=== PATIENT | male | born 1940 | race Caucasian/White ===

== ENCOUNTER 2017-08-10 15:33 | Inpatient (IN) | payer MEDICARE ==
[~2017-08-10] VITALS: Ht 182.9 cm; Wt 98.9 kg
[~2017-08-10 15:33] MED LIST: ALBU2.5V4 IH; ASP81TEC PO; ATOR10TA PO; CHOL10002 PO; CHOL200018 PO; DONE5TAB30 PO; DONE5TAB4 PO; ENAL10TA PO; FESO4TAB PO; FRSM20T PO; GLIP10TA13 PO; INSU100I14 SQ; INSU100I16 SQ; ISOS30TA3 PO; METF-380 PO; METF1000 PO; METO-370 PO; MTP25TSR PO; MULT1CAP27 PO; NITR0.4T39 SL; OMEG1CAP51 PO; OMEP20CA12 PO; OMEP40CA36 PO; OXYC-12 PO; PIOG30TA26 PO; PIOG30TA27 PO; POLY119P PO; POTA10CA43 PO; POTA10TA10 PO; RT-ALBUINH IH; SILO4CAP PO; SILO8CAP PO; TRAM50TA2 PO
[2017-08-10] MEDS ORDERED: NS IV 1000 ML 1,000 ML IV ONE ×2 (15:59→19:08)
[2017-08-10 16:28] LABS: BASOPHILS % (AUTO) 0 % (0-10); EOSINOPHILS # (AUTO) 0.1 10^3/uL (0.0-0.3); EOSINOPHILS % (AUTO) 2 % (0-10); LYMPHOCYTES # (AUTO) 1.7 X 10^3 (1.0-4.0); LYMPHOCYTES % (AUTO) 19 % (12-44); MEAN CORPUSCULAR HEMOGLOBIN 29 PG (25-34); MEAN CORPUSCULAR HGB CONC 33 G/DL (32-36); MEAN CORPUSCULAR VOLUME 88 FL (80-99); MEAN PLATELET VOLUME 11.5 FL (7.4-10.4); MONOCYTES # (AUTO) 0.6 X 10^3 (0.0-1.0); MONOCYTES % (AUTO) 7 % (0-12); NEUTROPHILS # (AUTO) 6.4 X 10^3 (1.8-7.8); NEUTROPHILS % (AUTO) 73 % (42-75); PLATELET COUNT 229 10^3/uL (130-400); RED BLOOD COUNT 5.02 10^6/uL (4.35-5.85); RED CELL DISTRIBUTION WIDTH 13.4 % (10.0-14.5); WHITE BLOOD COUNT 8.8 10^3/uL (4.3-11.0)
[2017-08-10 16:51] LABS: ALBUMIN 4.3 GM/DL (3.2-4.5); BILIRUBIN,TOTAL 1.5 MG/DL (0.1-1.0); CALCIUM 9.8 MG/DL (8.5-10.1); CREATININE SERUM 1.59 MG/DL (0.60-1.30); POTASSIUM 4.2 MMOL/L (3.6-5.0); TOTAL PROTEIN 7.3 GM/DL (6.4-8.2)
[2017-08-10] MEDS ORDERED: NS IV 1000 ML 1,000 ML IV SCH (17:45)
--- NOTE | 2017-08-10 17:50 | ED General ---
General Chief Complaint: General Problems/Pain Stated Complaint: DIZZINESS,CHILLS,DIARRHEA,STOMACH PAIN Nursing Triage Note: c/o generalized weakness/diaphoresis/diarreha. Onset today. Nursing Sepsis Screen: No Definite Risk Source of Information: Patient, Family Exam Limitations: No Limitations (ELIZABETH KAUFFMAN MD) History of Present Illness Time Seen by Provider: 17:45 Initial Comments The patient is a 76-year-old white male in [facility]. He was here a couple of weeks ago with acute dyspnea that may have related to the new prescription of imdur. This morning he apparently had a large diarrhea stool that was incontinent. Subsequently he has complained of dizziness, inability to stand, chills and abdominal pain. Timing/Duration: 12 Hours Associated Systoms: Diaphoresis, Syncope (near syncope), Weakness (ELIZABETH KAUFFMAN MD) Allergies and Home Medications Allergies Coded Allergies: Penicillins (Verified Allergy, Unknown, 05/01/12) Home Medications Albuterol Sulfate 6.7 Gm Hfa.aer.ad, 2 PUFF IH Q4H PRN for SHORTNESS OF BREATH, (Reported) Aspirin 81 Mg Tabec, 81 MG PO DAILY, (Reported) Atorvastatin Calcium 10 Mg Tablet, 10 MG PO HS, (Reported) LAST FILLED #30 02-01-16 Cholecalciferol 1,000 Unit Tab, 1,000 UNIT PO BID, (Reported) Donepezil Hcl 5 Mg Tab, 5 MG PO DAILY, (Reported) LAST FILLED #90 12-08-15 Enalapril Maleate 10 Mg Tablet, 10 MG PO DAILY, (Reported) LAST FILLED #90 12-08-15 Fesoterodine Fumarate 4 Mg Tab.sr.24h, 4 MG PO DAILY, (Reported) LAST FILLED #90 16 Furosemide 20 Mg Tab, 20 MG PO BID, (Reported) LAST FILLED #180 12-08-15 Insulin Aspart 300 Units/3 Ml Solution, 15 UNITS SQ AC, (Reported) Insulin Detemir 100 Unit/1 Ml Insuln.pen, 48 UNIT SQ HS, (Reported) FILLED 07-19-16 90 DAYS Isosorbide Mononitrate 30 Mg Tab.er.24h, 30 MG PO DAILY, #30 Ref 4 Prescribed by: TRAVIS SALAZAR on 08/06/16 1154 Metformin HCl 1,000 Mg Tablet, 1,000 MG PO BID, (Reported) Metoprolol Succinate 50 Mg Tab.er.24h, 25 MG PO DAILY, (Reported) LAST FILLED 90 DAYS 12-08-15 TAKES 1/2 (50MG) TABLET Nitroglycerin 0.4 Mg Tab.subl, 0.4 MG SL NEEDED, #100 Prescribed by: BASSAM POZO on 08/28/16 1316 [place]-3 Fatty Acids/Fish Oil 1 Each Capsule, 2,000 MG PO BID, (Reported) TAKE 2 (1000MG) CAPSULES Omeprazole 40 Mg Capsule.dr, 40 MG PO DAILY, (Reported) LAST FILLED #90 12-08-15 Pioglitazone HCl 30 Mg Tablet, 30 MG PO DAILY, (Reported) LAST FILLED #90 12-08-15 Potassium Chloride 10 Meq Tablet.er, 10 MEQ PO BID, (Reported) LAST FILLED #180 12-08-15 Silodosin 4 Mg Capsule, 4 MG PO DAILY, (Reported) LAST FILLED #90 12-08-15 Constitutional: see HPI EENTM: no symptoms reported Respiratory: no symptoms reported Cardiovascular: no symptoms reported Gastrointestinal: LLQ, diarrhea Genitourinary: no symptoms reported Musculoskeletal: no symptoms reported Skin: no symptoms reported Psychiatric/Neurological: No Symptoms Reported Hematologic/Lymphatic: No Symptoms Reported Immunological/Allergic: no symptoms reported (ELIZABETH KAUFFMAN MD) Past Xbupcqb-Xjwmzs-Hqmtoa Hx Patient Social History Alcohol Use: Denies Use Recreational Drug Use: No Smoking Status: Current Everyday Smoker Type Used: Cigars, Cigarettes, Pipe Former Smoker, Quit: Aug 04, 1980 Recent Foreign Travel: No Contact w/Someone Who Travel: No Recent Infectious Disease Expo: No Recent Hopitalizations: Yes (ELIZABETH KAUFFMAN MD) Immunizations Up To Date Tetanus Booster (TDap): Less than 5yrs PED Vaccines UTD: No Date of Pneumonia Vaccine: Aug 04, 2015 Date of Influenza Vaccine: Aug 27, 2012 (ELIZABETH KAUFFMAN MD) Seasonal Allergies Seasonal Allergies: No (ELIZABETH KAUFFMAN MD) Surgeries Surgeries: CABG (ELIZABETH KAUFFMAN MD) Respiratory Respiratory Disorders: Asthma, Pneumonia (ELIZABETH KAUFFMAN MD) Cardiovascular Cardiac Disorders: Cardiomyopathy, Coronary Artery Disease, High Cholesterol, Hypertension (ELIZABETH KAUFFMAN MD) Reproductive System Hx Reproductive Disorders: No (ELIZABETH KAUFFMAN MD) Musculoskeletal Musculoskeletal Disorders: Arthritis (ELIZABETH KAUFFMAN MD) Endocrine Endocrine Disorders: Diabetes, Insulin dep (ELIZABETH KAUFFMAN MD) HEENT HEENT Disorders: Cataract Loss of Vision: Denies (ELIZABETH KAUFFMAN MD) Blood Transfusions Adverse Reaction to a Blood Tr: No (ELIZABETH KAUFFMAN MD) Family Medical History Significant Family History: No Pertinent Family Hx Family Medial History: (ELIZABETH KAUFFMAN MD) Physical Exam Vital Signs Vital Sign - Last 12Hours 08/10/17 08/10/17 15:36 20:15 Temp 97.5 Pulse 78 Resp 18 Pulse Ox 95 O2 Delivery Room Air (IGLESIA SALTER DO) Vital Signs Capillary Refill : Less Than 3 Seconds (ELIZABETH KAUFFMAN MD) General Appearance: Mild Distress Eyes: Bilateral Eye Normal Inspection HEENT: Normal ENT Inspection Respiratory: Decreased Breath Sounds Cardiovascular: Regular Rate, Rhythm Gastrointestinal: Abnormal Bowel Sounds (decreased), Tenderness (left lower quadrant) Extremity: Normal Capillary Refill, Normal Inspection, Normal Range of Motion, Non Tender, No Calf Tenderness, No Pedal Edema Neurologic/Psychiatric: Alert, Oriented x3, No Motor/Sensory Deficits, Normal Mood/Affect Skin: Normal Color, Warm/Dry Lymphatic: No Adenopathy (ELIZABETH KAUFFMAN MD) Focused Exam Evaluation Sepsis Stage: Ruled Out (HYPOTENSION APPEARS TO BE DUE TO DEHYDRATION AT THIS TIME) Reason for ruling out sepsis: NO FEVER, NO ELEVATED WBC, NO IDENTIFIABLE INFECTION AT THIS TIME Lactate Level Laboratory Tests 08/10/17 16:15: Lactic Acid Level 2.49*H 08/10/17 18:17: Lactic Acid Level 2.14*H (GAETANOIGLESIA K DO) Time of Focused Exam: 18:00 Respiratory: Normal Breath Sounds, No Accessory Muscle Use, No Respiratory Distress Cardiovascular: Regular Rate, Rhythm, No Murmur, Normal Peripheral Pulses, Other (ABDOMINAL EXAM--MILD LLQ TENDERNESS. ) Capillary Refill: Less Than 3 Seconds Peripheral Pulses: 2+ Dorsalis Pedis (R), 2+ Left Dors-Pedis (L) Skin: warm/dry, pallor Lactic Acid Level (GAETANO,IGLESIA K DO) Progress/Results/Core Measures Results/Orders Lab Results Laboratory Tests Test 08/10/17 16:15 08/10/17 18:17 08/10/17 19:35 08/10/17 20:44 Range/Units White Blood Count 8.8 4.3-11.0 10^3/uL Red Blood Count 5.02 4.35-5.85 10^6/uL Hemoglobin 14.7 13.3-17.7 G/DL Hematocrit 44 40-54 % Mean Corpuscular Volume 88 80-99 FL Mean Corpuscular Hemoglobin 29 25-34 PG Mean Corpuscular Hemoglobin Concent 33 32-36 G/DL Red Cell Distribution Width 13.4 10.0-14.5 % Platelet Count 229 130-400 10^3/uL Mean Platelet Volume 11.5 H 7.4-10.4 FL Neutrophils (%) (Auto) 73 42-75 % Lymphocytes (%) (Auto) 19 12-44 % Monocytes (%) (Auto) 7 0-12 % Eosinophils (%) (Auto) 2 0-10 % Basophils (%) (Auto) 0 0-10 % Neutrophils # (Auto) 6.4 1.8-7.8 X 10^3 Lymphocytes # (Auto) 1.7 1.0-4.0 X 10^3 Monocytes # (Auto) 0.6 0.0-1.0 X 10^3 Eosinophils # (Auto) 0.1 0.0-0.3 10^3/uL Basophils # (Auto) 0.0 0.0-0.1 10^3/uL Sodium Level 137 135-145 MMOL/L Potassium Level 4.2 3.6-5.0 MMOL/L Chloride Level 104 98-107 MMOL/L Carbon Dioxide Level 20 L 21-32 MMOL/L Anion Gap 13 5-14 MMOL/L Blood Urea Nitrogen 18 7-18 MG/DL Creatinine 1.59 H 0.60-1.30 MG/DL Estimat Glomerular Filtration Rate 43 BUN/Creatinine Ratio 11 Glucose Level 248 H 70-105 MG/DL Lactic Acid Level 2.49 *H 2.14 *H 0.50-2.00 MMOL/L Calcium Level 9.8 8.5-10.1 MG/DL Total Bilirubin 1.5 H 0.1-1.0 MG/DL Aspartate Amino Transf (AST/SGOT) 19 5-34 U/L Alanine Aminotransferase (ALT/SGPT) 28 0-55 U/L Alkaline Phosphatase 66 40-136 U/L Total Protein 7.3 6.4-8.2 GM/DL Albumin 4.3 3.2-4.5 GM/DL Amylase Level 71 25-125 U/L Lipase 48 8-78 U/L Urine Color YELLOW Urine Clarity CLEAR Urine pH 5 5-9 Urine Specific [place] 1.010 L 1.016-1.022 Urine Protein NEGATIVE NEGATIVE Urine Glucose (UA) NEGATIVE NEGATIVE Urine Ketones NEGATIVE NEGATIVE Urine Nitrite NEGATIVE NEGATIVE Urine Bilirubin NEGATIVE NEGATIVE Urine Urobilinogen NORMAL NORMAL MG/DL Urine Leukocyte Esterase NEGATIVE NEGATIVE Urine RBC (Auto) NEGATIVE NEGATIVE Urine RBC NONE /HPF Urine WBC RARE /HPF Urine Crystals NONE /LPF Urine Bacteria NEGATIVE /HPF Urine Casts PRESENT /LPF Urine Hyaline Casts 10-25 H /LPF Urine Mucus NEGATIVE /LPF Urine Culture Indicated NO Glucometer 173 H 70-110 MG/DL (IGLESIA SALTER DO) My Orders Orders - IGLESIA SALTER DO Sputum Culture (08/10/17 18:49) Saline Lock/Iv-Start (08/10/17 19:06) Lactated Ringers (Lr 1000 Ml Iv Solution (08/10/17 19:06) Bladder Scan (08/10/17 19:06) Saline Lock/Iv-Start (08/10/17 19:08) Ns Iv 1000 Ml (Sodium Chloride 0.9%) (08/10/17 19:08) Catheter(Urinary) Insert & Ass 03,15 (08/10/17 19:31) Ceftriaxone Injection (Rocephin Injectio (08/10/17 19:45) Amylase (08/10/17 19:37) Lipase (08/10/17 19:37) Blood Culture (08/10/17 19:38) (IGLESIA SALTER DO) Medications Given in ED Current Medications Medications Dose Ordered Sig/Anoop Route Start Time Stop Time Status Last Admin Dose Admin Ceftriaxone Sodium 1000 mg/ Sodium Chloride 50 ml @ 100 mls/hr ONCE ONCE IV 08/10/17 19:45 08/10/17 20:14 DC 08/10/17 19:49 100 MLS/HR Iohexol 100 ml ONCE ONCE IV 08/10/17 18:15 08/10/17 18:16 DC 08/10/17 18:32 75 ML Sodium Chloride 100 ml ONCE ONCE IV 08/10/17 18:15 08/10/17 18:16 DC 08/10/17 18:32 100 ML Sodium Chloride 1,000 ml @ 0 mls/hr Q0M ONCE IV 08/10/17 15:59 08/10/17 16:01 DC 08/10/17 16:10 1,000 MLS/HR Sodium Chloride 1,000 ml @ 0 mls/hr Q0M ONCE IV 08/10/17 19:08 08/10/17 19:10 DC 08/10/17 19:11 0 MLS/HR (IGLESIA SALTER DO) Vital Signs/I&O Vital Sign - Last 12Hours 08/10/17 08/10/17 08/10/17 15:36 20:15 21:00 Temp 97.5 97.5 97.4 Pulse 78 73 Resp 18 16 B/P (MAP) Pulse Ox 95 O2 Delivery Room Air Room Air Room Air (IGLESIA SALTER DO) Progress Note : Progress Note 1800--ASSUMED CARE FROM , HE HAS DISCUSSED WITH DR. POZO AND PT HAS BEEN ACCEPTED FOR ADMIT, CT SCAN PENDING 1899--AFTER 2 LITERS OF FLUID, BP STILL 89 SYSTOLIC, AND NO URGE TO URINATE BLADDER SCAN SHOWS 432 ML URINE IN BLADDER, BUT PT DOES NOT FEEL LIKE HE CAN URINATE. THAKKAR CATHETER PLACED. BP UP TO MID 90'S TO LOW 100'S AFTER 3RD LITER OF FLUIDS NO DETERIORATION IN PT'S CONDITION DURING ER STAY (IGLESIA SALTER DO) Diagnostic Imaging Comments CXR--NO ACUTE PROCESS, BUT SUBOPTIMAL EXAM--PER RADIOLOGIST REPORT @ 1850 CT ABDOMEN/PELVIS--ENLARGED PROSTATE, DIVERTICULAR DISEASE WITHOUT ACUTE DIVERTICULITIS--PER RADIOLOGIST REPORT @ 1900 Reviewed: Reviewed by Me (IGLESIA SALTER DO) Departure Communication (Admissions) Progress Notes [address] Pozo hospitalist. The patient will be admitted (ELIZABETH KAUFFMAN MD) Progress Notes 1904--SPOKE WITH DR. POZO, UPDATE GIVEN, ACCEPTS PT FOR ADMIT TO ICU, WILL HYDRATE AND GIVE PROPHYLACTIC ANTIBIOTICS (IGLESIA SALTER DO) Impression Impression: Primary Impression: Dehydration Additional Impressions: LLQ abdominal pain Hypotension Enlarged prostate Disposition: ADMITTED INPATIENT Condition: Improved Admissions Decision to Admit Reason: Admit from ER (General) Decision to Admit/Date: Aug 10, 2017 Time/Decision to Admit Time: 18:00 (IGLESIA SALTER DO) Departure-Patient Inst. Referrals: FANG ROLLINS MD (PCP/Family) Primary Care Physician ELIZABETH KAUFFMAN MD Aug 10, 2017 17:50 IGLESIA SALTER DO Aug 10, 2017 18:47
[2017-08-10] MEDS ORDERED: IOHEXOL 350 MG/ML 100 ML (OMNIPAQUE 350) VIAL IV ONE (18:15)
[2017-08-10] MEDS ORDERED: NS 100 ML (IVPB) BAG IV ONE (18:15)
--- NOTE | 2017-08-10 18:43 | Diagnostic Imaging Report ---
INDICATION: Dizziness, chills. EXAMINATION: Portable erect AP chest at 5:50 p.m. FINDINGS: This study is less than optimal as the patient is rotated and there is shallow inspiration. Allowing for this technical factor, the heart is stable in size when compared to the prior exam of 08/27/16. The sternotomy wires and surgical clips, noted previously, are again evident and no different. The band of atelectasis/infiltrate in the left heart border, seen on the previous study, is not visualized on this exam. The lungs, where visualized, are clear. There is no evidence for overt failure or pneumonia and there is no significant pleural effusion identified. The mediastinum is not widened. The osseous structures are intact. IMPRESSION: 1. There is no evidence for an acute cardiopulmonary abnormality on this suboptimal exam. 2. If clinical concern regarding an underlying abnormality persists, then a followup PA and lateral chest would be recommended for further study. Dictated by: Dictated on workstation # [id number]
--- NOTE | 2017-08-10 18:56 | Diagnostic Imaging Report ---
PROCEDURE: CT abdomen and pelvis with contrast. TECHNIQUE: Multiple contiguous axial images were obtained through the abdomen and pelvis after administration of intravenous contrast. INDICATION: Left lower quadrant pain. FINDINGS: The previous CT abdomen/pelvis exam of 02/26/2013 noted diverticulosis of the sigmoid colon but failed to show any sign of acute diverticulitis. On this exam, there are again numerous diverticula involving the sigmoid colon. However, there is still no significant distortion of the pericolic fat to suggest acute diverticulitis. There is no pelvic mass or free fluid collection noted either. The appendix was visualized and is not abnormally thickened. As seen on the prior exam, the prostate gland is enlarged measuring 5.2 cm (normal 5 cm or less). The urinary bladder is also distended by urine. The liver is of lower density than usually seen. This does suggest fatty metamorphosis. The spleen, pancreas, adrenals, kidneys, aorta, and inferior vena cava show no sign of an acute abnormality. The gallbladder is surgically absent. There is some fluid within the stomach, and the stomach is difficult to assess. The lung bases are clear. The bone windows show no evidence for a fracture or for a destructive lesion. There are degenerative changes throughout the lower thoracic and lumbar spine. IMPRESSION: 1. There is diverticulosis of the sigmoid colon, but there is no evidence for acute diverticulitis. 2. There is no acute abnormality of the abdomen or pelvis noted otherwise. 3. The prostate gland is enlarged. Dictated by: Dictated on workstation # [id number]
[2017-08-10] MEDS ORDERED: LACTATED RINGERS 1,000 ML IV ONE (19:06)
[2017-08-10 19:43] LABS: BILIRUBIN,URINE NEGATIVE (NEGATIVE); KETONES,URINE NEGATIVE (NEGATIVE); LEUKOCYTE ESTERASE ,URINE NEGATIVE (NEGATIVE); NITRITE,URINE NEGATIVE (NEGATIVE); PH,URINE 5 (5-9); PROTEIN,URINE NEGATIVE (NEGATIVE); UROBILINOGEN,URINE NORMAL (NORMAL)
[2017-08-10] MEDS ORDERED: cefTRIAXone INJECTION 1,000 MG in NS (IVPB) 50 ML IV ONE (19:45)
[2017-08-10 19:53] LABS: WBC,URINE RARE /HPF
[2017-08-10 19:53] LABS: AMYLASE 71 U/L (25-125); LIPASE 48 U/L (8-78)
[2017-08-10 20:51] VITALS: BP 100/56
[2017-08-10 21:00] VITALS: BP 94/56
[2017-08-10] MEDS ORDERED: D5 1/2 NS W/KCL 10 MEQ/L 1,000 ML IV SCH (21:15)
[2017-08-10] MEDS ORDERED: CATHETER FLUSH 10 ML SYR IV PRN (21:15)
[2017-08-10] MEDS ORDERED: ONDANSETRON 4 MG/2 ML (SDV) Z0FRAN IV PRN (21:15)
[2017-08-10] MEDS ORDERED: fentaNYL INJECTION 100 MCG/2 ML AMP IV PRN (21:15)
[2017-08-10 22:00] VITALS: BP 97/57
[2017-08-10] MEDS ORDERED: NS IV 500 ML 500 ML IV SCH (22:30)
[2017-08-10] MEDS ORDERED: PANTOPRAZOLE 40 MG (PROTONIX) TAB PO ONE (22:30)
[2017-08-10 23:00] VITALS: BP 99/73
[2017-08-10] MEDS: CATHETER FLUSH 10 ML SYR IV SCH (23:32)
[2017-08-10] MEDS: NS IV 1000 ML 1,000 ML IV SCH (23:34)
[2017-08-11] VITALS (13 sets, daily range): BP systolic 99–151; BP diastolic 51–69
[2017-08-11 04:10] LABS: BASOPHILS % (AUTO) 0 % (0-10); EOSINOPHILS # (AUTO) 0.1 10^3/uL (0.0-0.3); EOSINOPHILS % (AUTO) 1 % (0-10); LYMPHOCYTES # (AUTO) 1.9 X 10^3 (1.0-4.0); LYMPHOCYTES % (AUTO) 24 % (12-44); MEAN CORPUSCULAR HEMOGLOBIN 30 PG (25-34); MEAN CORPUSCULAR HGB CONC 33 G/DL (32-36); MEAN CORPUSCULAR VOLUME 91 FL (80-99); MONOCYTES # (AUTO) 0.8 X 10^3 (0.0-1.0); MONOCYTES % (AUTO) 10 % (0-12); NEUTROPHILS % (AUTO) 64 % (42-75); PLATELET COUNT 160 10^3/uL (130-400); RED BLOOD COUNT 4.26 10^6/uL (4.35-5.85); RED CELL DISTRIBUTION WIDTH 13.5 % (10.0-14.5); WHITE BLOOD COUNT 7.8 10^3/uL (4.3-11.0)
[2017-08-11 04:27] LABS: ALANINE AMINOTRANSFERASE 22 U/L (0-55); ALBUMIN 3.5 GM/DL (3.2-4.5); ANION GAP 8 MMOL/L (5-14); ASPARTATE AMINO TRANSFERASE 15 U/L (5-34); BILIRUBIN,TOTAL 1.1 MG/DL (0.1-1.0); BLOOD UREA NITROGEN 14 MG/DL (7-18); BUN/CREATININE RATIO 12; CALCIUM 8.6 MG/DL (8.5-10.1); CARBON DIOXIDE 22 MMOL/L (21-32); CHLORIDE 109 MMOL/L (98-107); CREATININE SERUM 1.13 MG/DL (0.60-1.30); GFR ESTIMATED > 60; GLUCOSE 165 MG/DL (70-105); MAGNESIUM 1.6 MG/DL (1.8-2.4); PHOSPHORUS 3.3 MG/DL (2.3-4.7); POTASSIUM 4.3 MMOL/L (3.6-5.0); SODIUM 139 MMOL/L (135-145); TOTAL PROTEIN 5.8 GM/DL (6.4-8.2)
[2017-08-11] MEDS: CATHETER FLUSH 10 ML SYR IV SCH ×3 (05:14→22:00)
[2017-08-11] MEDS ORDERED: inSUlin (REGULAR) HUMAN 1 UNIT/0.01 ML (CHARGE PER UNIT) SC SCH (06:00)
[2017-08-11] MEDS ORDERED: MAGNESIUM 1 GM/100 ML IVPB 100 ML IV SCH (06:00)
[2017-08-11] MEDS ORDERED: KCL 20 MEQ TAB (K-DUR) PO SCH (06:00)
[2017-08-11] MEDS ORDERED: POTASSIUM CL 10MEQ/50ML IVPB 50 ML IV SCH (06:00)
--- NOTE | 2017-08-11 06:20 | Pulmonary Consultation ---
History of Present Illness History of Present Illness Date of Consultation 08/11/17 06:15 Time Seen by Provider: 06:16 Date of Admission History of Present Illness 75yo presented to ED secondary to not feeling well and diarrhea that started 530 yesterday morning. He was found to have hypotension and dehydrated. PT's hypotension did resolve with IVF. No prior episodes like this. CDiff is pending and occult stool. He was also complaining of dizziness, and LLQ/RUQ pain worse with palpation. I am consulted for ICU management. Allergies and Home Medications Allergies Coded Allergies: Penicillins (Verified Allergy, Unknown, 05/01/12) Home Medications Albuterol Sulfate 6.7 Gm Hfa.aer.ad, 2 PUFF IH Q4H PRN for SHORTNESS OF BREATH, (Reported) Aspirin 81 Mg Tabec, 81 MG PO DAILY, (Reported) Atorvastatin Calcium 10 Mg Tablet, 10 MG PO HS, (Reported) LAST FILLED #30 02-01-16 Cholecalciferol 1,000 Unit Tab, 1,000 UNIT PO BID, (Reported) Donepezil Hcl 5 Mg Tab, 5 MG PO DAILY, (Reported) LAST FILLED #90 12-08-15 Enalapril Maleate 10 Mg Tablet, 10 MG PO DAILY, (Reported) LAST FILLED #90 12-08-15 Fesoterodine Fumarate 4 Mg Tab.sr.24h, 4 MG PO DAILY, (Reported) LAST FILLED #90 12-08-15 Furosemide 20 Mg Tab, 20 MG PO BID, (Reported) LAST FILLED #180 12-08-15 Insulin Aspart 300 Units/3 Ml Solution, 15 UNITS SQ AC, (Reported) Insulin Detemir 100 Unit/1 Ml Insuln.pen, 48 UNIT SQ HS, (Reported) FILLED 07-19-16 90 DAYS Isosorbide Mononitrate 30 Mg Tab.er.24h, 30 MG PO DAILY, #30 Ref 4 Prescribed by: TRAVIS SALAZAR on 08/06/16 1154 Metformin HCl 1,000 Mg Tablet, 1,000 MG PO BID, (Reported) Metoprolol Succinate 50 Mg Tab.er.24h, 25 MG PO DAILY, (Reported) LAST FILLED 90 DAYS 12-08-15 TAKES 1/2 (50MG) TABLET Nitroglycerin 0.4 Mg Tab.subl, 0.4 MG SL NEEDED, #100 Prescribed by: BASSAM POZO on 08/28/16 1316 [place]-3 Fatty Acids/Fish Oil 1 Each Capsule, 2,000 MG PO BID, (Reported) TAKE 2 (1000MG) CAPSULES Omeprazole 40 Mg Capsule.dr, 40 MG PO DAILY, (Reported) LAST FILLED #90 12-08-15 Pioglitazone HCl 30 Mg Tablet, 30 MG PO DAILY, (Reported) LAST FILLED #90 12-08-15 Potassium Chloride 10 Meq Tablet.er, 10 MEQ PO BID, (Reported) LAST FILLED #180 12-08-15 Silodosin 4 Mg Capsule, 4 MG PO DAILY, (Reported) LAST FILLED #90 12-08-15 Past Svrahev-Kucslq-Hoicyw Hx Patient Social History Alcohol Use: Denies Use Recreational Drug Use: No Smoking Status: Current Everyday Smoker Type Used: Cigars, Cigarettes, Pipe Former Smoker, Quit: Aug 04, 1980 Recent Foreign Travel: No Contact w/Someone Who Travel: No Recent Infectious Disease Expo: No Recent Hopitalizations: Yes Immunizations Up To Date Tetanus Booster (TDap): Less than 5yrs PED Vaccines UTD: No Date of Pneumonia Vaccine: Aug 04, 2015 Date of Influenza Vaccine: Aug 27, 2012 Seasonal Allergies Seasonal Allergies: No Surgeries History of Surgeries: Yes (KIDNEY STONES REMOVED) Surgeries: CABG Respiratory History of Respiratory Disorde: Yes Respiratory Disorders: Asthma, Pneumonia Cardiovascular History of Cardiac Disorders: Yes (CABG x 3 2007) Cardiac Disorders: Cardiomyopathy, Coronary Artery Disease, High Cholesterol, Hypertension Neurological History of Neurological Disord: No Reproductive System Hx Reproductive Disorders: No Genitourinary History of Genitourinary Disor: Yes Genitourinary Disorders: Kidney Stones Gastrointestinal History of Gastrointestinal Di: No Musculoskeletal History of Musculoskeletal Dis: Yes (UNSTEADY ON FEET USES WALKER AT HOME) Musculoskeletal Disorders: Arthritis Endocrine History of Endocrine Disorders: Yes Endocrine Disorders: Diabetes, Insulin dep HEENT History of HEENT Disorders: Yes HEENT Disorders: Cataract Loss of Vision: Denies Hearing Impairment: Hard of Hearing Cancer History of Cancer: No Psychosocial History of Psychiatric Problem: No Integumentary History of Skin or Integumenta: No Blood Transfusions History of Blood Disorders: No Adverse Reaction to a Blood Tr: No Family Medical History Significant Family History: No Pertinent Family Hx Family Medial History: Review of Systems Time Seen by Provider: 06:26 Constitutional: Sweats, Weakness, Malaise, No: Fever, Chills, Other Eyes: No: Pain, Vision change, Conjunctivae inflammation, Eyelid inflammation, Other, Redness ENT: No: Ear pain, Ear discharge, Nose pain, Nose discharge, Nose congestion, Mouth pain, Mouth swelling, Throat pain, Throat swelling, Other Respiratory: Cough, Dry, Shortness of breath, SOB with excertion, No: Wheezing , Hemoptysis, Pleuritic Pain, Sputum, Wheezing, Other Cardiovascular: No: Chest Pain, Palpitations, Orthopnea, Paroxysmal Noc. Dyspnea, Edema, Lt Headedness, Other Gastrointestinal: Abdominal Pain, Diarrhea, No: Nausea, Vomiting, Constipation , Melena, Hematochezia, Other Genitourinary: No Dysuria, No Frequency, No Incontinence, No Hematuria, No Retention, No Other Musculoskeletal: No: other, neck pain, shoulder pain, arm pain, back pain, hand pain, leg pain, foot pain Neurological: Weakness Exam Exam Vital Signs Date Time Temp Pulse Resp B/P (MAP) Pulse Ox O2 Delivery O2 Flow Rate FiO2 08/11/17 05:00 97 Room Air 08/11/17 05:00 67 14 115/56 08/11/17 04:00 64 11 113/59 08/11/17 04:00 97.6 98 Room Air 08/11/17 04:00 97 Room Air 08/11/17 03:00 67 11 111/54 08/11/17 03:00 97 Room Air 08/11/17 02:00 61 10 101/55 08/11/17 02:00 96 Room Air 08/11/17 01:00 95 Room Air 08/11/17 01:00 77 08/11/17 01:00 77 14 100/53 Room Air 08/11/17 00:00 64 10 99/51 Room Air 08/11/17 00:00 97 Room Air 08/11/17 00:00 97 Room Air 08/10/17 23:00 73 31 99/73 Room Air 08/10/17 22:00 97 Room Air 08/10/17 22:00 73 14 97/57 Room Air 08/10/17 21:00 75 13 94/56 Room Air 08/10/17 21:00 97.4 Room Air 08/10/17 20:51 75 14 100/56 Room Air 08/10/17 20:33 72 08/10/17 20:15 97.5 73 16 95 Room Air 08/10/17 15:36 97.5 78 18 Room Air General Appearance: Mild Distress HEENT: Normal ENT Inspection Respiratory: Normal Breath Sounds, No Accessory Muscle Use, No Respiratory Distress Cardiovascular: Regular Rate, Rhythm, No Murmur, Normal Peripheral Pulses, Other (ABDOMINAL EXAM--MILD LLQ TENDERNESS. ) Capillary Refill: Less Than 3 Seconds Peripheral Pulses: 2+ Dorsalis Pedis (R), 2+ Left Dors-Pedis (L) Extremity: Normal Capillary Refill, Normal Inspection, Normal Range of Motion, Non Tender, No Calf Tenderness, No Pedal Edema Neurologic/Psychiatric: Alert, Oriented x3, No Motor/Sensory Deficits, Normal Mood/Affect Skin: Normal Color, Warm/Dry Lymphatic: No Adenopathy Results Lab Laboratory Tests 08/10/17 16:15 08/11/17 03:44 Assessment/Plan Assessment/Plan hypotension secondary to Dehydration - resolved -NS at 150 diarrhea -cdiff pending -Pt is currently on Rocephin will change to PO flagyl Diverticulosis Hx of asthma - stable IDDM Labs and radiology reviewed. PT is doing better I am going to transfer him to 4th floor. 255 Clinical Quality Measures DVT/VTE Risk/Contraindication: Risk Factor Score Per Nursin RFS Level Per Nursing on Admit: 4+=Very High OLEGARIO GAXIOLA DO Aug 11, 2017 06:20
[2017-08-11] MEDS ORDERED: IBUPROFEN TABLET 200 MG TAB PO PRN (06:30)
--- NOTE | 2017-08-11 08:13 | Diagnostic Imaging Report ---
Portable upright radiograph of the chest. INDICATION: Hypertension. FINDINGS: There is a left basilar opacities favored to be atelectasis, increased from the prior exam. The right lung demonstrate no focal infiltrates. Prominent background chronic appearing interstitial thickening seen. The heart size is slightly prominent. Sternotomy wires are seen. No effusion or pneumothorax. Mediastinum and margaret appear unremarkable. IMPRESSION: Increased left basilar atelectasis. Dictated by: Dictated on workstation # [id number]
[2017-08-11] MEDS: inSUlin (REGULAR) HUMAN 1 UNIT/0.01 ML (CHARGE PER UNIT) SC SCH ×4 (08:14→20:53)
[2017-08-11] MEDS: MAGNESIUM 1 GM/100 ML IVPB 100 ML IV SCH ×2 (08:15→08:16)
[2017-08-11] MEDS: NS IV 1000 ML 1,000 ML IV SCH ×4 (08:26→21:02)
[2017-08-11] MEDS: PANTOPRAZOLE 40 MG (PROTONIX) TAB PO SCH ×2 (08:33→21:02)
[2017-08-11] MEDS: ENOXAPARIN 40 MG/0.4 ML (LOVENOX) SYR SC SCH (08:33)
[2017-08-11] MEDS ORDERED: DONE5TAB30 PO (09:45)
[2017-08-11] MEDS ORDERED: OMEG-77 PO (09:45)
[2017-08-11] MEDS ORDERED: ASPI-983 PO (09:45)
[2017-08-11] MEDS ORDERED: FURO20TA4 PO (09:45)
[2017-08-11] MEDS ORDERED: CHOL10007 PO (09:45)
[2017-08-11] MEDS ORDERED: NITR0.4T SL (09:45)
[2017-08-11] MEDS ORDERED: ISOS30TA3 PO (09:45)
[2017-08-11] MEDS ORDERED: ENAL10TA PO (09:45)
[2017-08-11] MEDS ORDERED: INSU100I29 SC (09:53)
[2017-08-11] MEDS ORDERED: GLUC1KIT INJ (09:55)
--- NOTE | 2017-08-11 11:02 | History & Physical-Hospitalist ---
HPI History of Present Illness: HPI/Chief Complaint CC: Lower left quadrant pain HPI: This is a [address] Funes who presented with lower left quadrant pain and was found to have hypotension and dehydration Dr. Velásquez Review: Pt's diarrhea looks to be the source of dehydration Pt was taken off Rocephin and started Flagyl CT abdomen showed diverticulosis Pt has a hx of asthma and this is stable Pt is okay to transfer to floor Patient Interview: Pt's family was visiting Pt is feeling better than when admitted. Pt confirms abdominal pain that comes and goes and he confirms pain med usage Pt confirms PCP as Dr. Funes Physical exam stable Pt's family states that he moves around with walker, but he was brought here by wheelchair Pt was encouraged to move around a bit and ambulate. Family will retrieve walker from home Pt's family was curious about his condition. Colon infection and medications discussed. Results will be further discussed when they are available Scribed by Catia Contreras under the direct supervision of Dr. Pozo. Source: patient Exam Limitations: no limitations Date Seen 08/11/17 Time Seen by Provider: 11:00 Attending Physician Cinthia Pozo John D MD Referring Physician Date of Admission Aug 10, 2017 at 20:04 Home Medications & Allergies Home Medications Reviewed patient Home Medication Reconciliation Form Allergies Allergies Coded Allergies Penicillins (Verified Allergy, Unknown, 05/01/12) Past Fmdmgpc-Vzvvbg-Cdalpc Hx Patient Social History Marrital Status: Employed/Student: retired Alcohol Use: Denies Use Recreational Drug Use: No Smoking Status: Current Everyday Smoker Former Smoker, Quit: Aug 04, 1980 Type Used: Cigars, Cigarettes, Pipe Physical Abuse Screen: No Sexual Abuse: No Recent Foreign Travel: No Contact w/other who traveled: No Recent Hopitalizations: Yes Recent Infectious Disease Expo: No Immunizations Up To Date Tetanus Booster (TDap): Less than 5yrs Pediatric: No Date of Pneumonia Vaccine: Aug 04, 2015 Date of Influenza Vaccine: Aug 27, 2012 Seasonal Allergies Seasonal Allergies: No Surgeries Yes (KIDNEY STONES REMOVED) CABG Respiratory Yes COPD Cardiovascular Yes (CABG x 3 2007) Cardiomyopathy, Coronary Artery Disease, High Cholesterol, Hypertension Neurological No Reproductive System Hx Reproductive Disorders: No Genitourinary Yes Kidney Stones Gastrointestinal No Musculoskeletal Yes (UNSTEADY ON FEET USES WALKER AT HOME) Arthritis Endocrine History of Endocrine Disorders: Yes Endocrine Disorders: Diabetes, Insulin dep HEENT History of HEENT Disorders: Yes HEENT Disorders: Cataract Loss of Vision: Denies Hearing Impairment: Hard of Hearing Cancer No Psychosocial History of Psychiatric Problem: No Integumentary History of Skin or Integumenta: No Blood Transfusions History of Blood Disorders: No Adverse Reaction to a Blood Tr: No Family Medical History Significant Family History: No Pertinent Family Hx Family Hx: Review of Systems Constitutional: see HPI, weakness EENTM: no symptoms reported Respiratory: no symptoms reported Cardiovascular: no symptoms reported Gastrointestinal: abdominal pain (LLQ) Genitourinary: decreased output Musculoskeletal: no symptoms reported Skin: no symptoms reported Psychiatric/Neurological: No Symptoms Reported Physical Exam Physical Exam Vital Signs Vital Sign - Last 12Hours 08/10/17 08/10/17 08/10/17 15:36 20:15 20:51 Temp 97.5 Pulse 78 Resp 18 B/P (MAP) 100/56 Pulse Ox 95 O2 Delivery Room Air Capillary Refill : Less Than 3 Seconds General Appearance: No Apparent Distress, WD/WN, Chronically ill, Obese Eyes: Bilateral Eye Normal Inspection, Bilateral Eye PERRL HEENT: PERRL/EOMI, Normal ENT Inspection, Pharynx Normal Neck: Full Range of Motion, Normal Inspection, Non Tender, Supple, Carotid Bruit Respiratory: Chest Non Tender, Lungs Clear, Normal Breath Sounds, No Accessory Muscle Use, No Respiratory Distress Cardiovascular: Regular Rate, Rhythm, No Edema, No Gallop, No JVD, No Murmur, Normal Peripheral Pulses Gastrointestinal: Normal Bowel Sounds, No Organomegaly, No Pulsatile Mass, Non Tender, Soft Back: Normal Inspection, No CVA Tenderness, No Vertebral Tenderness Extremity: Normal Capillary Refill, Normal Inspection, Normal Range of Motion, Non Tender, No Calf Tenderness, No Pedal Edema Neurologic/Psychiatric: Alert, Oriented x3, No Motor/Sensory Deficits, Normal Mood/Affect Skin: Normal Color, Warm/Dry Lymphatic: No Adenopathy Results Results/Procedures Lab Laboratory Tests 08/10/17 16:15 08/11/17 03:44 Assessment/Plan Admission Diagnosis Assessment: Acute abdominal pain nonspecific but could be due to diverticulosis process Status post sepsis due to dehydration now resolved Diabetes mellitus Hypertension as an outpatient Hyperlipidemia Chronic debility uses walker at home CAD Chronic angina Assessment and Plan Plan: Advance diet Reconcile home meds Ambulate, with walker Flagyl Clinical Quality Measures DVT/VTE Risk/Contraindication: Risk Factor Score Per Nursin RFS Level Per Nursing on Admit: 4+=Very High CINTHIA POZO DO Aug 11, 2017 11:02
[2017-08-11] MEDS ORDERED: NITROGLYCERIN 0.4 MG SL TABS BTL 25'S SL PRN (11:15)
[2017-08-11] MEDS ORDERED: GLUCAGON EMERGENCY 1 MG/KIT SC PRN (11:15)
[2017-08-11] MEDS ORDERED: RT-ALBUTEROL SULF 2.5 MG/3 ML PRE-MIX VIAL IH PRN (11:45)
[2017-08-11] MEDS: metroNIDAZOLE 500MG/100ML IVPB 100 ML IV SCH ×2 (13:26→21:01)
--- NOTE | 2017-08-11 15:07 | Physical Therapy Evaluation ---
PT Evaluation-General Medical Diagnosis Admission Date Aug 10, 2017 at 20:04 Medical Diagnosis: LLQ pain/dehydration Onset Date: Aug 10, 2017 Therapy Diagnosis Therapy Diagnosis: generalized weakness/debility Height/Weight Height (Feet): 6 Height (Inches): 0.00 Weight (Pounds): 221 Weight (Ounces): 8.0 Precautions Precautions/Isolations: Fall Prevention, Standard Precautions Referral Physician: Liss Reason for Referral: Evaluation/Treatment Medical History Pertinent Medical History: CABG, CAD, COPD, DM, HTN, Smoking Current History ER with dizziness, diarrhea, hypotension Reviewed History: Yes Social History Home: Single Level Current Living Status: Spouse Entry Into Home: Stairs With Railing PT Steps Into Home: 2 Prior/Core FIM Prior Level of Function Functional [place] Measure 0=Not Assessed/NA 4=Minimal Assistance 1=Total Assistance 5=Supervision or Setup 2=Maximal Assistance 6=Modified [place] 3=Moderate Assistance 7=Complete [place] Bed Mobility: 6 Transfers (B,C,W/C) (FIM): 6 Gait: 6 uses FWW PT Evaluation-Current Subjective Patient agrees to PT. No c/o at this time. Pain Numeric Pain Scale: 0-No Pain Location: No Pain Reported Objective Patient Orientation: Normal For Age Problem Solving: Fair Attachments: IV ROM/Strength ROM Lower Extremities bilateral LE WNL Strenght Lower Extremities left knee flexion/extension 4-/5; hip flexion 4-/5; ankle dorsi/plantarflexion 4 /5 right knee flexion/extension 4-/5; hip flexion 4-/5; ankle dorsi/plantarflexion 4/5 Integumentary/Posture Integumentary refer to nursing notes Bladder Incontinence: Yes Posture trunk flexed posture in stand; flexed knee stance Neuromuscular (Tone, Coordination, Reflexes) diminished coordination Sensory Vision: Functional Hearing: Impaired Sensation Right Lower Extremit: Impaired Sensation Left Lower Extremity: Impaired Transfers Functional [place] Measure 0=Not Assessed/NA 4=Minimal Assistance 1=Total Assistance 5=Supervision or Setup 2=Maximal Assistance 6=Modified [place] 3=Moderate Assistance 7=Complete [place] Transfers (B, C, W/C) (FIM): 4 Scootin Supine to/from Sit: 4 Sit to/from Stand: 4 Gait Mode of Locomotion: Walk Anticipated Mode of Locomotion: Walk Gait (FIM): 2 Distance (FIM): 6=166-56 ft Distance: 75' Gait Level of Assist: 4 Gait Assistive Device: FWW Comments/Gait Description unsteady, step to gait sequence leading with left LE with right LE lag Balance Sitting Static: Normal Sitting Dynamic: Normal Standing Static: Fair Standing Dynamic: Fair Assessment/Needs 76 y.o. male, will benefit from skilled PT to address functional strength and mobility to improve current LOF and to safely return to home or care facility at maximum LOF. Patient is currently unsafe with mobility requiring assistance of 1 for safety. 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 [employer] Goals Time Frame: Aug 25, 2017 Transfers (B,C,W/C) (FIM): 6 Gait (FIM): 6 Gait distance (FIM): 3=150 ft Gait Level of Assist: 6 Gait Assistive Device: FWW PT Plan Problem List Problem List: Activity Tolerance, Functional Strength, Safety, Balance, Gait, Transfer, Bed Mobility Treatment/Plan Treatment Plan: Continue Plan of Care Treatment Plan: Bed Mobility, Education, Functional Activity Samantha, Functional Strength, Gait, Safety, Therapeutic Exercise, Transfers Treatment Duration: Aug 25, 2017 Frequency: 6 times per week Estimated Hrs Per Day: .5 hour per day Patient and/or Family Agrees t: Yes Safety Risks/Education Patient Education: Safety Issues Teaching Recipient: Patient Teaching Methods: Discussion Response to Teaching: Reinforcement Needed Discharge Recommendations Therapy D/C Recommendations: Shelter (TCU/NH) Time/GCodes Time In: 1326 Time Out: 1341 Total Billed Treatment Time: 15 Total Billed Treatment 1 visit EVLowC 15 min ANIL SADLER PT Aug 11, 2017 15:07
[2017-08-11] MEDS: inSUlin ASPART (NovoLOG) 1 UNIT/0.01 ML (CHARGE PER UNIT) SC SCH (17:32)
[2017-08-11] MEDS ORDERED: ATORVASTATIN 10 MG (LIPITOR) TABLET PO SCH (21:00)
[2017-08-11] MEDS ORDERED: inSUlin DETERMIR 1 UNIT/0.01 ML (LEVEMIR) CHARGE PER UNIT SQ SCH (21:00)
[2017-08-11] MEDS ORDERED: cefTRIAXone 1 GM/NS 50 ML IVPB IV SCH ×2 (21:00)
[2017-08-11] MEDS: OMEGA 3 (FISH OIL) 1000 MG CAP PO SCH (21:01)
[2017-08-11] MEDS: FUROSEMIDE 20 MG (LASIX) TAB PO SCH (21:02)
[2017-08-11] MEDS: VITAMIN D3 1,000 UNITS (CHOLECALCIFEROL) TABLET PO SCH (21:02)
[2017-08-11] MEDS: KCL 10 MEQ TAB (MICRO K) PO SCH (21:02)
[2017-08-12 00:35] VITALS: BP 140/64
[2017-08-12 03:50] VITALS: BP 136/69
[2017-08-12] MEDS: NS IV 1000 ML 1,000 ML IV SCH (04:41)
[2017-08-12] MEDS: metroNIDAZOLE 500MG/100ML IVPB 100 ML IV SCH (05:26)
[2017-08-12] MEDS: ENOXAPARIN 40 MG/0.4 ML (LOVENOX) SYR SC SCH (05:26)
[2017-08-12] MEDS: CATHETER FLUSH 10 ML SYR IV SCH (05:28)
[2017-08-12 05:46] LABS: BASOPHILS % (AUTO) 0 % (0-10); EOSINOPHILS # (AUTO) 0.1 10^3/uL (0.0-0.3); EOSINOPHILS % (AUTO) 3 % (0-10); LYMPHOCYTES # (AUTO) 1.8 X 10^3 (1.0-4.0); LYMPHOCYTES % (AUTO) 32 % (12-44); MEAN CORPUSCULAR HEMOGLOBIN 30 PG (25-34); MEAN CORPUSCULAR HGB CONC 33 G/DL (32-36); MEAN CORPUSCULAR VOLUME 90 FL (80-99); MEAN PLATELET VOLUME 11.2 FL (7.4-10.4); MONOCYTES # (AUTO) 0.5 X 10^3 (0.0-1.0); MONOCYTES % (AUTO) 9 % (0-12); NEUTROPHILS # (AUTO) 3.1 X 10^3 (1.8-7.8); NEUTROPHILS % (AUTO) 56 % (42-75); PLATELET COUNT 152 10^3/uL (130-400); RED BLOOD COUNT 4.36 10^6/uL (4.35-5.85); RED CELL DISTRIBUTION WIDTH 13.5 % (10.0-14.5); WHITE BLOOD COUNT 5.5 10^3/uL (4.3-11.0)
[2017-08-12] MEDS: inSUlin (REGULAR) HUMAN 1 UNIT/0.01 ML (CHARGE PER UNIT) SC SCH ×2 (05:58→11:17)
[2017-08-12 06:07] LABS: ANION GAP 8 MMOL/L (5-14); BLOOD UREA NITROGEN 8 MG/DL (7-18); BUN/CREATININE RATIO 10; CALCIUM 8.9 MG/DL (8.5-10.1); CARBON DIOXIDE 22 MMOL/L (21-32); CHLORIDE 114 MMOL/L (98-107); CREATININE SERUM 0.83 MG/DL (0.60-1.30); GFR ESTIMATED > 60; GLUCOSE 112 MG/DL (70-105); MAGNESIUM 1.7 MG/DL (1.8-2.4); PHOSPHORUS 2.8 MG/DL (2.3-4.7); POTASSIUM 3.6 MMOL/L (3.6-5.0); SODIUM 144 MMOL/L (135-145)
[2017-08-12] MEDS: inSUlin ASPART (NovoLOG) 1 UNIT/0.01 ML (CHARGE PER UNIT) SC SCH ×2 (06:19→11:20)
[2017-08-12 08:00] VITALS: BP 149/70
[2017-08-12] MEDS: PANTOPRAZOLE 40 MG (PROTONIX) TAB PO SCH (08:32)
[2017-08-12] MEDS: OMEGA 3 (FISH OIL) 1000 MG CAP PO SCH (08:32)
[2017-08-12] MEDS: FUROSEMIDE 20 MG (LASIX) TAB PO SCH (08:32)
[2017-08-12] MEDS: VITAMIN D3 1,000 UNITS (CHOLECALCIFEROL) TABLET PO SCH (08:33)
[2017-08-12] MEDS: KCL 10 MEQ TAB (MICRO K) PO SCH (08:33)
[2017-08-12] MEDS ORDERED: NON-FORMULARY MEDICATION 1 EA EA (Fesoterodine Fumarate (Toviaz) 4 MG) PO SCH (09:00)
[2017-08-12] MEDS ORDERED: NON-FORMULARY MEDICATION 1 EA EA (Omeprazole 40 MG) PO SCH (09:00)
[2017-08-12] MEDS ORDERED: ISOSORBIDE MONONITRATE 30 MG (IMDUR) TAB PO SCH (09:00)
[2017-08-12] MEDS ORDERED: SILODOSIN 4 MG PO SCH (09:00)
[2017-08-12] MEDS ORDERED: ASPIRIN E.C. 81 MG (ECOTRIN) TAB PO SCH (09:00)
[2017-08-12] MEDS ORDERED: PIOGLITAZONE 30MG (ACTOS) TAB PO SCH (09:00)
[2017-08-12] MEDS ORDERED: DONEPEZIL 5 MG (ARICEPT) TAB PO SCH (09:00)
[2017-08-12] MEDS ORDERED: ENALAPRIL 10 MG (VASOTEC) TAB PO SCH (09:00)
--- NOTE | 2017-08-12 09:51 | Diagnostic Imaging Report ---
Portable chest compared to prior study from August 11, 2017. INDICATION: Dehydration and hypotension. FINDINGS: Sternotomy wires are noted. Heart size unchanged. There are chronic interstitial changes within the lungs with some scarring or atelectasis at the left base. There is no evidence of pleural fluid or evidence of failure. There is no pneumothorax. IMPRESSION: 1. Chronic interstitial changes within the lungs with left base atelectasis or scar. No evidence of pulmonary edema or effusion demonstrated. There are no focal alveolar infiltrates. Dictated by: Dictated on workstation # [id number]
--- NOTE | 2017-08-12 10:30 | Physical Therapy Daily Note ---
PT Daily Note-Current Subjective Pt seated in chair upon arrival and agreeable to treatment. Pt denies pain and states "I don't have any pain so far." Mental Status Patient Orientation: Person, Place, Situation Transfers Functional [place] Measure 0=Not Assessed/NA 4=Minimal Assistance 1=Total Assistance 5=Supervision or Setup 2=Maximal Assistance 6=Modified [place] 3=Moderate Assistance 7=Complete IndependenceIRFPAI Quality Coding Scale 6 Independent with activity with or without an assistive device 5 Patient requires set up or clean up by helper. Patient completes activity by themselves 4 Supervision or touching assist (CGA). [place] provide cues , steadying assist 3 The helper provides less than half the effort to complete the activity 2 The helper provides more than half the effort to complete the activity 1 Dependent. The helper does all the effort to complete an activity 7 Patient refused to complete or attempt activity 9 The patient did not perform the activity before the current illness or injury 88 Not attempted due to Medical conditions or safety concerns sit to stand transfers mod (I) Gait Training Gait Assistive Device: FWW Pt amb with FWW and CGA, f/u IV 2 x 105ft, Pt took 3min rest between bouts. Pt demonstrated step to gait pattern on (R). Otherwise, gait slow and steady. Exercises Seated Therapy Exercises: Ankle pumps, Long arc quads, Hip flexion Seated Reps: 10 Treatments Pt seen for gait training with FWW and f/u IV. Assessment Current Status: Good Progress Pt pleasant and cooperative. Pt somewhat fatigued with above gait training. Pt in care of nurse aid post therapy. Call light in reach and all needs met. 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 Goals Half-Way Goals PT Half-Way Goals Time Frame: Aug 25, 2017 Transfers (B,C,W/C) (FIM): 6 Gait (FIM): 6 Gait distance (FIM): 3=150 ft Gait Level of Assist: 6 Gait Assistive Device: FWW PT Plan Treatment/Plan Treatment Plan: Continue Plan of Care Treatment Plan: Bed Mobility, Education, Functional Activity Samantha, Functional Strength, Gait, Safety, Therapeutic Exercise, Transfers Treatment Duration: Aug 25, 2017 Frequency: 6 times per week Estimated Hrs Per Day: .5 hour per day Patient and/or Family Agrees t: Yes Time/GCodes Time In: 810 Time Out: 835 Total Billed Treatment Time: 25 Total Billed Treatment 1, gait 25 min PACO ARMSTRONG CPTA Aug 12, 2017 10:30
--- NOTE | 2017-08-21 15:42 | Physician Query-Final Dx ---
ADDISON ARMAS 08/21/17 1542: Final Diagnosis Give Final Diagnosis Please give Final Diagnosis BASSAM POZO DO 08/22/17 0829: Final Diagnosis Give Final Diagnosis Sepsis due to hypovolemia ADDISON ARMAS Aug 21, 2017 15:42 BASSAM POZO DO Aug 22, 2017 08:29
== END 2017-08-12 11:25 | disposition home or self-care (01) | DRG 641 ==
LOC: EDUNIT# 15:33 → ER 15:37 → ICU 20:04 → 4TH 08-11 08:50
PROVIDERS: ADMIT Internal Medicine; ATTEND Internal Medicine
DX: E86.0 Dehydration (principal); R19.7 Diarrhea, unspecified; I42.9 Cardiomyopathy, unspecified; I25.10 Atherosclerotic heart disease of native coronary artery without angina pectoris; E78.00 Pure hypercholesterolemia, unspecified; I10 Essential (primary) hypertension; E11.9 Type 2 diabetes mellitus without complications; J45.909 Unspecified asthma, uncomplicated; M19.91 Primary osteoarthritis, unspecified site; N40.0 Benign prostatic hyperplasia without lower urinary tract symptoms; R10.32 Left lower quadrant pain; K57.30 Diverticulosis of large intestine without perforation or abscess without bleeding; F17.210 Nicotine dependence, cigarettes, uncomplicated; R53.81 Other malaise; Z95.1 Presence of aortocoronary bypass graft; Z79.4 Long term (current) use of insulin
CPT/HCPCS: 36415; 51702; 71010; 74177; 80048; 80053; 81000; 82150; 82274; 82962; 83605; 83690; 83735; 84100; 85025; 87040; 87045; 87046; 87081; 87324; 87449; 96361; 96365

== ENCOUNTER 2018-12-10 07:56 | Emergency (ER) | payer MEDICARE ==
[~2018-12-10] VITALS: Ht 182.9 cm; Wt 99.8 kg
[~2018-12-10 07:56] MED LIST changes: +ASPI-983 PO; +CHOL10007 PO; +FURO20TA4 PO; +GLUC1KIT INJ; +INSU100I29 SC; +METF-399 PO; -METF1000 PO; +NITR0.4T SL; +OMEG-77 PO; -PIOG30TA26 PO; +PIOG30TA71 PO
--- OUTSIDE RECORDS SUMMARY | 2018-12-10 08:03 | XMS REPORT | Continuity of Care Document ---
Author Author [facility] Organization [facility] Address Unknown Phone Unavailable Allergies Active Description Code Type Severity Reaction Onset Reported/Identified Relationship to Patient Clinical Status Yes Penicillins [id number] Drug Allergy Unknown N/A 05/01/2012 Medications There is no data. Problems Date Dx Coded Attending Type Code Diagnosis Diagnosed By 09/22/2010 Ot 250.00 09/22/2010 Ot 272.4 09/22/2010 Ot 401.9 09/22/2010 Ot 414.01 09/22/2010 Ot 427.31 09/22/2010 Ot 496 09/22/2010 Ot 794.30 09/22/2010 Ot V45.81 09/22/2010 Ot V58.66 09/22/2010 Ot V58.69 12/16/2011 Ot 781.2 ABNORMALITY OF GAIT 12/16/2011 Ot V15.88 HISTORY OF FALL 12/16/2011 Ot V57.1 PHYSICAL THERAPY NEC 05/03/2012 Ot 250.00 DIAB CARLOS WO COMPL, TYPE II OR UNSPEC TY 05/03/2012 Ot 272.4 HYPERLIPIDEMIA NEC/NOS 05/03/2012 Ot 305.1 TOBACCO USE DISORDER 05/03/2012 Ot 401.9 HYPERTENSION NOS 05/03/2012 Ot 414.00 CORON ATHEROSCLER NOS TYPE VESSEL, NATIV 05/03/2012 Ot 427.31 ATRIAL FIBRILLATION 05/03/2012 Ot 443.9 PERIPH VASCULAR DIS NOS 05/03/2012 Ot 571.8 CHRONIC LIVER DIS NEC 05/03/2012 Ot 574.20 CHOLELITHIASIS NOS 05/03/2012 Ot 789.01 ABDOMINAL PAIN, RIGHT UPPER QUADRANT 05/03/2012 Ot V15.88 HISTORY OF FALL 05/03/2012 Ot V45.81 AORTOCORONARY BYPASS 02/28/2013 Ot 250.00 DIAB CARLOS WO COMPL, TYPE II OR UNSPEC TY 02/28/2013 Ot 272.4 HYPERLIPIDEMIA NEC/NOS 02/28/2013 Ot 401.9 HYPERTENSION NOS 02/28/2013 Ot 412 OLD MYOCARDIAL INFARCT 02/28/2013 Ot 414.01 CORONARY ATHEROSCLEROSIS OF [place] CORON 02/28/2013 Ot 427.31 ATRIAL FIBRILLATION 02/28/2013 Ot 443.9 PERIPH VASCULAR DIS NOS 02/28/2013 Ot 496 CHR AIRWAY OBSTRUCT NEC 02/28/2013 Ot 577.0 ACUTE PANCREATITIS 02/28/2013 Ot V15.82 HISTORY OF TOBACCO USE 02/28/2013 Ot V45.81 AORTOCORONARY BYPASS 02/28/2013 Ot V58.67 LONG-TERM ( CURRENT) USE OF INSULIN 05/16/2013 CHRISTINA ALVAREZ MD Ot 250.00 DIAB CARLOS WO COMPL, TYPE II OR UNSPEC TY 05/16/2013 CHRISTINA ALVAREZ MD Ot 414.01 CORONARY ATHEROSCLEROSIS OF [place] CORON 05/16/2013 CHRISTINA ALVAREZ MD Ot 427.31 ATRIAL FIBRILLATION 05/16/2013 CHRISTINA ALVAREZ MD Ot 574.10 CHOLELITH W CHOLECYS NEC 11/06/2014 FREDY DOBBS DO Ot 250.00 DIAB CARLOS WO COMPL, TYPE II OR UNSPEC TY 12/03/2014 AYO CARROLL, FANG Sanz Ot 443.9 04/06/2015 Ot 790.6 04/06/2015 Ot 401.9 04/06/2015 Ot 414.00 04/06/2015 Ot 401.9 04/06/2015 Ot 414.01 04/06/2015 Ot 272.4 04/06/2015 Ot 401.9 04/06/2015 Ot 414.01 04/06/2015 Ot 427.31 04/06/2015 Ot 791.9 04/06/2015 Ot 794.39 04/06/2015 Ot V72.63 04/06/2015 Ot V72.81 04/06/2015 Ot V74.8 04/06/2015 Ot 959.6 04/06/2015 Ot E000.8 04/06/2015 Ot E849.0 04/06/2015 Ot E888.9 04/06/2015 Ot 719.45 04/06/2015 Ot 959.6 04/06/2015 Ot E000.8 04/06/2015 Ot E888.9 04/06/2015 Ot 571.8 04/06/2015 Ot 574.20 04/06/2015 Ot 789.09 04/06/2015 Ot 959.9 04/06/2015 Ot E000.8 04/06/2015 Ot E849.0 04/06/2015 Ot E888.9 04/06/2015 Ot 331.9 04/06/2015 Ot 781.3 04/06/2015 Ot 788.30 04/06/2015 Ot V15.88 04/06/2015 Ot 722.52 04/06/2015 Ot 737.10 04/06/2015 Ot 733.90 04/06/2015 Ot 780.97 04/06/2015 ANALI BRYSON PROPERTY MANAGEMENT BOOKKEEPER Ot 401.9 04/06/2015 BRYSON ANALI A PROPERTY MANAGEMENT BOOKKEEPER Ot 414.00 04/06/2015 BRYSON ANALI A PROPERTY MANAGEMENT BOOKKEEPER Ot 424.0 04/06/2015 BRYSON ANALI A PROPERTY MANAGEMENT BOOKKEEPER Ot 401.9 04/06/2015 BRYSONANALI BURNS PROPERTY MANAGEMENT BOOKKEEPER Ot 414.01 04/06/2015 KIM CARROLL, CHRISTINA Ot 574.20 04/06/2015 KIM CARROLL, CHRISTINA Ot V72.63 04/06/2015 KIM CARROLL, CHRISTINA Ot V74.8 04/06/2015 ARTURO DOMINGUEZ APRN Ot 789.09 04/06/2015 AYO CARROLL, FANG Sanz Ot 443.9 04/06/2015 FREDY DOBBS DO Ot 250.00 04/07/2015 FREDY DOBBS DO Ot 250.02 04/07/2015 FREDY DOBBS DO Ot 401.9 07/05/2015 FREDY DOBBS DO Ot 250.02 DIAB CARLOS WO COMPL, TYPE II OR UNSPEC TY 07/05/2015 FREDY DOBBS DO Ot 401.9 HYPERTENSION NOS 08/06/2016 TRAVIS SALAZAR MD Ot E11.9 TYPE 2 DIABETES MELLITUS WITHOUT COMPLIC 08/06/2016 TRAVIS SALAZAR MD Ot E78.5 HYPERLIPIDEMIA, UNSPECIFIED 08/06/2016 TRAVIS SALAZAR MD Ot I08.1 RHEUMATIC DISORDERS OF BOTH [place] AND T 08/06/2016 TRAVIS SALAZAR MD Ot I10 ESSENTIAL (PRIMARY) HYPERTENSION 08/06/2016 TRAVIS SALAZAR MD Ot I25.110 ATHSCL HEART DISEASE OF [place] COR ART W 08/06/2016 TRAVIS SALAZAR MD Ot 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 08/06/2016 TRAVIS SALAZAR MD Ot I25.84 CORONARY ATHEROSCLEROSIS DUE TO CALCIFIE 08/06/2016 TRAVIS SALAZAR MD Ot J44.9 CHRONIC OBSTRUCTIVE PULMONARY DISEASE, U 08/06/2016 TRAVIS SALAZAR MD Ot 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, SUB 08/06/2016 TRAVIS SALAZAR MD Ot Z79.4 MISSION COMMANDER (CURRENT) USE OF INSULIN 08/06/2016 TRAVIS SALAZAR MD Ot Z79.899 OTHER HALF-WAY (CURRENT) DRUG THERAPY 08/08/2016 Ot 959.6 HIP THIGH INJURY NOS 08/08/2016 Ot E000.8 OTHER EXTERNAL CAUSE STATUS 08/08/2016 Ot E849.0 ACCIDENT IN HOME 08/08/2016 Ot E888.9 FALL NOS 08/08/2016 Ot 719.45 JOINT PAIN- PELVIS 08/08/2016 Ot 959.6 HIP THIGH INJURY NOS 08/08/2016 Ot E000.8 OTHER EXTERNAL CAUSE STATUS 08/08/2016 Ot E888.9 FALL NOS 08/08/2016 Ot 571.8 CHRONIC LIVER DIS NEC 08/08/2016 Ot 574.20 CHOLELITHIASIS NOS 08/08/2016 Ot 789.09 ABDOMINAL PAIN, OTHER SPECIFIED SITE 08/08/2016 Ot 959.9 INJURY-SITE NOS 08/08/2016 Ot E000.8 OTHER EXTERNAL CAUSE STATUS 08/08/2016 Ot E849.0 ACCIDENT IN HOME 08/08/2016 Ot E888.9 FALL NOS 08/08/2016 Ot 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 DEGENERATION NOS 08/08/2016 Ot 781.3 LACK OF COORDINATION 08/08/2016 Ot 788.30 UNSPECIFIED URINARY INCONTINENCE 08/08/2016 Ot V15.88 HISTORY OF FALL 08/08/2016 Ot 722.52 LUMB/ LUMBOSAC DISC DEGEN 08/08/2016 Ot 737.10 KYPHOSIS NOS 08/08/2016 Ot 733.90 BONE CARTILAGE DIS NOS 08/08/2016 Ot 780.97 ALTERED MENTAL STATUS 08/08/2016 ANALI BRYSON Ot 401.9 HYPERTENSION NOS 08/08/2016 ANALI BRYSON Ot 414.00 CORON ATHEROSCLER NOS TYPE VESSEL, NATIV 08/08/2016 BRYSON, ANALI A PROPERTY MANAGEMENT BOOKKEEPER Ot 424.0 MITRAL VALVE DISORDER 08/08/2016 ANALI BRYSON PROPERTY MANAGEMENT BOOKKEEPER Ot 401.9 HYPERTENSION NOS 08/08/2016 ANALI BRYSON PROPERTY MANAGEMENT BOOKKEEPER Ot 414.01 CORONARY ATHEROSCLEROSIS OF [place] CORON 08/08/2016 KIM CARROLL, CHRISTINA Ot 574.20 CHOLELITHIASIS NOS 08/08/2016 KIM CARROLL, CHRISTINA Ot V72.63 PRE-PROCEDURAL LABORATORY EXAMINATION 08/08/2016 KIM CARROLL, CHRISTINA Ot V74.8 SCREEN-BACTERIAL DIS NEC 08/08/2016 ARTURO DOMINGUEZ APRN Ot 789.09 ABDOMINAL PAIN, OTHER SPECIFIED SITE 08/08/2016 AYO CARROLL, FANG Sanz Ot 443.9 PERIPH VASCULAR DIS NOS 08/08/2016 DILIA CUELLAR, FREDY L Ot 250.00 DIAB CARLOS WO COMPL, TYPE II OR UNSPEC TY 08/08/2016 DILIA CUELLAR, FREDY L Ot 250.02 DIAB CARLOS WO COMPL, TYPE II OR UNSPEC TY 08/08/2016 DILIA CUELLAR FREDY L Ot 401.9 HYPERTENSION NOS 08/28/2016 SÁNCHEZ CUELLAR BASSAM Ot E11.9 TYPE 2 DIABETES MELLITUS WITHOUT COMPLIC 08/28/2016 MARYAN POZO DOI Ot E78.5 HYPERLIPIDEMIA, UNSPECIFIED 08/28/2016 MARYAN POZO DOI Ot I10 ESSENTIAL (PRIMARY) HYPERTENSION 08/28/2016 MARYAN POZO DOI Ot I25.10 ATHSCL HEART DISEASE OF [place] CORONARY 08/28/2016 SÁNCHEZ CUELLAR BASSAM Ot I48.0 PAROXYSMAL ATRIAL FIBRILLATION 08/28/2016 MARYAN POZO DOI Ot J44.9 CHRONIC OBSTRUCTIVE PULMONARY DISEASE, U 08/28/2016 MARYAN POZO DOI Ot R07.9 CHEST PAIN, UNSPECIFIED 08/28/2016 MARYAN POZO DOI Ot Z79.4 MISSION COMMANDER (CURRENT) USE OF INSULIN 08/28/2016 BASSAM POZO DO Ot Z95.1 PRESENCE OF AORTOCORONARY BYPASS GRAFT 09/09/2016 TRAVIS SALAZAR MD Ot E11.9 TYPE 2 DIABETES MELLITUS WITHOUT COMPLIC 09/09/2016 TRAVIS SALAZAR MD Ot E78.5 HYPERLIPIDEMIA, UNSPECIFIED 09/09/2016 TRAVIS SALAZAR MD Ot I08.1 RHEUMATIC DISORDERS OF BOTH [place] AND T 09/09/2016 TRAVIS SALAZAR MD, Ot I10 ESSENTIAL (PRIMARY) HYPERTENSION 09/09/2016 TRAVIS SALAZAR MD, Ot I25.110 ATHSCL HEART DISEASE OF [place] COR ART W 09/09/2016 TRAVIS SALAZAR MD, Ot 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 09/09/2016 TRVAIS SALAZAR MD, Ot I25.84 CORONARY ATHEROSCLEROSIS DUE TO CALCIFIE 09/09/2016 TRAVIS SALAZAR MD, Ot J44.9 CHRONIC OBSTRUCTIVE PULMONARY DISEASE, U 09/09/2016 TRAVIS SALAZAR MD, Ot 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, SUB 09/09/2016 TRAVIS SALAZAR MD, Ot Z79.4 MISSION COMMANDER (CURRENT) USE OF INSULIN 09/09/2016 TRAVIS SALAZAR MD, Ot Z79.899 OTHER HALF-WAY (CURRENT) DRUG THERAPY 08/12/2017 BASSAM POZO DO Ot E11.9 TYPE 2 DIABETES MELLITUS WITHOUT COMPLIC 08/12/2017 BASSAM POZO DO Ot E78.00 PURE HYPERCHOLESTEROLEMIA, UNSPECIFIED 08/12/2017 MARYAN POZO DOI Ot E86.0 DEHYDRATION 08/12/2017 BASSAM POZO DO Ot F17.210 NICOTINE DEPENDENCE, CIGARETTES, UNCOMPL 08/12/2017 BASSAM POZO DO Ot I10 ESSENTIAL (PRIMARY) HYPERTENSION 08/12/2017 BASSAM POZO DO Ot I25.10 ATHSCL HEART DISEASE OF [place] CORONARY 08/12/2017 BASSAM POZO DO Ot I42.9 CARDIOMYOPATHY, UNSPECIFIED 08/12/2017 BASSAM POZO DO Ot J45.909 UNSPECIFIED ASTHMA, UNCOMPLICATED 08/12/2017 BASSAM POZO DO Ot K57.30 DVRTCLOS OF LG INT W/O PERFORATION OR AB 08/12/2017 BASSAM POZO DO Ot M19.91 PRIMARY OSTEOARTHRITIS, UNSPECIFIED SITE 08/12/2017 BASSAM POZO DO Ot N40.0 BENIGN PROSTATIC HYPERPLASIA WITHOUT LOW 08/12/2017 MARYAN POZO DOI Ot R10.32 LEFT LOWER QUADRANT PAIN 08/12/2017 BASSAM POZO DO Ot R19.7 DIARRHEA, UNSPECIFIED 08/12/2017 BASSAM POZO DO Ot R53.81 OTHER MALAISE 08/12/2017 BASSAM POZO DO Ot Z79.4 MISSION COMMANDER (CURRENT) USE OF INSULIN 08/12/2017 POZO DO BASSAM Ot Z95.1 PRESENCE OF AORTOCORONARY BYPASS GRAFT 12/04/2017 Ot 733.90 BONE CARTILAGE DIS NOS 12/04/2017 Ot 780.97 ALTERED MENTAL STATUS 12/04/2017 BRYSONANALI BURNS PROPERTY MANAGEMENT BOOKKEEPER Ot 401.9 HYPERTENSION NOS 12/04/2017 BRYSONANALI BURNS PROPERTY MANAGEMENT BOOKKEEPER Ot 414.00 CORON ATHEROSCLER NOS TYPE VESSEL, NATIV 12/04/2017 BRYSONANALI BURNS PROPERTY MANAGEMENT BOOKKEEPER Ot 424.0 MITRAL VALVE DISORDER 12/04/2017 BRYSONANALI BURNS PROPERTY MANAGEMENT BOOKKEEPER Ot 401.9 HYPERTENSION NOS 12/04/2017 BRYSONANALI BURNS PROPERTY MANAGEMENT BOOKKEEPER Ot 414.01 CORONARY ATHEROSCLEROSIS OF [place] CORON 12/04/2017 CHRISTINA ALVAREZ MD Ot 574.20 CHOLELITHIASIS NOS 12/04/2017 CHRISTINA ALVAREZ MD Ot V72.63 PRE-PROCEDURAL LABORATORY EXAMINATION 12/04/2017 CHRISTINA ALVAREZ MD Ot V74.8 SCREEN-BACTERIAL DIS NEC 12/04/2017 ARTURO DOMINGUEZ APRN Ot 789.09 ABDOMINAL PAIN, OTHER SPECIFIED SITE 12/04/2017 AYO CARROLL, FANG Sanz Ot 443.9 PERIPH VASCULAR DIS NOS 12/04/2017 DOBBS DO, FREDY L Ot 250.00 DIAB CARLOS WO COMPL, TYPE II OR UNSPEC TY 12/04/2017 DOBBS DO, FREDY L Ot 250.02 DIAB CARLOS WO COMPL, TYPE II OR UNSPEC TY 12/04/2017 DILIA DO, FREDY L Ot 401.9 HYPERTENSION NOS 12/15/2017 Ot 733.90 BONE CARTILAGE DIS NOS 12/15/2017 Ot 780.97 ALTERED MENTAL STATUS 12/15/2017 BRYSONANALI BURNS PROPERTY MANAGEMENT BOOKKEEPER Ot 401.9 HYPERTENSION NOS 12/15/2017 BRYSONANALI BURNS PROPERTY MANAGEMENT BOOKKEEPER Ot 414.00 CORON ATHEROSCLER NOS TYPE VESSEL, NATIV 12/15/2017 BRYSONANAIL BURNS PROPERTY MANAGEMENT BOOKKEEPER Ot 424.0 MITRAL VALVE DISORDER 12/15/2017 BRYSONANALI BURNS PROPERTY MANAGEMENT BOOKKEEPER Ot 401.9 HYPERTENSION NOS 12/15/2017 BRYSONANALI BURNS PROPERTY MANAGEMENT BOOKKEEPER Ot 414.01 CORONARY ATHEROSCLEROSIS OF [place] CORON 12/15/2017 CHRISTINA ALVAREZ MD Ot 574.20 CHOLELITHIASIS NOS 12/15/2017 KIM CARROLL, CHRISTINA Ot V72.63 PRE-PROCEDURAL LABORATORY EXAMINATION 12/15/2017 KIM CARROLL, CHRISTINA Ot V74.8 SCREEN-BACTERIAL DIS NEC 12/15/2017 ANGELICAARTURO JOHNIE Ot 789.09 ABDOMINAL PAIN, OTHER SPECIFIED SITE 12/15/2017 AYO CARROLL, FANG Sanz Ot 443.9 PERIPH VASCULAR DIS NOS 12/15/2017 DOBBS DO, FREDY L Ot 250.00 DIAB CARLOS WO COMPL, TYPE II OR UNSPEC TY 12/15/2017 DOBBS DO, FREDY L Ot 250.02 DIAB CARLOS WO COMPL, TYPE II OR UNSPEC TY 12/15/2017 DOBBS DO, FREDY L Ot 401.9 HYPERTENSION NOS 03/21/2018 FILIPPO RODRIGUEZ Ot I10 ESSENTIAL (PRIMARY) HYPERTENSION 03/21/2018 FILIPPO RODRIGUEZ Ot I25.10 ATHSCL HEART DISEASE OF [place] CORONARY 03/21/2018 FILIPPO RODRIGUEZ Ot J44.9 CHRONIC OBSTRUCTIVE PULMONARY DISEASE, U 05/20/2018 FILIPPO RODRIGUEZ Ot I10 ESSENTIAL (PRIMARY) HYPERTENSION 05/20/2018 FILIPPO RODRIGUEZ Ot I25.10 ATHSCL HEART DISEASE OF [place] CORONARY 05/20/2018 FILIPPO RODRIGUEZ Ot J44.9 CHRONIC OBSTRUCTIVE PULMONARY DISEASE, U 05/22/2018 FILIPPO RODRIGUEZ Ot I10 ESSENTIAL (PRIMARY) HYPERTENSION 05/22/2018 FILIPPO RODRIGUEZ Ot I25.10 ATHSCL HEART DISEASE OF [place] CORONARY 05/22/2018 FILIPPO RODRIGUEZ Ot J44.9 CHRONIC OBSTRUCTIVE PULMONARY DISEASE, U Procedures There is no data. Results Test Result Range Complete blood count (CBC) with automated white blood cell (WBC) differential - 08/04/16 11:10 Blood leukocytes automated count (number/volume) 11.0 10*3/uL 4.3-11.0 Blood erythrocytes automated count (number/volume) 5.17 10*6/uL 4.35-5.85 Venous blood hemoglobin measurement (mass/volume) 15.5 g/dL 13.3-17.7 Blood hematocrit (volume fraction) 45 % 40-54 Automated erythrocyte mean corpuscular volume 87 [foz_us] 80-99 Automated erythrocyte mean corpuscular hemoglobin (mass per erythrocyte) 30 pg 25-34 Automated erythrocyte mean corpuscular hemoglobin concentration measurement ( mass/volume) 34 g/dL 32-36 Automated erythrocyte distribution width ratio 13.6 % 10.0-14.5 Automated blood platelet count (count/volume) 178 10*3/uL 130-400 Automated blood platelet mean volume measurement 11.7 [foz_us] 7.4-10.4 Automated blood neutrophils/100 leukocytes 80 % 42-75 Automated blood lymphocytes/100 leukocytes 12 % 12-44 Blood monocytes/100 leukocytes 7 % 0-12 Automated blood eosinophils/100 leukocytes 1 % 0-10 Automated blood basophils/100 leukocytes 0 % 0-10 Blood neutrophils automated count (number/volume) 8.8 10*3 1.8-7.8 Blood lymphocytes automated count (number/volume) 1.4 10*3 1.0-4.0 Blood monocytes automated count (number/volume) 0.7 10*3 0.0-1.0 Automated eosinophil count 0.1 10*3/uL 0.0-0.3 Automated blood basophil count (count/volume) 0.0 10*3/uL 0.0-0.1 Comprehensive metabolic panel - 08/04/16 11:10 Serum or plasma sodium measurement (moles/volume) 139 mmol/L 135-145 Serum or plasma potassium measurement (moles/volume) 3.7 mmol/L 3.6-5.0 Serum or plasma chloride measurement (moles/volume) 106 mmol/L 98-107 Carbon dioxide 20 mmol/L 21-32 Serum or plasma anion gap determination (moles/volume) 13 mmol/L 5-14 Serum or plasma urea nitrogen measurement (mass/volume) 19 mg/dL 7-18 Serum or plasma creatinine measurement (mass/volume) 1.06 mg/dL 0.60-1.30 Serum or plasma urea nitrogen/creatinine mass ratio 18 NRG Serum or plasma creatinine measurement with calculation of estimated glomerular filtration rate > NRG Serum or plasma glucose measurement (mass/volume) 79 mg/dL 70-105 Serum or plasma calcium measurement (mass/volume) 9.6 mg/dL 8.5-10.1 Serum or plasma total bilirubin measurement (mass/volume) 1.0 mg/dL 0.1-1.0 Serum or plasma alkaline phosphatase measurement (enzymatic activity/volume) 61 U/L 40-136 Serum or plasma aspartate aminotransferase measurement (enzymatic activity/ volume) 28 U/L 5-34 Serum or plasma alanine aminotransferase measurement (enzymatic activity/volume ) 41 U/L 0-55 Serum or plasma protein measurement (mass/volume) 7.0 g/dL 6.4-8.2 Serum or plasma albumin measurement (mass/volume) 4.3 g/dL 3.2-4.5 Serum or plasma troponin i.cardiac measurement (mass/volume) - 08/04/16 11:10 Serum or plasma troponin i.cardiac measurement (mass/volume) < ng/ mL <0.30 Complete urinalysis with reflex to culture - 08/04/16 11:25 Urine color determination YELLOW NRG Urine clarity determination CLEAR NRG Urine pH measurement by test strip 5 5-9 Specific gravity of urine by test strip 1.010 1.016- 1.022 Urine protein assay by test strip, semi-quantitative NEGATIVE NEGATIVE Urine glucose detection by automated test strip NEGATIVE NEGATIVE Erythrocytes detection in urine sediment by light microscopy NEGATIVE NEGATIVE Urine ketones detection by automated test strip NEGATIVE NEGATIVE Urine nitrite detection by test strip NEGATIVE NEGATIVE Urine total bilirubin detection by test strip NEGATIVE NEGATIVE Urine urobilinogen measurement by automated test strip (mass/volume) NORMAL NORMAL Urine leukocyte esterase detection by dipstick NEGATIVE NEGATIVE Automated urine sediment erythrocyte count by microscopy (number/high power field) NONE NRG Automated urine sediment leukocyte count by microscopy (number/high power field ) NONE NRG Bacteria detection in urine sediment by light microscopy NEGATIVE NRG Crystals detection in urine sediment by light microscopy NONE NRG Casts detection in urine sediment by light microscopy NONE NRG Mucus detection in urine sediment by light microscopy NEGATIVE NRG Complete urinalysis with reflex to culture NO NRG Capillary blood glucose measurement by glucometer (mass/volume) - 08/04/16 22: 04 Capillary blood glucose measurement by glucometer (mass/volume) 116 mg/dL 70-110 Automated blood complete blood count (hemogram) panel - 08/05/16 04:01 Blood leukocytes automated count (number/volume) 7.5 10*3/uL 4.3-11.0 Blood erythrocytes automated count (number/volume) 5.15 10*6/uL 4.35-5.85 Venous blood hemoglobin measurement (mass/volume) 15.4 g/dL 13.3-17.7 Blood hematocrit (volume fraction) 45 % 40-54 Automated erythrocyte mean corpuscular volume 87 [foz_us] 80-99 Automated erythrocyte mean corpuscular hemoglobin (mass per erythrocyte) 30 pg 25-34 Automated erythrocyte mean corpuscular hemoglobin concentration measurement ( mass/volume) 34 g/dL 32-36 Automated erythrocyte distribution width ratio 14.2 % 10.0-14.5 Automated blood platelet count (count/volume) 162 10*3/uL 130-400 Automated blood platelet mean volume measurement 11.6 [foz_us] 7.4-10.4 Comprehensive metabolic panel - 08/05/16 04:01 Serum or plasma sodium measurement (moles/volume) 141 mmol/L 135-145 Serum or plasma potassium measurement (moles/volume) 4.4 mmol/L 3.6-5.0 Serum or plasma chloride measurement (moles/volume) 109 mmol/L 98-107 Carbon dioxide 21 mmol/L 21-32 Serum or plasma anion gap determination (moles/volume) 11 mmol/L 5-14 Serum or plasma urea nitrogen measurement (mass/volume) 16 mg/dL 7-18 Serum or plasma creatinine measurement (mass/volume) 0.99 mg/dL 0.60-1.30 Serum or plasma urea nitrogen/creatinine mass ratio 16 NRG Serum or plasma creatinine measurement with calculation of estimated glomerular filtration rate > NRG Serum or plasma glucose measurement (mass/volume) 147 mg/dL 70-105 Serum or plasma calcium measurement (mass/volume) 9.6 mg/dL 8.5-10.1 Serum or plasma total bilirubin measurement (mass/volume) 1.0 mg/dL 0.1-1.0 Serum or plasma alkaline phosphatase measurement (enzymatic activity/volume) 62 U/L 40-136 Serum or plasma aspartate aminotransferase measurement (enzymatic activity/ volume) 25 U/L 5-34 Serum or plasma alanine aminotransferase measurement (enzymatic activity/volume ) 33 U/L 0-55 Serum or plasma protein measurement (mass/volume) 6.7 g/dL 6.4-8.2 Serum or plasma albumin measurement (mass/volume) 4.1 g/dL 3.2-4.5 Serum or plasma troponin i.cardiac measurement (mass/volume) - 08/05/16 04:01 Serum or plasma troponin i.cardiac measurement (mass/volume) < ng/ mL <0.30 Lipid 1996 panel - 08/05/16 04:01 Serum or plasma triglyceride measurement (mass/volume) 48 mg/dL <150 Serum or plasma cholesterol measurement (mass/volume) 96 mg/dL < 200 Serum or plasma cholesterol in HDL measurement (mass/volume) 32 mg/ dL 40-60 Cholesterol in LDL [mass/volume] in serum or plasma by direct assay 59 mg/dL 1-129 Serum or plasma cholesterol in VLDL measurement (mass/volume) 10 mg/ dL 5-40 Capillary blood glucose measurement by glucometer (mass/volume) - 08/05/16 11: 18 Capillary blood glucose measurement by glucometer (mass/volume) 237 mg/dL 70-110 Capillary blood glucose measurement by glucometer (mass/volume) - 08/05/16 16: 18 Capillary blood glucose measurement by glucometer (mass/volume) 222 mg/dL 70-110 Capillary blood glucose measurement by glucometer (mass/volume) - 08/05/16 21: 55 Capillary blood glucose measurement by glucometer (mass/volume) 148 mg/dL 70-110 Capillary blood glucose measurement by glucometer (mass/volume) - 08/06/16 05: 46 Capillary blood glucose measurement by glucometer (mass/volume) 193 mg/dL 70-110 PT panel in platelet poor plasma by coagulation assay - 08/06/16 10:50 Prothrombin time (PT) in platelet poor plasma by coagulation assay 13.0 s 12.2-14.7 INR in platelet poor plasma or blood by coagulation assay 1.0 0.8-1.4 Activated partial thromboplastin time (aPTT) in platelet poor plasma bycoagulation assay - 08/06/16 10:50 Activated partial thromboplastin time (aPTT) in platelet poor plasma bycoagulation assay 29 s 24-35 Capillary blood glucose measurement by glucometer (mass/volume) - 08/06/16 12: 26 Capillary blood glucose measurement by glucometer (mass/volume) 180 mg/dL 70-110 Capillary blood glucose measurement by glucometer (mass/volume) - 08/06/16 16: 24 Capillary blood glucose measurement by glucometer (mass/volume) 230 mg/dL 70-110 Complete blood count (CBC) with automated white blood cell (WBC) differential - 08/27/16 18:35 Blood leukocytes automated count (number/volume) 7.0 10*3/uL 4.3-11.0 Blood erythrocytes automated count (number/volume) 4.73 10*6/uL 4.35-5.85 Venous blood hemoglobin measurement (mass/volume) 14.1 g/dL 13.3-17.7 Blood hematocrit (volume fraction) 42 % 40-54 Automated erythrocyte mean corpuscular volume 89 [foz_us] 80-99 Automated erythrocyte mean corpuscular hemoglobin (mass per erythrocyte) 30 pg 25-34 Automated erythrocyte mean corpuscular hemoglobin concentration measurement ( mass/volume) 34 g/dL 32-36 Automated erythrocyte distribution width ratio 14.5 % 10.0-14.5 Automated blood platelet count (count/volume) 167 10*3/uL 130-400 Automated blood platelet mean volume measurement 11.3 [foz_us] 7.4-10.4 Automated blood neutrophils/100 leukocytes 55 % 42-75 Automated blood lymphocytes/100 leukocytes 34 % 12-44 Blood monocytes/100 leukocytes 9 % 0-12 Automated blood eosinophils/100 leukocytes 2 % 0-10 Automated blood basophils/100 leukocytes 0 % 0-10 Blood neutrophils automated count (number/volume) 3.9 10*3 1.8-7.8 Blood lymphocytes automated count (number/volume) 2.4 10*3 1.0-4.0 Blood monocytes automated count (number/volume) 0.6 10*3 0.0-1.0 Automated eosinophil count 0.1 10*3/uL 0.0-0.3 Automated blood basophil count (count/volume) 0.0 10*3/uL 0.0-0.1 Fibrin D-dimer FEU measurement in platelet poor plasma (mass/volume) - 18:35 Fibrin D-dimer FEU measurement in platelet poor plasma (mass/volume) 0.38 ug/mL 0.00-0.49 Comprehensive metabolic panel - 08/27/16 18:35 Serum or plasma sodium measurement (moles/volume) 140 mmol/L 135-145 Serum or plasma potassium measurement (moles/volume) 4.3 mmol/L 3.6-5.0 Serum or plasma chloride measurement (moles/volume) 107 mmol/L 98-107 Carbon dioxide 18 mmol/L 21-32 Serum or plasma anion gap determination (moles/volume) 15 mmol/L 5-14 Serum or plasma urea nitrogen measurement (mass/volume) 16 mg/dL 7-18 Serum or plasma creatinine measurement (mass/volume) 1.24 mg/dL 0.60-1.30 Serum or plasma urea nitrogen/creatinine mass ratio 13 NRG Serum or plasma creatinine measurement with calculation of estimated glomerular filtration rate 57 NRG Serum or plasma glucose measurement (mass/volume) 197 mg/dL 70-105 Serum or plasma calcium measurement (mass/volume) 9.3 mg/dL 8.5-10.1 Serum or plasma total bilirubin measurement (mass/volume) 0.6 mg/dL 0.1-1.0 Serum or plasma alkaline phosphatase measurement (enzymatic activity/volume) 57 U/L 40-136 Serum or plasma aspartate aminotransferase measurement (enzymatic activity/ volume) 26 U/L 5-34 Serum or plasma alanine aminotransferase measurement (enzymatic activity/volume ) 32 U/L 0-55 Serum or plasma protein measurement (mass/volume) 6.4 g/dL 6.4-8.2 Serum or plasma albumin measurement (mass/volume) 4.2 g/dL 3.2-4.5 Magnesium - 08/27/16 18:35 Magnesium 2.4 mg/dL 1.8-2.4 Serum or plasma troponin i.cardiac measurement (mass/volume) - 08/27/16 18:35 Serum or plasma troponin i.cardiac measurement (mass/volume) < ng/ mL <0.30 Lipase - 08/27/16 18:35 Lipase 68 U/L 8-78 Serum or plasma lithium measurement (moles/volume) - 08/27/16 18:35 BNP level 20.5 pg/mL <100.0 Complete urinalysis with reflex to culture - 08/27/16 20:03 Urine color determination YELLOW NRG Urine clarity determination CLEAR NRG Urine pH measurement by test strip 6 5-9 Specific gravity of urine by test strip 1.015 1.016- 1.022 Urine protein assay by test strip, semi-quantitative NEGATIVE NEGATIVE Urine glucose detection by automated test strip NEGATIVE NEGATIVE Erythrocytes detection in urine sediment by light microscopy NEGATIVE NEGATIVE Urine ketones detection by automated test strip NEGATIVE NEGATIVE Urine nitrite detection by test strip NEGATIVE NEGATIVE Urine total bilirubin detection by test strip NEGATIVE NEGATIVE Urine urobilinogen measurement by automated test strip (mass/volume) NORMAL NORMAL Urine leukocyte esterase detection by dipstick NEGATIVE NEGATIVE Automated urine sediment erythrocyte count by microscopy (number/high power field) NONE NRG Automated urine sediment leukocyte count by microscopy (number/high power field ) NONE NRG Bacteria detection in urine sediment by light microscopy NONE NRG Squamous epithelial cells detection in urine sediment by light microscopy RARE NRG Crystals detection in urine sediment by light microscopy NONE NRG Casts detection in urine sediment by light microscopy NONE NRG Mucus detection in urine sediment by light microscopy NEGATIVE NRG Complete urinalysis with reflex to culture NO NRG Serum or plasma troponin i.cardiac measurement (mass/volume) - 08/27/16 22:38 Serum or plasma troponin i.cardiac measurement (mass/volume) < ng/ mL <0.30 Serum or plasma troponin i.cardiac measurement (mass/volume) - 08/28/16 01:30 Serum or plasma troponin i.cardiac measurement (mass/volume) < ng/ mL <0.30 Capillary blood glucose measurement by glucometer (mass/volume) - 08/28/16 09: 02 Capillary blood glucose measurement by glucometer (mass/volume) 143 mg/dL 70-110 Capillary blood glucose measurement by glucometer (mass/volume) - 08/28/16 11: 37 Capillary blood glucose measurement by glucometer (mass/volume) 149 mg/dL 70-110 Complete blood count (CBC) with automated white blood cell (WBC) differential - 08/10/17 16:15 Blood leukocytes automated count (number/volume) 8.8 10*3/uL 4.3-11.0 Blood erythrocytes automated count (number/volume) 5.02 10*6/uL 4.35-5.85 Venous blood hemoglobin measurement (mass/volume) 14.7 g/dL 13.3-17.7 Blood hematocrit (volume fraction) 44 % 40-54 Automated erythrocyte mean corpuscular volume 88 [foz_us] 80-99 Automated erythrocyte mean corpuscular hemoglobin (mass per erythrocyte) 29 pg 25-34 Automated erythrocyte mean corpuscular hemoglobin concentration measurement ( mass/volume) 33 g/dL 32-36 Automated erythrocyte distribution width ratio 13.4 % 10.0-14.5 Automated blood platelet count (count/volume) 229 10*3/uL 130-400 Automated blood platelet mean volume measurement 11.5 [foz_us] 7.4-10.4 Automated blood neutrophils/100 leukocytes 73 % 42-75 Automated blood lymphocytes/100 leukocytes 19 % 12-44 Blood monocytes/100 leukocytes 7 % 0-12 Automated blood eosinophils/100 leukocytes 2 % 0-10 Automated blood basophils/100 leukocytes 0 % 0-10 Blood neutrophils automated count (number/volume) 6.4 10*3 1.8-7.8 Blood lymphocytes automated count (number/volume) 1.7 10*3 1.0-4.0 Blood monocytes automated count (number/volume) 0.6 10*3 0.0-1.0 Automated eosinophil count 0.1 10*3/uL 0.0-0.3 Automated blood basophil count (count/volume) 0.0 10*3/uL 0.0-0.1 Blood lactic acid measurement (moles/volume) - 08/10/17 16:15 Blood lactic acid measurement (moles/volume) 2.49 mmol/L 0.50-2.00 Comprehensive metabolic panel - 08/10/17 16:15 Serum or plasma sodium measurement (moles/volume) 137 mmol/L 135-145 Serum or plasma potassium measurement (moles/volume) 4.2 mmol/L 3.6-5.0 Serum or plasma chloride measurement (moles/volume) 104 mmol/L 98-107 Carbon dioxide 20 mmol/L 21-32 Serum or plasma anion gap determination (moles/volume) 13 mmol/L 5-14 Serum or plasma urea nitrogen measurement (mass/volume) 18 mg/dL 7-18 Serum or plasma creatinine measurement (mass/volume) 1.59 mg/dL 0.60-1.30 Serum or plasma urea nitrogen/creatinine mass ratio 11 NRG Serum or plasma creatinine measurement with calculation of estimated glomerular filtration rate 43 NRG Serum or plasma glucose measurement (mass/volume) 248 mg/dL 70-105 Serum or plasma calcium measurement (mass/volume) 9.8 mg/dL 8.5-10.1 Serum or plasma total bilirubin measurement (mass/volume) 1.5 mg/dL 0.1-1.0 Serum or plasma alkaline phosphatase measurement (enzymatic activity/volume) 66 U/L 40-136 Serum or plasma aspartate aminotransferase measurement (enzymatic activity/ volume) 19 U/L 5-34 Serum or plasma alanine aminotransferase measurement (enzymatic activity/volume ) 28 U/L 0-55 Serum or plasma protein measurement (mass/volume) 7.3 g/dL 6.4-8.2 Serum or plasma albumin measurement (mass/volume) 4.3 g/dL 3.2-4.5 Serum or plasma amylase measurement (enzymatic activity/volume) - 08/10/17 16: 15 Serum or plasma amylase measurement (enzymatic activity/volume) 71 U /L 25-125 Lipase - 08/10/17 16:15 Lipase 48 U/L 8-78 Serum or plasma lactate measurement (moles/volume) - 08/10/17 18:17 Serum or plasma lactate measurement (moles/volume) 2.14 mmol/L 0.50-2.00 Complete urinalysis with reflex to culture - 08/10/17 19:35 Urine color determination YELLOW NRG Urine clarity determination CLEAR NRG Urine pH measurement by test strip 5 5-9 Specific gravity of urine by test strip 1.010 1.016- 1.022 Urine protein assay by test strip, semi-quantitative NEGATIVE NEGATIVE Urine glucose detection by automated test strip NEGATIVE NEGATIVE Erythrocytes detection in urine sediment by light microscopy NEGATIVE NEGATIVE Urine ketones detection by automated test strip NEGATIVE NEGATIVE Urine nitrite detection by test strip NEGATIVE NEGATIVE Urine total bilirubin detection by test strip NEGATIVE NEGATIVE Urine urobilinogen measurement by automated test strip (mass/volume) NORMAL NORMAL Urine leukocyte esterase detection by dipstick NEGATIVE NEGATIVE Automated urine sediment erythrocyte count by microscopy (number/high power field) NONE NRG Automated urine sediment leukocyte count by microscopy (number/high power field ) RARE NRG Bacteria detection in urine sediment by light microscopy NEGATIVE NRG Crystals detection in urine sediment by light microscopy NONE NRG Casts detection in urine sediment by light microscopy PRESENT NRG Mucus detection in urine sediment by light microscopy NEGATIVE NRG Complete urinalysis with reflex to culture NO NRG Hyaline casts detection in urine sediment by light microscopy 10-25 NRG Bacterial blood culture - 08/10/17 19:45 Bacterial blood culture NG NRG Bacterial blood culture - 08/10/17 19:45 Bacterial blood culture NG NRG Methicillin resistant Staphylococcus aureus (MRSA) screening culture - 20:35 Methicillin resistant Staphylococcus aureus (MRSA) screening culture NEG NRG Capillary blood glucose measurement by glucometer (mass/volume) - 08/10/17 20: 44 Capillary blood glucose measurement by glucometer (mass/volume) 173 mg/dL 70-110 Blood lactic acid measurement (moles/volume) - 08/11/17 03:44 Blood lactic acid measurement (moles/volume) 1.36 mmol/L 0.50-2.00 Complete blood count (CBC) with automated white blood cell (WBC) differential - 08/11/17 03:44 Blood leukocytes automated count (number/volume) 7.8 10*3/uL 4.3-11.0 Blood erythrocytes automated count (number/volume) 4.26 10*6/uL 4.35-5.85 Venous blood hemoglobin measurement (mass/volume) 12.8 g/dL 13.3-17.7 Blood hematocrit (volume fraction) 39 % 40-54 Automated erythrocyte mean corpuscular volume 91 [foz_us] 80-99 Automated erythrocyte mean corpuscular hemoglobin (mass per erythrocyte) 30 pg 25-34 Automated erythrocyte mean corpuscular hemoglobin concentration measurement ( mass/volume) 33 g/dL 32-36 Automated erythrocyte distribution width ratio 13.5 % 10.0-14.5 Automated blood platelet count (count/volume) 160 10*3/uL 130-400 Automated blood platelet mean volume measurement 11.0 [foz_us] 7.4-10.4 Automated blood neutrophils/100 leukocytes 64 % 42-75 Automated blood lymphocytes/100 leukocytes 24 % 12-44 Blood monocytes/100 leukocytes 10 % 0-12 Automated blood eosinophils/100 leukocytes 1 % 0-10 Automated blood basophils/100 leukocytes 0 % 0-10 Blood neutrophils automated count (number/volume) 5.0 10*3 1.8-7.8 Blood lymphocytes automated count (number/volume) 1.9 10*3 1.0-4.0 Blood monocytes automated count (number/volume) 0.8 10*3 0.0-1.0 Automated eosinophil count 0.1 10*3/uL 0.0-0.3 Automated blood basophil count (count/volume) 0.0 10*3/uL 0.0-0.1 Comprehensive metabolic panel - 08/11/17 03:44 Serum or plasma sodium measurement (moles/volume) 139 mmol/L 135-145 Serum or plasma potassium measurement (moles/volume) 4.3 mmol/L 3.6-5.0 Serum or plasma chloride measurement (moles/volume) 109 mmol/L 98-107 Carbon dioxide 22 mmol/L 21-32 Serum or plasma anion gap determination (moles/volume) 8 mmol/L 5-14 Serum or plasma urea nitrogen measurement (mass/volume) 14 mg/dL 7-18 Serum or plasma creatinine measurement (mass/volume) 1.13 mg/dL 0.60-1.30 Serum or plasma urea nitrogen/creatinine mass ratio 12 NRG Serum or plasma creatinine measurement with calculation of estimated glomerular filtration rate > NRG Serum or plasma glucose measurement (mass/volume) 165 mg/dL 70-105 Serum or plasma calcium measurement (mass/volume) 8.6 mg/dL 8.5-10.1 Serum or plasma total bilirubin measurement (mass/volume) 1.1 mg/dL 0.1-1.0 Serum or plasma alkaline phosphatase measurement (enzymatic activity/volume) 60 U/L 40-136 Serum or plasma aspartate aminotransferase measurement (enzymatic activity/ volume) 15 U/L 5-34 Serum or plasma alanine aminotransferase measurement (enzymatic activity/volume ) 22 U/L 0-55 Serum or plasma protein measurement (mass/volume) 5.8 g/dL 6.4-8.2 Serum or plasma albumin measurement (mass/volume) 3.5 g/dL 3.2-4.5 Serum or plasma phosphate measurement (mass/volume) - 08/11/17 03:44 Serum or plasma phosphate measurement (mass/volume) 3.3 mg/dL 2.3-4.7 Magnesium - 08/11/17 03:44 Magnesium 1.6 mg/dL 1.8-2.4 Stool occult blood screen - 08/11/17 04:45 Stool gastrointestinal hemoglobin detection NEGATIVE NEGATIVE C DIFFICILE AG + TOXIN A/B. - 08/11/17 04:45 RESULTS NEGATIVE FOR ANTIGEN AND TOXIN A/B [facility] Stool bacteria identification by culture - 08/11/17 04:45 Stool bacteria identification by culture N2 [facility] Capillary blood glucose measurement by glucometer (mass/volume) - 08/11/17 08: 08 Capillary blood glucose measurement by glucometer (mass/volume) 171 mg/dL 70-110 Capillary blood glucose measurement by glucometer (mass/volume) - 08/11/17 11: 15 Capillary blood glucose measurement by glucometer (mass/volume) 185 mg/dL 70-110 Capillary blood glucose measurement by glucometer (mass/volume) - 08/11/17 16: 16 Capillary blood glucose measurement by glucometer (mass/volume) 157 mg/dL 70-110 Capillary blood glucose measurement by glucometer (mass/volume) - 08/11/17 20: 52 Capillary blood glucose measurement by glucometer (mass/volume) 86 mg/dL 70-110 Complete blood count (CBC) with automated white blood cell (WBC) differential - 08/12/17 05:21 Blood leukocytes automated count (number/volume) 5.5 10*3/uL 4.3-11.0 Blood erythrocytes automated count (number/volume) 4.36 10*6/uL 4.35-5.85 Venous blood hemoglobin measurement (mass/volume) 13.1 g/dL 13.3-17.7 Blood hematocrit (volume fraction) 39 % 40-54 Automated erythrocyte mean corpuscular volume 90 [foz_us] 80-99 Automated erythrocyte mean corpuscular hemoglobin (mass per erythrocyte) 30 pg 25-34 Automated erythrocyte mean corpuscular hemoglobin concentration measurement ( mass/volume) 33 g/dL 32-36 Automated erythrocyte distribution width ratio 13.5 % 10.0-14.5 Automated blood platelet count (count/volume) 152 10*3/uL 130-400 Automated blood platelet mean volume measurement 11.2 [foz_us] 7.4-10.4 Automated blood neutrophils/100 leukocytes 56 % 42-75 Automated blood lymphocytes/100 leukocytes 32 % 12-44 Blood monocytes/100 leukocytes 9 % 0-12 Automated blood eosinophils/100 leukocytes 3 % 0-10 Automated blood basophils/100 leukocytes 0 % 0-10 Blood neutrophils automated count (number/volume) 3.1 10*3 1.8-7.8 Blood lymphocytes automated count (number/volume) 1.8 10*3 1.0-4.0 Blood monocytes automated count (number/volume) 0.5 10*3 0.0-1.0 Automated eosinophil count 0.1 10*3/uL 0.0-0.3 Automated blood basophil count (count/volume) 0.0 10*3/uL 0.0-0.1 Whole blood basic metabolic panel - 08/12/17 05:21 Serum or plasma sodium measurement (moles/volume) 144 mmol/L 135-145 Serum or plasma potassium measurement (moles/volume) 3.6 mmol/L 3.6-5.0 Serum or plasma chloride measurement (moles/volume) 114 mmol/L 98-107 Carbon dioxide 22 mmol/L 21-32 Serum or plasma anion gap determination (moles/volume) 8 mmol/L 5-14 Serum or plasma urea nitrogen measurement (mass/volume) 8 mg/dL 7-18 Serum or plasma creatinine measurement (mass/volume) 0.83 mg/dL 0.60-1.30 Serum or plasma urea nitrogen/creatinine mass ratio 10 NRG Serum or plasma creatinine measurement with calculation of estimated glomerular filtration rate > NRG Serum or plasma glucose measurement (mass/volume) 112 mg/dL 70-105 Serum or plasma calcium measurement (mass/volume) 8.9 mg/dL 8.5-10.1 Serum or plasma phosphate measurement (mass/volume) - 08/12/17 05:21 Serum or plasma phosphate measurement (mass/volume) 2.8 mg/dL 2.3-4.7 Magnesium - 08/12/17 05:21 Magnesium 1.7 mg/dL 1.8-2.4 Capillary blood glucose measurement by glucometer (mass/volume) - 08/12/17 05: 56 Capillary blood glucose measurement by glucometer (mass/volume) 108 mg/dL 70-110 Capillary blood glucose measurement by glucometer (mass/volume) - 08/12/17 11: 14 Capillary blood glucose measurement by glucometer (mass/volume) 122 mg/dL 70-110 Encounters ACCT No. Visit Date/Time Discharge Status Pt. Type Provider Facility Loc./Unit Complaint [id number] 05/21/2018 09:30:00 05/21/2018 23:59:59 CLS Preadmit FILIPPO RODRIGUEZ [facility] PUL J44.9 COPD [id number] 02/19/2018 09:30:00 05/20/2018 00:01:00 DIS Outpatient FILIPPO RODRIGUEZ [facility] PUL J44.9 COPD [id number] 08/10/2017 20:04:00 08/12/2017 11:25:00 DIS Inpatient POZO DO BASSAM [facility] 4TH LLQ PAIN;DEHYDRATION; HYPOTENSION [id number] 08/27/2016 21:46:00 08/28/2016 16:50:00 DIS Inpatient POZO DO, BASSAM [facility] ICU DYSPNEA; LVE PAIN; KNOWN CAD [id number] 08/04/2016 13:35:00 08/06/2016 11:44:00 DIS Outpatient MARIE CARROLL, TRAVIS Blas [facility] CATH CHEST PAIN [id number] 07/06/2015 13:00:00 07/06/2015 23:59:59 CLS Preadmit FREDY DOBBS DO [facility] DSME UNCONTROLLED DIABETES [id number] 04/06/2015 12:51:00 07/05/2015 00:01:00 DIS Outpatient FREDY DOBBS DO [facility] DSME UNCONTROLLED DIABETES [id number] 11/10/2014 14:16:00 11/10/2014 23:59:59 CLS Outpatient FANG ROLLINS MD [facility] RAD CLAUDICATION [id number] 11/07/2014 10:00:00 11/07/2014 23:59:59 [facility] [id number] 08/12/2014 10:00:00 11/06/2014 00:01:00 DIS Outpatient FREDY DOBBS DO [facility] DSME DM 2 [id number] 09/18/2013 16:08:00 09/18/2013 23:59:59 CLS Outpatient ARTURO DOMINGUEZ APRN [facility] RAD SEVERE ADB PAIN [id number] 05/16/2013 06:50:00 05/16/2013 13:12:00 DIS Outpatient CHRISTINA ALVAREZ MD [facility] SDC GALLSTONES [id number] 05/10/2013 07:45:00 05/10/2013 23:59:59 CLS Outpatient CHRISTINA ALVAREZ MD [facility] PREOP GALLSTONES [id number] 03/26/2013 11:27:00 03/26/2013 23:59:59 CLS Outpatient ANALI BRYSON [facility] RAD CAD,HTN [id number] 03/25/2013 12:39:00 03/25/2013 23:59:59 CLS Outpatient ANALI BRYSONP [facility] CARD CAD,HTN [id number] 04/06/2015 12:57:00 Document Registration [id number] 04/06/2015 12:57:00 Document Registration [id number] 04/06/2015 12:57:00 Document Registration [id number] 04/06/2015 12:57:00 Document Registration [id number] 04/06/2015 12:57:00 Document Registration [id number] 02/26/2013 14:10:00 Document Registration [id number] 07/13/2012 11:08:00 Document Registration [id number] 05/28/2012 15:40:00 Document Registration [id number] 05/01/2012 12:12:00 Document Registration [id number] 03/26/2012 07:49:00 Document Registration [id number] 03/21/2012 17:01:00 Document Registration [id number] 01/12/2012 17:11:00 Document Registration [id number] 12/14/2011 13:45:00 Document Registration [id number] 09/21/2010 08:26:00 Document Registration [id number] 03/09/2010 07:40:00 Document Registration
[2018-12-10 08:14] LABS: BASOPHILS % (AUTO) 0 % (0-10); EOSINOPHILS # (AUTO) 0.2 10^3/uL (0.0-0.3); EOSINOPHILS % (AUTO) 2 % (0-10); HEMATOCRIT 47 % (40-54); HEMOGLOBIN 16.1 G/DL (13.3-17.7); LYMPHOCYTES # (AUTO) 2.8 X 10^3 (1.0-4.0); LYMPHOCYTES % (AUTO) 35 % (12-44); MEAN CORPUSCULAR HEMOGLOBIN 30 PG (25-34); MEAN CORPUSCULAR HGB CONC 34 G/DL (32-36); MEAN CORPUSCULAR VOLUME 89 FL (80-99); MEAN PLATELET VOLUME 11.3 FL (7.4-10.4); MONOCYTES # (AUTO) 0.6 X 10^3 (0.0-1.0); MONOCYTES % (AUTO) 8 % (0-12); NEUTROPHILS # (AUTO) 4.5 X 10^3 (1.8-7.8); NEUTROPHILS % (AUTO) 55 % (42-75); PLATELET COUNT 182 10^3/uL (130-400); RED BLOOD COUNT 5.33 10^6/uL (4.35-5.85); RED CELL DISTRIBUTION WIDTH 12.9 % (10.0-14.5); WHITE BLOOD COUNT 8.2 10^3/uL (4.3-11.0)
--- NOTE | 2018-12-10 08:15 | ED Chest Pain ---
General Stated Complaint: CP Source: patient, family, EMS, old records Exam Limitations: no limitations History of Present Illness Date Seen by Provider: Dec 10, 2018 Time Seen by Provider: 07:58 Initial Comments The patient presents to the ER by EMS from home with chief complaint that about 6:00 this morning he began to have a sharp 8 out of 10 chest pain in his left upper chest radiating into his shoulder. He was getting up to go the bathroom when he felt the pain. It was not worse with exertion. He says the pain was so bad he almost fell off the toilet. He is not having any shortness of breath or increased coughing. He does have a history of COPD and 3 months ago he had a CABG. Allergies and Home Medications Allergies Coded Allergies: Penicillins (Verified Allergy, Unknown, 05/01/12) Home Medications Albuterol Sulfate 6.7 Gm Hfa.aer.ad, 2 PUFF IH Q4H PRN for SHORTNESS OF BREATH, (Reported) Aspirin 81 Mg Tablet.dr, 81 MG PO DAILY, (Reported) Atorvastatin Calcium 10 Mg Tablet, 10 MG PO HS, (Reported) Cholecalciferol (Vitamin D3) 1,000 Unit Capsule, 1,000 UNIT PO BID, (Reported) Donepezil HCl 5 Mg Tablet, 5 MG PO DAILY, (Reported) Enalapril Maleate 10 Mg Tablet, 10 MG PO DAILY, (Reported) Fesoterodine Fumarate 4 Mg Tab.sr.24h, 4 MG PO DAILY, (Reported) Furosemide 20 Mg Tablet, 20 MG PO BID, (Reported) Glucagon,Human Recombinant 1 Mg/Kit Soln, 1 MG INJ UD PRN for HYPOGLYCEMIA, ( Reported) Insulin Aspart 300 Units/3 Ml Solution, 20 UNITS SQ AC, (Reported) LAST FILLED 12-08-16 Insulin Detemir 100 Unit/1 Ml Insuln.pen, 48 UNITS SC HS, (Reported) LAST FILLED 12-13- Metformin HCl 1,000 Mg Tablet, 1,000 MG PO BID, (Reported) Metoprolol Succinate 50 Mg Tab.er.24h, 25 MG PO DAILY, (Reported) TAKES 1/2 (50MG) TABLET Nitroglycerin 0.4 Mg Tab.subl, 0.4 MG SL UD PRN for CHEST PAIN, (Reported) Rogers-3 Fatty Acids/Fish Oil 1 Each Capsule, 2,000 MG PO BID, (Reported) TAKES 2 (1000MG) CAPSULES Omeprazole 40 Mg Capsule.dr, 40 MG PO DAILY, (Reported) Pioglitazone HCl 30 Mg Tablet, 15 MG PO DAILY, (Reported) TAKES 1/2 (30MG) TABLET Potassium Chloride 10 Meq Tablet.er, 10 MEQ PO BID, (Reported) Silodosin 4 Mg Capsule, 4 MG PO DAILY, (Reported) Patient Home Medication List Home Medication List Reviewed: Yes Review of Systems Review of Systems Constitutional: No chills, No fever, No malaise EENTM: No Eye Pain, No Ear Pain Respiratory: Cough; Denies Shortness of Air, Denies Wheezing Cardiovascular: See HPI, Chest Pain; Denies Edema Gastrointestinal: Denies Constipated, Denies Diarrhea; Nausea; Denies Poor Fluid Intake, Denies Vomiting Genitourinary: Denies Burning, Denies Discharge Musculoskeletal: No back pain, No joint pain Skin: No pruritus, No rash Psychiatric/Neurological: Denies Headache, Denies Numbness Past Usvsdkt-Wmedyt-Mukshg Hx Patient Social History Alcohol Use: Denies Use Recreational Drug Use: No Smoking Status: Former Smoker Type Used: Cigars, Cigarettes, Pipe Former Smoker, Quit: Aug 04, 1980 Recent Hopitalizations: Yes Immunizations Up To Date Tetanus Booster (TDap): Less than 5yrs PED Vaccines UTD: No Date of Pneumonia Vaccine: Aug 04, 2015 Date of Influenza Vaccine: Aug 27, 2012 Seasonal Allergies Seasonal Allergies: No Past Medical History Surgeries: Yes (KIDNEY STONES REMOVED) CABG Respiratory: Yes Asthma, Pneumonia Cardiac: Yes (CABG x 3 2007) Cardiomyopathy, Coronary Artery Disease, High Cholesterol, Hypertension Neurological: No Reproductive Disorders: No Genitourinary: Yes Kidney Stones Gastrointestinal: No Musculoskeletal: Yes (UNSTEADY ON FEET USES WALKER AT HOME) Arthritis Endocrine: Yes Diabetes, Insulin dep HEENT: Yes Cataract Loss of Vision: Denies Hearing Impairment: Hard of Hearing Cancer: No Psychosocial: No Integumentary: No Blood Disorders: No Adverse Reaction/Blood Tranf: No Family Medical History No Pertinent Family Hx Physical Exam Vital Signs Vital Signs - First Documented 12/10/18 07:59 Temp 98.7 Pulse 90 Resp 13 B/P (MAP) 127/68 (87) Pulse Ox 96 O2 Delivery Room Air Capillary Refill : Height, Weight, BMI Height: 6'0.00" Weight: 218lbs. 8.0oz. 98.380137jl; 29.8 BMI Method:Estimated General Appearance: Anxious, Mild Distress HEENT: PERRL/EOMI, TMs Normal, Normal ENT Inspection, Pharynx Normal, Moist Mucous Membranes Neck: Full Range of Motion, Normal Inspection, Non Tender, Supple Respiratory: Lungs Clear, Normal Breath Sounds, No Accessory Muscle Use, No Respiratory Distress, Other (left upper chest tender to palpation which reproduces the pain.) Cardiovascular: Regular Rate, Rhythm, No Edema, Normal Peripheral Pulses Gastrointestinal: Normal Bowel Sounds, No Organomegaly, Non Tender, Soft Extremity: Normal Capillary Refill, Normal Inspection, Non Tender Neurologic/Psychiatric: Alert, Oriented x3 Skin: Normal Color, Warm/Dry Progress/Results/Core Measures Results/Orders Lab Results Laboratory Tests Test 12/10/18 08:00 Range/Units White Blood Count 8.2 4.3-11.0 10^3/uL Red Blood Count 5.33 4.35-5.85 10^6/uL Hemoglobin 16.1 13.3-17.7 G/DL Hematocrit 47 40-54 % Mean Corpuscular Volume 89 80-99 FL Mean Corpuscular Hemoglobin 30 25-34 PG Mean Corpuscular Hemoglobin Concent 34 32-36 G/DL Red Cell Distribution Width 12.9 10.0-14.5 % Platelet Count 182 130-400 10^3/uL Mean Platelet Volume 11.3 H 7.4-10.4 FL Neutrophils (%) (Auto) 55 42-75 % Lymphocytes (%) (Auto) 35 12-44 % Monocytes (%) (Auto) 8 0-12 % Eosinophils (%) (Auto) 2 0-10 % Basophils (%) (Auto) 0 0-10 % Neutrophils # (Auto) 4.5 1.8-7.8 X 10^3 Lymphocytes # (Auto) 2.8 1.0-4.0 X 10^3 Monocytes # (Auto) 0.6 0.0-1.0 X 10^3 Eosinophils # (Auto) 0.2 0.0-0.3 10^3/uL Basophils # (Auto) 0.0 0.0-0.1 10^3/uL Prothrombin Time 12.6 12.2-14.7 SEC INR Comment 0.9 0.8-1.4 Activated Partial Thromboplast Time 29 24-35 SEC Sodium Level 140 135-145 MMOL/L Potassium Level 5.0 3.6-5.0 MMOL/L Chloride Level 102 98-107 MMOL/L Carbon Dioxide Level 25 21-32 MMOL/L Anion Gap 13 5-14 MMOL/L Blood Urea Nitrogen 15 7-18 MG/DL Creatinine 1.13 0.60-1.30 MG/DL Estimat Glomerular Filtration Rate > 60 BUN/Creatinine Ratio 13 Glucose Level 184 H 70-105 MG/DL Calcium Level 10.4 H 8.5-10.1 MG/DL Corrected Calcium 8.5-10.1 MG/DL Magnesium Level 2.0 1.8-2.4 MG/DL Total Bilirubin 0.9 0.1-1.0 MG/DL Aspartate Amino Transf (AST/SGOT) 40 H 5-34 U/L Alanine Aminotransferase (ALT/SGPT) 53 0-55 U/L Alkaline Phosphatase 62 40-136 U/L Myoglobin 38.6 10.0-92.0 NG/ML Troponin I < 0.028 <0.028 NG/ML B-Type Natriuretic Peptide 14.1 <100.0 PG/ML Total Protein 7.5 6.4-8.2 GM/DL Albumin 4.6 H 3.2-4.5 GM/DL My Orders Orders - CODY,MIKE J Cbc With Automated Diff (12/10/18 08:08) Magnesium (12/10/18 08:08) Chest 1 View, Ap/Pa Only (12/10/18 08:08) Ekg Tracing (12/10/18 08:08) Cardiac Profile 1 (12/10/18 08:08) Comprehensive Metabolic Panel (12/10/18 08:08) Myoglobin Serum (12/10/18 08:08) Protime With Inr (12/10/18 08:08) Partial Thromboplastin Time (12/10/18 08:08) O2 (12/10/18 08:08) Monitor-Rhythm Ecg Trace Only (12/10/18 08:08) Lipid Panel (12/11/18 06:00) Saline Lock/Iv-Start (12/10/18 08:08) BNP (12/10/18 08:08) Vital Signs/I&O 12/10/18 07:59 Temp 98.7 Pulse 90 Resp 13 B/P (MAP) 127/68 (87) Pulse Ox 96 O2 Delivery Room Air Progress Progress Note : Time: 08:53 Progress Note ED ACS 21 points. Not low risk. This patient is not a candidate for early discharge and should receive a standard chest pain evaluation with delayed troponin testing. Cardiac catheterization 2015 and occluded RODRÍGUEZ to the LAD. 70% proximal LAD stenosis highly calcified artery is been present since 2010. LAD has dual supply through [place] artery and vein graft to the diagonal artery with excellent flow. Occluded high ramus intermedius branch with patent vein graft that is a gentle graft from the high ramus intermedius and diagonal artery with good flow distally. History of paroxysmal atrial fibrillation currently in sinus rhythm. While his pain is reproducible on direct palpation his recent CABG is still concerning. Nausea has resolved. Pain is presently 4 out of 10. Initial ECG Impression Date: Dec 10, 2018 Initial ECG Impression Time: 08:02 Initial ECG Rate: 83 Initial ECG Rhythm: Normal Sinus Initial ECG Intervals: Normal Initial ECG Impression: Normal Initial ECG Comparisson: Unchanged Comment No ST-T wave segment elevation or depression. Diagnostic Imaging Diagonstic Imaging: Xray Plain Films/CT/US/NM/MRI: chest (1v) Comments [facility], [facility]. [place], [place] NAME: STEPHAN NÚÑEZ [facility] REC#: [id number] PT STATUS: REG ER : 1940 PHYSICIAN: MIKE ROSS MD ADMIT DATE: 12/10/18/ER Draft Date of Exam:12/10/18 CHEST 1 VIEW, AP/PA ONLY INDICATION: Chest pain. Frontal chest obtained at 8:24 a.m. and compared with 08/12/2017. FINDINGS: There is borderline heart size with poststernotomy change. There is some atelectatic change in the left base. There is no consolidation or pneumothorax or pleural fluid. There is poor inspiration. IMPRESSION: Borderline heart size with evidence of previous sternotomy. There is some atelectatic change in the left base. No consolidation or pleural fluid. Dictated on workstation # [id number] Dict: 12/10/18 0832 Trans: 12/10/18 0835 [id number] Interpreted by: MERYL HENDRIX MD Electronically signed by: Reviewed: Reviewed by Me Consults : Consulting Physician: TRAVIS SALAZAR MD Consults Notes Discussed case EKG labs and he recommends keeping the patient given the recent CABG. Departure Impression Primary Impression: Chest pain Qualified Codes: R07.9 - Chest pain, unspecified Disposition: XFER SHT-TRM HOSP Condition: Stable Transfer Time Spoke to Accepting Phy: 09:10 Transfer Progress Notes Discussed case with Dr. Giron, internal medicine at [place], [place]. He accepts the patient observation cardiac telemetry. Transfer Facility: [place], [place] Method of Transfer: EMS Departure-Patient Inst. Referrals: FANG ROLLINS MD (PCP/Family) Primary Care Physician Copy Copies To 1: FANG ROLLINS MD, TITUS J Dec 10, 2018 08:14
[2018-12-10 08:26] LABS: INR 0.9 (0.8-1.4); PROTHROMBIN TIME PATIENT 12.6 SEC (12.2-14.7)
[2018-12-10 08:32] LABS: ALANINE AMINOTRANSFERASE 53 U/L (0-55); ALBUMIN 4.6 GM/DL (3.2-4.5); ALKALINE PHOSPHATASE 62 U/L (40-136); BILIRUBIN,TOTAL 0.9 MG/DL (0.1-1.0); BUN/CREATININE RATIO 13; CALCIUM 10.4 MG/DL (8.5-10.1); CARBON DIOXIDE 25 MMOL/L (21-32); CHLORIDE 102 MMOL/L (98-107); CREATININE SERUM 1.13 MG/DL (0.60-1.30); GFR ESTIMATED > 60; GLUCOSE 184 MG/DL (70-105); SODIUM 140 MMOL/L (135-145); TOTAL PROTEIN 7.5 GM/DL (6.4-8.2)
--- NOTE | 2018-12-10 08:36 | Diagnostic Imaging Report ---
INDICATION: Chest pain. Frontal chest obtained at 8:24 a.m. and compared with 08/12/2017. FINDINGS: There is borderline heart size with poststernotomy change. There is some atelectatic change in the left base. There is no consolidation or pneumothorax or pleural fluid. There is poor inspiration. IMPRESSION: Borderline heart size with evidence of previous sternotomy. There is some atelectatic change in the left base. No consolidation or pleural fluid. Dictated by: Dictated on workstation # [id number]
[2018-12-10 08:38] LABS: MYOGLOBIN SERUM 38.6 NG/ML (10.0-92.0)
--- NOTE | 2018-12-10 10:17 | NUR ---
REPORT GIVEN TO STEPHANIE JEAN AT [facility].
[2018-12-10 10:44] VITALS: BP 125/65
== END 2018-12-10 10:44 | disposition short-term general hospital (02) ==
LOC: EDUNIT# 07:56 → ER 07:57
DX: R07.9 Chest pain, unspecified (principal); J44.9 Chronic obstructive pulmonary disease, unspecified; I42.9 Cardiomyopathy, unspecified; I25.10 Atherosclerotic heart disease of native coronary artery without angina pectoris; I10 Essential (primary) hypertension; E11.9 Type 2 diabetes mellitus without complications; E78.00 Pure hypercholesterolemia, unspecified; Z95.1 Presence of aortocoronary bypass graft; Z87.891 Personal history of nicotine dependence; Z87.442 Personal history of urinary calculi; Z88.0 Allergy status to penicillin; Z79.51 Long term (current) use of inhaled steroids; Z79.82 Long term (current) use of aspirin; Z79.4 Long term (current) use of insulin
CPT/HCPCS: 36415; 71045; 80053; 83735; 83874; 83880; 84484; 85025; 85610; 85730; 93005; 93041

== ENCOUNTER → 2018-12-19 | Outpatient (CLI) | payer MEDICARE ==
--- NOTE | 2018-12-19 13:43 | Diagnostic Imaging Report ---
INDICATION: Cough and shortness of air. Time of exam 11:04 a.m. COMPARISON: Correlation is made with prior study from 12/10/2018. FINDINGS: Changes of median sternotomy and CABG are noted. There is some linear atelectasis in the left base which appears improved since prior examination. Right lung is clear. No effusion or pneumothorax is seen. IMPRESSION: Improved aeration to the left base when compared with examination from one week earlier. Dictated by: Dictated on workstation # [id number]
== END ==
LOC: RAD 10:51
PROVIDERS: ATTEND Internal Medicine
DX: J44.9 Chronic obstructive pulmonary disease, unspecified (principal); Z95.1 Presence of aortocoronary bypass graft
CPT/HCPCS: 71046

== ENCOUNTER 2019-01-23 16:47 | Inpatient (IN) | payer MEDICARE ==
[~2019-01-23] VITALS: Ht 182.9 cm; Wt 100.4 kg
[2019-01-23 18:01] LABS: BASOPHILS % (AUTO) 0 % (0-10); EOSINOPHILS # (AUTO) 0.1 10^3/uL (0.0-0.3); EOSINOPHILS % (AUTO) 1 % (0-10); HEMATOCRIT 43 % (40-54); HEMOGLOBIN 14.8 G/DL (13.3-17.7); LYMPHOCYTES % (AUTO) 14 % (12-44); MEAN CORPUSCULAR HEMOGLOBIN 31 PG (25-34); MEAN CORPUSCULAR HGB CONC 35 G/DL (32-36); MEAN CORPUSCULAR VOLUME 88 FL (80-99); MONOCYTES # (AUTO) 0.9 X 10^3 (0.0-1.0); MONOCYTES % (AUTO) 13 % (0-12); NEUTROPHILS % (AUTO) 73 % (42-75); PLATELET COUNT 160 10^3/uL (130-400); RED CELL DISTRIBUTION WIDTH 13.9 % (10.0-14.5); WHITE BLOOD COUNT 6.9 10^3/uL (4.3-11.0)
[2019-01-23 18:03] LABS: PROTHROMBIN TIME PATIENT 13.2 SEC (12.2-14.7)
--- NOTE | 2019-01-23 18:06 | Diagnostic Imaging Report ---
INDICATION: Weakness. Cough and fever. COMPARISON: 12/10/2018. FINDINGS: Single frontal view of the chest demonstrates normal heart size and pulmonary vascularity. Lungs show probable scarring and atelectasis within the left base, but otherwise clear. No large pleural effusion or pneumothorax is seen. The visualized osseous structures show no acute abnormalities. Sternotomy wires are noted. IMPRESSION: 1. No acute cardiopulmonary process. Dictated by: Dictated on workstation # [id number]
[2019-01-23] MEDS ORDERED: NS IV 1000 ML 1,000 ML IV ONE (18:07)
--- NOTE | 2019-01-23 18:13 | ED General ---
General Chief Complaint: General Problems/Pain Stated Complaint: GENERALIZED WEAKNESS Nursing Triage Note: PT REPORTS FEELING WEAKN STARTING THIS AM. PT ALSO REPORTS BODY ACHES, COUGH, AND FEVER THAT STARTED THIS AM. Nursing Sepsis Screen: Possible Sepsis Risk Source of Information: Patient Exam Limitations: No Limitations History of Present Illness Date Seen by Provider: Jan 23, 2019 Time Seen by Provider: 16:49 Initial Comments This 78-year-old gentleman presents to the emergency room from home via EMS with complaints of generalized weakness, generalized body aches, cough, and fever that started this morning. EMS reports temperature was 102 for them. Fingerstick blood sugar was 200. Patient is an insulin-dependent diabetic. Allergies and Home Medications Allergies Coded Allergies: Penicillins (Verified Allergy, Unknown, 05/01/12) Home Medications Albuterol Sulfate 6.7 Gm Hfa.aer.ad, 2 PUFF IH Q4H PRN for SHORTNESS OF BREATH, (Reported) Aspirin 81 Mg Tablet.dr, 81 MG PO DAILY, (Reported) Atorvastatin Calcium 10 Mg Tablet, 10 MG PO HS, (Reported) Cholecalciferol (Vitamin D3) 1,000 Unit Capsule, 1,000 UNIT PO BID, (Reported) Donepezil HCl 5 Mg Tablet, 5 MG PO DAILY, (Reported) Enalapril Maleate 10 Mg Tablet, 10 MG PO DAILY, (Reported) Fesoterodine Fumarate 4 Mg Tab.sr.24h, 4 MG PO DAILY, (Reported) Furosemide 20 Mg Tablet, 20 MG PO BID, (Reported) Glucagon,Human Recombinant 1 Mg/Kit Soln, 1 MG INJ UD PRN for HYPOGLYCEMIA, ( Reported) Insulin Aspart 300 Units/3 Ml Solution, 20 UNITS SQ AC, (Reported) LAST FILLED 12-08-16 Insulin Detemir 100 Unit/1 Ml Insuln.pen, 48 UNITS SC HS, (Reported) LAST FILLED 12-13-17 Metformin HCl 1,000 Mg Tablet, 1,000 MG PO BID, (Reported) Metoprolol Succinate 50 Mg Tab.er.24h, 25 MG PO DAILY, (Reported) TAKES 1/2 (50MG) TABLET Nitroglycerin 0.4 Mg Tab.subl, 0.4 MG SL UD PRN for CHEST PAIN, (Reported) Tennyson-3 Fatty Acids/Fish Oil 1 Each Capsule, 2,000 MG PO BID, (Reported) TAKES 2 (1000MG) CAPSULES Omeprazole 40 Mg Capsule.dr, 40 MG PO DAILY, (Reported) Pioglitazone HCl 30 Mg Tablet, 15 MG PO DAILY, (Reported) TAKES 1/2 (30MG) TABLET Potassium Chloride 10 Meq Tablet.er, 10 MEQ PO BID, (Reported) Silodosin 4 Mg Capsule, 4 MG PO DAILY, (Reported) Patient Home Medication List Home Medication List Reviewed: Yes Review of Systems Review of Systems Constitutional: see HPI EENTM: no symptoms reported Respiratory: see HPI Cardiovascular: no symptoms reported Gastrointestinal: no symptoms reported Genitourinary: no symptoms reported Musculoskeletal: see HPI Skin: no symptoms reported Psychiatric/Neurological: No Symptoms Reported Hematologic/Lymphatic: No Symptoms Reported Immunological/Allergic: no symptoms reported Past Ijytkbe-Nvfqyy-Qvvouj Hx Patient Social History Alcohol Use: Denies Use Recreational Drug Use: No Type Used: Cigars, Cigarettes, Pipe Former Smoker, Quit: Aug 04, 1980 Recent Foreign Travel: No Contact w/Someone Who Travel: No Recent Infectious Disease Expo: No Recent Hopitalizations: No Immunizations Up To Date Tetanus Booster (TDap): Less than 5yrs PED Vaccines UTD: No Date of Pneumonia Vaccine: Aug 04, 2015 Date of Influenza Vaccine: Aug 27, 2012 Seasonal Allergies Seasonal Allergies: No Past Medical History Surgeries: Yes (KIDNEY STONES REMOVED) Adenoidectomy, CABG, Gallbladder, Tonsillectomy Respiratory: Yes Asthma, Pneumonia, COPD Cardiac: Yes (CABG x 3 2007) Cardiomyopathy, Coronary Artery Disease, High Cholesterol, Hypertension Neurological: No Reproductive Disorders: No Genitourinary: Yes Kidney Stones Gastrointestinal: No Musculoskeletal: Yes (UNSTEADY ON FEET USES WALKER AT HOME) Arthritis Endocrine: Yes Diabetes, Insulin dep HEENT: Yes Cataract Loss of Vision: Denies Hearing Impairment: Hard of Hearing Cancer: No Psychosocial: No Integumentary: No Blood Disorders: No Adverse Reaction/Blood Tranf: No Family Medical History No Pertinent Family Hx Physical Exam-Suspected Sepsis Physical Exam Vital Signs Vital Signs - First Documented 01/23/19 16:47 Temp 99.9 Pulse 101 Resp 16 B/P (MAP) 140/77 (98) Pulse Ox 100 Capillary Refill : Less Than 3 Seconds Blood Pressure Mean: 98 Height, Weight, BMI Height: 6'0" Weight: 240lbs. 8.0oz. 108.386615yr; 29.8 BMI Method:Stated General Appearance: No Apparent Distress, WD/WN HEENT: PERRL/EOMI, Normal ENT Inspection Neck: Normal Inspection Respiratory: Lungs Clear, Normal Breath Sounds, No Accessory Muscle Use, No Respiratory Distress Cardiovascular: Regular Rate, Rhythm, No Edema, No Murmur Gastrointestinal: Normal Bowel Sounds, Soft, Tenderness (mild and generalized) Extremity: Normal Capillary Refill, Normal Inspection, No Pedal Edema Neurologic/Psychiatric: Alert, Oriented x3, No Motor/Sensory Deficits, Normal Mood/Affect, manager helpdesk II-XII Norm as Tested Skin: normal color, warm/dry Focused Exam Lactate Level 01/23/19 16:50: Lactic Acid Level 3.29*H 01/23/19 19:05: Lactic Acid Level 2.10*H Lactic Acid Level Laboratory Tests Test 01/23/19 16:50 01/23/19 19:05 Lactic Acid Level 3.29 MMOL/L (0.50-2.00) *H 2.10 MMOL/L (0.50-2.00) *H Progress/Results/Core Measures Suspected Sepsis Recent Fever Within 48 Hours: Yes Infection Criteria Present: Suspected New Infection New/Unexplained Altered Menta: No Sepsis Screen: Possible Sepsis Risk SIRS Temperature:99.9 Pulse: 101 Respiratory Rate: 16 Laboratory Tests 01/23/19 16:50: White Blood Count 6.9 Blood Pressure 140 /77 Mean: 98 01/23/19 16:50: Lactic Acid Level 3.29*H 01/23/19 19:05: Lactic Acid Level 2.10*H Laboratory Tests 01/23/19 16:50: Creatinine 1.10, INR Comment 1.0, Platelet Count 160, Total Bilirubin 1.2H Results/Orders Lab Results Laboratory Tests Test 01/23/19 16:50 01/23/19 18:11 01/23/19 19:05 Range/Units White Blood Count 6.9 4.3-11.0 10^3/uL Red Blood Count 4.84 4.35-5.85 10^6/uL Hemoglobin 14.8 13.3-17.7 G/DL Hematocrit 43 40-54 % Mean Corpuscular Volume 88 80-99 FL Mean Corpuscular Hemoglobin 31 25-34 PG Mean Corpuscular Hemoglobin Concent 35 32-36 G/DL Red Cell Distribution Width 13.9 10.0-14.5 % Platelet Count 160 130-400 10^3/uL Mean Platelet Volume 11.0 H 7.4-10.4 FL Neutrophils (%) (Auto) 73 42-75 % Lymphocytes (%) (Auto) 14 12-44 % Monocytes (%) (Auto) 13 H 0-12 % Eosinophils (%) (Auto) 1 0-10 % Basophils (%) (Auto) 0 0-10 % Neutrophils # (Auto) 5.0 1.8-7.8 X 10^3 Lymphocytes # (Auto) 1.0 1.0-4.0 X 10^3 Monocytes # (Auto) 0.9 0.0-1.0 X 10^3 Eosinophils # (Auto) 0.1 0.0-0.3 10^3/uL Basophils # (Auto) 0.0 0.0-0.1 10^3/uL Prothrombin Time 13.2 12.2-14.7 SEC INR Comment 1.0 0.8-1.4 Activated Partial Thromboplast Time 31 24-35 SEC Sodium Level 136 135-145 MMOL/L Potassium Level 3.9 3.6-5.0 MMOL/L Chloride Level 104 98-107 MMOL/L Carbon Dioxide Level 19 L 21-32 MMOL/L Anion Gap 13 5-14 MMOL/L Blood Urea Nitrogen 13 7-18 MG/DL Creatinine 1.10 0.60-1.30 MG/DL Estimat Glomerular Filtration Rate > 60 BUN/Creatinine Ratio 12 Glucose Level 199 H 70-105 MG/DL Lactic Acid Level 3.29 *H 2.10 *H 0.50-2.00 MMOL/L Calcium Level 10.1 8.5-10.1 MG/DL Corrected Calcium 8.5-10.1 MG/DL Total Bilirubin 1.2 H 0.1-1.0 MG/DL Aspartate Amino Transf (AST/SGOT) 47 H 5-34 U/L Alanine Aminotransferase (ALT/SGPT) 56 H 0-55 U/L Alkaline Phosphatase 61 40-136 U/L C-Reactive Protein High Sensitivity 1.63 H 0.00-0.50 MG/DL Total Protein 7.7 6.4-8.2 GM/DL Albumin 4.7 H 3.2-4.5 GM/DL Urine Color YELLOW Urine Clarity SLIGHTLY CLOUDY Urine pH 5 5-9 Urine Specific [place] 1.015 L 1.016-1.022 Urine Protein NEGATIVE NEGATIVE Urine Glucose (UA) NEGATIVE NEGATIVE Urine Ketones NEGATIVE NEGATIVE Urine Nitrite NEGATIVE NEGATIVE Urine Bilirubin NEGATIVE NEGATIVE Urine Urobilinogen NORMAL NORMAL MG/DL Urine Leukocyte Esterase NEGATIVE NEGATIVE Urine RBC (Auto) NEGATIVE NEGATIVE Urine RBC NONE /HPF Urine WBC NONE /HPF Urine Squamous Epithelial Cells 2-5 /HPF Urine Crystals NONE /LPF Urine Bacteria TRACE /HPF Urine Casts NONE /LPF Urine Mucus NEGATIVE /LPF Urine Culture Indicated CULTURE PENDING Micro Results Microbiology 01/23/19 Influenza Types A,B Antigen (RAO) - Final, Complete My Orders Orders - KAT LANCASTER MD Cbc With Automated Diff (01/23/19 17:43) Comprehensive Metabolic Panel (01/23/19 17:43) Blood Culture (01/23/19 17:43) Sputum Culture (01/23/19 17:43) Urinalysis (01/23/19 17:43) Urine Culture (01/23/19 17:43) Protime With Inr (01/23/19 17:43) Partial Thromboplastin Time (01/23/19 17:43) Chest 1 View, Ap/Pa Only (01/23/19 17:43) Saline Lock/Iv-Start (01/23/19 17:43) Saline Lock/Iv-Start (01/23/19 17:43) Vital Signs Adult Sepsis Patie Q15M (01/23/19 17:43) O2 (01/23/19 17:43) Remove Rings In Anticipation O (01/23/19 17:43) Lactic Acid Analyzer (01/23/19 17:43) Influenza A And B Antigens (01/23/19 17:43) Ns Iv 1000 Ml (Sodium Chloride 0.9%) (01/23/19 18:07) Knee, Right, 2 Views (01/23/19 18:47) Acetaminophen Tablet (Tylenol Tablet) (01/23/19 19:00) Hs C Reactive Protein (01/23/19 19:14) Creatine Kinase (01/23/19 19:45) Medications Given in ED Current Medications Medications Dose Ordered Sig/Anoop Route Start Time Stop Time Status Last Admin Dose Admin Acetaminophen 1,000 mg ONCE ONCE PO 01/23/19 19:00 01/23/19 19:01 DC 01/23/19 18:56 1,000 MG Sodium Chloride 1,000 ml @ 0 mls/hr Q0M ONCE IV 01/23/19 18:07 01/23/19 18:08 DC 01/23/19 18:26 1,000 MLS/HR Vital Signs/I&O 01/23/19 16:47 Temp 99.9 Pulse 101 Resp 16 B/P (MAP) 140/77 (98) Pulse Ox 100 Capillary Refill : Less Than 3 Seconds Blood Pressure Mean: 98 Progress Note : Progress Note Septic workup was pursued. No evidence of bacterial infection was found. Patient did have lactic acidosis which was trending down with IV hydration. Cause of lactic acid was uncertain. Patient received 1 L of IV normal saline. Patient had a temperature 99.9. He had some shivers along with this. Tylenol was administered. The shivers seem to improve. After hydration and Tylenol, we attempted to get the patient up. Patient cannot even sit up a little on bear weight. It was then determined he needed to be admitted for observation. A creatinine kinase was added to his labs just prior to admission. Patient denied ever having any chest pain today. Case was discussed with Dr. Roca who agrees with admission. Patient was felt to have a viral illness as the main cause of his symptoms. Diagnostic Imaging Diagonstic Imaging: Xray Plain Films/CT/US/NM/MRI: chest Comments Chest x-ray viewed by me and report reviewed. See report below: NAME: STEPHAN NÚÑEZ [facility] REC#: [id number] PT STATUS: REG ER : 1940 PHYSICIAN: KAT LANCASTER MD ADMIT DATE: 01/23/19/ER Draft Date of Exam:01/23/19 CHEST 1 VIEW, AP/PA ONLY INDICATION: Weakness. Cough and fever. COMPARISON: 12/10/2018. FINDINGS: Single frontal view of the chest demonstrates normal heart size and pulmonary vascularity. Lungs show probable scarring and atelectasis within the left base, but otherwise clear. No large pleural effusion or pneumothorax is seen. The visualized osseous structures show no acute abnormalities. Sternotomy wires are noted. IMPRESSION: 1. No acute cardiopulmonary process. Dictated on workstation # [id number] Dict: 01/23/19 1803 Trans: 01/23/19 [address] [facility] [id number] Interpreted by: CORINA HENRY MD Diagonstic Imaging: Xray Plain Films/CT/US/NM/MRI: knee Comments X-ray of right knee viewed by me and report reviewed. See report below: NAME: STEPHAN NÚÑEZ [facility] REC#: [id number] PT STATUS: REG ER : 1940 PHYSICIAN: KAT LANCASTER MD ADMIT DATE: 01/23/19/ER Draft Date of Exam:01/23/19 KNEE, RIGHT, 2 VIEWS INDICATION: Fall. Knee pain. COMPARISON: None. FINDINGS: Two views of the right knee joint demonstrate no acute fracture or dislocation. No focal osseous lesions are seen. No significant joint effusion is seen. The surrounding soft tissue structures are unremarkable. There are no radiopaque foreign bodies. IMPRESSION: 1. No acute fractures or dislocations of the right knee joint. Dictated on workstation # [id number] Dict: 01/23/191905 Trans: 01/23/191906 [id number] Interpreted by: CORINA HENRY MD Departure Communication (Admissions) Time/Spoke to Admitting Phy: 19:48 Dr. Roca Impression Primary Impression: Generalized weakness Additional Impressions: Lactic acidosis Fall Qualified Codes: W19.XXXA - Unspecified fall, initial encounter Right knee pain Qualified Codes: M25.561 - Pain in right knee Disposition: ADMITTED INPATIENT Condition: Improved Admissions Decision to Admit Reason: Admit from ER (General) Decision to Admit/Date: Jan 23, 2019 Time/Decision to Admit Time: 19:45 Departure-Patient Inst. Referrals: FANG ROLLINS MD (PCP) Primary Care Physician KAT LANCASTER MD Jan 23, 2019 18:13
[2019-01-23 18:15] LABS: ALANINE AMINOTRANSFERASE 56 U/L (0-55); ALBUMIN 4.7 GM/DL (3.2-4.5); ALKALINE PHOSPHATASE 61 U/L (40-136); BILIRUBIN,TOTAL 1.2 MG/DL (0.1-1.0); BUN/CREATININE RATIO 12; CALCIUM 10.1 MG/DL (8.5-10.1); CARBON DIOXIDE 19 MMOL/L (21-32); CHLORIDE 104 MMOL/L (98-107); GFR ESTIMATED > 60; GLUCOSE 199 MG/DL (70-105); POTASSIUM 3.9 MMOL/L (3.6-5.0); SODIUM 136 MMOL/L (135-145); TOTAL PROTEIN 7.7 GM/DL (6.4-8.2)
[2019-01-23 18:24] LABS: BILIRUBIN,URINE NEGATIVE (NEGATIVE); CLARITY,URINE SLIGHTLY CLOUDY; COLOR,URINE YELLOW; GLUCOSE, URINE (UA) NEGATIVE (NEGATIVE); KETONES,URINE NEGATIVE (NEGATIVE); LEUKOCYTE ESTERASE ,URINE NEGATIVE (NEGATIVE); NITRITE,URINE NEGATIVE (NEGATIVE); PH,URINE 5 (5-9); PROTEIN,URINE NEGATIVE (NEGATIVE); UROBILINOGEN,URINE NORMAL (NORMAL)
[2019-01-23 18:35] LABS: BACTERIA,URINE TRACE /HPF
[2019-01-23] MEDS ORDERED: ACETAMINOPHEN 500 MG TAB (TYLENOL) PO ONE (19:00)
--- NOTE | 2019-01-23 19:08 | Diagnostic Imaging Report ---
INDICATION: Fall. Knee pain. COMPARISON: None. FINDINGS: Two views of the right knee joint demonstrate no acute fracture or dislocation. No focal osseous lesions are seen. No significant joint effusion is seen. The surrounding soft tissue structures are unremarkable. There are no radiopaque foreign bodies. IMPRESSION: 1. No acute fractures or dislocations of the right knee joint. Dictated by: Dictated on workstation # [id number]
--- NOTE | 2019-01-23 20:42 | NUR ---
ATTEMPTED TO CALL FEBRUARY, PTS DAUGHTER AT [phone], NO ANSWER AND NO ANSWERING MACHINE AVAILABLE.
--- NOTE | 2019-01-23 20:45 | NUR ---
STEPHAN NÚÑEZ admitted to room 404-1, with an admitting diagnosis of lactic acidosis and generalized weakness, on 01/23/19 from the ER via hospital bed, accompanied by an ER staff member. STEPHAN NÚÑEZ introduced to surroundings, call light, bed controls, phone, TV, temperature control, lights, meal times, smoking policy, visitor policy, side rail policy, bathrooms and showers. Patient Rights given to patient in the handbook. STEPHAN NÚÑEZ verbalizes understanding that [facility] is not responsible for the loss or damage to any personal effects or valuables that are kept in the patients posession during their hospitalization. Plan of care is discussed and there are no questions at this time.
--- OUTSIDE RECORDS SUMMARY | 2019-01-23 20:51 | XMS REPORT | Continuity of Care Document ---
Author Author [facility] Organization [facility] Address Unknown Phone Unavailable Allergies Active Description Code Type Severity Reaction Onset Reported/Identified Relationship to Patient Clinical Status Yes Penicillins [id number] Drug Allergy Unknown N/A 05/01/2012 Medications There [...] INFARCT 02/28/2013 Ot 414.01 CORONARY ATHEROSCLEROSIS OF [place] CORON 02/28/2013 Ot 427.31 ATRIAL FIBRILLATION 02/28/2013 [...] ALVAREZ MD Ot 414.01 CORONARY ATHEROSCLEROSIS OF [place] CORON 05/16/2013 CHRISTINA ALVAREZ MD Ot 427.31 [...] 733.90 04/06/2015 Ot 780.97 04/06/2015 ANALI BRYSON [employer]OL[employer] TREATER Ot 401.9 04/06/2015 BRYSON ANALI A [employer]OL[employer] C[employer] TREATER Ot 414.00 04/06/2015 BRYSON ANALI A GOL[employer] COVER TREATER Ot 424.0 04/06/2015 BRYSON ANALI A GOL[employer] COVER TREATER Ot 401.9 04/06/2015 BRYSONANALI BURNS GOL[employer] BALL COVER TREATER Ot 414.01 04/06/2015 KIM CARROLL, CHRISTINA Ot [...] MD Ot I25.110 ATHSCL HEART DISEASE OF [place] COR ART W 08/06/2016 TRAVIS SALAZAR MD Ot 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 08/06/2016 TRAVIS SALAZAR MD Ot I25.84 CORONARY ATHEROSCLEROSIS DUE TO CALCIFIE 08/06/2016 TRAVIS SALAZAR MD Ot J44.9 CHRONIC OBSTRUCTIVE PULMONARY DISEASE, U 08/06/2016 TRAVIS SALAZAR MD Ot 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, SUB 08/06/2016 TRAVIS SALAZAR MD Ot 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.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 08/06/2016 TRAVIS SALAZAR MD Ot Z79.899 OTHER [employer] WORKER (CURRENT) DRUG THERAPY 08/08/2016 Ot 959.6 HIP [...] TYPE VESSEL, NATIV 08/08/2016 BRYSON, ANALI A [employer] T[employer]ATER Ot 424.0 MITRAL VALVE DISORDER 08/08/2016 ANALI BRYSON [employer] T[employer]ATER Ot 401.9 HYPERTENSION NOS 08/08/2016 ANALI BRYSON [employer] TREATER Ot 414.01 CORONARY ATHEROSCLEROSIS OF [place] CORON 08/08/2016 KIM CARROLL, CHRISTINA Ot 574.20 [...] DOI Ot I25.10 ATHSCL HEART DISEASE OF [place] CORONARY 08/28/2016 SÁNCHEZ CUELLAR BASSAM Ot I48.0 PAROXYSMAL ATRIAL FIBRILLATION 08/28/2016 MARYAN POZO DOI Ot J44.9 CHRONIC OBSTRUCTIVE PULMONARY DISEASE, U 08/28/2016 MARYAN POZO DOI Ot R07.9 CHEST PAIN, UNSPECIFIED 08/28/2016 MARYAN POZO DOI Ot Z79.4 ASSISTED (CURRENT) USE OF INSULIN 08/28/2016 BASSAM POZO [...] MD, Ot I25.110 ATHSCL HEART DISEASE OF [place] COR ART W 09/09/2016 TRAVIS SALAZAR MD, Ot 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 09/09/2016 TRAVIS SALAZAR MD, Ot I25.84 CORONARY ATHEROSCLEROSIS DUE TO CALCIFIE 09/09/2016 TRAVIS SALAZAR MD, Ot J44.9 CHRONIC OBSTRUCTIVE PULMONARY DISEASE, U 09/09/2016 TRAVIS SALAZAR MD, Ot 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, SUB 09/09/2016 TRAVIS SALAZAR MD, Ot Z79.4 ASSISTED (CURRENT) USE OF INSULIN 09/09/2016 TRAVIS SALAZAR MD, Ot Z79.899 OTHER ASSISTED (CURRENT) DRUG THERAPY 08/12/2017 BASSAM POZO DO Ot E11.9 TYPE 2 DIABETES MELLITUS WITHOUT COMPLIC 08/12/2017 BASSAM POZO DO Ot E78.00 PURE HYPERCHOLESTEROLEMIA, UNSPECIFIED 08/12/2017 MARYAN POZO DOI Ot E86.0 DEHYDRATION 08/12/2017 BASSAM POZO DO Ot F17.210 NICOTINE DEPENDENCE, CIGARETTES, UNCOMPL 08/12/2017 BASSAM POZO DO Ot I10 ESSENTIAL (PRIMARY) HYPERTENSION 08/12/2017 BASSAM POZO DO Ot I25.10 ATHSCL HEART DISEASE OF [place] CORONARY 08/12/2017 BASSAM POZO DO Ot I42.9 [...] MALAISE 08/12/2017 BASSAM POZO DO Ot Z79.4 ASSISTED (CURRENT) USE OF INSULIN 08/12/2017 POZO DO BASSAM Ot Z95.1 PRESENCE OF AORTOCORONARY BYPASS GRAFT 12/04/2017 Ot 733.90 BONE CARTILAGE DIS NOS 12/04/2017 Ot 780.97 ALTERED MENTAL STATUS 12/04/2017 BRYSONANALI BURNS GOL[employer] C[employer] TREATER Ot 401.9 HYPERTENSION NOS 12/04/2017 BRYSONANALI BURNS GOL[employer] COVER TREATER Ot 414.00 CORON ATHEROSCLER NOS TYPE VESSEL, NATIV 12/04/2017 BRYSONANALI BURNS GOL[employer] B[employer] C[employer] TREATER Ot 424.0 MITRAL VALVE DISORDER 12/04/2017 BRYSONANALI BURNS GOL[employer] B[employer] C[employer] TREATER Ot 401.9 HYPERTENSION NOS 12/04/2017 BRYSONANALI BURNS GOL[employer] C[employer] TREATER Ot 414.01 CORONARY ATHEROSCLEROSIS OF [place] CORON 12/04/2017 CHRISTINA ALVAREZ MD Ot 574.20 [...] 780.97 ALTERED MENTAL STATUS 12/15/2017 BRYSONANALI BURNS GOL[employer] C[employer] TREATER Ot 401.9 HYPERTENSION NOS 12/15/2017 BRYSONANALI BURNS GOL[employer] C[employer] TREATER Ot 414.00 CORON ATHEROSCLER NOS TYPE VESSEL, NATIV 12/15/2017 BRYSONANALI BURNS GOL[employer] B[employer] COVER TREATER Ot 424.0 MITRAL VALVE DISORDER 12/15/2017 BRYSONANALI BURNS GOL[employer] BALL COVER TREATER Ot 401.9 HYPERTENSION NOS 12/15/2017 BRYSONANALI BURNS GOL[employer] C[employer] TREATER Ot 414.01 CORONARY ATHEROSCLEROSIS OF [place] CORON 12/15/2017 CHRISTINA ALVAREZ MD Ot 574.20 CHOLELITHIASIS NOS 12/15/2017 KIM CARROLL, CHRISTINA Ot V72.63 PRE-PROCEDURAL LABORATORY EXAMINATION 12/15/2017 KMI CARROLL, CHRISTINA Ot V74.8 SCREEN-BACTERIAL DIS NEC 12/15/2017 ARTURO DOMINGUEZ SOFTWARE ARCHITECT Ot 789.09 ABDOMINAL PAIN, OTHER SPECIFIED SITE 12/15/2017 AYO CARROLL, FANG Sanz Ot 443.9 PERIPH VASCULAR DIS NOS 12/15/2017 DOBBS DO, FREDY L Ot 250.00 DIAB CARLOS WO COMPL, TYPE II OR UNSPEC TY 12/15/2017 DOBBS DO, FREDY L Ot 250.02 DIAB CARLOS WO COMPL, TYPE II OR UNSPEC TY 12/15/2017 DOBBS DO, FREDY L Ot 401.9 HYPERTENSION NOS 03/21/2018 FILIPPO RODRIGUEZ L Ot I10 ESSENTIAL (PRIMARY) HYPERTENSION 03/21/2018 FILIPPO RODRIGUEZ L Ot I25.10 ATHSCL HEART DISEASE OF [place] CORONARY 03/21/2018 FILIPPO RODRIGUEZ L Ot J44.9 CHRONIC OBSTRUCTIVE PULMONARY DISEASE, U 05/20/2018 VANCE RODRIGUEZEN L Ot I10 ESSENTIAL (PRIMARY) HYPERTENSION 05/20/2018 VANCE RODRIGUEZEN L Ot I25.10 ATHSCL HEART DISEASE OF [place] CORONARY 05/20/2018 FILIPPO RODRIGUEZ L Ot J44.9 CHRONIC OBSTRUCTIVE PULMONARY DISEASE, U 05/22/2018 FILIPPO RODRIGUEZ L Ot I10 ESSENTIAL (PRIMARY) HYPERTENSION 05/22/2018 VANCE RODRIGUEZEN L Ot I25.10 ATHSCL HEART DISEASE OF [place] CORONARY 05/22/2018 VANCE RODRIGUEZEN L Ot J44.9 CHRONIC OBSTRUCTIVE PULMONARY DISEASE, U 12/10/2018 ARTURO DOMINGUEZ SOFTWARE ARCHITECT Ot 789.09 ABDOMINAL PAIN, OTHER SPECIFIED SITE 12/10/2018 AYO CARROLL, FANG Sanz Ot 443.9 PERIPH VASCULAR DIS NOS 12/10/2018 DOBBS DO, FREDY L Ot 250.00 DIAB CARLOS WO COMPL, TYPE II OR UNSPEC TY 12/10/2018 DOBBS DO, FREDY L Ot 250.02 DIAB CARLOS WO COMPL, TYPE II OR UNSPEC TY 12/10/2018 DOBBS DO, FREDY L Ot 401.9 HYPERTENSION NOS 12/10/2018 VANCE RODRIGUEZEN L Ot I10 ESSENTIAL (PRIMARY) HYPERTENSION 12/10/2018 FILIPPO RODRIGUEZ Ot I25.10 ATHSCL HEART DISEASE OF [place] CORONARY 12/10/2018 FILIPPO RODRIGUEZ Ot J44.9 CHRONIC OBSTRUCTIVE PULMONARY DISEASE, U 12/10/2018 MIKE ROSS MD Ot E11.9 TYPE 2 DIABETES MELLITUS WITHOUT COMPLIC 12/10/2018 MIKE ROSS MD Ot E78.00 PURE HYPERCHOLESTEROLEMIA, UNSPECIFIED 12/10/2018 MIKE ROSS MD Ot I10 ESSENTIAL (PRIMARY) HYPERTENSION 12/10/2018 MIKE ROSS MD Ot I25.10 ATHSCL HEART DISEASE OF [place] CORONARY 12/10/2018 MIKE ROSS MD Ot I42.9 CARDIOMYOPATHY, UNSPECIFIED 12/10/2018 MIKE ROSS MD Ot J44.9 CHRONIC OBSTRUCTIVE PULMONARY DISEASE, U 12/10/2018 MIKE ROSS MD Ot R07.81 PLEURODYNIA 12/10/2018 MIKE ROSS MD Ot R07.9 CHEST PAIN, UNSPECIFIED 12/10/2018 MIKE ROSS MD Ot Z79.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 12/10/2018 MIKE ROSS MD Ot 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 12/10/2018 MIKE ROSS MD Ot Z79.82 ASSISTED (CURRENT) USE OF ASPIRIN 12/10/2018 MIKE ROSS MD Ot Z87.442 PERSONAL HISTORY OF URINARY CALCULI 12/10/2018 MIKE ROSS MD Ot Z87.891 PERSONAL HISTORY OF NICOTINE DEPENDENCE 12/10/2018 MIKE ROSS MD Ot Z88.0 ALLERGY STATUS TO PENICILLIN 12/10/2018 MIKE ROSS MD Ot Z95.1 PRESENCE OF AORTOCORONARY BYPASS GRAFT 12/12/2018 MIKE ROSS MD Ot E11.9 TYPE 2 DIABETES MELLITUS WITHOUT COMPLIC 12/12/2018 MIKE ROSS MD Ot E78.00 PURE HYPERCHOLESTEROLEMIA, UNSPECIFIED 12/12/2018 MIKE ROSS MD Ot I10 ESSENTIAL (PRIMARY) HYPERTENSION 12/12/2018 MIKE ROSS MD Ot I25.10 ATHSCL HEART DISEASE OF [place] CORONARY 12/12/2018 MIKE ROSS MD Ot I42.9 CARDIOMYOPATHY, UNSPECIFIED 12/12/2018 MIKE ROSS MD Ot J44.9 CHRONIC OBSTRUCTIVE PULMONARY DISEASE, U 12/12/2018 MIKE ROSS MD Ot R07.81 PLEURODYNIA 12/12/2018 MIKE ROSS MD Ot R07.9 CHEST PAIN, UNSPECIFIED 12/12/2018 MIKE ROSS MD Ot Z79.4 ASSISTED (CURRENT) USE OF INSULIN 12/12/2018 MIKE ROSS MD Ot 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 12/12/2018 MIKE ROSS MD Ot Z79.82 [employer] STE[employer] WORKER (CURRENT) USE OF ASPIRIN 12/12/2018 MIKE ROSS MD Ot Z87.442 PERSONAL HISTORY OF URINARY CALCULI 12/12/2018 MIKE ROSS MD Ot Z87.891 PERSONAL HISTORY OF NICOTINE DEPENDENCE 12/12/2018 MIKE ROSS MD Ot Z88.0 ALLERGY STATUS TO PENICILLIN 12/12/2018 MIKE ROSS MD Ot Z95.1 PRESENCE OF AORTOCORONARY BYPASS GRAFT 12/12/2018 MIKE ROSS MD Ot E11.9 TYPE 2 DIABETES MELLITUS WITHOUT COMPLIC 12/12/2018 MIKE ROSS MD Ot E78.00 PURE HYPERCHOLESTEROLEMIA, UNSPECIFIED 12/12/2018 MIKE ROSS MD Ot I10 ESSENTIAL (PRIMARY) HYPERTENSION 12/12/2018 MIKE ROSS MD Ot I25.10 ATHSCL HEART DISEASE OF [place] CORONARY 12/12/2018 MIKE ROSS MD Ot I42.9 CARDIOMYOPATHY, UNSPECIFIED 12/12/2018 MIKE ROSS MD Ot J44.9 CHRONIC OBSTRUCTIVE PULMONARY DISEASE, U 12/12/2018 MIKE ROSS MD Ot R07.81 PLEURODYNIA 12/12/2018 MIKE ROSS MD Ot R07.9 CHEST PAIN, UNSPECIFIED 12/12/2018 MIKE ROSS MD Ot 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.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 12/12/2018 MIKE ROSS MD Ot 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 12/12/2018 MIKE ROSS MD Ot Z79.82 ASSISTED (CURRENT) USE OF ASPIRIN 12/12/2018 MIKE ROSS MD Ot Z87.442 PERSONAL HISTORY OF URINARY CALCULI 12/12/2018 MIKE ROSS MD Ot Z87.891 PERSONAL HISTORY OF NICOTINE DEPENDENCE 12/12/2018 MIKE ROSS MD Ot Z88.0 ALLERGY STATUS TO PENICILLIN 12/12/2018 MIKE ROSS MD Ot Z95.1 PRESENCE OF AORTOCORONARY BYPASS GRAFT 12/16/2018 MIKE ROSS MD Ot E11.9 TYPE 2 DIABETES MELLITUS WITHOUT COMPLIC 12/16/2018 MIKE ROSS MD Ot E78.00 PURE HYPERCHOLESTEROLEMIA, UNSPECIFIED 12/16/2018 MIKE ROSS MD Ot I10 ESSENTIAL (PRIMARY) HYPERTENSION 12/16/2018 MIKE ROSS MD Ot I25.10 ATHSCL HEART DISEASE OF [place] CORONARY 12/16/2018 MIKE ROSS MD Ot I42.9 CARDIOMYOPATHY, UNSPECIFIED 12/16/2018 MIKE ROSS MD Ot J44.9 CHRONIC OBSTRUCTIVE PULMONARY DISEASE, U 12/16/2018 MIKE ROSS MD Ot R07.81 PLEURODYNIA 12/16/2018 MIKE ROSS MD Ot R07.9 CHEST PAIN, UNSPECIFIED 12/16/2018 MIKE ROSS MD Ot Z79.4 ASSISTED (CURRENT) USE OF INSULIN 12/16/2018 MIKE ROSS MD Ot Z79.51 ASSISTED (CURRENT) USE OF INHALED STERO 12/16/2018 MIKE ROSS MD Ot Z79.82 ASSISTED (CURRENT) USE OF ASPIRIN 12/16/2018 MIKE ROSS MD Ot Z87.442 PERSONAL HISTORY OF URINARY CALCULI 12/16/2018 MIKE ROSS MD Ot Z87.891 PERSONAL HISTORY OF NICOTINE DEPENDENCE 12/16/2018 MIKE ROSS MD Ot Z88.0 ALLERGY STATUS TO PENICILLIN 12/16/2018 MIKE ROSS MD Ot Z95.1 PRESENCE OF AORTOCORONARY BYPASS GRAFT 12/19/2018 ARTURO DOMINGUEZ APRN Ot 789.09 ABDOMINAL PAIN, OTHER SPECIFIED SITE 12/19/2018 AYO CARROLL, FANG Sanz Ot 443.9 PERIPH VASCULAR DIS NOS 12/19/2018 DOBBS DO, FREDY L Ot 250.00 DIAB CARLOS WO COMPL, TYPE II OR UNSPEC TY 12/19/2018 DOBBS DO, FREDY L Ot 250.02 DIAB CARLOS WO COMPL, TYPE II OR UNSPEC TY 12/19/2018 DOBBS DO, FREDY L Ot 401.9 HYPERTENSION NOS 12/19/2018 FILIPPO RODRIGUEZ Ot I10 ESSENTIAL (PRIMARY) HYPERTENSION 12/19/2018 FILIPPO RODRIGUEZ Ot I25.10 ATHSCL HEART DISEASE OF [place] CORONARY 12/19/2018 FILIPPO RODRIGUEZ Ot J44.9 CHRONIC OBSTRUCTIVE PULMONARY DISEASE, U 12/20/2018 FANG ROLLINS MD Ot J44.9 CHRONIC OBSTRUCTIVE PULMONARY DISEASE, U 12/20/2018 FANG ROLLINS MD Ot Z95.1 PRESENCE OF AORTOCORONARY BYPASS GRAFT 01/23/2019 ARTURO DOMINGUEZ APRN Ot 789.09 ABDOMINAL PAIN, OTHER SPECIFIED SITE 01/23/2019 FANG ROLLINS MD Ot 443.9 PERIPH VASCULAR DIS NOS 01/23/2019 DOBBS DO, FREDY L Ot 250.00 DIAB CARLOS WO COMPL, TYPE II OR UNSPEC TY 01/23/2019 DOBBS DO, FREDY L Ot 250.02 DIAB CARLOS WO COMPL, TYPE II OR UNSPEC TY 01/23/2019 DOBBS DO, FREDY L Ot 401.9 HYPERTENSION NOS 01/23/2019 FILIPPO RODRIGUEZ Ot I10 ESSENTIAL (PRIMARY) HYPERTENSION 01/23/2019 FILIPPO RODRIGUEZ Ot I25.10 ATHSCL HEART DISEASE OF [place] CORONARY 01/23/2019 FILIPPO RODRIGUEZ Ot J44.9 CHRONIC OBSTRUCTIVE PULMONARY DISEASE, U 01/23/2019 FANG ROLLINS MD Ot J44.9 CHRONIC OBSTRUCTIVE PULMONARY DISEASE, U 01/23/2019 FANG ROLLINS MD Ot Z95.1 PRESENCE OF AORTOCORONARY BYPASS GRAFT Procedures There is no data. Results Test [...] RESULTS NEGATIVE FOR ANTIGEN AND TOXIN A/B [facility] Stool bacteria identification by culture - 08/11/17 04:45 Stool bacteria identification by culture N2 [facility] Capillary blood glucose measurement by glucometer [...] measurement by glucometer (mass/volume) 122 mg/dL 70-110 Complete blood count (CBC) with automated white blood cell (WBC) differential - 12/10/18 08:00 Blood leukocytes automated count (number/volume) 8.2 10*3/uL 4.3-11.0 Blood erythrocytes automated count (number/volume) 5.33 10*6/uL 4.35-5.85 Venous blood hemoglobin measurement (mass/volume) 16.1 g/dL 13.3-17.7 Blood hematocrit (volume fraction) 47 % 40-54 Automated erythrocyte mean corpuscular volume 89 [foz_us] 80-99 Automated erythrocyte mean corpuscular hemoglobin (mass per erythrocyte) 30 pg 25-34 Automated erythrocyte mean corpuscular hemoglobin concentration measurement ( mass/volume) 34 g/dL 32-36 Automated erythrocyte distribution width ratio 12.9 % 10.0-14.5 Automated blood platelet count (count/volume) 182 10*3/uL 130-400 Automated blood platelet mean volume measurement 11.3 [foz_us] 7.4-10.4 Automated blood neutrophils/100 leukocytes 55 % 42-75 Automated blood lymphocytes/100 leukocytes 35 % 12-44 Blood monocytes/100 leukocytes 8 % 0-12 Automated blood eosinophils/100 leukocytes 2 % 0-10 Automated blood basophils/100 leukocytes 0 % 0-10 Blood neutrophils automated count (number/volume) 4.5 10*3 1.8-7.8 Blood lymphocytes automated count (number/volume) 2.8 10*3 1.0-4.0 Blood monocytes automated count (number/volume) 0.6 10*3 0.0-1.0 Automated eosinophil count 0.2 10*3/uL 0.0-0.3 Automated blood basophil count (count/volume) 0.0 10*3/uL 0.0-0.1 PT panel in platelet poor plasma by coagulation assay - 12/10/18 08:00 Prothrombin time (PT) in platelet poor plasma by coagulation assay 12.6 s 12.2-14.7 INR in platelet poor plasma or blood by coagulation assay 0.9 0.8-1.4 Activated partial thromboplastin time (aPTT) in platelet poor plasma bycoagulation assay - 12/10/18 08:00 Activated partial thromboplastin time (aPTT) in platelet poor plasma bycoagulation assay 29 s 24-35 Comprehensive metabolic panel - 12/10/18 08:00 Serum or plasma sodium measurement (moles/volume) 140 mmol/L 135-145 Serum or plasma potassium measurement (moles/volume) 5.0 mmol/L 3.6-5.0 Serum or plasma chloride measurement (moles/volume) 102 mmol/L 98-107 Carbon dioxide 25 mmol/L 21-32 Serum or plasma anion gap determination (moles/volume) 13 mmol/L 5-14 Serum or plasma urea nitrogen measurement (mass/volume) 15 mg/dL 7-18 Serum or plasma creatinine measurement (mass/volume) 1.13 mg/dL 0.60-1.30 Serum or plasma urea nitrogen/creatinine mass ratio 13 NRG Serum or plasma creatinine measurement with calculation of estimated glomerular filtration rate > NRG Serum or plasma glucose measurement (mass/volume) 184 mg/dL 70-105 Serum or plasma calcium measurement (mass/volume) 10.4 mg/dL 8.5-10.1 Serum or plasma total bilirubin measurement (mass/volume) 0.9 mg/dL 0.1-1.0 Serum or plasma alkaline phosphatase measurement (enzymatic activity/volume) 62 U/L 40-136 Serum or plasma aspartate aminotransferase measurement (enzymatic activity/ volume) 40 U/L 5-34 Serum or plasma alanine aminotransferase measurement (enzymatic activity/volume ) 53 U/L 0-55 Serum or plasma protein measurement (mass/volume) 7.5 g/dL 6.4-8.2 Serum or plasma albumin measurement (mass/volume) 4.6 g/dL 3.2-4.5 Magnesium - 12/10/18 08:00 Magnesium 2.0 mg/dL 1.8-2.4 Serum or plasma troponin i.cardiac measurement (mass/volume) - 12/10/18 08:00 Serum or plasma troponin i.cardiac measurement (mass/volume) < ng/ mL <0.028 Myoglobin, serum - 12/10/18 08:00 Myoglobin, serum 38.6 ng/mL 10.0-92.0 Serum or plasma lithium measurement (moles/volume) - 12/10/18 08:00 BNP level 14.1 pg/mL <100.0 Complete blood count (CBC) with automated white blood cell (WBC) differential - 01/23/19 16:50 Blood leukocytes automated count (number/volume) 6.9 10*3/uL 4.3-11.0 Blood erythrocytes automated count (number/volume) 4.84 10*6/uL 4.35-5.85 Venous blood hemoglobin measurement (mass/volume) 14.8 g/dL 13.3-17.7 Blood hematocrit (volume fraction) 43 % 40-54 Automated erythrocyte mean corpuscular volume 88 [foz_us] 80-99 Automated erythrocyte mean corpuscular hemoglobin (mass per erythrocyte) 31 pg 25-34 Automated erythrocyte mean corpuscular hemoglobin concentration measurement ( mass/volume) 35 g/dL 32-36 Automated erythrocyte distribution width ratio 13.9 % 10.0-14.5 Automated blood platelet count (count/volume) 160 10*3/uL 130-400 Automated blood platelet mean volume measurement 11.0 [foz_us] 7.4-10.4 Automated blood neutrophils/100 leukocytes 73 % 42-75 Automated blood lymphocytes/100 leukocytes 14 % 12-44 Blood monocytes/100 leukocytes 13 % 0-12 Automated blood eosinophils/100 leukocytes 1 % 0-10 Automated blood basophils/100 leukocytes 0 % 0-10 Blood neutrophils automated count (number/volume) 5.0 10*3 1.8-7.8 Blood lymphocytes automated count (number/volume) 1.0 10*3 1.0-4.0 Blood monocytes automated count (number/volume) 0.9 10*3 0.0-1.0 Automated eosinophil count 0.1 10*3/uL 0.0-0.3 Automated blood basophil count (count/volume) 0.0 10*3/uL 0.0-0.1 PT panel in platelet poor plasma by coagulation assay - 01/23/19 16:50 Prothrombin time (PT) in platelet poor plasma by coagulation assay 13.2 s 12.2-14.7 INR in platelet poor plasma or blood by coagulation assay 1.0 0.8-1.4 Activated partial thromboplastin time (aPTT) in platelet poor plasma bycoagulation assay - 01/23/19 16:50 Activated partial thromboplastin time (aPTT) in platelet poor plasma bycoagulation assay 31 s 24-35 Influenza virus A and B antigen detection - 01/23/19 16:50 FLU RESULT NEGATIVE FOR INFLUENZA A AND B ANTIGENS BY [facility] Comprehensive metabolic panel - 01/23/19 16:50 Serum or plasma sodium measurement (moles/volume) 136 mmol/L 135-145 Serum or plasma potassium measurement (moles/volume) 3.9 mmol/L 3.6-5.0 Serum or plasma chloride measurement (moles/volume) 104 mmol/L 98-107 Carbon dioxide 19 mmol/L 21-32 Serum or plasma anion gap determination (moles/volume) 13 mmol/L 5-14 Serum or plasma urea nitrogen measurement (mass/volume) 13 mg/dL 7-18 Serum or plasma creatinine measurement (mass/volume) 1.10 mg/dL 0.60-1.30 Serum or plasma urea nitrogen/creatinine mass ratio 12 NRG Serum or plasma creatinine measurement with calculation of estimated glomerular filtration rate > [facility] Serum or plasma glucose measurement (mass/volume) 199 mg/dL 70-105 Serum or plasma calcium measurement (mass/volume) 10.1 mg/dL 8.5-10.1 Serum or plasma total bilirubin measurement (mass/volume) 1.2 mg/dL 0.1-1.0 Serum or plasma alkaline phosphatase measurement (enzymatic activity/volume) 61 U/L 40-136 Serum or plasma aspartate aminotransferase measurement (enzymatic activity/ volume) 47 U/L 5-34 Serum or plasma alanine aminotransferase measurement (enzymatic activity/volume ) 56 U/L 0-55 Serum or plasma protein measurement (mass/volume) 7.7 g/dL 6.4-8.2 Serum or plasma albumin measurement (mass/volume) 4.7 g/dL 3.2-4.5 Blood lactic acid measurement (moles/volume) - 01/23/19 16:50 Blood lactic acid measurement (moles/volume) 3.29 mmol/L 0.50-2.00 Serum or plasma C reactive protein measurement (mass/volume) - 01/23/19 16:50 Serum or plasma C reactive protein measurement (mass/volume) 1.63 mg /dL 0.00-0.50 Complete urinalysis with reflex to culture - 01/23/19 18:11 Urine color determination YELLOW NRG Urine clarity determination SLIGHTLY CLOUDY NRG Urine pH measurement by test strip [...] detection in urine sediment by light microscopy TRACE NRG Squamous epithelial cells detection in urine sediment by light microscopy 2-5 NRG Crystals detection in urine sediment by light microscopy NONE NRG Casts detection in urine sediment by light microscopy NONE NRG Mucus detection in urine sediment by light microscopy NEGATIVE NRG Complete urinalysis with reflex to culture CULTURE PENDING NRG Serum or plasma lactate measurement (moles/volume) - 01/23/19 19:05 Serum or plasma lactate measurement (moles/volume) 2.10 mmol/L 0.50-2.00 Encounters ACCT No. Visit Date/Time Discharge Status Pt. Type Provider Facility Loc./Unit Complaint [id number] 12/19/2018 10:51:00 12/19/2018 23:59:59 CLS Outpatient FANG ROLLINS MD [facility] RAD CHEST X-RAY LATERAL [id number] 12/10/2018 07:57:00 12/10/2018 10:44:00 DIS Emergency MIKE ROSS MD [facility] ER CP [id number] 05/21/2018 09:30:00 05/21/2018 23:59:59 CLS Preadmit FILIPPO RODRIGUEZ [facility] PULM J44.9 COPD [id number] 02/19/2018 09:30:00 05/20/2018 00:01:00 DIS Outpatient FILIPPO RODRIGUEZ [facility] PULM J44.9 COPD [id number] 08/10/2017 20:04:00 08/12/2017 11:25:00 DIS Inpatient POZO DO, BASSAM [facility] 4TH LLQ PAIN;DEHYDRATION; HYPOTENSION [id number] 08/27/2016 21:46:00 08/28/2016 16:50:00 DIS Inpatient POZO DO, BASSAM [facility] ICU DYSPNEA; LVE PAIN; KNOWN CAD [id number] 08/04/2016 13:35:00 08/06/2016 11:44:00 DIS Outpatient TRAVIS SALAZAR MD [facility] CATH CHEST PAIN [id number] 07/06/2015 13:00:00 07/06/2015 23:59:59 CLS Preadmit FREDY DOBBS DO [facility] DSME UNCONTROLLED DIABETES [id number] 04/06/2015 12:51:00 07/05/2015 00:01:00 DIS Outpatient FREDY DOBBS DO [facility] DSME UNCONTROLLED DIABETES [id number] 11/10/2014 14:16:00 11/10/2014 23:59:59 CLS Outpatient FANG ROLLINS MD [facility] RAD CLAUDICATION [id number] 11/07/2014 10:00:00 11/07/2014 23:59:59 CLS Preadmit FREDY DOBBS DO [facility] DSME DM 2 [id number] 08/12/2014 10:00:00 11/06/2014 00:01:00 DIS Outpatient FREDY DOBBS DO [facility] DSME DM 2 [id number] 09/18/2013 16:08:00 09/18/2013 23:59:59 CLS Outpatient ARTURO DOMINGUEZ APRN [facility] RAD SEVERE ADB PAIN [id number] 05/16/2013 06:50:00 05/16/2013 13:12:00 DIS Outpatient CHRISTINA ALVAREZ MD [facility] SDC GALLSTONES [id number] 05/10/2013 07:45:00 05/10/2013 23:59:59 CLS Outpatient CHRISTINA ALVAREZ MD [facility] PREOP GALLSTONES [id number] 03/26/2013 11:27:00 03/26/2013 23:59:59 CLS Outpatient ANALI BRYSON [employer] [facility] RAD CAD,HTN [id number] 03/25/2013 12:39:00 03/25/2013 23:59:59 CLS Outpatient ANALI BRYSON [employer] [facility] CARD CAD,HTN [id number] 01/23/2019 16:49:00 ACT Emergency KAT LANCASTER MD [facility] ER GENERALIZED WEAKNESS [id number] 04/06/2015 12:57:00 Document Registration [id number] 04/06/2015 12:57:00 Document Registration [id number] 04/06/2015 12:57:00 Document Registration [id number] 04/06/2015 12:57:00 Document Registration [id number] 04/06/2015 12:57:00 Document Registration [id number] 02/26/2013 14:10:00 Document Registration [id number] 07/13/2012 11:08:00 Document Registration [id number] 05/28/2012 15:40:00 Document Registration [id number] 05/01/2012 12:12:00 Document Registration [id number] 03/26/2012 07:49:00 Document Registration [id number] 03/21/2012 17:01:00 Document Registration [id number] 01/12/2012 17:11:00 Document Registration [id number] 12/14/2011 13:45:00 Document Registration [id number] 09/21/2010 08:26:00 Document Registration [id number] 03/09/2010 07:40:00 Document Registration
[2019-01-23 21:00] VITALS: BP 121/58
--- OUTSIDE RECORDS SUMMARY | 2019-01-23 21:01 | XMS REPORT | Continuity of Care Document ---
Author Author [facility] Organization [facility] Address Unknown Phone Unavailable Allergies Active Description Code Type Severity Reaction Onset Reported/Identified Relationship to Patient Clinical Status Yes Penicillins [id number] Drug Allergy Unknown N/A 05/01/2012 Medications There [...] INFARCT 02/28/2013 Ot 414.01 CORONARY ATHEROSCLEROSIS OF [place] CORON 02/28/2013 Ot 427.31 ATRIAL FIBRILLATION 02/28/2013 [...] ALVAREZ MD Ot 414.01 CORONARY ATHEROSCLEROSIS OF [place] CORON 05/16/2013 CHRISTINA ALVAREZ MD Ot 427.31 [...] 733.90 04/06/2015 Ot 780.97 04/06/[address] REPORTER Ot 401.9 04/06/[address] REPORTER Ot 414.00 04/06/[address] REPORTER Ot 424.0 04/06/[address] REPORTER Ot 401.9 04/06/[address] REPORTER Ot 414.01 04/06/2015 KIM CARROLL, CHRISTINA Ot 574.20 04/06/2015 IKM CARROLL, CHRISTINA Ot V72.63 04/06/2015 KIM CARROLL, [...] MD Ot I25.110 ATHSCL HEART DISEASE OF [place] COR ART W 08/06/2016 TRAVIS SALAZAR MD Ot 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 08/06/2016 TRAVIS SALAZAR MD Ot I25.84 CORONARY ATHEROSCLEROSIS DUE TO CALCIFIE 08/06/2016 TRAVIS SALAZAR MD Ot J44.9 CHRONIC OBSTRUCTIVE PULMONARY DISEASE, U 08/06/2016 TRAVIS SALAZAR MD Ot 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, SUB 08/06/2016 TRAVIS SALAZAR MD Ot Z79.4 SEASONAL DELIVERY DRIVER (CURRENT) USE OF INSULIN 08/06/2016 TRAVIS SALAZAR MD Ot Z79.899 OTHER SEASONAL DELIVERY DRIVER (CURRENT) DRUG THERAPY 08/08/2016 Ot 959.6 HIP [...] TYPE VESSEL, NATIV 08/08/2016 BRYSON, ANALI A DISTRICT COURT REPORTER Ot 424.0 MITRAL VALVE DISORDER 08/08/[address] REPORTER Ot 401.9 HYPERTENSION NOS 08/08/[address] REPORTER Ot 414.01 CORONARY ATHEROSCLEROSIS OF [place] CORON 08/08/2016 KIM CARROLL, CHRISTINA Ot 574.20 [...] DOI Ot I25.10 ATHSCL HEART DISEASE OF [place] CORONARY 08/28/2016 SÁNCHEZ CUELLAR BASSAM Ot I48.0 PAROXYSMAL ATRIAL FIBRILLATION 08/28/2016 MARYAN POZO DOI Ot J44.9 CHRONIC OBSTRUCTIVE PULMONARY DISEASE, U 08/28/2016 MARYAN POZO DOI Ot R07.9 CHEST PAIN, UNSPECIFIED 08/28/2016 MARYAN POZO DOI Ot Z79.4 SHELTER (CURRENT) USE OF INSULIN 08/28/2016 BASSAM POZO [...] MD, Ot I25.110 ATHSCL HEART DISEASE OF [place] COR ART W 09/09/2016 TRAVIS SALAZAR MD, Ot 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 09/09/2016 TRAVIS SALAZAR MD, Ot I25.84 CORONARY ATHEROSCLEROSIS DUE TO CALCIFIE 09/09/2016 TRAVIS SALAZAR MD, Ot J44.9 CHRONIC OBSTRUCTIVE PULMONARY DISEASE, U 09/09/2016 TRAVIS SALAZAR MD, Ot 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, SUB 09/09/2016 TRAVIS SALAZAR MD, Ot Z79.4 SHELTER (CURRENT) USE OF INSULIN 09/09/2016 TRAVIS SALAZAR MD, Ot Z79.899 OTHER SHELTER (CURRENT) DRUG THERAPY 08/12/2017 BASSAM POZO DO Ot E11.9 TYPE 2 DIABETES MELLITUS WITHOUT COMPLIC 08/12/2017 BASSAM POZO DO Ot E78.00 PURE HYPERCHOLESTEROLEMIA, UNSPECIFIED 08/12/2017 MARYAN POZO DOI Ot E86.0 DEHYDRATION 08/12/2017 BASSAM POZO DO Ot F17.210 NICOTINE DEPENDENCE, CIGARETTES, UNCOMPL 08/12/2017 BASSAM POZO DO Ot I10 ESSENTIAL (PRIMARY) HYPERTENSION 08/12/2017 BASSAM POZO DO Ot I25.10 ATHSCL HEART DISEASE OF [place] CORONARY 08/12/2017 BASSAM POZO DO Ot I42.9 [...] MALAISE 08/12/2017 BASSAM POZO DO Ot Z79.4 SHELTER (CURRENT) USE OF INSULIN 08/12/2017 POZO DO BASSAM Ot Z95.1 PRESENCE OF AORTOCORONARY BYPASS GRAFT 12/04/2017 Ot 733.90 BONE CARTILAGE DIS NOS 12/04/2017 Ot 780.97 ALTERED MENTAL STATUS 12/04/[address] REPORTER Ot 401.9 HYPERTENSION NOS 12/04/[address] REPORTER Ot 414.00 CORON ATHEROSCLER NOS TYPE VESSEL, NATIV 12/04/[address] REPORTER Ot 424.0 MITRAL VALVE DISORDER 12/04/[address] REPORTER Ot 401.9 HYPERTENSION NOS 12/04/[address] REPORTER Ot 414.01 CORONARY ATHEROSCLEROSIS OF [place] CORON 12/04/2017 CHRISTINA ALVAREZ MD Ot 574.20 [...] 780.97 ALTERED MENTAL STATUS 12/15/[address] REPORTER Ot 401.9 HYPERTENSION NOS 12/15/[address] REPORTER Ot 414.00 CORON ATHEROSCLER NOS TYPE VESSEL, NATIV 12/15/[address] REPORTER Ot 424.0 MITRAL VALVE DISORDER 12/15/[address] REPORTER Ot 401.9 HYPERTENSION NOS 12/15/[address] REPORTER Ot 414.01 CORONARY ATHEROSCLEROSIS OF [place] CORON 12/15/2017 CHRISTINA ALVAREZ MD Ot 574.20 CHOLELITHIASIS NOS 12/15/2017 KIM CARROLL, CHRISTINA Ot V72.63 PRE-PROCEDURAL LABORATORY EXAMINATION 12/15/2017 KIM CARROLL, CHRISTINA Ot V74.8 SCREEN-BACTERIAL DIS NEC 12/15/2017 ARTURO DOMINGUEZ MANUFACTURING ANALYST Ot 789.09 ABDOMINAL PAIN, OTHER SPECIFIED SITE [...] L Ot I25.10 ATHSCL HEART DISEASE OF [place] CORONARY 03/21/2018 FILIPPO RODRIGUEZ L Ot J44.9 CHRONIC OBSTRUCTIVE PULMONARY DISEASE, U 05/20/2018 VANCE RODRIGUEZEN L Ot I10 ESSENTIAL (PRIMARY) HYPERTENSION 05/20/2018 VANCE RODRIGUEZEN L Ot I25.10 ATHSCL HEART DISEASE OF [place] CORONARY 05/20/2018 FILIPPO RODRIGUEZ L Ot J44.9 CHRONIC OBSTRUCTIVE PULMONARY DISEASE, U 05/22/2018 FILIPPO RODRIGUEZ L Ot I10 ESSENTIAL (PRIMARY) HYPERTENSION 05/22/2018 VANCE RODRIGUEZEN L Ot I25.10 ATHSCL HEART DISEASE OF [place] CORONARY 05/22/2018 VANCE RODRIGUEZEN L Ot J44.9 CHRONIC OBSTRUCTIVE PULMONARY DISEASE, U 12/10/2018 ARTURO DOMINGUEZ MANUFACTURING ANALYST Ot 789.09 ABDOMINAL PAIN, OTHER SPECIFIED SITE [...] RODRIGUEZ Ot I25.10 ATHSCL HEART DISEASE OF [place] CORONARY 12/10/2018 FILIPPO RODRIGUEZ Ot J44.9 CHRONIC OBSTRUCTIVE PULMONARY DISEASE, U 12/10/2018 MIKE ROSS MD Ot E11.9 TYPE 2 DIABETES MELLITUS WITHOUT COMPLIC 12/10/2018 MIKE ROSS MD Ot E78.00 PURE HYPERCHOLESTEROLEMIA, UNSPECIFIED 12/10/2018 MIKE ROSS MD Ot I10 ESSENTIAL (PRIMARY) HYPERTENSION 12/10/2018 MIKE ROSS MD Ot I25.10 ATHSCL HEART DISEASE OF [place] CORONARY 12/10/2018 MIKE ROSS MD Ot I42.9 CARDIOMYOPATHY, UNSPECIFIED 12/10/2018 MIKE ROSS MD Ot J44.9 CHRONIC OBSTRUCTIVE PULMONARY DISEASE, U 12/10/2018 MIKE ROSS MD Ot R07.81 PLEURODYNIA 12/10/2018 MIKE ROSS MD Ot R07.9 CHEST PAIN, UNSPECIFIED 12/10/2018 MIKE ROSS MD Ot Z79.4 SEASONAL DELIVERY DRIVER (CURRENT) USE OF INSULIN 12/10/2018 MIKE ROSS MD Ot Z79.51 SEASONAL DELIVERY DRIVER (CURRENT) USE OF INHALED STERO 12/10/2018 MIKE ROSS MD Ot Z79.82 SHELTER (CURRENT) USE OF ASPIRIN 12/10/2018 MIKE ROSS MD Ot Z87.442 PERSONAL HISTORY OF URINARY CALCULI 12/10/2018 MIKE ROSS MD Ot Z87.891 PERSONAL HISTORY OF NICOTINE DEPENDENCE 12/10/2018 MIKE ROSS MD Ot Z88.0 ALLERGY STATUS TO PENICILLIN 12/10/2018 MIKE ROSS MD Ot Z95.1 PRESENCE OF AORTOCORONARY BYPASS GRAFT 12/12/2018 MIKE ROSS MD Ot E11.9 TYPE 2 DIABETES MELLITUS WITHOUT COMPLIC 12/12/2018 MIEK ROSS MD Ot E78.00 PURE HYPERCHOLESTEROLEMIA, UNSPECIFIED 12/12/2018 MIKE ROSS MD Ot I10 ESSENTIAL (PRIMARY) HYPERTENSION 12/12/2018 MIKE ROSS MD Ot I25.10 ATHSCL HEART DISEASE OF [place] CORONARY 12/12/2018 MIKE ROSS MD Ot I42.9 CARDIOMYOPATHY, UNSPECIFIED 12/12/2018 MIKE ROSS MD Ot J44.9 CHRONIC OBSTRUCTIVE PULMONARY DISEASE, U 12/12/2018 MIKE ROSS MD Ot R07.81 PLEURODYNIA 12/12/2018 MIKE ROSS MD Ot R07.9 CHEST PAIN, UNSPECIFIED 12/12/2018 MIKE ROSS MD Ot Z79.4 SHELTER (CURRENT) USE OF INSULIN 12/12/2018 MIKE ROSS MD Ot Z79.51 SEASONAL DELIVERY DRIVER (CURRENT) USE OF INHALED STERO 12/12/2018 MIKE ROSS MD Ot Z79.82 SEASONAL DELIVERY DRIVER (CURRENT) USE OF ASPIRIN 12/12/2018 MIKE ROSS [...] MD Ot I25.10 ATHSCL HEART DISEASE OF [place] CORONARY 12/12/2018 MIKE ROSS MD Ot I42.9 CARDIOMYOPATHY, UNSPECIFIED 12/12/2018 MIKE ROSS MD Ot J44.9 CHRONIC OBSTRUCTIVE PULMONARY DISEASE, U 12/12/2018 MIKE ROSS MD Ot R07.81 PLEURODYNIA 12/12/2018 MIKE ROSS MD Ot R07.9 CHEST PAIN, UNSPECIFIED 12/12/2018 MIKE ROSS MD Ot Z79.4 SEASONAL DELIVERY DRIVER (CURRENT) USE OF INSULIN 12/12/2018 MIKE ROSS MD Ot Z79.51 SEASONAL DELIVERY DRIVER (CURRENT) USE OF INHALED STERO 12/12/2018 MIKE ROSS MD Ot Z79.82 SHELTER (CURRENT) USE OF ASPIRIN 12/12/2018 MIKE ROSS [...] MD Ot I25.10 ATHSCL HEART DISEASE OF [place] CORONARY 12/16/2018 MIKE ROSS MD Ot I42.9 CARDIOMYOPATHY, UNSPECIFIED 12/16/2018 MIKE ROSS MD Ot J44.9 CHRONIC OBSTRUCTIVE PULMONARY DISEASE, U 12/16/2018 MIKE ROSS MD Ot R07.81 PLEURODYNIA 12/16/2018 MIKE ROSS MD Ot R07.9 CHEST PAIN, UNSPECIFIED 12/16/2018 MIKE ROSS MD Ot Z79.4 SHELTER (CURRENT) USE OF INSULIN 12/16/2018 MIKE ROSS MD Ot Z79.51 SHELTER (CURRENT) USE OF INHALED STERO 12/16/2018 MIKE ROSS MD Ot Z79.82 SHELTER (CURRENT) USE OF ASPIRIN 12/16/2018 MIKE ROSS [...] RODRIGUEZ Ot I25.10 ATHSCL HEART DISEASE OF [place] CORONARY 12/19/2018 FILIPPO RODRIGUEZ Ot J44.9 CHRONIC [...] RODRIGUEZ Ot I25.10 ATHSCL HEART DISEASE OF [place] CORONARY 01/23/2019 FILIPPO RODRIGUEZ Ot J44.9 CHRONIC [...] RESULTS NEGATIVE FOR ANTIGEN AND TOXIN A/B [facility] Stool bacteria identification by culture - 08/11/17 04:45 Stool bacteria identification by culture N2 [facility] Capillary blood glucose measurement by glucometer (mass/volume) [...] FOR INFLUENZA A AND B ANTIGENS BY [facility] Comprehensive metabolic panel - 01/23/19 [...] calculation of estimated glomerular filtration rate > [facility] Serum or plasma glucose measurement (mass/volume) 199 [...] protein measurement (mass/volume) 1.63 mg /dL 0.00-0.50 Serum or plasma creatine kinase measurement (enzymatic activity/volume) - 01/23 16:50 Serum or plasma creatine kinase measurement (enzymatic activity/volume) 97 U/L 30-200 Complete urinalysis with reflex to culture - [...] Status Pt. Type Provider Facility Loc./Unit Complaint [id number] 12/19/2018 10:51:00 12/19/2018 23:59:59 CLS Outpatient FANG ROLLINS MD [facility] RAD CHEST X-RAY LATERAL [id number] 12/10/2018 07:57:00 12/10/2018 10:44:00 DIS Emergency MIKE ROSS MD [facility] ER CP [id number] 05/21/2018 09:30:00 05/21/2018 23:59:59 CLS Preadmit FILIPPO RODRIGUEZ [facility] PULM J44.9 COPD [id number] 02/19/2018 09:30:00 05/20/2018 00:01:00 DIS Outpatient FILIPPO RODRIGUEZ [facility] PULM J44.9 COPD [id number] 08/10/2017 20:04:00 08/12/2017 11:25:00 DIS Inpatient POZO DO, BASSAM [facility] 4TH LLQ PAIN;DEHYDRATION; HYPOTENSION [id number] 08/27/2016 21:46:00 08/28/2016 16:50:00 DIS Inpatient POZO DO, BASSAM [facility] ICU DYSPNEA; LVE PAIN; KNOWN CAD [id number] 08/04/2016 13:35:00 08/06/2016 11:44:00 DIS Outpatient TRAVIS SALAZAR MD [facility] CATH CHEST PAIN [id number] 07/06/2015 13:00:00 07/06/2015 23:59:59 CLS Preadmit FREDY DOBBS DO [facility] DSME UNCONTROLLED DIABETES [id number] 04/06/2015 12:51:00 07/05/2015 00:01:00 DIS Outpatient FREDY DOBBS DO [facility] DSME UNCONTROLLED DIABETES [id number] 11/10/2014 14:16:00 11/10/2014 23:59:59 CLS Outpatient FANG ROLLINS MD [facility] RAD CLAUDICATION [id number] 11/07/2014 10:00:00 11/07/2014 23:59:59 CLS Preadmit FREDY DOBBS DO [facility] DSME DM 2 [id number] 08/12/2014 10:00:00 11/06/2014 00:01:00 DIS Outpatient FREDY DOBBS DO [facility] DSME DM 2 [id number] 09/18/2013 16:08:00 09/18/2013 23:59:59 CLS Outpatient NITHYA DOMINGUEZRigoberto Ford APRN [facility] RAD SEVERE ADB PAIN [id number] 05/16/2013 06:50:00 05/16/2013 13:12:00 DIS Outpatient CHRISTINA ALVAREZ MD [facility] SDC [place] [id number] 05/10/2013 07:45:00 05/10/2013 23:59:59 CLS Outpatient CHRISTINA ALVAREZ MD [facility] PREOP [place] [id number] 03/26/2013 11:27:00 03/26/2013 23:59:59 CLS Outpatient ANALI [facility] [facility] REPORTER [facility] RAD CAD,HTN [id number] 03/25/2013 12:39:00 03/25/2013 23:59:59 CLS Outpatient ANALI [facility] [facility] REPORTER [facility] CARD CAD,HTN [id number] 01/23/2019 19:54:00 ACT Inpatient ELIZABETH KAUFFMAN MD [facility] 4TH LACTIC ACIDOSIS,GENERALIZED WEAKNESS [id number] 04/06/2015 12:57:00 Document Registration [id number] 04/06/2015 12:57:00 Document Registration [id number] 04/06/2015 12:57:00 Document Registration [id number] 04/06/2015 12:57:00 Document Registration [id number] 04/06/2015 12:57:00 Document Registration [id number] 02/26/2013 14:10:00 Document Registration [id number] 07/13/2012 11:08:00 Document Registration [id number] 05/28/2012 15:40:00 Document Registration [id number] 05/01/2012 12:12:00 Document Registration [id number] 03/26/2012 07:49:00 Document Registration [id number] 03/21/2012 17:01:00 Document Registration [id number] 01/12/2012 17:11:00 Document Registration [id number] 12/14/2011 13:45:00 Document Registration [id number] 09/21/2010 08:26:00 Document Registration [id number] 03/09/2010 07:40:00 Document Registration
[2019-01-23] MEDS ORDERED: ONDANSETRON 4 MG/2 ML (SDV) Z0FRAN IV PRN (21:45)
[2019-01-23] MEDS ORDERED: NS IV 1000 ML 1,000 ML IV SCH (21:45)
[2019-01-24] MEDS: RT-ALBUTEROL/IPRATROPIUM 3 ML (DUONEB) VIAL INH PRN ×3 (03:55→20:38)
[2019-01-24 04:00] VITALS: BP 147/70
[2019-01-24 06:10] LABS: BASOPHILS % (AUTO) 0 % (0-10); EOSINOPHILS # (AUTO) 0.1 10^3/uL (0.0-0.3); EOSINOPHILS % (AUTO) 1 % (0-10); HEMATOCRIT 41 % (40-54); HEMOGLOBIN 13.4 G/DL (13.3-17.7); LYMPHOCYTES # (AUTO) 1.2 X 10^3 (1.0-4.0); LYMPHOCYTES % (AUTO) 20 % (12-44); MEAN CORPUSCULAR HEMOGLOBIN 29 PG (25-34); MEAN CORPUSCULAR HGB CONC 33 G/DL (32-36); MEAN CORPUSCULAR VOLUME 89 FL (80-99); MEAN PLATELET VOLUME 10.7 FL (7.4-10.4); MONOCYTES # (AUTO) 0.7 X 10^3 (0.0-1.0); MONOCYTES % (AUTO) 12 % (0-12); NEUTROPHILS % (AUTO) 67 % (42-75); PLATELET COUNT 157 10^3/uL (130-400); RED CELL DISTRIBUTION WIDTH 14.3 % (10.0-14.5)
[2019-01-24] MEDS: inSUlin ASPART (NovoLOG) 1 UNIT/0.01 ML (CHARGE PER UNIT) SC SCH ×3 (06:19→17:15)
[2019-01-24 06:51] LABS: BUN/CREATININE RATIO 13; CALCIUM 9.6 MG/DL (8.5-10.1); CARBON DIOXIDE 19 MMOL/L (21-32); CHLORIDE 106 MMOL/L (98-107); CREATININE SERUM 0.92 MG/DL (0.60-1.30); GFR ESTIMATED > 60; GLUCOSE 168 MG/DL (70-105); POTASSIUM 4.1 MMOL/L (3.6-5.0); SODIUM 137 MMOL/L (135-145)
[2019-01-24 08:00] VITALS: BP 150/70
[2019-01-24] MEDS: ACETAMINOPHEN 500 MG TAB (TYLENOL) PO PRN (08:33)
--- NOTE | 2019-01-24 10:28 | History & Physical-Hospitalist ---
History of Present Illness HPI/Chief Complaint Pt is a 78yoCM with a PMH of IDDMII, CAD s/p CABG, pAF, COPD, HTN, dementia who presented to the ER due to fever and weakness. He is a somewhat poor historian about his overall medical history but seems to remember yesterday well. He states his symptoms started abruptly with weakness and fever yesterday morning. He also complaints of a dry cough. He denies any chest pain, nausea, or vomiting but started to have loose stool yesterday. This morning he states he feels better but still feels "crummy" overall. I am unsure how accurate the rest of his history is as he then told me he takes no medications and has known medical problems but per his med rec he is on many meds including insulin. Source: patient Exam Limitations: no limitations Date Seen 01/24/19 Time Seen by a Provider: 10:22 Attending Physician Aditya Roca MD PCP Felton Funes MD Referring Physician Date of Admission Jan 23, 2019 at 19:54 Home Medications & Allergies Home Medications Reviewed patient Home Medication Reconciliation performed by pharmacy medication reconciliations correctional maintenance technician and/or nursing. Patients Allergies have been reviewed. Allergies Allergies Coded Allergies Penicillins (Verified Allergy, Unknown, 05/01/12) Past Qrkqesp-Vdfcrc-Mdvaes Hx Past Med/Social Hx: Reviewed Nursing Past Med/Soc Hx Patient Social History Alcohol Use: Denies Use Recreational Drug Use: No Smoking Status: Former Smoker Former Smoker, Quit: Aug 04, 1980 Type Used: Cigars, Cigarettes, Pipe Physical Abuse Screen: No Sexual Abuse: No Recent Foreign Travel: No Contact w/other who traveled: No Recent Hopitalizations: No Recent Infectious Disease Expo: No Immunizations Up To Date Tetanus Booster (TDap): Less than 5yrs Pediatric: No Date of Pneumonia Vaccine: Aug 04, 2015 Date of Influenza Vaccine: Aug 27, 2012 Seasonal Allergies Seasonal Allergies: No Past Medical History Surgeries: Adenoidectomy, CABG, Gallbladder, Tonsillectomy Respiratory: COPD Cardiac: Cardiomyopathy, Coronary Artery Disease, High Cholesterol, Hypertension Reproductive: No Genitourinary: Kidney Stones Musculoskeletal: Arthritis Endocrine: Diabetes, Insulin dep HEENT: Cataract Loss of Vision: Denies Hearing Impairment: Hard of Hearing History of Blood Disorders: No Adverse Reaction to Blood Kirk: No Family History No Pertinent Family Hx Review of Systems ROS-Unable to Obtain: limited due to dementia Constitutional: fever, malaise, weakness Respiratory: cough; No short of breath Gastrointestinal: No abdominal pain; diarrhea; No loss of appetite, No nausea, No vomiting Physical Exam Physical Exam Vital Signs Vital Signs - First Documented 01/23/19 01/23/19 16:47 21:56 Temp 99.9 Pulse 101 Resp 16 B/P (MAP) 140/77 (98) Pulse Ox 100 FiO2 21 Capillary Refill : Less Than 3 Seconds Height, Weight, BMI Height: 6'0.00" Weight: 230lbs. 0.0oz. 104.186080ky; 31.2 BMI Method:Stated General Appearance: No Apparent Distress, Chronically ill, Obese HEENT: Moist Mucous Membranes; No Scleral Icterus (L), No Scleral Icterus (R) Neck: Normal Inspection Respiratory: Lungs Clear, No Accessory Muscle Use, No Respiratory Distress Cardiovascular: Regular Rate, Rhythm, No JVD, No Murmur Gastrointestinal: Normal Bowel Sounds, Non Tender, Soft Extremity: Normal Capillary Refill, No Calf Tenderness, No Pedal Edema Neurologic/Psychiatric: Alert, No Motor/Sensory Deficits, Normal Mood/Affect, Other (oriented to self and place) Skin: Normal Color, Warm/Dry Results Results/Procedures Labs Laboratory Tests 01/23/19 16:50 01/24/19 05:35 Patient resulted labs reviewed. Imaging: Reviewed Imaging Report Assessment/Plan Admission Diagnosis Fever Admission Status: Observation Diagnosis/Problems Diagnosis/Problems (1) Fever Status: Acute Assessment & Plan: Likely viral syndrome No evidence of UTI or pna on CXR Flu negative Await blood cultures Qualifiers: Fever type: unspecified Qualified Codes: R50.9 - Fever, unspecified (2) COPD (chronic obstructive pulmonary disease) Status: Chronic Assessment & Plan: No evidence of acute exacerbation Continue albuterol on room air Qualifiers: COPD type: unspecified COPD Qualified Codes: J44.9 - Chronic obstructive pulmonary disease, unspecified (3) Generalized weakness Status: Acute Assessment & Plan: Likely due to viral syndrome PT/OT Encouraged patient to ambulate and continue to sit in chair (4) Lactic acidosis Status: Acute Assessment & Plan: Likely due to metformin and acute illness Resolving with fluids not sepsis (5) CAD (coronary artery disease) Status: Acute Assessment & Plan: Last echo available revales Ef of 50% Appears to follow with Dr Sepulveda No chest pain or evidence of ACS Qualifiers: Coronary Disease-Associated Artery/Lesion type: bypass graft [place] vs. transplanted heart: [place] heart Associated angina: without angina Qualified Codes: I25.810 - Atherosclerosis of coronary artery bypass graft(s) without angina pectoris Clinical Quality Measures DVT/VTE Risk/Contraindication: Risk Factor Score Per Nursin RFS Level Per Nursing on Admit: 4+=Very High DEISI ALVARENGA MD Jan 24, 2019 10:28
--- NOTE | 2019-01-24 11:56 | Physical Therapy Evaluation ---
PT Evaluation-General Medical Diagnosis Admission Date Jan 23, 2019 at 19:54 Medical Diagnosis: Lactic Acidosis, Generalized weakness Onset Date: Jan 23, 2019 Therapy Diagnosis Therapy Diagnosis: decreased mobility, weakness Height/Weight Height (Feet): 6 Height (Inches): 0.00 Weight (Pounds): 230 Weight (Ounces): 0.0 Precautions Precautions/Isolations: Fall Prevention Weight Bear Status Right Lower Extremity: Right Weight Bearing/Tolerated Left Lower Extremity: Left Weight Bearing/Tolerated Referral Physician: Dr. Washburn Reason for Referral: Evaluation/Treatment Medical History Pertinent Medical History: Arthritis, CABG, CAD, COPD, DM, Dementia, HTN, Smoking Current History EMS to ER c/o weakness, body aches, cough, and fever that started in the morning. Reviewed History: Yes Social History Home: Single Level Current Living Status: Spouse Entry Into Home: Stairs With Railing PT Steps Into Home: 2 Prior/Core FIM Prior Level of Function Therapy Code Descriptions/Definitions Functional [place] Measure: 0=Not Assessed/NA 4=Minimal Assistance 1=Total Assistance 5=Supervision or Setup 2=Maximal Assistance 6=Modified [place] 3=Moderate Assistance 7=Complete [place] Therapy Quality Codes: 6 Independent with activity with or without an assistive device 5 Patient requires set up or clean up by helper. Patient completes activity by themselves 4 Supervision or touching assist (CGA). [place] provide cues , steadying assist 3 The helper provides less than half the effort to complete the activity 2 The helper provides more than half the effort to complete the activity 1 Dependent. The helper does all the effort to complete an activity 7 Patient refused to complete or attempt activity 9 The patient did not perform the activity before the current illness or injury 88 Not attempted due to Medical conditions or safety concerns Functional Abilities and Goals: Independent: Patient completed the activities by him/herself, with or without an assistive device, with no assistance from a helper. Needed Some Help: Patient needed partial assistance from another person to complete activities. Dependent: A helper completed the activities for the patient. Unknown: Not Applicable: Bed Mobility: 6 Transfers (B,C,W/C) (FIM): 6 Gait: 6 Stairs: 6 Indoor Mobility (Ambulation): Independent Stairs: Independent Prior Devices Use: Walker Prior Device Use: FWW PT Evaluation-Current Subjective Pt is in recliner and agrees to PT. Pt/Family Goals Pt to return home. Objective Patient Orientation: Person, Place ROM/Strength ROM Lower Extremities WNL Strength Lower Extremities gross motor RLE (4-/5) LLE quad, DF/PF (4-/5) hamstrings (3+/5) Neuromuscular (Tone, Coordination, Reflexes) NT Sensory Vision: Functional Hearing: Impaired Transfers Therapy Code Descriptions/Definitions Functional [place] Measure: 0=Not Assessed/NA 4=Minimal Assistance 1=Total Assistance 5=Supervision or Setup 2=Maximal Assistance 6=Modified [place] 3=Moderate Assistance 7=Complete [place] Transfers (B, C, W/C) (FIM): 4 Sit to/from Stand: 4 Gait Mode of Locomotion: Walk Anticipated Mode of Locomotion: Walk Gait (FIM): 1 Distance (FIM): 1=up to 49 ft Distance: 2' Gait Level of Assist: 4 Gait Persons Needed: 1 Gait Assistive Device: FWW Comments/Gait Description Pt has small step length, flexed forward posture Balance Sitting Static: Good Sitting Dynamic: Good Standing Static: Fair Standing Dynamic: Fair Assessment/Needs Pt in recliner and is hard of hearing so communication was more challenging. Pt had noticeable tremors/mm fasciculations. SPT asked pt if it was due to being cold and pt reports yes but continue throughout all tx. Pt was able to perform sit<>stand transfer from recliner to FWW with min A. Pt able to amb 2' with FWW with CGA, SPT decided it was in pt best interest to return to recliner, pt was able to amb backwards 2'. During amb pt continued with shaking and looked very uneasy. Pt was able to perform seated LE ex x10 reps (AP, LAQ, Hip flexion). OT is now with pt and pt had just received his lunch. Rehab Potential: Fair Post Rehab Potential-Barriers: co-morbidities PT Short Term Goals Short Term Goals Time Frame: Jan 31, 2019 Transfers (B,C,W/C) (FIM): 5 Gait (FIM): 2 Distance (FIM): 8=811-72 ft Gait Distance Comment: 50' Gait Level of Assist: 4 Gait Assistive Device: FWW PT Plan Problem List Problem List: Activity Tolerance, Functional Strength, Safety, Balance, Gait, Transfer, Bed Mobility, ROM Treatment/Plan Treatment Plan: Continue Plan of Care Treatment Plan: Bed Mobility, Education, Functional Activity Samantha, Functional Strength, Gait, Safety, Therapeutic Exercise, Transfers Treatment Duration: Jan 31, 2019 Frequency: 6 times per week Estimated Hrs Per Day: .25 hour per day Patient and/or Family Agrees t: Yes Discharge Recommendations Therapy D/C Recommendations: Home w/ Family Support, Physical Therapy Home Care , Detention (TCU/NH) Time/GCodes Time In: 1134 Time Out: 1145 Total Billed Treatment Time: 11 Total Billed Treatment 1 visit EVM 11 min ANIL SADLER PT Jan 24, 2019 11:55
[2019-01-24 12:00] VITALS: BP 149/69
[2019-01-24] MEDS ORDERED: DONE10TA41 PO (14:44)
[2019-01-24] MEDS ORDERED: ATOR10TA66 PO (14:44)
[2019-01-24] MEDS ORDERED: SITA100T12 PO (14:44)
[2019-01-24] MEDS ORDERED: MIRA50TA PO (14:44)
[2019-01-24] MEDS ORDERED: SILO4CAP3 PO (14:44)
[2019-01-24] MEDS ORDERED: ISOS30TA3 PO (14:44)
[2019-01-24] MEDS ORDERED: MEMA1TAB2 (15:08)
[2019-01-24 15:42] VITALS: BP 151/65
--- NOTE | 2019-01-24 15:57 | Occupational Therapy Eval ---
OT Evaluation-General/PLF Medical Diagnosis Admission Date Jan 23, 2019 at 19:54 Medical Diagnosis: Lactic Acidosis, Generalized weakness Onset Date: Jan 23, 2019 Therapy Diagnosis Therapy Diagnosis: Weakness Height/Weight Height (Feet): 6 Height (Inches): 0.00 Weight (Pounds): 230 Weight (Ounces): 0.0 Precautions Precautions/Isolations: Fall Prevention, Standard Precautions Safety Interventions: Bed Exit Alarm Weight Bear Status Weight Bearing Restriction: Weight Bearing/Tolerated Referral Physician: Dr. Washburn Referral Reason: Activity Tolerance, Self Care, Evaluation/Treatment, Strengthening/ROM Medical History Pertinent Medical History: Arthritis, CABG, CAD, COPD, DM, Dementia, HTN, Smoking Additional Medical History Dementia, Adenoidectomy Current History Pt. came to ER with fever and weakness. Reviewed History: Yes Social History Home: Single Level Current Living Status: Spouse Entry Into Home: Stairs With Railing Steps Into Home: 2 ADL-Prior Level of Function Therapy Code Descriptions/Definitions Functional [place] Measure: 0=Not Assessed/NA 4=Minimal Assistance 1=Total Assistance 5=Supervision or Setup 2=Maximal Assistance 6=Modified [place] 3=Moderate Assistance 7=Complete [place] Therapy Quality Codes: 6 Independent with activity with or without an assistive device 5 Patient requires set up or clean up by helper. Patient completes activity by themselves 4 Supervision or touching assist (CGA). [place] provide cues , steadying assist 3 The helper provides less than half the effort to complete the activity 2 The helper provides more than half the effort to complete the activity 1 Dependent. The helper does all the effort to complete an activity 7 Patient refused to complete or attempt activity 9 The patient did not perform the activity before the current illness or injury 88 Not attempted due to Medical conditions or safety concerns Functional Abilities and Goals: Independent: Patient completed the activities by him/herself, with or without an assistive device, with no assistance from a helper. Needed Some Help: Patient needed partial assistance from another person to complete activities. Dependent: A helper completed the activities for the patient. Unknown: Not Applicable: ADL PLOF Comments Pt. states that he lives with his and daughter. States that his daughter is in good health, but not his . Pt. states that his daughter assists him with LE dressing. Pt. is poor historian at times. Self Care: Needed Some Help Functional Cognition: Unknown DME/Equipment: Tub/Shower DME/Equipment Comments Pt. has walker that he uses. OT Current Status Subjective No pain reported. Appearance Pt. up in chair. Lunch tray has just arrived. Mental Status/Objective Patient Orientation: Person Current Hand Dominance: Right Upper Extremity ROM Pt. is able to demonstrate approximately 100 degrees bilateral shoulder flexion. ADL-Treatment Therapy Code Descriptions/Definitions Functional [place] Measure: 0=Not Assessed/NA 4=Minimal Assistance 1=Total Assistance 5=Supervision or Setup 2=Maximal Assistance 6=Modified [place] 3=Moderate Assistance 7=Complete [place] Therapy Quality Codes: 6 Independent with activity with or without an assistive device 5 Patient requires set up or clean up by helper. Patient completes activity by themselves 4 Supervision or touching assist (CGA). [place] provide cues , steadying assist 3 The helper provides less than half the effort to complete the activity 2 The helper provides more than half the effort to complete the activity 1 Dependent. The helper does all the effort to complete an activity 7 Patient refused to complete or attempt activity 9 The patient did not perform the activity before the current illness or injury 88 Not attempted due to Medical conditions or safety concerns Eating (FIM): 5 (Lunch tray arrives. Pt. reports that he is very hungry. Pt. is encouraged to set up his own tray. Pt. opens lid off plate, and starts to eat. Noted that pt. demonstrates tremors. States that he has "always had this. " Pt. does not initiate opening his other packages, such as sprite, pudding, pears, or buttering his roll. Requires increased time and seems unaware of other items on tray. OT does finally ask if he needs assistance. Pt. states that he does, and OT set up rest of tray. Pt. able to hold the items and feed self.) Lower Body Dressing (FIM): 1 (Pt. unable to doff slipper socks. States that is daughter does this for him, but is unable to fully elaborate.) Pt. up in chair. Wanted to finish eating. Pt. seems very [place] and often asks therapy to repeat. This may contribute to being a poor historian at times. OT lets pt. finish eating after observing for 10 minutes. Will assess functional ADLs of bathing/dressing at next session. Education OT Patient Education: Correct positioning, Modified ADL techniques, Progress toward Goal/Update tx plan, Purpose of tx/functional activities, Reviewed precautions, Rehab process Teaching Recipient: Patient Teaching Methods: Demonstration, Discussion Response to Teaching: Verbalize Understanding, Return Demonstration OT Short Term Goals Short Term Goals Time Frame: Jan 31, 2019 Eating(FIM): 5 Grooming(FIM): 5 Bathing(FIM): 4 Upper Body Dressing(FIM): 4 Lower Body Dressing(FIM): 3 Toileting(FIM): 4 Transfers (B,C,W/C) (FIM): 5 Toilet/Commode Transfer(FIM): 5 Additional Short Term Goals: 1-Demonstrate ADL Tasks, 2-Verbalize Understanding , 3-ImproveStrength/Samantha 1=Demonstrate adherence to instructed precautions during ADL tasks. 2=Patient will verbalize/demonstrate understanding of assistive devices/ modifications for ADL. 3=Patient will improve strength/tolerance for activity to enable patient to perform ADL's. OT Prison Goals Case Investigator Goals Time Frame: Feb 07, 2019 Eating (FIM): 6 Grooming(FIM): 6 Bathing(FIM): 5 Upper Body Dressing(FIM): 5 Lower Body Dressing(FIM): 4 Toileting(FIM): 6 Transfers (B,C,W/C) (FIM): 6 Toilet/Commode Transfer(FIM): 6 Shower Transfer(FIM): 5 Additional Goals: 1-Demonstrate ADL Tasks, 2-Verbalize Understanding, 3- ImproveStrength/Samantha 1=Demonstrate adherence to instructed precautions during ADL tasks. 2=Patient will verbalize/demonstrate understanding of assistive devices/ modifications for ADL. 3=Patient will improve strength/tolerance for activity to enable patient to perform ADL's. OT Education/Plan Problem List/Assessment Assessment: Decreased Activ Tolerance, Decreased UE Strength, Dependent Transfers, Impaired I ADL's, Impaired Self-Care Skills Discharge Recommendations Plan/Recommendations: Continue POC Therapy D/C Recommendations: Home w/ Family Support, Occupational Therapy Home Care Equpiment Recommendations-D/C: Bath Chair, Hip Kit Treatment Plan/Plan of Care Treatment,Training & Education: Yes Patient would benefit from OT for education, treatment and training to promote independence in ADL's, mobility, safety and/or upper extremity function for ADL' s. Plan of Care: ADL Retraining, Functional Mobility, UE Funct Exercise/Act Treatment Duration: Feb 07, 2019 Frequency: 5 times per week Estimated Hrs Per Day: .5 hour per day Agreement: Yes Rehab Potential: Fair Time/GCodes Start Time: 11:45 Stop Time: 11:55 Total Time Billed (hr/min): 10 Billed Treatment Time 1,MANUELA MONTANEZ OT Jan 24, 2019 15:57
--- NOTE | 2019-01-24 16:21 | NUR ---
UNABLE TO GET A HOLD OF FERCHO VIA PHONE TO VERIFY PATIENTS MEDICATIONS. UPDATED MED REC WITH THE LIST THAT WAS SCANNED IN ON THE CHART WELL COMPARING WITH THE EXT MED HX.
[2019-01-24 19:12] VITALS: BP 180/81
--- NOTE | 2019-01-24 20:31 | NUR ---
SPOKE WITH DR. KAUFFMAN TO CLARIFY PTS HOME INSULIN DOSE AND WHAT HE WANTS THE PT TO HAVE TONIGHT. TELEPHONE ORDERS RECEIVED NOT TO GIVE THE 48 UNITS LEVEMIR TONIGHT TO WAIT TILL MORNING AND VERIFY HIS MEDICATIONS.
[2019-01-24] MEDS: DONEPEZIL 10 MG (ARICEPT) TAB PO SCH (20:41)
[2019-01-24] MEDS: inSUlin DETERMIR 1 UNIT/0.01 ML (LEVEMIR) CHARGE PER UNIT SQ SCH (20:41)
[2019-01-24] MEDS: KCL 10 MEQ TAB (MICRO K) PO SCH (20:41)
[2019-01-24] MEDS: ATORVASTATIN 10 MG (LIPITOR) TABLET PO SCH (20:41)
[2019-01-24] MEDS: FUROSEMIDE 20 MG (LASIX) TAB PO SCH (20:41)
[2019-01-25] VITALS (14 sets, daily range): BP systolic 110–164; BP diastolic 57–77
[2019-01-25] MEDS: ACETAMINOPHEN 500 MG TAB (TYLENOL) PO PRN ×2 (00:53→18:28)
[2019-01-25 06:14] LABS: BASOPHILS % (AUTO) 0 % (0-10); EOSINOPHILS % (AUTO) 1 % (0-10); HEMATOCRIT 41 % (40-54); HEMOGLOBIN 13.3 G/DL (13.3-17.7); LYMPHOCYTES # (AUTO) 1.6 X 10^3 (1.0-4.0); LYMPHOCYTES % (AUTO) 36 % (12-44); MEAN CORPUSCULAR HEMOGLOBIN 29 PG (25-34); MEAN CORPUSCULAR HGB CONC 33 G/DL (32-36); MEAN CORPUSCULAR VOLUME 89 FL (80-99); MEAN PLATELET VOLUME 10.5 FL (7.4-10.4); MONOCYTES # (AUTO) 0.6 X 10^3 (0.0-1.0); MONOCYTES % (AUTO) 14 % (0-12); NEUTROPHILS # (AUTO) 2.2 X 10^3 (1.8-7.8); NEUTROPHILS % (AUTO) 50 % (42-75); PLATELET COUNT 126 10^3/uL (130-400); RED CELL DISTRIBUTION WIDTH 14.1 % (10.0-14.5); WHITE BLOOD COUNT 4.4 10^3/uL (4.3-11.0)
[2019-01-25 06:31] LABS: BUN/CREATININE RATIO 12; CALCIUM 9.4 MG/DL (8.5-10.1); CARBON DIOXIDE 19 MMOL/L (21-32); CHLORIDE 107 MMOL/L (98-107); GFR ESTIMATED > 60; GLUCOSE 159 MG/DL (70-105); POTASSIUM 3.7 MMOL/L (3.6-5.0); SODIUM 138 MMOL/L (135-145)
[2019-01-25] MEDS: RT-ALBUTEROL/IPRATROPIUM 3 ML (DUONEB) VIAL INH PRN (06:36)
[2019-01-25] MEDS: inSUlin ASPART (NovoLOG) 1 UNIT/0.01 ML (CHARGE PER UNIT) SC SCH ×3 (06:40→18:18)
[2019-01-25] MEDS ORDERED: PATIENT MAY USE OWN MEDS, ALL MC SCH (07:30)
[2019-01-25] MEDS: MIRABEGRON 50 MG PO SCH ×2 (08:07→20:53)
[2019-01-25] MEDS: SILODOSIN PO SCH (08:23)
[2019-01-25] MEDS: ASPIRIN E.C. 81 MG (ECOTRIN) TAB PO SCH (08:24)
[2019-01-25] MEDS: PANTOPRAZOLE 40 MG (PROTONIX) TAB PO SCH (08:24)
[2019-01-25] MEDS: ISOSORBIDE MONONITRATE 30 MG (IMDUR) TAB PO SCH (08:24)
[2019-01-25] MEDS: ENALAPRIL 10 MG (VASOTEC) TAB PO SCH (08:25)
[2019-01-25] MEDS: FUROSEMIDE 20 MG (LASIX) TAB PO SCH ×2 (08:26→20:52)
[2019-01-25] MEDS: KCL 10 MEQ TAB (MICRO K) PO SCH ×2 (08:26→20:52)
[2019-01-25] MEDS ORDERED: inSUlin DETERMIR 1 UNIT/0.01 ML (LEVEMIR) CHARGE PER UNIT SQ SCH (09:00)
--- NOTE | 2019-01-25 09:49 | Physical Therapy Daily Note ---
PT Daily Note-Current Subjective Pt in bed and awakes to SPT saying pt name. Pt agrees to moving to his recliner. Pain Numeric Pain Scale: 0-No Pain Location: No Pain Reported Mental Status Patient Orientation: Person, Place, Situation Transfers Therapy Code Descriptions/Definitions Functional [place] Measure: 0=Not Assessed/NA 4=Minimal Assistance 1=Total Assistance 5=Supervision or Setup 2=Maximal Assistance 6=Modified [place] 3=Moderate Assistance 7=Complete [place] Therapy Quality Codes: 6 Independent with activity with or without an assistive device 5 Patient requires set up or clean up by helper. Patient completes activity by themselves 4 Supervision or touching assist (CGA). [place] provide cues , steadying assist 3 The helper provides less than half the effort to complete the activity 2 The helper provides more than half the effort to complete the activity 1 Dependent. The helper does all the effort to complete an activity 7 Patient refused to complete or attempt activity 9 The patient did not perform the activity before the current illness or injury 88 Not attempted due to Medical conditions or safety concerns Transfers (B, C, W/C) (FIM): 1 Scootin Supine to/from Sit: 1 Sit to/from Stand: 1 Weight Bearing Right Lower Extremity: Right Weight Bearing/Tolerated Left Lower Extremity: Left Weight Bearing/Tolerated Exercises Seated Therapy Exercises: Ankle pumps, Long arc quads, Hip flexion Seated Reps: 10 Assessment Current Status: Poor Progress Pt attempted to get from supine to EOB and was not able to flex trunk for sitting. Pt required dependent A x2 to successfully get EOB. Pt was unable to remain static sitting balance without max A. Pt required depedent A x2 for sit<> stand from EOB pt able to side step to recliner with dependent A x2 to remain standing. Once in recliner pt was dependent A x2 from recliner to FWW with nurse aid to perform brief dressing. Pt able to perform LE seated ex with mod encouragement from SPT for pt to get to 10 reps. Pt seems to have declined in function from yesterdays eval. Pt now has all needs met in recliner. PT will increase activity as pt is able to tolerate. PT Short Term Goals Short Term Goals Time Frame: Jan 31, 2019 Transfers (B,C,W/C) (FIM): 5 Gait (FIM): 2 Distance (FIM): 2=887-64 ft Gait Distance Comment: 50' Gait Level of Assist: 4 Gait Assistive Device: FWW PT Plan Problem List Problem List: Activity Tolerance, Functional Strength, Safety, Balance, Gait, Transfer, Bed Mobility, ROM Treatment/Plan Treatment Plan: Continue Plan of Care Treatment Plan: Bed Mobility, Education, Functional Activity Samantha, Functional Strength, Gait, Safety, Therapeutic Exercise, Transfers Treatment Duration: Jan 31, 2019 Frequency: 6 times per week Estimated Hrs Per Day: .25 hour per day Patient and/or Family Agrees t: Yes Time/GCodes Time In: 903 Time Out: 918 Total Billed Treatment Time: 15 Total Billed Treatment 1 visit FA 15 min ANIL SADLER PT Jan 25, 2019 09:49
--- NOTE | 2019-01-25 10:20 | Progress Note-Hospitalist ---
Subjective HPI/CC On Admission Date Seen by Provider: Jan 25, 2019 Time Seen by Provider: 10:14 Pt is a 78yoCM with a PMH of IDDMII, CAD s/p CABG, pAF, COPD, HTN, dementia who presented to the ER due to fever and weakness. He is a somewhat poor historian about his overall medical history but seems to remember yesterday well. He states his symptoms started abruptly with weakness and fever yesterday morning. He also complaints of a dry cough. He denies any chest pain, nausea, or vomiting but started to have loose stool yesterday. This morning he states he feels better but still feels "crummy" overall. I am unsure how accurate the rest of his history is as he then told me he takes no medications and has known medical problems but per his med rec he is on many meds including insulin. Subjective/Events-last exam Pt reports feeling better but still not well. Cannot explain how. No other complaints. Eating breakfast. RN reports patient febrile overnight. Focused Exam Lactate Level 01/23/19 16:50: Lactic Acid Level 3.29*H 01/23/19 19:05: Lactic Acid Level 2.10*H Objective Exam Vital Signs Vital Signs Date Time Temp Pulse Resp B/P (MAP) Pulse Ox O2 Delivery O2 Flow Rate FiO2 01/25/19 10:30 93 Room Air 01/25/19 08:00 98.5 89 18 164/72 (102) 01/23/19 21:56 21 Capillary Refill : Less Than 3 Seconds General Appearance: No Apparent Distress, Chronically ill Respiratory: Lungs Clear, No Accessory Muscle Use, No Respiratory Distress Cardiovascular: Regular Rate, Rhythm, No JVD, No Murmur Gastrointestinal: Normal Bowel Sounds, Non Tender, Soft Extremity: Normal Capillary Refill, No Calf Tenderness, No Pedal Edema Neurologic/Psychiatric: Alert, Disoriented Skin: Normal Color, Warm/Dry Results/Procedures Lab Laboratory Tests 01/25/19 05:20 Patient resulted labs reviewed. Imaging: Reviewed Imaging Report Assessment/Plan Assessment and Plan Assess & Plan/Chief Complaint Generalized weakness Diagnosis/Problems Diagnosis/Problems (1) Fever Status: Acute Assessment & Plan: Likely viral syndrome Will get RVP No evidence of UTI or pna on CXR Urine culture shows contamination Flu negative Await blood cultures Qualifiers: Fever type: unspecified Qualified Codes: R50.9 - Fever, unspecified (2) COPD (chronic obstructive pulmonary disease) Status: Chronic Assessment & Plan: No evidence of acute exacerbation Continue albuterol on room air Qualifiers: COPD type: unspecified COPD Qualified Codes: J44.9 - Chronic obstructive pulmonary disease, unspecified (3) Generalized weakness Status: Acute Assessment & Plan: Likely due to viral syndrome PT/OT Encouraged patient to ambulate and continue to sit on chair May need skilled nursing placement upon discharge manager technical services consulted (4) Lactic acidosis Status: Acute Assessment & Plan: Likely due to metformin and acute illness Resolving with fluids not sepsis (5) CAD (coronary artery disease) Status: Acute Assessment & Plan: Last echo available revales EF of 50% Appears to follow with Dr Sepulveda No chest pain or evidence of ACS Qualifiers: Coronary Disease-Associated Artery/Lesion type: bypass graft [place] vs. transplanted heart: [place] heart Associated angina: without angina Qualified Codes: I25.810 - Atherosclerosis of coronary artery bypass graft(s) without angina pectoris Clinical Quality Measures DVT/VTE Risk/Contraindication: Risk Factor Score Per Nursin RFS Level Per Nursing on Admit: 4+=Very High DEISI ALVARENGA MD Jan 25, 2019 10:20
--- NOTE | 2019-01-25 12:03 | NUR ---
This RN in room with nursing education consultant, Herson. Patient had just projectile vomited and was given Zofran at 1147. At current time of 1203-Patient is more lethargic . Patient does wake to painful stimuli, however he is now not following commands. Patient is also opening and closing his mouth tight as if he is chewing on something, yet nothing is in his mouth. Patient's sats are 92-96% on room air however breathing pattern is different almost as if patient is holding his breath and then catching his breath.Patient has also had moments of whole body shaking that comes and goes. The whole body shaking was noted in ED and Tylenol was prescribed on bridge orders specifically for shaking. This is a victor change from all previous assessments. This RN notified Dr. Washburn in person. This RN states "vitals are all okay, little temp of 100.1 but patient just doesn't seem right to me." Dr. Washburn states " Okay lets get a stat ABG and change him to MAT protocol." 1215-RT Kaylin and this RN in room RT Kaylin agrees with this RN that patient has not been this way and that he has had a mental status change. at this time this RN and RT Kaylin go to dictation room and notify Dr. Washburn again in person of patient's mental status decline. Dr. Washburn Fallowed this RN and RT Kaylin to room. Dr. Washburn assessing patient at this time. 1224-Dr. Washburn orders patient to have stat CT head WO contrast. MIRANDA Manriquez, Radha,RN, Marian,MIRANDA, Cari,[facility] and this RN transferred patient to bed at this time. Dr. Velásquez, Manager Plan in room at this time as well states transfer to ICU1-patient to go down to CT then straight up to ICU1 when done. 1233-Patient down to CT MIRANDA Manriquez and Radha RN went down to CT/ X-ray to monitor patient 1242-patient in x-ray. 1250-bedside report to MIRANDA Fields at this time 1305-Dr. Washburn came into ICU room 1 and states neurology in [facility] recommend CTA of head and neck with contrast. Patient taken down at this time to CT.
[2019-01-25 12:27] LABS: ABG BASE EXCESS -2.5 MMOL/L (-2.5-2.5); ABG OXYGEN SATURATION 92 % (94-100); ABG PCO2 37 MMHG (35-45); ABG PH 7.39 (7.37-7.43); ABG PO2 65 MMHG (79-93); ABG TCO2 22.5 MMOL/L (21.0-31.0)
[2019-01-25 12:34] LABS: ALLENS TEST YES-POS; INSPIRED O2 RA; VENTILATOR NO
[2019-01-25 12:35] LABS: PATIENT TEMP 101
--- NOTE | 2019-01-25 12:39 | Progress Note-Hospitalist ---
Progress Note Progress Notes/Assess & Plan Date Seen 01/25/19 Time Seen by Provider: 12:35 Assessment & Plan Called to bedside at 1225 due to acute change in mental status. RN and RT at bedside and state much more lethargic. Code Stroke Called as patient arousable to significant verbal stimuli but not able to follow commands. Discussed with family at bedside ( of grandson) plan for transfer to ICU and stat CT Head. Called Dr Velásquez for consultation who came to bedside. [facility] at noon. Noncontrast CT head reveals no ICH. Called and spoke with [facility] Stroke Neurologist Dr George at 1253 who recommended against TPA at this time but to get CTA Head/Neck. This was ordered stat. 1433: received call back from Dr George and reviewed images from CTA which were negative. He again recommended against TPA. I updated family to this. Patient slightly improved. Exam revealed PERRLA, arousal to verbal stimuli but did not communicate verbally with me, able to portfolio architect with both hands and moves both legs on command. Family states he had spoken coherently to them. Will leave in ICU. Labs reveal no significant abnormality. Critical Care time: 70m in total time spent with patient and on floor. Focused Exam Lactate Level 01/23/19 16:50: Lactic Acid Level 3.29*H 01/23/19 19:05: Lactic Acid Level 2.10*H Diagnosis/Problems Diagnosis/Problems (1) Fever Status: Acute Assessment & Plan: Likely viral syndrome Will get RVP No evidence of UTI or pna on CXR Urine culture shows contamination Flu negative Await blood cultures Qualifiers: Qualified Codes: R50.9 - Fever, unspecified (2) COPD (chronic obstructive pulmonary disease) Status: Chronic Assessment & Plan: No evidence of acute exacerbation Continue albuterol on room air Qualifiers: Qualified Codes: J44.9 - Chronic obstructive pulmonary disease, unspecified (3) Generalized weakness Status: Acute Assessment & Plan: Likely due to viral syndrome PT/OT Encouraged patient to ambulate and continue to sit on chair May need shelter placement upon discharge director of perioperative services consulted (4) Lactic acidosis Status: Acute Assessment & Plan: Likely due to metformin and acute illness Resolving with fluids not sepsis (5) CAD (coronary artery disease) Status: Acute Assessment & Plan: Last echo available revales EF of 50% Appears to follow with Dr Coco No chest pain or evidence of ACS Qualifiers: Qualified Codes: I25.810 - Atherosclerosis of coronary artery bypass graft(s ) without angina pectoris DEISI ALVARENGA MD Jan 25, 2019 12:39
--- NOTE | 2019-01-25 12:47 | Diagnostic Imaging Report ---
PROCEDURE: CT head wo r/o stroke. TECHNIQUE: Multiple contiguous axial images were obtained through the brain without the use of intravenous contrast. INDICATION: Altered mental status. FINDINGS: There is prominence of the ventricles and sulci. There is no hydrocephalus or cerebral edema. There is no midline shift or mass-effect. There is no intracranial mass, hemorrhage, or extra-axial fluid collection. There is some diffuse decreased attenuation of the periventricular white matter which is nonspecific. The visualized paranasal sinuses and mastoid air cells are clear. There are no regional areas of decreased attenuation appreciated to suggest an acute CVA. IMPRESSION: 1. No acute intracranial process. 2. Age-appropriate atrophy. 3. Decreased attenuation of the periventricular white matter which is nonspecific, however, likely reflects senescent change and/or chronic small vessel ischemic disease. Dictated by: Dictated on workstation # [id number]
--- NOTE | 2019-01-25 12:53 | Diagnostic Imaging Report ---
INDICATION: Mental status changes. Comparison made with prior examination from 01/23/2019. FINDINGS: There is cardiomegaly. There has been a previous median sternotomy and coronary bypass graft. There is some minimal left basilar atelectasis and/or pneumonitis. There is no pleural effusion or pneumothorax. Mediastinum is unremarkable. IMPRESSION: Minimal left basilar atelectasis and/or pneumonitis. Cardiomegaly. Dictated by: Dictated on workstation # [id number]
--- NOTE | 2019-01-25 13:12 | Pulmonary Consultation ---
History of Present Illness History of Present Illness Date of Consultation 01/25/19 13:05 Time Seen by Provider: 13:05 Date of Admission History of Present Illness 78yo poor historian with hx of IDDMI, CAD s/p CABG, PAF, COPD, dementia presented to ED secondary to worsening fever, and weakness. This morning pt had acute onset lethargy and would not answer questions. CODE stroke was called. CT head without contrast is negative. CT head with contrast is pending. BS is around 200. ABG does not look bad. PT was transferred to ICU. I am consulted for ICU management. Dr. Washburn is consulting Neurology. Allergies and Home Medications Allergies Coded Allergies: Penicillins (Verified Allergy, Unknown, 05/01/12) Home Medications Albuterol Sulfate 6.7 Gm Hfa.aer.ad, 2 PUFF IH Q4H PRN for SHORTNESS OF BREATH, (Reported) Aspirin 81 Mg Tablet.dr, 81 MG PO DAILY, (Reported) Atorvastatin Calcium 10 Mg Tablet, 10 MG PO HS, (Reported) Cholecalciferol (Vitamin D3) 1,000 Unit Capsule, 1,000 UNIT PO BID, (Reported) Donepezil HCl 10 Mg Tablet, 10 MG PO DAILY, (Reported) Enalapril Maleate 10 Mg Tablet, 5 MG PO DAILY, (Reported) TAKES 1/2 (10MG) TABLET Furosemide 20 Mg Tablet, 20 MG PO BID, (Reported) Insulin Detemir 100 Unit/1 Ml Insuln.pen, 10 UNITS SC DAILY, (Reported) Isosorbide Mononitrate 30 Mg Tab.er.24h, 30 MG PO DAILY, (Reported) Metformin HCl 1,000 Mg Tablet, 1,000 MG PO BID, (Reported) Metoprolol Succinate 50 Mg Tab.er.24h, 25 MG PO DAILY, (Reported) TAKES 1/2 (50MG) TABLET Mirabegron 50 Mg Tab.er.24h, 50 MG PO HS, (Reported) Union-3 Fatty Acids/Fish Oil 1 Each Capsule, 2,000 MG PO BID, (Reported) TAKES 2 (1000MG) CAPSULES Omeprazole 40 Mg Capsule.dr, 40 MG PO DAILY, (Reported) Pioglitazone HCl 30 Mg Tablet, 15 MG PO DAILY, (Reported) TAKES 1/2 (30MG) TABLET Potassium Chloride 10 Meq Tablet.er, 10 MEQ PO BID, (Reported) Silodosin 4 Mg Capsule, 4 MG PO DAILY, (Reported) Sitagliptin Phosphate 100 Mg Tablet, 100 MG PO DAILY, (Reported) Past Ksiuteg-Rbgcuj-Mmxyjs Hx Past Med/Social Hx: Reviewed Nursing Past Med/Soc Hx Patient Social History Alcohol Use: Denies Use Recreational Drug Use: No Smoking Status: Former Smoker Type Used: Cigars, Cigarettes, Pipe Former Smoker, Quit: Aug 04, 1980 Recent Foreign Travel: No Contact w/Someone Who Travel: No Recent Infectious Disease Expo: No Recent Hopitalizations: No Immunizations Up To Date Tetanus Booster (TDap): Less than 5yrs PED Vaccines UTD: No Date of Pneumonia Vaccine: Nov 23, 2018 Date of Influenza Vaccine: Nov 23, 2018 Seasonal Allergies Seasonal Allergies: No Past Medical History Surgeries: Yes (KIDNEY STONES REMOVED) Adenoidectomy, CABG, Gallbladder, Tonsillectomy Respiratory: Yes Asthma, Pneumonia, COPD Cardiac: Yes (CABG x 3 2007) Cardiomyopathy, Coronary Artery Disease, High Cholesterol, Hypertension Neurological: No Reproductive Disorders: No Genitourinary: Yes Kidney Stones Gastrointestinal: No Musculoskeletal: Yes (UNSTEADY ON FEET USES WALKER AT HOME) Arthritis Endocrine: Yes Diabetes, Insulin dep HEENT: Yes Cataract Loss of Vision: Denies Hearing Impairment: Hard of Hearing Cancer: No Psychosocial: No Integumentary: No Blood Disorders: No Adverse Reaction/Blood Tranf: No Family Medical History No Pertinent Family Hx Sepsis Event Evaluation Height, Weight, BMI Height: 6'0.00" Weight: 230lbs. 0.0oz. 104.976111pp; 31.2 BMI Method:Stated Exam Exam Vital Signs Date Time Temp Pulse Resp B/P (MAP) Pulse Ox O2 Delivery O2 Flow Rate FiO2 01/25/19 10:30 93 Room Air 01/25/19 08:05 Room Air 01/25/19 08:00 98.5 89 18 164/72 (102) 90 Room Air 01/25/19 04:05 99.8 75 20 135/64 (87) 96 Room Air 01/25/19 00:40 103.3 01/25/19 00:00 100.6 100 18 140/72 (94) 93 Room Air 01/24/19 20:00 Room Air 01/24/19 19:12 99.3 96 20 180/81 (114) 95 Room Air 01/24/19 15:42 97.6 96 18 151/65 93 98 Room Air I & O 01/25/19 07:00 Intake Total 1670 ml Output Total 300 ml Balance 1370 ml Height & Weight Height: 6'0.00" Weight: 230lbs. 0.0oz. 104.027541bv; 31.2 BMI Method:Stated General Appearance: No Apparent Distress, Chronically ill Respiratory: Lungs Clear, No Accessory Muscle Use, No Respiratory Distress Cardiovascular: Regular Rate, Rhythm, No JVD, No Murmur Capillary Refill: Less Than 3 Seconds Extremity: Normal Capillary Refill, No Calf Tenderness, No Pedal Edema Neurologic/Psychiatric: Alert, Disoriented Skin: Normal Color, Warm/Dry Results Lab Laboratory Tests 01/23/19 16:50 01/24/19 05:35 01/25/19 05:20 Assessment/Plan Assessment/Plan Acute Lethargy r/o Acute CVA -Dr. Washburn is consulting with [facility] -CT head with contrast pending -ABG- reviewed -labs reviewed COPD -SVN -pt is on RA currently Atelectasis OLEGARIO GAXIOLA DO Jan 25, 2019 13:12
[2019-01-25] MEDS ORDERED: NS 100 ML (IVPB) BAG IV ONE (13:15)
[2019-01-25] MEDS ORDERED: IOHEXOL 350 MG/ML 100 ML (OMNIPAQUE 350) VIAL IV ONE (13:15)
[2019-01-25] MEDS ORDERED: HOLD METFORMIN - RECEIVED CONTRAST 20 ML VIAL IV SCH (13:15)
[2019-01-25 13:17] LABS: BASOPHILS % (AUTO) 0 % (0-10); EOSINOPHILS % (AUTO) 0 % (0-10); HEMATOCRIT 40 % (40-54); LYMPHOCYTES # (AUTO) 0.6 X 10^3 (1.0-4.0); LYMPHOCYTES % (AUTO) 11 % (12-44); MEAN CORPUSCULAR HEMOGLOBIN 29 PG (25-34); MEAN CORPUSCULAR HGB CONC 33 G/DL (32-36); MEAN CORPUSCULAR VOLUME 89 FL (80-99); MEAN PLATELET VOLUME 10.9 FL (7.4-10.4); MONOCYTES # (AUTO) 0.5 X 10^3 (0.0-1.0); MONOCYTES % (AUTO) 9 % (0-12); NEUTROPHILS # (AUTO) 4.6 X 10^3 (1.8-7.8); NEUTROPHILS % (AUTO) 79 % (42-75); PLATELET COUNT 139 10^3/uL (130-400); RED CELL DISTRIBUTION WIDTH 14.2 % (10.0-14.5); WHITE BLOOD COUNT 5.8 10^3/uL (4.3-11.0)
[2019-01-25 13:34] LABS: ALANINE AMINOTRANSFERASE 59 U/L (0-55); ALKALINE PHOSPHATASE 54 U/L (40-136); AMMONIA 28 UMOL/L (11-32); BUN/CREATININE RATIO 11; CALCIUM 9.3 MG/DL (8.5-10.1); CARBON DIOXIDE 21 MMOL/L (21-32); CHLORIDE 103 MMOL/L (98-107); CREATININE SERUM 1.13 MG/DL (0.60-1.30); GFR ESTIMATED > 60; GLUCOSE 281 MG/DL (70-105); POTASSIUM 4.6 MMOL/L (3.6-5.0); SODIUM 135 MMOL/L (135-145); TOTAL PROTEIN 6.7 GM/DL (6.4-8.2)
--- NOTE | 2019-01-25 14:23 | Occ Therapy Progress Note ---
Therapy Progress Note 1410 pm 01/25/2019 Mr Johan Rucker transferd to ICU -1 due to decline health condition & thus OT could not see him today. Await for the New Orders. Henry Pardo OTR/[facility] OT Jan 25, 2019 14:23
--- NOTE | 2019-01-25 15:20 | Diagnostic Imaging Report ---
PROCEDURE: CT angiography of the head and CT angiography of the neck with and without contrast. TECHNIQUE: Contiguous noncontrast images were obtained from the skull base through the vertex. After intravenous contrast administration, helical CT angiography of the neck was performed. Source data was reformatted into multiple MIP projections. Delayed post contrast acquisition was also obtained. INDICATION: Altered mental status. Left-sided weakness. COMPARISON: CT head from the same day. FINDINGS: There is significant motion artifact, resulting in suboptimal evaluation. The right common carotid artery is patent. There is motion at the bifurcation, but the extracranial internal carotid artery appears patent. There is significant calcific atherosclerosis of the intracranial ICA. There is a focal area of narrowing in the petrous portion of the right ICA which appears to cause approximately 25% narrowing. The left common carotid artery is patent. The left internal carotid artery appears patent as well, although there is atherosclerosis distally. The left vertebral artery is slightly dominant. No focal stenosis or occlusion is seen in the vertebral arteries bilaterally. The imaged portions of the anterior cerebral arteries are normal. The anterior communicating artery is seen and appears normal. The right MCA appears normal. The left MCA is normal. The right posterior communicating artery is faintly visible. The left posterior communicating artery is faintly visible. The bilateral posterior cerebral arteries appear normal. The superior cerebellar arteries are normal. The basilar artery is unremarkable. There is generalized volume loss in the brain parenchyma with areas of hypoattenuation likely from chronic microvascular disease. Perfusion overall appears generally symmetric. No enhancing lesions are identified. The calvarium is intact. A fluid level is seen in the left sphenoid and left maxillary sinuses. There are advanced multilevel degenerative changes in the cervical spine with no acute fractures seen. IMPRESSION: 1. No high-grade stenosis or occlusion is seen in the arteries of the head and neck. 2. Mild atherosclerosis. There is mild 25% narrowing of the petrous right ICA. 3. Generalized parenchymal volume loss with findings of chronic microvascular disease. 4. Fluid levels in the left maxillary and sphenoid sinuses, can be seen with sinusitis. Findings discussed with the patient's nurse, Donnie, who will relay the information to Dr. Washburn, on 01/25/2019 3:03 PM. Dictated by: Dictated on workstation # [id number]
[2019-01-25] MEDS: DONEPEZIL 10 MG (ARICEPT) TAB PO SCH (20:52)
[2019-01-25] MEDS: ATORVASTATIN 10 MG (LIPITOR) TABLET PO SCH (20:52)
[2019-01-25] MEDS: inSUlin DETERMIR 1 UNIT/0.01 ML (LEVEMIR) CHARGE PER UNIT SQ SCH (20:52)
[2019-01-26] VITALS (19 sets, daily range): BP systolic 101–156; BP diastolic 51–79
--- NOTE | 2019-01-26 04:45 | Pulmonary Progress Note ---
Subjective Time Seen by a Provider: 04:45 Subjective/Events-last exam No complications noted. Sepsis Event Evaluation Height, Weight, BMI Height: 6'0.00" Weight: 230lbs. 0.0oz. 104.774328dz; 31.2 BMI Method:Stated Focused Exam Lactate Level 01/23/19 19:05: Lactic Acid Level 2.10*H 01/25/19 13:00: Lactic Acid Level 2.57*H 01/25/19 15:25: Lactic Acid Level 1.90 Exam Exam Vital Signs Date Time Temp Pulse Resp B/P (MAP) Pulse Ox O2 Delivery O2 Flow Rate FiO2 01/26/19 04:00 80 22 128/64 (85) 98 Nasal Cannula 2.00 01/26/19 03:00 75 30 121/62 (81) 97 Nasal Cannula 2.00 01/26/19 02:00 75 21 156/77 (103) 96 Nasal Cannula 2.00 01/26/19 01:00 73 01/26/19 01:00 75 21 120/60 (80) 94 Nasal Cannula 2.00 01/26/19 00:00 78 20 125/54 (77) 92 Nasal Cannula 2.00 01/26/19 00:00 Room Air 01/25/19 23:44 100.2 01/25/19 23:00 78 23 112/68 (83) 95 Nasal Cannula 2.00 01/25/19 22:00 73 20 110/58 (75) 96 Nasal Cannula 2.00 01/25/19 21:00 78 20 116/63 (80) 93 Nasal Cannula 2.00 01/25/19 20:00 82 20 112/64 (80) 92 Nasal Cannula 2.00 01/25/19 20:00 Room Air 01/25/19 20:00 101.1 Nasal Cannula 2.00 01/25/19 19:00 86 23 110/57 (74) 92 Nasal Cannula 2.00 01/25/19 19:00 96 01/25/19 18:28 102.8 01/25/19 18:00 97 30 133/68 (89) 94 Room Air 01/25/19 17:00 89 16 140/65 (90) 93 Room Air 01/25/19 15:43 101 30 136/66 (89) 91 Room Air 01/25/19 14:00 105 25 131/61 (84) 93 Room Air 01/25/19 13:04 100 01/25/19 13:00 99 28 133/70 (91) 94 Room Air 01/25/19 12:00 97.0 91 18 137/77 (97) 98 Room Air 01/25/19 10:30 93 Room Air 01/25/19 08:05 Room Air 01/25/19 08:00 98.5 89 18 164/72 (102) 90 Room Air I & O 01/26/19 07:00 Intake Total 500 ml Balance 500 ml Height & Weight Height: 6'0.00" Weight: 230lbs. 0.0oz. 104.387671ib; 31.2 BMI Method:Stated General Appearance: No Apparent Distress, Chronically ill Respiratory: Lungs Clear, No Accessory Muscle Use, No Respiratory Distress Cardiovascular: Regular Rate, Rhythm, No JVD, No Murmur Capillary Refill: Less Than 3 Seconds Extremity: Normal Capillary Refill, No Calf Tenderness, No Pedal Edema Neurologic/Psychiatric: Alert, Disoriented Skin: Normal Color, Warm/Dry Results Lab Laboratory Tests 01/24/19 05:35 01/25/19 05:20 01/25/19 13:00 Assessment/Plan Assessment/Plan Acute Lethargy r/o Acute CVA -NO TPA given. CTA of head is negative for CVA -labs reviewed COPD -SVN -pt is on RA currently LLL Atelectasis PT did well last night. No complications noted. Will transfer to 4th floor. OLEGARIO GAXIOLA DO Jan 26, 2019 04:45
[2019-01-26] MEDS: inSUlin ASPART (NovoLOG) 1 UNIT/0.01 ML (CHARGE PER UNIT) SC SCH ×3 (06:46→18:11)
[2019-01-26] MEDS: ACETAMINOPHEN 500 MG TAB (TYLENOL) PO PRN (06:49)
--- NOTE | 2019-01-26 07:28 | Progress Note-Hospitalist ---
Subjective HPI/CC On Admission Date Seen by Provider: Jan 26, 2019 Time Seen by Provider: 07:24 Pt is a 78yoCM with a PMH of IDDMII, CAD s/p CABG, pAF, COPD, HTN, dementia who presented to the ER due to fever and weakness. He is a somewhat poor historian about his overall medical history but seems to remember yesterday well. He states his symptoms started abruptly with weakness and fever yesterday morning. He also complaints of a dry cough. He denies any chest pain, nausea, or vomiting but started to have loose stool yesterday. This morning he states he feels better but still feels "crummy" overall. I am unsure how accurate the rest of his history is as he then told me he takes no medications and has known medical problems but per his med rec he is on many meds including insulin. Subjective/Events-last exam Pt much more alert today. Back to previous baseline from earlier in admission. States he remembers yesterday and is able to follow commands and participate in conversation. Asks for breakfast. Denies any other concerns or complaints. Focused Exam Lactate Level 01/23/19 19:05: Lactic Acid Level 2.10*H 01/25/19 13:00: Lactic Acid Level 2.57*H 01/25/19 15:25: Lactic Acid Level 1.90 Objective Exam Vital Signs Vital Signs Date Time Temp Pulse Resp B/P (MAP) Pulse Ox O2 Delivery O2 Flow Rate FiO2 01/26/19 06:00 101.8 01/26/19 06:00 81 135/74 (94) 96 Nasal Cannula 2.00 01/26/19 05:00 18 01/23/19 21:56 21 Capillary Refill : Less Than 3 Seconds General Appearance: No Apparent Distress, Chronically ill Respiratory: Lungs Clear, No Accessory Muscle Use, No Respiratory Distress Cardiovascular: Regular Rate, Rhythm, No JVD, No Murmur Gastrointestinal: Normal Bowel Sounds, Non Tender, Soft Extremity: Normal Capillary Refill, No Calf Tenderness, No Pedal Edema Neurologic/Psychiatric: Alert, Other (oriented to person and place) Results/Procedures Lab Laboratory Tests 01/25/19 13:00 Patient resulted labs reviewed. Imaging: Reviewed Imaging Report Assessment/Plan Assessment and Plan Assess & Plan/Chief Complaint Generalized weakness Diagnosis/Problems Diagnosis/Problems (1) Altered mental status Assessment & Plan: Code stroke called yesterday No evidence of stroke on imaging, discussed case with [facility] Stroke Neurology- no indication for TPA Markedly improved today Check UA, today's labs pending RVP pending Consider MRI on Monday when available Qualifiers: Altered mental status type: somnolence Qualified Codes: R40.0 - Somnolence (2) Fever Status: Acute Assessment & Plan: Remains febrile Likely viral syndrome Will get RVP Flu negative Blood cx NGTD Qualifiers: Fever type: unspecified Qualified Codes: R50.9 - Fever, unspecified (3) COPD (chronic obstructive pulmonary disease) Status: Chronic Assessment & Plan: No evidence of acute exacerbation Continue albuterol on room air Qualifiers: COPD type: unspecified COPD Qualified Codes: J44.9 - Chronic obstructive pulmonary disease, unspecified (4) Generalized weakness Status: Resolved Assessment & Plan: Likely due to viral syndrome PT/OT May need care home placement upon discharge central services tech consulted Resolution Date/Time: 01/26/19 @ 07:28 (5) Lactic acidosis Status: Acute Assessment & Plan: Resolved (6) CAD (coronary artery disease) Status: Acute Assessment & Plan: Last echo available revales EF of 50% Appears to follow with Dr Sepulveda No chest pain or evidence of ACS Qualifiers: Coronary Disease-Associated Artery/Lesion type: bypass graft [place] vs. transplanted heart: [place] heart Associated angina: without angina Qualified Codes: I25.810 - Atherosclerosis of coronary artery bypass graft(s) without angina pectoris Clinical Quality Measures DVT/VTE Risk/Contraindication: Risk Factor Score Per Nursin RFS Level Per Nursing on Admit: 4+=Very High DEISI ALVARENGA MD Jan 26, 2019 07:28
[2019-01-26 07:43] LABS: BASOPHILS % (AUTO) 0 % (0-10); EOSINOPHILS % (AUTO) 0 % (0-10); HEMATOCRIT 38 % (40-54); HEMOGLOBIN 12.5 G/DL (13.3-17.7); LYMPHOCYTES # (AUTO) 1.8 X 10^3 (1.0-4.0); LYMPHOCYTES % (AUTO) 26 % (12-44); MEAN CORPUSCULAR HEMOGLOBIN 30 PG (25-34); MEAN CORPUSCULAR HGB CONC 33 G/DL (32-36); MEAN CORPUSCULAR VOLUME 89 FL (80-99); MEAN PLATELET VOLUME 10.5 FL (7.4-10.4); MONOCYTES # (AUTO) 0.8 X 10^3 (0.0-1.0); MONOCYTES % (AUTO) 12 % (0-12); NEUTROPHILS # (AUTO) 4.3 X 10^3 (1.8-7.8); NEUTROPHILS % (AUTO) 62 % (42-75); PLATELET COUNT 155 10^3/uL (130-400); RED CELL DISTRIBUTION WIDTH 14.6 % (10.0-14.5)
[2019-01-26 08:05] LABS: ALANINE AMINOTRANSFERASE 56 U/L (0-55); ALBUMIN 3.8 GM/DL (3.2-4.5); ALKALINE PHOSPHATASE 48 U/L (40-136); BUN/CREATININE RATIO 15; CALCIUM 9.3 MG/DL (8.5-10.1); CARBON DIOXIDE 21 MMOL/L (21-32); CHLORIDE 106 MMOL/L (98-107); CREATININE SERUM 0.89 MG/DL (0.60-1.30); GFR ESTIMATED > 60; GLUCOSE 146 MG/DL (70-105); SODIUM 136 MMOL/L (135-145); TOTAL PROTEIN 6.4 GM/DL (6.4-8.2)
[2019-01-26] MEDS: PANTOPRAZOLE 40 MG (PROTONIX) TAB PO SCH (08:13)
[2019-01-26] MEDS: ASPIRIN E.C. 81 MG (ECOTRIN) TAB PO SCH (08:13)
[2019-01-26] MEDS: ISOSORBIDE MONONITRATE 30 MG (IMDUR) TAB PO SCH (08:13)
[2019-01-26] MEDS: ENALAPRIL 10 MG (VASOTEC) TAB PO SCH (08:13)
[2019-01-26] MEDS: KCL 10 MEQ TAB (MICRO K) PO SCH ×2 (08:14→21:20)
[2019-01-26] MEDS: FUROSEMIDE 20 MG (LASIX) TAB PO SCH ×2 (08:14→21:20)
[2019-01-26] MEDS: SILODOSIN PO SCH (08:23)
--- NOTE | 2019-01-26 08:59 | Diagnostic Imaging Report ---
INDICATION: Lactic acidosis and altered mental status. Comparison made with prior from 01/25/2019. FINDINGS: Lung volumes are low. There is some persistent discoid opacity at the left base suggesting a region of atelectasis. There is no large effusion or evidence of pneumothorax. Patient is status post previous sternotomy. Cardiac size and mediastinal contours appear stable. IMPRESSION: 1. Low lung volumes with left base discoid atelectasis. Previous operative changes of sternotomy. Central pulmonary vascularity appears unremarkable. Dictated by: Dictated on workstation # [id number]
[2019-01-26] MEDS ORDERED: RT-ALBUTEROL/IPRATROPIUM 3 ML (DUONEB) VIAL INH PRN (10:00)
[2019-01-26] MEDS: RT-ALBUTEROL/IPRATROPIUM 3 ML (DUONEB) VIAL INH SCH ×3 (11:17→19:44)
[2019-01-26 18:54] LABS: BILIRUBIN,URINE NEGATIVE (NEGATIVE); CLARITY,URINE CLEAR; COLOR,URINE YELLOW; GLUCOSE, URINE (UA) 1+ (NEGATIVE); KETONES,URINE NEGATIVE (NEGATIVE); LEUKOCYTE ESTERASE ,URINE NEGATIVE (NEGATIVE); NITRITE,URINE NEGATIVE (NEGATIVE); PH,URINE 6 (5-9); PROTEIN,URINE 1+ (NEGATIVE); UROBILINOGEN,URINE NORMAL (NORMAL)
[2019-01-26 19:13] LABS: BACTERIA,URINE NEGATIVE /HPF; SQUAMOUS EPITHELIAL CELL,UR 0-2 /HPF; WBC,URINE 0-2 /HPF
[2019-01-26] MEDS: DONEPEZIL 10 MG (ARICEPT) TAB PO SCH (21:20)
[2019-01-26] MEDS: inSUlin DETERMIR 1 UNIT/0.01 ML (LEVEMIR) CHARGE PER UNIT SQ SCH (21:20)
[2019-01-26] MEDS: ATORVASTATIN 10 MG (LIPITOR) TABLET PO SCH (21:20)
[2019-01-26] MEDS: MIRABEGRON 50 MG PO SCH (21:21)
--- NOTE | 2019-01-26 21:45 | NUR ---
RECEIVED REPORT FROM RENARD IN ICU. PT TO FLOOR. ROOM 406. PT TRANSFERRED TO BED AND WAS CLEANED UP FROM BEING INCONTINENT. VITAL SIGNS TAKEN. PT ORIENTED TO ROOM. ASSESSMENT COMPLETED. PT RESTING COMFORTABLY AT THIS TIME.
[2019-01-27 00:20] VITALS: BP 135/65
[2019-01-27 04:20] VITALS: BP 150/70
[2019-01-27] MEDS: inSUlin ASPART (NovoLOG) 1 UNIT/0.01 ML (CHARGE PER UNIT) SC SCH ×3 (06:28→17:07)
[2019-01-27 06:57] LABS: BASOPHILS % (AUTO) 0 % (0-10); EOSINOPHILS # (AUTO) 0.1 10^3/uL (0.0-0.3); EOSINOPHILS % (AUTO) 2 % (0-10); HEMATOCRIT 38 % (40-54); HEMOGLOBIN 12.6 G/DL (13.3-17.7); LYMPHOCYTES # (AUTO) 1.9 X 10^3 (1.0-4.0); LYMPHOCYTES % (AUTO) 32 % (12-44); MEAN CORPUSCULAR HEMOGLOBIN 29 PG (25-34); MEAN CORPUSCULAR HGB CONC 33 G/DL (32-36); MEAN CORPUSCULAR VOLUME 88 FL (80-99); MEAN PLATELET VOLUME 10.4 FL (7.4-10.4); MONOCYTES # (AUTO) 0.5 X 10^3 (0.0-1.0); MONOCYTES % (AUTO) 8 % (0-12); NEUTROPHILS # (AUTO) 3.4 X 10^3 (1.8-7.8); NEUTROPHILS % (AUTO) 58 % (42-75); PLATELET COUNT 149 10^3/uL (130-400); RED CELL DISTRIBUTION WIDTH 13.9 % (10.0-14.5); WHITE BLOOD COUNT 5.9 10^3/uL (4.3-11.0)
[2019-01-27] MEDS: RT-ALBUTEROL/IPRATROPIUM 3 ML (DUONEB) VIAL INH SCH ×3 (07:02→20:55)
[2019-01-27 07:17] LABS: BUN/CREATININE RATIO 13; CALCIUM 9.5 MG/DL (8.5-10.1); CARBON DIOXIDE 25 MMOL/L (21-32); CHLORIDE 104 MMOL/L (98-107); CREATININE SERUM 0.84 MG/DL (0.60-1.30); GFR ESTIMATED > 60; GLUCOSE 121 MG/DL (70-105); SODIUM 138 MMOL/L (135-145)
[2019-01-27 08:00] VITALS: BP 157/81
[2019-01-27] MEDS: KCL 10 MEQ TAB (MICRO K) PO SCH ×2 (09:04→20:43)
[2019-01-27] MEDS: FUROSEMIDE 20 MG (LASIX) TAB PO SCH ×2 (09:04→20:43)
[2019-01-27] MEDS: ENALAPRIL 10 MG (VASOTEC) TAB PO SCH (09:04)
[2019-01-27] MEDS: ISOSORBIDE MONONITRATE 30 MG (IMDUR) TAB PO SCH (09:04)
[2019-01-27] MEDS: SILODOSIN PO SCH (09:04)
[2019-01-27] MEDS: PANTOPRAZOLE 40 MG (PROTONIX) TAB PO SCH (09:04)
[2019-01-27] MEDS: ASPIRIN E.C. 81 MG (ECOTRIN) TAB PO SCH (09:05)
--- NOTE | 2019-01-27 12:37 | Progress Note-Hospitalist ---
Subjective HPI/CC On Admission Date Seen by Provider: Jan 27, 2019 Time Seen by Provider: 12:32 Pt is a 78yoCM with a PMH of IDDMII, CAD s/p CABG, pAF, COPD, HTN, dementia who presented to the ER due to fever and weakness. He is a somewhat poor historian about his overall medical history but seems to remember yesterday well. He states his symptoms started abruptly with weakness and fever yesterday morning. He also complaints of a dry cough. He denies any chest pain, nausea, or vomiting but started to have loose stool yesterday. This morning he states he feels better but still feels "crummy" overall. I am unsure how accurate the rest of his history is as he then told me he takes no medications and has known medical problems but per his med rec he is on many meds including insulin. Subjective/Events-last exam Pt reports feeling much better. Sitting up in bed. No complaints. Alert and oriented. Daughters at bedside. No concerns. Focused Exam Lactate Level 01/25/19 13:00: Lactic Acid Level 2.57*H 01/25/19 15:25: Lactic Acid Level 1.90 Objective Exam Vital Signs Vital Signs Date Time Temp Pulse Resp B/P (MAP) Pulse Ox O2 Delivery O2 Flow Rate FiO2 01/27/19 08:00 97.6 81 20 157/81 (106) 95 Nasal Cannula 2.00 01/26/19 08:47 28 Capillary Refill : Less Than 3 Seconds General Appearance: No Apparent Distress, Chronically ill Respiratory: Lungs Clear, No Accessory Muscle Use, No Respiratory Distress Cardiovascular: Regular Rate, Rhythm, No JVD, No Murmur Gastrointestinal: Normal Bowel Sounds, Non Tender, Soft Neurologic/Psychiatric: Alert, Oriented x3 Results/Procedures Lab Laboratory Tests 01/27/19 06:28 Patient resulted labs reviewed. Imaging: Reviewed Imaging Report Assessment/Plan Assessment and Plan Assess & Plan/Chief Complaint Generalized weakness Diagnosis/Problems Diagnosis/Problems (1) Altered mental status Assessment & Plan: No evidence of stroke on imaging, discussed case with [facility] Stroke Neurology- no indication for TPA Drastically improved- back to baseline MRI in AM but likely encephalopathy from high fever RVP pending UA negative Qualifiers: Altered mental status type: somnolence Qualified Codes: R40.0 - Somnolence (2) Fever Status: Resolved Assessment & Plan: Resolved- likely due to viral syndrome Flu negative Blood cx NGTD Qualifiers: Fever type: unspecified Qualified Codes: R50.9 - Fever, unspecified Resolution Date/Time: 01/27/19 @ 12:36 (3) COPD (chronic obstructive pulmonary disease) Status: Chronic Assessment & Plan: No evidence of acute exacerbation Continue albuterol on room air Qualifiers: COPD type: unspecified COPD Qualified Codes: J44.9 - Chronic obstructive pulmonary disease, unspecified (4) Generalized weakness Status: Resolved Assessment & Plan: Likely due to viral syndrome PT/OT May need alf placement upon discharge assurance services manager health care consulted Resolution Date/Time: 01/26/19 @ 07:28 (5) Lactic acidosis Status: Acute Assessment & Plan: Resolved (6) CAD (coronary artery disease) Status: Acute Assessment & Plan: Last echo available reveals EF of 50% Appears to follow with Dr Sepulveda No chest pain or evidence of ACS Qualifiers: Coronary Disease-Associated Artery/Lesion type: bypass graft [place] vs. transplanted heart: [place] heart Associated angina: without angina Qualified Codes: I25.810 - Atherosclerosis of coronary artery bypass graft(s) without angina pectoris Clinical Quality Measures DVT/VTE Risk/Contraindication: Risk Factor Score Per Nursin RFS Level Per Nursing on Admit: 4+=Very High DEISI ALVARENGA MD Jan 27, 2019 12:37
[2019-01-27 16:29] VITALS: BP 119/58
[2019-01-27] MEDS: ATORVASTATIN 10 MG (LIPITOR) TABLET PO SCH (20:43)
[2019-01-27] MEDS: DONEPEZIL 10 MG (ARICEPT) TAB PO SCH (20:43)
[2019-01-27] MEDS: inSUlin DETERMIR 1 UNIT/0.01 ML (LEVEMIR) CHARGE PER UNIT SQ SCH (20:43)
[2019-01-27] MEDS: MIRABEGRON 50 MG PO SCH (20:44)
[2019-01-28 00:15] VITALS: BP 136/86
[2019-01-28] MEDS: RT-ALBUTEROL/IPRATROPIUM 3 ML (DUONEB) VIAL INH SCH ×4 (06:15→20:04)
[2019-01-28] MEDS: inSUlin ASPART (NovoLOG) 1 UNIT/0.01 ML (CHARGE PER UNIT) SC SCH ×3 (06:51→18:30)
[2019-01-28 08:00] VITALS: BP 158/76
--- NOTE | 2019-01-28 08:03 | Pulmonary Progress Note ---
Subjective Time Seen by a Provider: 08:02 Subjective/Events-last exam PT still on 2 liters of oxygen - will titrate that if possible Sepsis Event Evaluation Height, Weight, BMI Height: 6'0.00" Weight: 230lbs. 0.0oz. 104.595073an; 31.2 BMI Method:Stated Focused Exam Lactate Level 01/25/19 13:00: Lactic Acid Level 2.57*H 01/25/19 15:25: Lactic Acid Level 1.90 Exam Exam Vital Signs Date Time Temp Pulse Resp B/P (MAP) Pulse Ox O2 Delivery O2 Flow Rate FiO2 01/28/19 06:15 96 Room Air 2.00 01/28/19 00:15 97.2 80 20 136/86 (103) 97 Nasal Cannula 2.00 01/27/19 20:00 Nasal Cannula 2.00 01/27/19 16:29 97.0 70 22 119/58 (78) 95 Nasal Cannula 2.00 01/27/19 15:20 95 Room Air 2.00 01/27/19 08:00 97.6 81 20 157/81 (106) 95 Nasal Cannula 2.00 01/27/19 08:00 Nasal Cannula 2.00 I & O 01/28/19 07:00 Intake Total 3360 ml Output Total 200 ml Balance 3160 ml Height & Weight Height: 6'0.00" Weight: 230lbs. 0.0oz. 104.289774el; 31.2 BMI Method:Stated General Appearance: No Apparent Distress, Chronically ill Respiratory: Lungs Clear, No Accessory Muscle Use, No Respiratory Distress Cardiovascular: Regular Rate, Rhythm, No JVD, No Murmur Capillary Refill: Less Than 3 Seconds Neurologic/Psychiatric: Alert, Oriented x3 Results Lab Laboratory Tests 01/27/19 06:28 Assessment/Plan Assessment/Plan COPD -SVN -pt is on RA currently LLL Atelectasis OLEGARIO GAXIOLA DO Jan 28, 2019 08:03
[2019-01-28] MEDS: PANTOPRAZOLE 40 MG (PROTONIX) TAB PO SCH (10:02)
[2019-01-28] MEDS: ISOSORBIDE MONONITRATE 30 MG (IMDUR) TAB PO SCH (10:03)
[2019-01-28] MEDS: ENALAPRIL 10 MG (VASOTEC) TAB PO SCH (10:03)
[2019-01-28] MEDS: FUROSEMIDE 20 MG (LASIX) TAB PO SCH ×2 (10:04→21:31)
[2019-01-28] MEDS: ASPIRIN E.C. 81 MG (ECOTRIN) TAB PO SCH (10:04)
[2019-01-28] MEDS: SILODOSIN PO SCH (10:04)
[2019-01-28] MEDS: KCL 10 MEQ TAB (MICRO K) PO SCH ×2 (10:04→21:30)
--- NOTE | 2019-01-28 11:00 | Physical Therapy Progress Note ---
Therapy Progress Note Patient reassessed after coming back to the medical floor from ICU. PT goals are still appropriate, continue POC from before. NATANAEL CLARK PT Jan 28, 2019 11:00
--- NOTE | 2019-01-28 11:03 | Physical Therapy Daily Note ---
PT Daily Note-Current Subjective Patient in bed pre tx, agrees reluctantly to PT after refusing several times. No complaints of pain. Appearance Patient in bed post tx with nurse call, phone, tray, all needs met. Bed alarm on. Mental Status Patient Orientation: Person, Confused Attachments: Oxygen 2L of O2 nasal canula Transfers Therapy Code Descriptions/Definitions Functional [place] Measure: 0=Not Assessed/NA 4=Minimal Assistance 1=Total Assistance 5=Supervision or Setup 2=Maximal Assistance 6=Modified [place] 3=Moderate Assistance 7=Complete [place] Therapy Quality Codes: 6 Independent with activity with or without an assistive device 5 Patient requires set up or clean up by helper. Patient completes activity by themselves 4 Supervision or touching assist (CGA). [place] provide cues , steadying assist 3 The helper provides less than half the effort to complete the activity 2 The helper provides more than half the effort to complete the activity 1 Dependent. The helper does all the effort to complete an activity 7 Patient refused to complete or attempt activity 9 The patient did not perform the activity before the current illness or injury 88 Not attempted due to Medical conditions or safety concerns Transfers (B, C, W/C) (FIM): 2 Scootin Rollin Supine to/from Sit: 2 Sit to/from Stand: 2 Patient very stiff, reluctant to move, resists supine to sit. Weight Bearing Right Lower Extremity: Right Weight Bearing/Tolerated Left Lower Extremity: Left Weight Bearing/Tolerated Gait Training Gait (FIM): 1 Distance: 6' Gait Level of Assist: 3 Gait Persons Needed: 1 Gait Assistive Device: FWW Patient ambulated 2' forward and 2' back and then 2' toward the head of the bed. Very slow, ambulation, stiff, poor foot clearance. Treatments bed mobility and transfers, ambulation Assessment Current Status: Poor Progress Poor mobility, Patient very fatigued after ambulating just a few feet PT Short Term Goals Short Term Goals Time Frame: Jan 31, 2019 Transfers (B,C,W/C) (FIM): 5 Gait (FIM): 2 Distance (FIM): 8=205-18 ft Gait Distance Comment: 50' Gait Level of Assist: 4 Gait Assistive Device: FWW PT Plan Problem List Problem List: Activity Tolerance, Functional Strength, Safety, Balance, Gait, Transfer, Bed Mobility, ROM Treatment/Plan Treatment Plan: Continue Plan of Care Treatment Plan: Bed Mobility, Education, Functional Activity Samantha, Functional Strength, Gait, Safety, Therapeutic Exercise, Transfers Treatment Duration: Jan 31, 2019 Frequency: 6 times per week Estimated Hrs Per Day: .25 hour per day Patient and/or Family Agrees t: Yes Safety Risks/Education Patient Education: Gait Training, Transfer Techniques, Correct Positioning, Safety Issues Teaching Recipient: Patient Teaching Methods: Demonstration, Discussion Response to Teaching: Reinforcement Needed Time/GCodes Time In: 1042 Time Out: 1057 Total Billed Treatment Time: 15 Total Billed Treatment 1 visit FA Alfa' NATANAEL CLARK PT Jan 28, 2019 11:03
--- NOTE | 2019-01-28 11:45 | Physical Therapy Progress Note ---
Therapy Progress Note 10:26 Pt in bed and refused PT. Will check later to see if pt is willing to participate in services. ANIL SADLER PT Jan 28, 2019 11:45
--- NOTE | 2019-01-28 11:49 | Progress Note-Hospitalist ---
Progress Note HPI/CC on Admission Pt is a 78yoCM with a PMH of IDDMII, CAD s/p CABG, pAF, COPD, HTN, dementia who presented to the ER due to fever and weakness. He is a somewhat poor historian about his overall medical history but seems to remember yesterday well. He states his symptoms started abruptly with weakness and fever yesterday morning. He also complaints of a dry cough. He denies any chest pain, nausea, or vomiting but started to have loose stool yesterday. This morning he states he feels better but still feels "crummy" overall. I am unsure how accurate the rest of his history is as he then told me he takes no medications and has known medical problems but per his med rec he is on many meds including insulin. Progress Notes/Assess & Plan Date Seen 01/28/19 Time Seen by Provider: 11:46 Assess & Plan/Chief Complaint The patient is a 78-year-old white male admitted 3 days. He presented with fever and flulike symptoms. He has tested negative for influenza a and B. Chest x-ray does not show any infiltrate. After admission he was taken briefly to the ICU at over a fever spiked to 104. His last recorded fever was 101.8 at 06 100 on 01/26. He reports that he continues to feel very weak. He has a cough that sounds wet but apparently produces no phlegm. He states that if he has helped from the bed to the chair and back he is quite fatigued at this point. He has been able to eat. Physical exam: Elderly white male. He is rather low barrel chested. Breath sounds are distant but without wheezing or rhonchi. CV is regular. Abdomen is obese. Extremities show no pedal edema. Impression: Negative cultures therefore apparent viral illness. 2.extreme fatigue and malaise. Plan: Continue supportive therapy. Labs Laboratory Tests 01/27/19 06:28 Patient resulted labs reviewed. Imaging: Reviewed Imaging Report Focused Exam Lactate Level 01/25/19 13:00: Lactic Acid Level 2.57*H 01/25/19 15:25: Lactic Acid Level 1.90 ELIZABETH KAUFFMAN MD Jan 28, 2019 11:49
--- NOTE | 2019-01-28 12:01 | Occ Therapy Progress Note ---
Therapy Progress Note Re-assessment for occupational therapy. Pt. has been seen by occupational therapy to increase overall strength and independence. Pt. had transferred to ICU due to change in medical status, but did return to [address] [place] [address]. New orders sent and nursing was checked with as well. OT worked with pt. this a.m. Pt. sleepy. Has difficulty keeping eyes open. Did agree to sit on side of bed. OT attempted with max/dependent assistance, to transfer pt. supine-sit. Pt. unable to achieve this as he was unable to help with this therapist. Pt. was encouraged/educated to assist with scooting self up in bed. Pt. unable to bend knees, so OT did this for him. Encouraged pt. to scoot with assist from therapist, and with bed in Trendelenburg. Pt. is able to scoot slightly, and pt. is able to make pt. comfortable. Pt. is encouraged to participate in UE exercises. Pt. is only able to "move" right index finger, but does not move otherwise. OT encourages pt. to stay awake, but pt. states that he can't. All needs met and OT talks with nursing. Nursing states that pt. has been in and out of this state, but did feed himself this a.m. Will resume former OT goals to work toward independence as pt. is able to do. [id number] 1, FA Resume OT care MANUELA BROWN OT Jan 28, 2019 12:01
[2019-01-28 14:14] LABS: PARAINFLU 2 PCR Not Detected (Not Detected)
--- NOTE | 2019-01-28 15:08 | Diagnostic Imaging Report ---
PROCEDURE: MR imaging of the brain without contrast. TECHNIQUE: Multiplanar, multisequence MR imaging of the brain was performed without contrast. INDICATION: Vertigo and Parkinson's disease. COMPARISON: No prior MRI brain studies are available for comparison. FINDINGS: The overall quality of the study is significantly limited due to the inability to use the head coil due to patient body position. No definite diffusion restriction is seen to suggest acute ischemia. Ventricles and sulci are prominent consistent with cerebral atrophy. Normal expected flow-voids within the carotid siphons are seen. There is no midline shift or hemorrhage identified. There is mucosal thickening of the left maxillary sinus as well as the sphenoid sinus. IMPRESSION: Limited study. There is cerebral atrophy. No acute intracranial process is detected. Dictated by: Dictated on workstation # [id number]
[2019-01-28 15:42] LABS: PARAINFLU 1 PCR Not Detected (Not Detected); RSV PCR Not Detected (Not Detected)
[2019-01-28 16:06] VITALS: BP 119/59
[2019-01-28] MEDS: MIRABEGRON 50 MG PO SCH (21:30)
[2019-01-28] MEDS: inSUlin DETERMIR 1 UNIT/0.01 ML (LEVEMIR) CHARGE PER UNIT SQ SCH (21:31)
[2019-01-28] MEDS: ATORVASTATIN 10 MG (LIPITOR) TABLET PO SCH (21:31)
[2019-01-28] MEDS: DONEPEZIL 10 MG (ARICEPT) TAB PO SCH (21:31)
[2019-01-29] VITALS: BP 137/68
--- NOTE | 2019-01-29 06:45 | Pulmonary Progress Note ---
Subjective Time Seen by a Provider: 07:36 Subjective/Events-last exam No complications noted. Sepsis Event Evaluation Height, Weight, BMI Height: 6'0.00" Weight: 230lbs. 0.0oz. 104.307266ko; 31.2 BMI Method:Stated Exam Exam Vital Signs Date Time Temp Pulse Resp B/P (MAP) Pulse Ox O2 Delivery O2 Flow Rate FiO2 01/29/19 00:00 97.5 73 18 137/68 (91) 93 Nasal Cannula 1.00 01/28/19 20:04 96 Nasal Cannula 2.00 01/28/19 20:00 Nasal Cannula 1.00 01/28/19 16:06 98.8 73 20 119/59 (79) 96 Nasal Cannula 2.00 01/28/19 10:19 96 Room Air 2.00 01/28/19 08:10 Nasal Cannula 2.00 01/28/19 08:00 97.6 92 16 158/76 (103) 96 Nasal Cannula 2.00 I & O 01/29/19 07:00 Intake Total 1440 ml Output Total 750 ml Balance 690 ml Height & Weight Height: 6'0.00" Weight: 230lbs. 0.0oz. 104.496678yo; 31.2 BMI Method:Stated General Appearance: No Apparent Distress, Chronically ill Respiratory: Lungs Clear, No Accessory Muscle Use, No Respiratory Distress Cardiovascular: Regular Rate, Rhythm, No JVD, No Murmur Capillary Refill: Less Than 3 Seconds Gastrointestinal: non tender, soft Neurologic/Psychiatric: Alert, Oriented x3 Skin: Normal Color, Warm/Dry Assessment/Plan Assessment/Plan COPD -SVN -pt is on RA currently LLL Atelectasis PT is doing well from pulmonary standpoint. I am going to sign off please call with any questions or concerns. OLEGARIO GAXIOLA DO Jan 29, 2019 06:45
[2019-01-29 07:26] VITALS: BP 137/68
[2019-01-29] MEDS: RT-ALBUTEROL/IPRATROPIUM 3 ML (DUONEB) VIAL INH SCH ×2 (07:26→20:06)
[2019-01-29 07:39] VITALS: BP 145/79
[2019-01-29] MEDS: ISOSORBIDE MONONITRATE 30 MG (IMDUR) TAB PO SCH (09:48)
[2019-01-29] MEDS: KCL 10 MEQ TAB (MICRO K) PO SCH ×2 (09:48→21:38)
[2019-01-29] MEDS: SILODOSIN PO SCH (09:48)
[2019-01-29] MEDS: FUROSEMIDE 20 MG (LASIX) TAB PO SCH ×2 (09:48→21:38)
[2019-01-29] MEDS: ENALAPRIL 10 MG (VASOTEC) TAB PO SCH (09:48)
[2019-01-29] MEDS: inSUlin ASPART (NovoLOG) 1 UNIT/0.01 ML (CHARGE PER UNIT) SC SCH ×3 (09:48→16:41)
[2019-01-29] MEDS: ASPIRIN E.C. 81 MG (ECOTRIN) TAB PO SCH (09:48)
[2019-01-29] MEDS: PANTOPRAZOLE 40 MG (PROTONIX) TAB PO SCH (09:53)
--- NOTE | 2019-01-29 11:56 | Physical Therapy Daily Note ---
PT Daily Note-Current Subjective Patient in bed pre tx, agrees to PT after waking, no complaints of pain. Appearance Patient in recliner post tx with nurse call, phone, tray, all needs met. Mental Status Patient Orientation: Person, Confused Transfers Therapy Code Descriptions/Definitions Functional [place] Measure: 0=Not Assessed/NA 4=Minimal Assistance 1=Total Assistance 5=Supervision or Setup 2=Maximal Assistance 6=Modified [place] 3=Moderate Assistance 7=Complete [place] Therapy Quality Codes: 6 Independent with activity with or without an assistive device 5 Patient requires set up or clean up by helper. Patient completes activity by themselves 4 Supervision or touching assist (CGA). [place] provide cues , steadying assist 3 The helper provides less than half the effort to complete the activity 2 The helper provides more than half the effort to complete the activity 1 Dependent. The helper does all the effort to complete an activity 7 Patient refused to complete or attempt activity 9 The patient did not perform the activity before the current illness or injury 88 Not attempted due to Medical conditions or safety concerns Transfers (B, C, W/C) (FIM): 2 Scootin Rollin Supine to/from Sit: 2 Sit to/from Stand: 4 Bed to/from Chair: 4 Patient performs bed mobility and supine to sit with max assist, very stiff, resists movement. Weight Bearing Right Lower Extremity: Right Weight Bearing/Tolerated Left Lower Extremity: Left Weight Bearing/Tolerated Gait Training Gait (FIM): 1 Distance: 12' Gait Level of Assist: 4 Gait Persons Needed: 1 Gait Assistive Device: FWW Patient ambulated around the bed to the other side to a recliner. Patient needs assist guiding the walker and cues to stay close to it. Treatments bed mobility, transfers, ambulation Assessment Current Status: Fair Progress improved, patient was able to ambulate today, has shuffling/festinating gait PT Short Term Goals Short Term Goals Time Frame: Jan 31, 2019 Transfers (B,C,W/C) (FIM): 5 Gait (FIM): 2 Distance (FIM): 6=389-09 ft Gait Distance Comment: 50' Gait Level of Assist: 4 Gait Assistive Device: FWW PT Plan Problem List Problem List: Activity Tolerance, Functional Strength, Safety, Balance, Gait, Transfer, Bed Mobility, ROM Treatment/Plan Treatment Plan: Continue Plan of Care Treatment Plan: Bed Mobility, Education, Functional Activity Samantha, Functional Strength, Gait, Safety, Therapeutic Exercise, Transfers Treatment Duration: Jan 31, 2019 Frequency: 6 times per week Estimated Hrs Per Day: .25 hour per day Patient and/or Family Agrees t: Yes Safety Risks/Education Patient Education: Gait Training, Transfer Techniques, Correct Positioning, Safety Issues Teaching Recipient: Patient Teaching Methods: Demonstration, Discussion Response to Teaching: Reinforcement Needed Time/GCodes Time In: 1140 Time Out: 1153 Total Billed Treatment Time: 13 Total Billed Treatment 1 visit FA NATANAEL KAPOOR PT Jan 29, 2019 11:56
--- NOTE | 2019-01-29 13:55 | NUR ---
Pastoral care visit, offered prayer and support.
--- NOTE | 2019-01-29 14:13 | Occupational Ther Daily Note ---
OT Current Status-Daily Note Subjective Pt in recliner, oriented, alert, cooperative & agree for therapy. Mental Status/Objective Patient Orientation: Person, Place, Time Therapy Code Descriptions/Definitions Functional [place] Measure: 0=Not Assessed/NA 4=Minimal Assistance 1=Total Assistance 5=Supervision or Setup 2=Maximal Assistance 6=Modified [place] 3=Moderate Assistance 7=Complete [place] Attachments: Saline Lock ADL-Treatment Pt participated in thera-acts & thera -Ex . Pt needs min A to get up from sit to stand from recliner. Pt stands with walker for 40 seconds without physical support. Pt very weak & fatigue soon. Endurance fair . Pt completed 20 reps x 2 sets x 2 lb wts, 30 reps with red theraband with BUE in all planes of motion , & 30 reps using hand gripper with each hand to strengthen hand textile machine mechanic to participate in all ADLs & to push up from recliner to stand. Eating (FIM): 7 Grooming (FIM): 6 Bathing (FIM): 0 Transfers (B, C, W/C) (FIM): 4 Toilet/Commode Transfer (FIM): 4 Tub Transfer(FIM): 0 Shower Transfer(FIM): 0 Education OT Patient Education: Correct positioning, Safety issues Teaching Recipient: Patient Teaching Methods: Demonstration Response to Teaching: Verbalize Understanding OT Short Term Goals Short Term Goals Time Frame: Jan 31, 2019 Eating(FIM): 5 Grooming(FIM): 5 Bathing(FIM): 4 Upper Body Dressing(FIM): 4 Lower Body Dressing(FIM): 3 Toileting(FIM): 4 Transfers (B,C,W/C) (FIM): 5 Toilet/Commode Transfer(FIM): 5 Additional Short Term Goals: 1-Demonstrate ADL Tasks, 2-Verbalize Understanding , 3-ImproveStrength/Samantha 1=Demonstrate adherence to instructed precautions during ADL tasks. 2=Patient will verbalize/demonstrate understanding of assistive devices/ modifications for ADL. 3=Patient will improve strength/tolerance for activity to enable patient to perform ADL's. OT Penitentiary Goals Penitentiary Goals Time Frame: Feb 07, 2019 Eating (FIM): 6 Grooming(FIM): 6 Bathing(FIM): 5 Upper Body Dressing(FIM): 5 Lower Body Dressing(FIM): 4 Toileting(FIM): 6 Transfers (B,C,W/C) (FIM): 6 Toilet/Commode Transfer(FIM): 6 Shower Transfer(FIM): 5 Additional Goals: 1-Demonstrate ADL Tasks, 2-Verbalize Understanding, 3- ImproveStrength/Samantha 1=Demonstrate adherence to instructed precautions during ADL tasks. 2=Patient will verbalize/demonstrate understanding of assistive devices/ modifications for ADL. 3=Patient will improve strength/tolerance for activity to enable patient to perform ADL's. OT Education/Plan Problem List/Assessment Assessment: Decreased Activ Tolerance, Decreased Safety Aware, Decreased UE Strength, Dependent Transfers, Impaired Funct Balance, Impaired Self-Care Skills Discharge Recommendations Plan/Recommendations: Continue POC Therapy D/C Recommendations: Home w/ Family Support, Occupational Therapy Home Care Equpiment Recommendations-D/C: Extended Bath Bench, Extended Shower Sprayer, Denial Management Representative, [place], Toilet Riser Treatment Plan/Plan of Care Treatment,Training & Education: Yes Patient would benefit from OT for education, treatment and training to promote independence in ADL's, mobility, safety and/or upper extremity function for ADL' s. Plan of Care: ADL Retraining, Functional Mobility, UE Funct Exercise/Act Treatment Duration: Feb 07, 2019 Frequency: 5 times per week Estimated Hrs Per Day: .5 hour per day Agreement: Yes Rehab Potential: Good Time/GCodes Start Time: 13:05 Stop Time: 13:29 Total Time Billed (hr/min): 24 Billed Treatment Time 1, FA 11 Min, Ex 13 min Total 24 min. HENRY BURTON OT Jan 29, 2019 14:13
--- NOTE | 2019-01-29 14:56 | Progress Note-Hospitalist ---
Progress Note Progress Notes/Assess & Plan Date Seen 01/29/19 Time Seen by Provider: 14:54 Assessment & Plan Discussed patient with Andrey Christina nurse practitioner at Dr. Funes's office at approximately 1420. He reported that the patient had been seen in mid December at the office for his yearly physical. A mini mental status exam was performed and he has shown decline over the last 2 years. They have not noted nor had family spoken of gait disturbances. I related that his nurse today had not pointed out that he seemed to be so rigid we tested him at the bedside and he exhibited cogwheeling to passive range of motion at the elbow left greater than right. He did indeed show considerable muscle rigidity as well. Accordingly we will start ELIZABETH Gurrola MD Jan 29, 2019 14:56
[2019-01-29 15:34] VITALS: BP 129/67
[2019-01-29] MEDS: SINEMET 10/100 (CARBIDOPA/LEVADOPA) TAB PO SCH (17:53)
[2019-01-29 19:18] VITALS: BP 130/60
[2019-01-29] MEDS: inSUlin DETERMIR 1 UNIT/0.01 ML (LEVEMIR) CHARGE PER UNIT SQ SCH (21:38)
[2019-01-29] MEDS: ATORVASTATIN 10 MG (LIPITOR) TABLET PO SCH (21:38)
[2019-01-29] MEDS: DONEPEZIL 10 MG (ARICEPT) TAB PO SCH (21:38)
[2019-01-29] MEDS: MIRABEGRON 50 MG PO SCH (21:38)
[2019-01-30] VITALS: BP 148/70
[2019-01-30] MEDS: SINEMET 10/100 (CARBIDOPA/LEVADOPA) TAB PO SCH ×3 (06:42→17:55)
[2019-01-30 07:56] VITALS: BP 139/74
[2019-01-30] MEDS: RT-ALBUTEROL/IPRATROPIUM 3 ML (DUONEB) VIAL INH SCH ×2 (08:23→20:11)
--- NOTE | 2019-01-30 09:30 | Progress Note-Hospitalist ---
Subjective HPI/CC On Admission Date Seen by Provider: Jan 30, 2019 Time Seen by Provider: 09:40 Pt is a 78yoCM with a PMH of IDDMII, CAD s/p CABG, pAF, COPD, HTN, dementia who presented to the ER due to fever and weakness. He is a somewhat poor historian about his overall medical history but seems to remember yesterday well. He states his symptoms started abruptly with weakness and fever yesterday morning. He also complaints of a dry cough. He denies any chest pain, nausea, or vomiting but started to have loose stool yesterday. This morning he states he feels better but still feels "crummy" overall. I am unsure how accurate the rest of his history is as he then told me he takes no medications and has known medical problems but per his med rec he is on many meds including insulin. Subjective/Events-last exam Suspect new onset Parkinsonism. Loose stools so will check C-diff but no antibiotics recently. Ordered Imodium. Sinemet on hold just in case that is causing loose stools. Is , lives with his and daughter. Nebulizer treatments are ordered for wheezing on lung exam. Will check labs in the morning. Awaiting approval of inpatient rehab due to muscle rigidity and new onset Parkinsons with cough and wheezing and acute illness. He is retired from the [employer] after [employer]. Review of Systems General: Fatigue Pulmonary: Cough Neurological: Weakness, Incoordination Objective Exam Vital Signs Vital Signs Date Time Temp Pulse Resp B/P (MAP) Pulse Ox O2 Delivery O2 Flow Rate FiO2 01/30/19 15:42 97.1 79 20 129/68 (88) 93 Room Air 01/29/19 07:26 1.00 01/29/19 07:26 25 Capillary Refill : Less Than 3 Seconds General Appearance: No Apparent Distress, WD/WN, Chronically ill Respiratory: Chest Non Tender, No Accessory Muscle Use, No Respiratory Distress , Wheezing Cardiovascular: Regular Rate, Rhythm, No JVD, No Murmur Gastrointestinal: Normal Bowel Sounds, Non Tender, Soft Neurologic/Psychiatric: Alert, Oriented x3, Depressed Affect, Motor Weakness ( muscle rigidity noted) Skin: Normal Color, Warm/Dry Results/Procedures Lab Patient resulted labs reviewed. Imaging: Reviewed Imaging Report Assessment/Plan Assessment and Plan Assess & Plan/Chief Complaint Assessment: Fever resolved New onset Parkinsons Weakness Wheezing on Nebs DM CAD Plan: IRF vs SNF PT/OT Nebs Diagnosis/Problems Diagnosis/Problems (1) Rigidity (muscles) Status: Acute (2) Parkinsonian syndrome Status: Chronic Qualifiers: Parkinsonism type: Parkinson's disease Qualified Codes: G20 - Parkinson's disease (3) Diabetes mellitus Status: Chronic Qualifiers: Diabetes mellitus type: type 2 Diabetes mellitus fdc insulin use: without exterminator termite use Diabetes mellitus complication status: with circulatory complication Diabetes mellitus complication detail: with other circulatory complications Qualified Codes: E11.59 - Type 2 diabetes mellitus with other circulatory complications (4) Altered mental status Status: Resolved Qualifiers: Altered mental status type: somnolence Qualified Codes: R40.0 - Somnolence Resolution Date/Time: 01/30/19 @ 11:46 (5) Generalized weakness Status: Acute (6) CAD (coronary artery disease) Status: Acute Qualifiers: Coronary Disease-Associated Artery/Lesion type: bypass graft [place] vs. transplanted heart: [place] heart Associated angina: without angina Qualified Codes: I25.810 - Atherosclerosis of coronary artery bypass graft(s) without angina pectoris (7) COPD (chronic obstructive pulmonary disease) Status: Chronic Qualifiers: COPD type: unspecified COPD Qualified Codes: J44.9 - Chronic obstructive pulmonary disease, unspecified (8) Angina pectoris Status: Chronic (9) Hyperlipidemia Status: Chronic Qualifiers: Hyperlipidemia type: mixed hyperlipidemia Qualified Codes: E78.2 - Mixed hyperlipidemia (10) Hypertension Status: Chronic Qualifiers: Hypertension type: essential hypertension Qualified Codes: I10 - Essential (primary) hypertension (11) Loose stools Status: Acute (12) Overactive bladder Status: Chronic Clinical Quality Measures DVT/VTE Risk/Contraindication: Risk Factor Score Per Nursin RFS Level Per Nursing on Admit: 4+=Very High BASSAM POZO DO Jan 30, 2019 09:30
[2019-01-30] MEDS: inSUlin ASPART (NovoLOG) 1 UNIT/0.01 ML (CHARGE PER UNIT) SC SCH ×3 (10:21→17:55)
--- NOTE | 2019-01-30 10:21 | Physical Therapy Daily Note ---
PT Daily Note-Current Subjective Pt in recliner and agrees to PT. Pt appears more alert this morning than he has previously. Mental Status Patient Orientation: Person Transfers Therapy Code Descriptions/Definitions Functional [place] Measure: 0=Not Assessed/NA 4=Minimal Assistance 1=Total Assistance 5=Supervision or Setup 2=Maximal Assistance 6=Modified [place] 3=Moderate Assistance 7=Complete [place] Therapy Quality Codes: 6 Independent with activity with or without an assistive device 5 Patient requires set up or clean up by helper. Patient completes activity by themselves 4 Supervision or touching assist (CGA). [place] provide cues , steadying assist 3 The helper provides less than half the effort to complete the activity 2 The helper provides more than half the effort to complete the activity 1 Dependent. The helper does all the effort to complete an activity 7 Patient refused to complete or attempt activity 9 The patient did not perform the activity before the current illness or injury 88 Not attempted due to Medical conditions or safety concerns Transfers (B, C, W/C) (FIM): 3 Supine to/from Sit: 3 Sit to/from Stand: 3 Weight Bearing Right Lower Extremity: Right Weight Bearing/Tolerated Left Lower Extremity: Left Weight Bearing/Tolerated Gait Training Gait (FIM): 1 Distance (FIM): 1=up to 49 ft Distance: 20' Gait Level of Assist: 3 Gait Persons Needed: 2 Gait Assistive Device: FWW Assessment Current Status: Fair Progress Pt was able to perform sit<>stand transfer from recliner to FWW with mod A x2. Pt able to remain standing for 3 mins while nurse aid was able to help with cleaning and dressing pt with new brief. Pt then amb 20' with FWW and mod A x2 to bed. Pt amb with shuffled gait pattern and is able to take longer steps with VC "big steps." Pt was able to side step along bed to position him higher. Pt transferred from EOB to supine with min A. Pt unable to position himself higher in bed once supine, max A x2 for repositioning. Pt has all needs met in bed. bed alarm on. PT Short Term Goals Short Term Goals Time Frame: Jan 31, 2019 Transfers (B,C,W/C) (FIM): 5 Gait (FIM): 2 Distance (FIM): 2=255-76 ft Gait Distance Comment: 50' Gait Level of Assist: 4 Gait Assistive Device: FWW PT Plan Problem List Problem List: Activity Tolerance, Functional Strength, Safety, Balance, Gait, Transfer, Bed Mobility Treatment/Plan Treatment Plan: Continue Plan of Care Treatment Plan: Bed Mobility, Education, Functional Activity Samantha, Functional Strength, Gait, Safety, Therapeutic Exercise, Transfers Treatment Duration: Jan 31, 2019 Frequency: 6 times per week Estimated Hrs Per Day: .25 hour per day Patient and/or Family Agrees t: Yes Safety Risks/Education Patient Education: Gait Training, Transfer Techniques, Correct Positioning, Safety Issues Teaching Recipient: Patient Teaching Methods: Demonstration, Discussion Response to Teaching: Reinforcement Needed Time/GCodes Time In: 944 Time Out: 954 Total Billed Treatment Time: 10 Total Billed Treatment 1 visit FA 10 min NATANAEL CLARK PT Jan 30, 2019 10:21
[2019-01-30] MEDS: KCL 10 MEQ TAB (MICRO K) PO SCH ×2 (10:22→21:33)
[2019-01-30] MEDS: PANTOPRAZOLE 40 MG (PROTONIX) TAB PO SCH (10:22)
[2019-01-30] MEDS: ISOSORBIDE MONONITRATE 30 MG (IMDUR) TAB PO SCH (10:22)
[2019-01-30] MEDS: FUROSEMIDE 20 MG (LASIX) TAB PO SCH ×2 (10:22→21:33)
[2019-01-30] MEDS: ENALAPRIL 10 MG (VASOTEC) TAB PO SCH (10:22)
[2019-01-30] MEDS: ASPIRIN E.C. 81 MG (ECOTRIN) TAB PO SCH (10:22)
[2019-01-30] MEDS: SILODOSIN PO SCH (10:23)
[2019-01-30] MEDS ORDERED: LOPERAMIDE 2 MG (IMODIUM) CAP PO PRN (10:30)
--- NOTE | 2019-01-30 10:43 | Occupational Ther Daily Note ---
OT Current Status-Daily Note Subjective Pt in recliner almost finished eating breakfast, alert, oriented & cooperative. Pt agree for therapy. Pain Numeric Pain Scale: 4 Location Body Site: Hip Pain Description: Throbbing Mental Status/Objective Patient Orientation: Person, Place, Time, Situation, Normal For Age Therapy Code Descriptions/Definitions Functional [place] Measure: 0=Not Assessed/NA 4=Minimal Assistance 1=Total Assistance 5=Supervision or Setup 2=Maximal Assistance 6=Modified [place] 3=Moderate Assistance 7=Complete [place] ADL-Treatment Pt participate in sponge bath , grooming & thera-Ex to BUE. Pt undress & dress a clean gown with SBA . Pt sit to stand with walker with mod A .Pt c/o pain in both hips while getting up from recliner.Pt wipes both arms , legs, face , head , chest & abdomen with Warm " READY-BATH " Wipes, with SBA . Completed 15 reps x 2 sets x 2 lb wts, 25 reps with BUE with red theraband in all planes of motion & 25 REPS using hand gripper with both hands to strengthen both hand used car renovator to participate in all ADLs & func transfers by pushing up from recliner. Eating (FIM): 7 Grooming (FIM): 6 Bathing (FIM): 5 (Sponge Bath with warm wipes.) Bathing Location: L Arm, R Arm, L Upper Leg, L Lower Leg (including foot), R Lower Leg (including foot), Chest, Abdomen Upper Body (FIM): 5 (Undress & dress clean gown .) Lower Body Dressing (FIM): 4 Toileting (FIM): 0 Transfers (B, C, W/C) (FIM): 3 Toilet/Commode Transfer (FIM): 0 Tub Transfer(FIM): 0 Shower Transfer(FIM): 0 Education OT Patient Education: Correct positioning Teaching Recipient: Patient Teaching Methods: Demonstration Response to Teaching: Verbalize Understanding OT Short Term Goals Short Term Goals Time Frame: Jan 31, 2019 Eating(FIM): 5 Grooming(FIM): 5 Bathing(FIM): 4 Upper Body Dressing(FIM): 4 Lower Body Dressing(FIM): 3 Toileting(FIM): 4 Transfers (B,C,W/C) (FIM): 5 Toilet/Commode Transfer(FIM): 5 Additional Short Term Goals: 1-Demonstrate ADL Tasks, 2-Verbalize Understanding , 3-ImproveStrength/Samantha 1=Demonstrate adherence to instructed precautions during ADL tasks. 2=Patient will verbalize/demonstrate understanding of assistive devices/ modifications for ADL. 3=Patient will improve strength/tolerance for activity to enable patient to perform ADL's. OT Quality Assurance Group Leader Goals Snf Goals Time Frame: Feb 07, 2019 Eating (FIM): 6 Grooming(FIM): 6 Bathing(FIM): 5 Upper Body Dressing(FIM): 5 Lower Body Dressing(FIM): 4 Toileting(FIM): 6 Transfers (B,C,W/C) (FIM): 6 Toilet/Commode Transfer(FIM): 6 Shower Transfer(FIM): 5 Additional Goals: 1-Demonstrate ADL Tasks, 2-Verbalize Understanding, 3- ImproveStrength/Samantha 1=Demonstrate adherence to instructed precautions during ADL tasks. 2=Patient will verbalize/demonstrate understanding of assistive devices/ modifications for ADL. 3=Patient will improve strength/tolerance for activity to enable patient to perform ADL's. OT Education/Plan Problem List/Assessment Assessment: Decreased Activ Tolerance, Decreased Safety Aware, Decreased UE Strength, Dependent Transfers, Impaired Bed Mobility, Impaired Funct Balance, Impaired Self-Care Skills Discharge Recommendations Plan/Recommendations: Continue POC Equpiment Recommendations-D/C: Extended Shower Sprayer, Manager Printing Treatment Plan/Plan of Care Treatment,Training & Education: Yes Patient would benefit from OT for education, treatment and training to promote independence in ADL's, mobility, safety and/or upper extremity function for ADL' s. Plan of Care: ADL Retraining, Functional Mobility, UE Funct Exercise/Act Treatment Duration: Feb 07, 2019 Frequency: 5 times per week Estimated Hrs Per Day: .5 hour per day Agreement: Yes Rehab Potential: Good Time/GCodes Start Time: 08:55 Stop Time: 09:20 Total Time Billed (hr/min): 25 Billed Treatment Time 1, ADL 14 min, Ex 11 min. Total 25 minutes. HENRY BURTON OT Jan 30, 2019 10:43
[2019-01-30 15:42] VITALS: BP 129/68
--- NOTE | 2019-01-30 16:29 | NUR ---
ARU note: LOCATION DIRECTOR received notification from Darren PARKS regarding denial from patient's insurance for ARU authorization. Insurance provider states patient is appropriate for SNF level of care. Dr. Leija has been notified of denial and ability to initiate a peer to peer by noon tomorrow. Phone number for peer to peer: [phone]. Reference # [id number]. At this time, Dr. Leija will not proceed with peer to peer, alternative discharge planning will need to occur. Thank you for this referral.
[2019-01-30] MEDS: DONEPEZIL 10 MG (ARICEPT) TAB PO SCH (21:33)
[2019-01-30] MEDS: inSUlin DETERMIR 1 UNIT/0.01 ML (LEVEMIR) CHARGE PER UNIT SQ SCH (21:33)
[2019-01-30] MEDS: ATORVASTATIN 10 MG (LIPITOR) TABLET PO SCH (21:33)
[2019-01-30] MEDS: MIRABEGRON 50 MG PO SCH (21:34)
[2019-01-31 00:53] VITALS: BP 128/70
[2019-01-31 06:07] LABS: BASOPHILS % (AUTO) 0 % (0-10); EOSINOPHILS # (AUTO) 0.2 10^3/uL (0.0-0.3); EOSINOPHILS % (AUTO) 3 % (0-10); HEMATOCRIT 39 % (40-54); HEMOGLOBIN 13.3 G/DL (13.3-17.7); LYMPHOCYTES % (AUTO) 28 % (12-44); MEAN CORPUSCULAR HEMOGLOBIN 30 PG (25-34); MEAN CORPUSCULAR HGB CONC 34 G/DL (32-36); MEAN CORPUSCULAR VOLUME 88 FL (80-99); MEAN PLATELET VOLUME 10.5 FL (7.4-10.4); MONOCYTES # (AUTO) 0.7 X 10^3 (0.0-1.0); MONOCYTES % (AUTO) 10 % (0-12); NEUTROPHILS # (AUTO) 4.3 X 10^3 (1.8-7.8); NEUTROPHILS % (AUTO) 59 % (42-75); PLATELET COUNT 225 10^3/uL (130-400); WHITE BLOOD COUNT 7.3 10^3/uL (4.3-11.0)
[2019-01-31 06:38] LABS: ALANINE AMINOTRANSFERASE 61 U/L (0-55); ALBUMIN 3.9 GM/DL (3.2-4.5); ALKALINE PHOSPHATASE 59 U/L (40-136); BILIRUBIN,TOTAL 0.8 MG/DL (0.1-1.0); BUN/CREATININE RATIO 14; CALCIUM 9.7 MG/DL (8.5-10.1); CARBON DIOXIDE 23 MMOL/L (21-32); CHLORIDE 105 MMOL/L (98-107); CREATININE SERUM 0.93 MG/DL (0.60-1.30); GFR ESTIMATED > 60; GLUCOSE 177 MG/DL (70-105); POTASSIUM 4.3 MMOL/L (3.6-5.0); SODIUM 139 MMOL/L (135-145); TOTAL PROTEIN 6.7 GM/DL (6.4-8.2)
[2019-01-31] MEDS: RT-ALBUTEROL/IPRATROPIUM 3 ML (DUONEB) VIAL INH SCH (07:59)
[2019-01-31 08:00] VITALS: BP 137/68
--- NOTE | 2019-01-31 08:56 | NUR ---
CM/SS spoke with patient about IRF denial and possible SNF placement. He had no preference of facility and wanted his consulted on the decision of where to send referral. Attempted to call the , left message with call back information.
--- NOTE | 2019-01-31 08:58 | Physical Therapy Daily Note ---
PT Daily Note-Current Subjective Patient in bed pre tx, agrees to PT, no complaints of pain at rest. Appearance Patient in recliner post tx with nurse call, phone, tray, chair alarm on. Mental Status Patient Orientation: Person, Confused Transfers Therapy Code Descriptions/Definitions Functional [place] Measure: 0=Not Assessed/NA 4=Minimal Assistance 1=Total Assistance 5=Supervision or Setup 2=Maximal Assistance 6=Modified [place] 3=Moderate Assistance 7=Complete [place] Therapy Quality Codes: 6 Independent with activity with or without an assistive device 5 Patient requires set up or clean up by helper. Patient completes activity by themselves 4 Supervision or touching assist (CGA). [place] provide cues , steadying assist 3 The helper provides less than half the effort to complete the activity 2 The helper provides more than half the effort to complete the activity 1 Dependent. The helper does all the effort to complete an activity 7 Patient refused to complete or attempt activity 9 The patient did not perform the activity before the current illness or injury 88 Not attempted due to Medical conditions or safety concerns Transfers (B, C, W/C) (FIM): 2 Scootin Rollin Supine to/from Sit: 2 Sit to/from Stand: 3 Bed to/from Chair: 4 Patient very stiff during supine to sit, resists movement. Needs cues for safety and hand placement. Weight Bearing Right Lower Extremity: Right Weight Bearing/Tolerated Left Lower Extremity: Left Weight Bearing/Tolerated Gait Training Gait (FIM): 1 Distance: 20' Gait Level of Assist: 4 Gait Persons Needed: 1 Gait Assistive Device: FWW Attempted to ambulate to the hallway but patient states that he cannot go that far and make it back. Ambulated around the bed to recliner, patient needs cues to take big steps and stay behind the walker. Exercises Seated Therapy Exercises: Ankle pumps, Long arc quads Seated Reps: 15 Assessment Current Status: Poor Progress no change in mobility PT Short Term Goals Short Term Goals Time Frame: Jan 31, 2019 Transfers (B,C,W/C) (FIM): 5 Gait (FIM): 2 Distance (FIM): 8=200-96 ft Gait Distance Comment: 50' Gait Level of Assist: 4 Gait Assistive Device: FWW PT Plan Problem List Problem List: Activity Tolerance, Functional Strength, Safety, Balance, Gait, Transfer, Bed Mobility, ROM Treatment/Plan Treatment Plan: Continue Plan of Care Treatment Plan: Bed Mobility, Education, Functional Activity Samantha, Functional Strength, Gait, Safety, Therapeutic Exercise, Transfers Treatment Duration: Jan 31, 2019 Frequency: 6 times per week Estimated Hrs Per Day: .25 hour per day Patient and/or Family Agrees t: Yes Safety Risks/Education Patient Education: Gait Training, Transfer Techniques, Correct Positioning, Safety Issues Teaching Recipient: Patient Teaching Methods: Demonstration, Discussion Response to Teaching: Reinforcement Needed Time/GCodes Time In: 0845 Time Out: 0855 Total Billed Treatment Time: 10 Total Billed Treatment 1 visit FA NATANAEL PRINCE PT Jan 31, 2019 08:58
--- NOTE | 2019-01-31 09:19 | NUR ---
CM/SS called back, discussed options for SNF. Mary () stated that she has a family member that works at [facility] and would like referral packet sent there first. Referral sent to [facility].
--- NOTE | 2019-01-31 09:25 | Progress Note-Hospitalist ---
Subjective HPI/CC On Admission Date Seen by Provider: Jan 31, 2019 Time Seen by Provider: 08:30 Pt is a 78yoCM with a PMH of IDDMII, CAD s/p CABG, pAF, COPD, HTN, dementia who presented to the ER due to fever and weakness. He is a somewhat poor historian about his overall medical history but seems to remember yesterday well. He states his symptoms started abruptly with weakness and fever yesterday morning. He also complaints of a dry cough. He denies any chest pain, nausea, or vomiting but started to have loose stool yesterday. This morning he states he feels better but still feels "crummy" overall. I am unsure how accurate the rest of his history is as he then told me he takes no medications and has known medical problems but per his med rec he is on many meds including insulin. Subjective/Events-last exam Pt reluctant to go to a detention since inpatient rehab was not approved Will require IV steroids just short term for the wheezing of COPD that he confirmed he has Insulin will be increased with the addition of sliding scale Will place [facility] orders in for hopefully DC tomorrow Bowels are moving Eating and drinking Loose bowels are now resolved Review of Systems General: Fatigue Pulmonary: Cough Objective Exam Vital Signs Vital Signs Date Time Temp Pulse Resp B/P (MAP) Pulse Ox O2 Delivery O2 Flow Rate FiO2 01/31/19 15:43 97.3 73 20 110/57 (74) 95 Room Air 01/29/19 07:26 1.00 01/29/19 07:26 25 Capillary Refill : Less Than 3 Seconds General Appearance: No Apparent Distress, WD/WN, Chronically ill Respiratory: Chest Non Tender, No Accessory Muscle Use, No Respiratory Distress , Wheezing Cardiovascular: Regular Rate, Rhythm, No JVD, No Murmur Gastrointestinal: Normal Bowel Sounds, Non Tender, Soft Neurologic/Psychiatric: Alert, Oriented x3, Depressed Affect, Motor Weakness ( muscle rigidity noted) Skin: Normal Color, Warm/Dry Results/Procedures Lab Laboratory Tests 01/31/19 05:25 Patient resulted labs reviewed. 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 control representative insulin use: without usp use Diabetes mellitus complication status: with circulatory complication Diabetes mellitus complication detail: with other circulatory complications Qualified Codes: E11.59 - Type 2 diabetes mellitus with other circulatory complications (4) Altered mental status Status: Resolved Qualifiers: Altered mental status type: somnolence Qualified Codes: R40.0 - Somnolence Resolution Date/Time: 01/30/19 @ 11:46 (5) Generalized weakness Status: Acute (6) CAD (coronary artery disease) Status: Acute Qualifiers: Coronary Disease-Associated Artery/Lesion type: bypass graft [place] vs. transplanted heart: [place] heart Associated angina: without angina Qualified Codes: I25.810 - Atherosclerosis of coronary artery bypass graft(s) without angina pectoris (7) COPD (chronic obstructive pulmonary disease) Status: Chronic Qualifiers: COPD type: unspecified COPD Qualified Codes: J44.9 - Chronic obstructive pulmonary disease, unspecified (8) Angina pectoris Status: Chronic (9) Hyperlipidemia Status: Chronic Qualifiers: Hyperlipidemia type: mixed hyperlipidemia Qualified Codes: E78.2 - Mixed hyperlipidemia (10) Hypertension Status: Chronic Qualifiers: Hypertension type: essential hypertension Qualified Codes: I10 - Essential (primary) hypertension (11) Loose stools Status: Resolved Resolution Date/Time: 01/31/19 @ 19:44 (12) Overactive bladder Status: Chronic (13) Wheezing Status: Acute Clinical Quality Measures DVT/VTE Risk/Contraindication: Risk Factor Score Per Nursin RFS Level Per Nursing on Admit: 4+=Very High BASSAM POZO DO Jan 31, 2019 09:25
--- NOTE | 2019-01-31 10:04 | Discharge Inst-Skilled Nursing ---
Discharge Inst-Skilled NF Patient Instructions Patient Problems: Generalized weakness New diagnosis of Parkinsons DM COPD Consult/Follow Up/Orders Follow Up Appt.: Dr Funes in 1 week Skilled NF Admit to: [facility] Certification ([facility]) I certify that SNF services are required to be given on an inpatient basis because of the above named patient's need for retirement care on a continuing basis for the conditions(s) for which he/she was receiving inpatient hospital services prior to his/her transfer to the SNF. Senior Living Facility Order: Nursing Services, Mult Au Matic Operator-Evaluate & Treat, Physical Therapy-Evaluate & Treat, Speech Language-Evaluate & Treat Oxygen Delivery Method: Room Air Discharge Diet: ADA Diet Daily Activity as Tolerated: Yes New & Resume Previous Orders Cinthia Leija Jan 31, 2019 10:03 CINTHIA LEIJA DO Jan 31, 2019 10:04
[2019-01-31] MEDS: inSUlin ASPART (NovoLOG) 1 UNIT/0.01 ML (CHARGE PER UNIT) SC SCH ×7 (10:13→21:08)
[2019-01-31] MEDS: SILODOSIN PO SCH (10:14)
[2019-01-31] MEDS: ASPIRIN E.C. 81 MG (ECOTRIN) TAB PO SCH (10:14)
[2019-01-31] MEDS: PANTOPRAZOLE 40 MG (PROTONIX) TAB PO SCH (10:14)
[2019-01-31] MEDS: FUROSEMIDE 20 MG (LASIX) TAB PO SCH ×2 (10:14→21:08)
[2019-01-31] MEDS: ISOSORBIDE MONONITRATE 30 MG (IMDUR) TAB PO SCH (10:14)
[2019-01-31] MEDS: ENALAPRIL 10 MG (VASOTEC) TAB PO SCH (10:14)
[2019-01-31] MEDS: SINEMET 10/100 (CARBIDOPA/LEVADOPA) TAB PO SCH ×3 (10:14→17:13)
[2019-01-31] MEDS: KCL 10 MEQ TAB (MICRO K) PO SCH ×2 (10:14→21:08)
--- NOTE | 2019-01-31 15:01 | Occupational Ther Daily Note ---
OT Current Status-Daily Note Subjective Pt in bed , alert, oriented & cooperative. Pt agree for therapy. Pt states that , " I just finished my Lunch. I was late having Lunch today. " Pain Location: No Pain Reported Mental Status/Objective Patient Orientation: Person, Place, Time Therapy Code Descriptions/Definitions Functional [place] Measure: 0=Not Assessed/NA 4=Minimal Assistance 1=Total Assistance 5=Supervision or Setup 2=Maximal Assistance 6=Modified [place] 3=Moderate Assistance 7=Complete [place] Attachments: Saline Lock ADL-Treatment Pt participated in grooming activity , washing face , both Arms , around neck & donning/doffing gown with min A & strengthening ex to BUE . Completed 25 reps x 2 sets x 2 lbs wt , 25 reps with red theraband with BUE in all planes of motion & 30 reps using hand gripper . Eating (FIM): 7 Grooming (FIM): 6 Bathing (FIM): 5 (sponge-bath .) Bathing Location: L Arm, R Arm Upper Body (FIM): 4 (Hospital Gown billy & doff) Lower Body Dressing (FIM): 0 Toileting (FIM): 0 Transfers (B, C, W/C) (FIM): 0 Toilet/Commode Transfer (FIM): 0 Tub Transfer(FIM): 0 Shower Transfer(FIM): 0 Education OT Patient Education: Correct positioning Teaching Recipient: Patient Teaching Methods: Demonstration Response to Teaching: Verbalize Understanding OT Short Term Goals Short Term Goals Time Frame: Jan 31, 2019 Eating(FIM): 5 Grooming(FIM): 5 Bathing(FIM): 4 Upper Body Dressing(FIM): 4 Lower Body Dressing(FIM): 3 Toileting(FIM): 4 Transfers (B,C,W/C) (FIM): 5 Toilet/Commode Transfer(FIM): 5 Additional Short Term Goals: 1-Demonstrate ADL Tasks, 2-Verbalize Understanding , 3-ImproveStrength/Samantha 1=Demonstrate adherence to instructed precautions during ADL tasks. 2=Patient will verbalize/demonstrate understanding of assistive devices/ modifications for ADL. 3=Patient will improve strength/tolerance for activity to enable patient to perform ADL's. OT [facility] Goals [facility] Goals Time Frame: Feb 07, 2019 Eating (FIM): 6 Grooming(FIM): 6 Bathing(FIM): 5 Upper Body Dressing(FIM): 5 Lower Body Dressing(FIM): 4 Toileting(FIM): 6 Transfers (B,C,W/C) (FIM): 6 Toilet/Commode Transfer(FIM): 6 Shower Transfer(FIM): 5 Additional Goals: 1-Demonstrate ADL Tasks, 2-Verbalize Understanding, 3- ImproveStrength/Samantha 1=Demonstrate adherence to instructed precautions during ADL tasks. 2=Patient will verbalize/demonstrate understanding of assistive devices/ modifications for ADL. 3=Patient will improve strength/tolerance for activity to enable patient to perform ADL's. OT Education/Plan Problem List/Assessment Assessment: Decreased Activ Tolerance, Decreased Safety Aware, Decreased UE Strength, Dependent Transfers, Impaired Bed Mobility, Impaired Funct Balance, Impaired Self-Care Skills Discharge Recommendations Plan/Recommendations: Continue POC Therapy D/C Recommendations: Home w/ Family Support Equpiment Recommendations-D/C: Extended Bath Bench, Extended Shower Sprayer, Retail Marketing Specialist Patient/Family Goals To return home with daughter & Independently with AD. Treatment Plan/Plan of Care Treatment,Training & Education: Yes Patient would benefit from OT for education, treatment and training to promote independence in ADL's, mobility, safety and/or upper extremity function for ADL' s. Plan of Care: ADL Retraining, Functional Mobility, UE Funct Exercise/Act Treatment Duration: Feb 07, 2019 Frequency: 5 times per week Estimated Hrs Per Day: .5 hour per day Agreement: Yes Rehab Potential: Good Time/GCodes Start Time: 14:15 Stop Time: 14:40 Total Time Billed (hr/min): 25 Billed Treatment Time 1, ADL 14 min, Ex 11 min . Total 25 minutes. HENRY BURTON OT Jan 31, 2019 15:01
[2019-01-31 15:43] VITALS: BP 110/57
[2019-01-31] MEDS: DONEPEZIL 10 MG (ARICEPT) TAB PO SCH (21:08)
[2019-01-31] MEDS: ATORVASTATIN 10 MG (LIPITOR) TABLET PO SCH (21:08)
[2019-01-31] MEDS: methylPREDNISolone 40 MG/ML (Solu-MEDROL) VIAL IV SCH (21:08)
[2019-01-31] MEDS: MIRABEGRON 50 MG PO SCH (21:08)
[2019-01-31] MEDS: inSUlin DETERMIR 1 UNIT/0.01 ML (LEVEMIR) CHARGE PER UNIT SQ SCH (21:08)
[2019-02-01 00:46] VITALS: BP 127/70
[2019-02-01] MEDS: RT-ADVAIR HFA 115/21 MCG PER PUFF IH SCH ×2 (01:01→07:22)
[2019-02-01] MEDS: RT-ALBUTEROL/IPRATROPIUM 3 ML (DUONEB) VIAL INH SCH ×2 (01:02→07:22)
[2019-02-01 05:43] LABS: BASOPHILS % (AUTO) 0 % (0-10); EOSINOPHILS % (AUTO) 0 % (0-10); HEMATOCRIT 41 % (40-54); HEMOGLOBIN 13.6 G/DL (13.3-17.7); LYMPHOCYTES % (AUTO) 14 % (12-44); MEAN CORPUSCULAR HEMOGLOBIN 29 PG (25-34); MEAN CORPUSCULAR HGB CONC 33 G/DL (32-36); MEAN CORPUSCULAR VOLUME 87 FL (80-99); MEAN PLATELET VOLUME 10.5 FL (7.4-10.4); MONOCYTES # (AUTO) 0.2 X 10^3 (0.0-1.0); MONOCYTES % (AUTO) 2 % (0-12); NEUTROPHILS # (AUTO) 5.8 X 10^3 (1.8-7.8); NEUTROPHILS % (AUTO) 83 % (42-75); PLATELET COUNT 234 10^3/uL (130-400); RED CELL DISTRIBUTION WIDTH 13.6 % (10.0-14.5)
[2019-02-01 06:07] LABS: ALANINE AMINOTRANSFERASE 65 U/L (0-55); ALKALINE PHOSPHATASE 63 U/L (40-136); BILIRUBIN,TOTAL 0.8 MG/DL (0.1-1.0); BUN/CREATININE RATIO 13; CALCIUM 10.5 MG/DL (8.5-10.1); CARBON DIOXIDE 23 MMOL/L (21-32); CHLORIDE 104 MMOL/L (98-107); CREATININE SERUM 1.03 MG/DL (0.60-1.30); GFR ESTIMATED > 60; GLUCOSE 261 MG/DL (70-105); POTASSIUM 4.9 MMOL/L (3.6-5.0); SODIUM 138 MMOL/L (135-145)
[2019-02-01] MEDS: inSUlin ASPART (NovoLOG) 1 UNIT/0.01 ML (CHARGE PER UNIT) SC SCH ×4 (06:23→11:30)
[2019-02-01] MEDS: SINEMET 10/100 (CARBIDOPA/LEVADOPA) TAB PO SCH ×2 (06:24→11:29)
[2019-02-01 08:00] VITALS: BP 130/68
[2019-02-01] MEDS: KCL 10 MEQ TAB (MICRO K) PO SCH (08:55)
[2019-02-01] MEDS: ENALAPRIL 10 MG (VASOTEC) TAB PO SCH (08:55)
[2019-02-01] MEDS: FUROSEMIDE 20 MG (LASIX) TAB PO SCH (08:55)
[2019-02-01] MEDS: methylPREDNISolone 40 MG/ML (Solu-MEDROL) VIAL IV SCH (08:55)
[2019-02-01] MEDS: ASPIRIN E.C. 81 MG (ECOTRIN) TAB PO SCH (08:55)
[2019-02-01] MEDS: ISOSORBIDE MONONITRATE 30 MG (IMDUR) TAB PO SCH (08:55)
[2019-02-01] MEDS: PANTOPRAZOLE 40 MG (PROTONIX) TAB PO SCH (08:55)
[2019-02-01] MEDS: SILODOSIN PO SCH (08:56)
--- NOTE | 2019-02-01 10:14 | Occupational Ther Daily Note ---
OT Current Status-Daily Note Subjective Pt seen in room, up in bed, agreeable to OT. No pain mentioned. Appearance Alert, cooperative. Oriented to name and but not today's date. Mental Status/Objective Patient Orientation: Person, Place, Time Therapy Code Descriptions/Definitions Functional [place] Measure: 0=Not Assessed/NA 4=Minimal Assistance 1=Total Assistance 5=Supervision or Setup 2=Maximal Assistance 6=Modified [place] 3=Moderate Assistance 7=Complete [place] Attachments: Saline Lock Other Treatment Pt completed 20 reps bilat UE exercise with red theraband, to strengthen arms to help with transfers and ADLs. Pt was able to track reps with occasional cues. Able to follow visual or verbal instructions for each exercise. Unable to routinely maintain full range with each exercise and required brief recovery periods between exercises. Pt left up in bed, 4 rails up, all needs met. Theraband left in room and pt encouraged to do stretches on his own. Education OT Patient Education: Exercise program, Purpose of tx/functional activities Teaching Recipient: Patient Teaching Methods: Demonstration, Discussion Response to Teaching: Verbalize Understanding, Return Demonstration, Reinforcement Needed OT Short Term Goals Short Term Goals Time Frame: Jan 31, 2019 Eating(FIM): 5 Grooming(FIM): 5 Bathing(FIM): 4 Upper Body Dressing(FIM): 4 Lower Body Dressing(FIM): 3 Toileting(FIM): 4 Transfers (B,C,W/C) (FIM): 5 Toilet/Commode Transfer(FIM): 5 Additional Short Term Goals: 1-Demonstrate ADL Tasks, 2-Verbalize Understanding , 3-ImproveStrength/Samantha 1=Demonstrate adherence to instructed precautions during ADL tasks. 2=Patient will verbalize/demonstrate understanding of assistive devices/ modifications for ADL. 3=Patient will improve strength/tolerance for activity to enable patient to perform ADL's. OT Softlines Supervisor Goals Correction Goals Time Frame: Feb 07, 2019 Eating (FIM): 6 Grooming(FIM): 6 Bathing(FIM): 5 Upper Body Dressing(FIM): 5 Lower Body Dressing(FIM): 4 Toileting(FIM): 6 Transfers (B,C,W/C) (FIM): 6 Toilet/Commode Transfer(FIM): 6 Shower Transfer(FIM): 5 Additional Goals: 1-Demonstrate ADL Tasks, 2-Verbalize Understanding, 3- ImproveStrength/Samantha 1=Demonstrate adherence to instructed precautions during ADL tasks. 2=Patient will verbalize/demonstrate understanding of assistive devices/ modifications for ADL. 3=Patient will improve strength/tolerance for activity to enable patient to perform ADL's. OT Education/Plan Discharge Recommendations Plan/Recommendations: Continue POC Treatment Plan/Plan of Care Patient would benefit from OT for education, treatment and training to promote independence in ADL's, mobility, safety and/or upper extremity function for ADL' s. Plan of Care: ADL Retraining, Functional Mobility, UE Funct Exercise/Act Treatment Duration: Feb 07, 2019 Frequency: 5 times per week Estimated Hrs Per Day: .5 hour per day Agreement: Yes Rehab Potential: Good Time/GCodes Start Time: 09:40 Stop Time: 10:00 Total Time Billed (hr/min): 20 Billed Treatment Time visit, 20 minutes exercise TYRONE ALICEA OT Feb 01, 2019 10:14
--- NOTE | 2019-02-01 11:00 | NUR ---
CALLED DR GAXIOLA'S OFFICE TO SCHEDULE FOLLOW-UP APPOINTMENT, NO ANSWER. LEFT MESSAGE REQUESTING FOLLOW-UP APPOINTMENT IN 3-4 WEEKS
[2019-02-01] MEDS ORDERED: FLUT12AE4 IH (11:36)
[2019-02-01] MEDS ORDERED: IPRA3AMP31 INH (11:36)
[2019-02-01] MEDS ORDERED: PRED10TA22 PO (11:36)
[2019-02-01] MEDS ORDERED: CARB1TAB17 PO (11:36)
--- NOTE | 2019-02-01 11:39 | Discharge Summary-Hospitalist ---
Diagnosis/Chief Complaint Date of Admission Jan 25, 2019 at 12:48 Date of Discharge Discharge Date: Feb 01, 2019 Admission Diagnosis Fever Discharge Diagnosis (1) Rigidity (muscles) Status: Acute (2) Parkinsonian syndrome Status: Chronic (3) Diabetes mellitus Status: Chronic (4) Altered mental status Status: Resolved (5) Generalized weakness Status: Acute (6) CAD (coronary artery disease) Status: Acute (7) COPD (chronic obstructive pulmonary disease) Status: Chronic (8) Angina pectoris Status: Chronic (9) Hyperlipidemia Status: Chronic (10) Hypertension Status: Chronic (11) Loose stools Status: Resolved (12) Overactive bladder Status: Chronic (13) Wheezing Status: Acute Discharge Summary Discharge Physical Exam Allergies: Coded Allergies: Penicillins (Verified Allergy, Unknown, 05/01/12) Vitals & I&Os Vital Signs Date Time Temp Pulse Resp B/P (MAP) Pulse Ox O2 Delivery O2 Flow Rate FiO2 02/01/19 14:56 86 18 130/68 93 Room Air 02/01/19 08:00 98.0 01/29/19 07:26 1.00 01/29/19 07:26 25 General Appearance: No Apparent Distress, WD/WN, Chronically ill Respiratory: Chest Non Tender, No Accessory Muscle Use, No Respiratory Distress , Wheezing Cardiovascular: Regular Rate, Rhythm, No Edema, No Gallop, No JVD, No Murmur, Normal Peripheral Pulses Neurologic/Psychiatric: Alert, Oriented x3, No Motor/Sensory Deficits, Depressed Affect Hospital Course Was the Problem List Reviewed?: Yes Hospital course: Patient was admitted for sepsis and UTI with severe weakness and wheezing with cough and exacerbation of COPD. All issues were addressed and patient was placed on IV Solu-Medrol along with nebulizer treatments and oxygen supplementation to resolve the acute exacerbation of COPD. Noted tremor and rigidity with muscle weakness found the patient to have findings consistent with new diagnosis of parkinsonism and considering his weakened state he was in need of skilled therapy when inpatient rehabilitation was refused by his health plan. Overall he was stable at discharge and was restarted on all home medications and left close follow-up with primary care provider. Labs (last 24 hrs) Microbiology 01/23/19 Blood Culture - Final, Complete No growth 01/23/19 Influenza Types A,B Antigen (RAO) - Final, Complete 01/23/19 Urine Culture - Final, Complete 3 or more isolates Patient resulted labs reviewed. Pending Labs Imaging: Reviewed Imaging Report Discussion & Recommendations Discharge Planning: <30 minutes discharge planning Discharge Home Medications: Active Scripts Active Prednisone 10 Mg Tab.ds.pk 20 Mg PO DAILY Take 6 tabs(60mg)daily,decrease by 1 tab(10MG)daily. Advair Hfa 115-21 Mcg Inhaler (Fluticasone/Salmeterol) 12 Gm Hfa.aer.ad 2 Puff IH BID@08,20 30 Days Carbidopa-Levodopa 10-100 Tab (Carbidopa/Levodopa) 1 Each Tablet 1 Ea PO TIDWM 30 Days Iprat-Albut 0.5-3(2.5) mg/3 ml (Ipratropium/Albuterol Sulfate) 3 Ml Ampul.neb 3 Ml INH RTBID 30 Days Reported Memantine HCl 1 Each Tab.ds.pk Myrbetriq (Mirabegron) 50 Mg Tab.er.24h 50 Mg PO HS Isosorbide Mononitrate ER (Isosorbide Mononitrate) 30 Mg Tab.er.24h 30 Mg PO DAILY Atorvastatin Calcium 10 Mg Tablet 10 Mg PO HS Donepezil HCl 10 Mg Tablet 10 Mg PO DAILY Silodosin 4 Mg Capsule 4 Mg PO DAILY Levemir Flextouch (Insulin Detemir) 100 Unit/1 Ml Insuln.pen 10 Units SC DAILY Furosemide 20 Mg Tablet 20 Mg PO BID Enalapril Maleate 10 Mg Tablet 5 Mg PO DAILY TAKES 1/2 (10MG) TABLET Vitamin D3 (Cholecalciferol (Vitamin D3)) 1,000 Unit Capsule 1,000 Unit PO BID Fish Oil 1,000 mg Softgel ([place]-3 Fatty Acids/Fish Oil) 1 Each Capsule 2,000 Mg PO BID TAKES 2 (1000MG) CAPSULES Aspirin EC (Aspirin) 81 Mg Tablet.dr 81 Mg PO DAILY Pioglitazone HCl 30 Mg Tablet 15 Mg PO DAILY TAKES 1/2 (30MG) TABLET Proventil Hfa (Albuterol Sulfate) 6.7 Gm Hfa.aer.ad 2 Puff IH Q4H PRN Potassium Chloride 10 Meq Tablet.er 10 Meq PO BID Omeprazole 40 Mg Capsule.dr 40 Mg PO DAILY Metoprolol Succinate 50 Mg Tab.er.24h 25 Mg PO DAILY TAKES 1/2 (50MG) TABLET Instructions to patient/family Please see electronic discharge instructions given to patient. Clinical Quality Measures DVT/VTE Risk/Contraindication: Risk Factor Score Per Nursin RFS Level Per Nursing on Admit: 4+=Very High Problem Qualifiers (1) Parkinsonian syndrome: Parkinsonism type: Parkinson's disease Qualified Codes: G20 - Parkinson's disease (2) Diabetes mellitus: Diabetes mellitus type: type 2 Diabetes mellitus senior care insulin use: without senior care use Diabetes mellitus complication status: with circulatory complication Diabetes mellitus complication detail: with other circulatory complications Qualified Codes: E11.59 - Type 2 diabetes mellitus with other circulatory complications (3) Altered mental status: Altered mental status type: somnolence Qualified Codes: R40.0 - Somnolence (4) CAD (coronary artery disease): Coronary Disease-Associated Artery/Lesion type: bypass graft [place] vs. transplanted heart: [place] heart Associated angina: without angina Qualified Codes: I25.810 - Atherosclerosis of coronary artery bypass graft(s) without angina pectoris (5) COPD (chronic obstructive pulmonary disease): COPD type: unspecified COPD Qualified Codes: J44.9 - Chronic obstructive pulmonary disease, unspecified (6) Hyperlipidemia: Hyperlipidemia type: mixed hyperlipidemia Qualified Codes: E78.2 - Mixed hyperlipidemia (7) Hypertension: Hypertension type: essential hypertension Qualified Codes: I10 - Essential ( primary) hypertension BASSAM POZO DO Feb 01, 2019 11:39
--- NOTE | 2019-02-01 12:01 | NUR ---
CM/SS [facility] will accept the patient this day and will transport at 1330. Completed the CARE assessment with the patient. It was faxed to [facility], ROSEANNA and a copy was retained on patient chart. Patient, his , and RNing updated on transport time. Discharge information sent to [facility].
--- NOTE | 2019-02-01 12:08 | NUR ---
CALLED [facility] TO GIVE REPORT. THEY ARE NOT SURE WHICH NURSE IS TAKING THE PATIENT YET. THEY WILL NEED THIS RN TO CALL BACK LATER TO GIVE REPORT.
--- NOTE | 2019-02-01 13:17 | NUR ---
ATTEMPTED TO CALL REPORT TO [facility]. THE NURSE IS BUSY. THEY WILL HAVE HER CALL TO GET REPORT
--- NOTE | 2019-02-01 13:58 | NUR ---
REPORT GIVEN TO DEBRA AT [facility]
[2019-02-01 14:56] VITALS: BP 130/68
--- NOTE | 2019-02-06 09:44 | Physician Query Clarification ---
PQ-Conflicting Diagnosis Admission/Discharge Admission Date: Jan 23, 2019 at 19:54 Discharge Date: Feb 01, 2019 at 14:59 The medical record reflects the following clinical scenario: History/Risk Factors: Viral Illness documented Encephalopathy due to high fever Clinical Findings: T103.3 on 01/25, Urine culture 3 or more isolates 40,000 CFU/ ML (Gram Positive) Suggesting probable collection contamination with skin crista( confirmed per Dr. Washburn) Treatment:IV Fluids, Tylenol, IV Zofran, Albuterol Treatments and eventually IV Solu Medrol. Your discharge summary dictation stated that patient was admitted for sepsis and UTI. Dr. Washburn's dictation contradicted this by saying," No evidence of UTI- urine culture shows contamination and acute lactic acidosis likely due to metformin and acute illness. Fever-Likely viral syndrome. Dr. Suarez's notes also say, "apparent viral illness" Question: Do you agree with the impression of the Viral Syndrome with encephalopathy due to high fever-not sepsis and no evidence of UTI due to contamination per Dr. Washburn? Please document a response below. PHYSICIAN RESPONSE Do you agree w/Consulting Dx?: Yes In responding to this query, please exercise your independent professional judgment. The purpose of this communication is to more accurately reflect the complexity of your patients condition. The fact that a question is asked does not imply that any particular answer is desired or expected. Thank you for your timely response to this clarification. Requestors name: Yari Naik [facility] Phone # ext [phone] or [phone] THIS PHYSICIAN QUERY FORM IS A PERMANENT PART OF THE MEDICAL RECORD YARI NAIK Feb 06, 2019 09:44 BASSAM POZO DO Feb 06, 2019 11:02
--- NOTE | 2019-02-12 09:08 | Physician Query-Final Dx ---
ASHLEY NAIK 02/12/19 0908: Final Diagnosis Give Final Diagnosis Sepsis and UTI were ruled out by Dr. Washburn. Viral illness was also listed throughout the record. Your discharge summary's hospital course listed exacerbation of COPD and noted tremor and rigidity with muscle weakness with findings consistent with new diagnosis of Parkinson's. Which of these diagnoses or other specified diagnosis do you feel should be listed as principal diagnosis (reason for admission after study)? BASSAM POZO DO 02/12/19 0944: Final Diagnosis Give Final Diagnosis AECOPD ASHLEY NAIK Feb 12, 2019 09:08 BASSAM POZO DO Feb 12, 2019 09:44
== END 2019-02-01 14:59 | DRG 191 ==
LOC: EDUNIT# 16:47 → ER 16:49 → 4TH 19:54 → UNDOADMOB 19:54 → OBSVTOIN 01-25 12:48 → INTOOBSV 01-25 12:48 → ICU 01-25 12:49 → 4TH 01-25 12:49 → ICU 01-26 22:28 → 4TH 01-26 22:28 → UNDODISIN 02-01 14:59
PROVIDERS: ADMIT Internal Medicine; ATTEND Internal Medicine
DX: J44.1 Chronic obstructive pulmonary disease with (acute) exacerbation (principal); B34.9 Viral infection, unspecified; G20 Parkinson's disease; G93.49 Other encephalopathy; R50.9 Fever, unspecified; E87.2 Acidosis; J98.11 Atelectasis; I42.9 Cardiomyopathy, unspecified; Z66 Do not resuscitate; R53.83 Other fatigue; I25.709 Atherosclerosis of coronary artery bypass graft(s), unspecified, with unspecified angina pectoris; I10 Essential (primary) hypertension; I48.0 Paroxysmal atrial fibrillation; E11.59 Type 2 diabetes mellitus with other circulatory complications; T38.3X5A Adverse effect of insulin and oral hypoglycemic [antidiabetic] drugs, initial encounter; E66.9 Obesity, unspecified; F03.90 Unspecified dementia, unspecified severity, without behavioral disturbance, psychotic disturbance, mood disturbance, and anxiety; E78.2 Mixed hyperlipidemia; N32.81 Overactive bladder; R53.1 Weakness; R26.81 Unsteadiness on feet; M19.91 Primary osteoarthritis, unspecified site; M25.561 Pain in right knee; Z95.1 Presence of aortocoronary bypass graft; Z79.4 Long term (current) use of insulin; Z87.891 Personal history of nicotine dependence; Z91.81 History of falling; Z68.31 Body mass index [BMI] 31.0-31.9, adult
CPT/HCPCS: 36415; 36600; 70450; 70496; 70498; 70551; 71045; 73560; 80048; 80053; 81000; 82140; 82550; 82805; 82962; 83605; 84484; 85025; 85610; 85730; 86141; 87040; 87077; 87088; 87631; 87804; 93041; 94640; 94664; 94760; G0378

== ENCOUNTER 2019-02-13 09:32 | Emergency (ER) | payer MEDICARE ==
[~2019-02-13] VITALS: Ht 180.3 cm; Wt 99.8 kg
[~2019-02-13 09:32] MED LIST changes: +ATOR10TA66 PO; +CARB1TAB17 PO; +DONE10TA41 PO; +FLUT12AE4 IH; +IPRA3AMP31 INH; +MEMA1TAB2; +MIRA50TA PO; +PRED10TA22 PO; +SILO4CAP3 PO; +SITA100T12 PO
[2019-02-13] MEDS ORDERED: ACETAMINOPHEN 500 MG TAB (TYLENOL) PO STA (10:00)
[2019-02-13 10:02] LABS: BASOPHILS % (AUTO) 0 % (0-10); EOSINOPHILS # (AUTO) 0.1 10^3/uL (0.0-0.3); EOSINOPHILS % (AUTO) 2 % (0-10); HEMATOCRIT 45 % (40-54); HEMOGLOBIN 15.8 G/DL (13.3-17.7); LYMPHOCYTES # (AUTO) 0.3 X 10^3 (1.0-4.0); LYMPHOCYTES % (AUTO) 4 % (12-44); MEAN CORPUSCULAR HEMOGLOBIN 31 PG (25-34); MEAN CORPUSCULAR HGB CONC 35 G/DL (32-36); MEAN CORPUSCULAR VOLUME 88 FL (80-99); MEAN PLATELET VOLUME 10.7 FL (7.4-10.4); MONOCYTES # (AUTO) 0.6 X 10^3 (0.0-1.0); MONOCYTES % (AUTO) 7 % (0-12); NEUTROPHILS # (AUTO) 7.7 X 10^3 (1.8-7.8); NEUTROPHILS % (AUTO) 88 % (42-75); PLATELET COUNT 161 10^3/uL (130-400); RED CELL DISTRIBUTION WIDTH 14.8 % (10.0-14.5); WHITE BLOOD COUNT 8.8 10^3/uL (4.3-11.0)
--- NOTE | 2019-02-13 10:03 | NUR ---
ATTEMPTED TO COMPLETE [facility] D/T EMS STATING THEY WERE PAGED FOR AMS ET L-SIDED WEAKNESS. [facility] INCOMPLETE D/T PT. INCOMPLIANCE. SPEECH CLEAR, SENSATION INTACT. PT. REMEMBERS BUT NOT MONTH, YEAR. SMILE SYMETRICAL. FOLLOWS COMMANDS FOR RAISING EYEBROWS AND SMILING.
[2019-02-13 10:11] LABS: BILIRUBIN,URINE NEGATIVE (NEGATIVE); CLARITY,URINE CLEAR; COLOR,URINE YELLOW; GLUCOSE, URINE (UA) 3+ (NEGATIVE); KETONES,URINE NEGATIVE (NEGATIVE); LEUKOCYTE ESTERASE ,URINE NEGATIVE (NEGATIVE); NITRITE,URINE NEGATIVE (NEGATIVE); PH,URINE 6 (5-9); PROTEIN,URINE NEGATIVE (NEGATIVE); UROBILINOGEN,URINE NORMAL (NORMAL)
[2019-02-13 10:18] LABS: PROTHROMBIN TIME PATIENT 13.7 SEC (12.2-14.7)
[2019-02-13 10:22] LABS: BACTERIA,URINE NEGATIVE /HPF; SQUAMOUS EPITHELIAL CELL,UR RARE /HPF
[2019-02-13 10:25] LABS: ALANINE AMINOTRANSFERASE 22 U/L (0-55); ALBUMIN 4.3 GM/DL (3.2-4.5); ALKALINE PHOSPHATASE 63 U/L (40-136); BILIRUBIN,TOTAL 1.9 MG/DL (0.1-1.0); BUN/CREATININE RATIO 11; CALCIUM 9.8 MG/DL (8.5-10.1); CARBON DIOXIDE 21 MMOL/L (21-32); CHLORIDE 99 MMOL/L (98-107); CREATININE SERUM 1.06 MG/DL (0.60-1.30); GFR ESTIMATED > 60; GLUCOSE 291 MG/DL (70-105); POTASSIUM 4.9 MMOL/L (3.6-5.0); SODIUM 132 MMOL/L (135-145); TOTAL PROTEIN 7.3 GM/DL (6.4-8.2)
[2019-02-13 10:27] LABS: BAND NEUTROPHILS 3 %; LYMPHOCYTES % (MANUAL) 3 %; MONOCYTES % (MANUAL) 3 %; NEUTROPHILS % (MANUAL) 91 %; RBC MORPH NORMAL
--- NOTE | 2019-02-13 10:52 | ED General ---
General Chief Complaint: Altered Mental Status Stated Complaint: NAUSEA Nursing Triage Note: PT PRESENTS TO ED VIA EMS FROM [facility] WITH COMPLAINTS OF AMS, FEVER, MALAISE, AND WEAKNESS. Nursing Sepsis Screen: Possible Severe Sepsis Risk Source of Information: Patient, EMS, [facility] Records Exam Limitations: Physical Impairments History of Present Illness Date Seen by Provider: Feb 13, 2019 Time Seen by Provider: 09:38 Initial Comments Here from long-term with report of acute onset of altered mental status. Actually woke up this way. Last known well time was last night. Does have history of dementia and Parkinson's disease. Noted to have fever today and weak. He is definitely confused. Does follow simple commands and answer simple questions. Fever of 101.9 per EMS and tachycardic. There is apparently other residents at the long-term that are influenza positive Timing/Duration: 12 Hours Severity: Moderate Associated Systoms: Cough, Fever/Chills; No Nausea/Vomiting, No Shortness of Air; Weakness Allergies and Home Medications Allergies Coded Allergies: Penicillins (Verified Allergy, Unknown, 05/01/12) Home Medications Albuterol Sulfate 6.7 Gm Hfa.aer.ad, 2 PUFF IH Q4H PRN for SHORTNESS OF BREATH, (Reported) Aspirin 81 Mg Tablet.dr, 81 MG PO DAILY, (Reported) Atorvastatin Calcium 10 Mg Tablet, 10 MG PO HS, (Reported) Carbidopa/Levodopa 1 Each Tablet, 1 EA PO TIDWM Prescribed by: BASSAM POZO on 02/01/19 1136 Cholecalciferol (Vitamin D3) 1,000 Unit Capsule, 1,000 UNIT PO BID, (Reported) Donepezil HCl 10 Mg Tablet, 10 MG PO DAILY, (Reported) Enalapril Maleate 10 Mg Tablet, 5 MG PO DAILY, (Reported) TAKES 1/2 (10MG) TABLET Fluticasone/Salmeterol 12 Gm Hfa.aer.ad, 2 PUFF IH BID@08,20 Prescribed by: BASSAM POZO on 02/01/19 1136 Furosemide 20 Mg Tablet, 20 MG PO BID, (Reported) Insulin Detemir 100 Unit/1 Ml Insuln.pen, 10 UNITS SC DAILY, (Reported) Ipratropium/Albuterol Sulfate 3 Ml Ampul.neb, 3 ML INH RTBID Prescribed by: BASSAM POZO on 02/01/19 1136 Isosorbide Mononitrate 30 Mg Tab.er.24h, 30 MG PO DAILY, (Reported) Metoprolol Succinate 50 Mg Tab.er.24h, 25 MG PO DAILY, (Reported) TAKES 1/2 (50MG) TABLET Mirabegron 50 Mg Tab.er.24h, 50 MG PO HS, (Reported) [place]-3 Fatty Acids/Fish Oil 1 Each Capsule, 2,000 MG PO BID, (Reported) TAKES 2 (1000MG) CAPSULES Omeprazole 40 Mg Capsule.dr, 40 MG PO DAILY, (Reported) Pioglitazone HCl 30 Mg Tablet, 15 MG PO DAILY, (Reported) TAKES 1/2 (30MG) TABLET Potassium Chloride 10 Meq Tablet.er, 10 MEQ PO BID, (Reported) Prednisone 10 Mg Tab.ds.pk, 20 MG PO DAILY Take 6 tabs(60mg)daily,decrease by 1 tab(10MG)daily. Prescribed by: BASSAM POZO on 02/01/19 1136 Silodosin 4 Mg Capsule, 4 MG PO DAILY, (Reported) Patient Home Medication List Home Medication List Reviewed: Yes Review of Systems Review of Systems Constitutional: see HPI, chills, fever, weakness EENTM: nose congestion Respiratory: cough; No short of breath Cardiovascular: No edema Gastrointestinal: No diarrhea, No nausea, No vomiting Genitourinary: no symptoms reported Psychiatric/Neurological: See HPI Unable to complete review of systems due to altered mental status Past Epdnlez-Oqutvh-Iouzrv Hx Past Med/Social Hx: Reviewed Nursing Past Med/Soc Hx Patient Social History Alcohol Use: Denies Use Recreational Drug Use: No Smoking Status: Former Smoker Type Used: Cigars, Cigarettes, Pipe Former Smoker, Quit: Aug 04, 1980 Recent Foreign Travel: No Contact w/Someone Who Travel: No Recent Infectious Disease Expo: No Recent Hopitalizations: No Physical Abuse: No Sexual Abuse: No Mistreated: No Fear: No Immunizations Up To Date Tetanus Booster (TDap): Less than 5yrs PED Vaccines UTD: No Date of Pneumonia Vaccine: Nov 23, 2018 Date of Influenza Vaccine: Nov 23, 2018 Seasonal Allergies Seasonal Allergies: No Past Medical History Surgeries: Yes (KIDNEY STONES REMOVED) Adenoidectomy, CABG, Gallbladder, Tonsillectomy Respiratory: Yes Asthma, Pneumonia, COPD Cardiac: Yes (CABG x 3 2007) Angina, Cardiomyopathy, Coronary Artery Disease, High Cholesterol, Hypertension Neurological: No Dementia, Parkinson's Disease Reproductive Disorders: No Genitourinary: Yes (OVERACTIVE BLADDER) Kidney Stones Gastrointestinal: No Musculoskeletal: Yes (UNSTEADY ON FEET, USES WALKER, GEN MUSCLE WEAKNESS, DYSPHAGIA ) Arthritis Endocrine: Yes Diabetes, Insulin dep HEENT: Yes Cataract, Dysphagia Loss of Vision: Denies Hearing Impairment: Hard of Hearing Cancer: No Psychosocial: No Integumentary: No Blood Disorders: No Adverse Reaction/Blood Tranf: No Family Medical History Reviewed Nursing Family Hx No Pertinent Family Hx Physical Exam-Suspected Sepsis Physical Exam Vital Signs Vital Signs - First Documented 02/13/19 09:55 Temp 102.0 Pulse 117 Resp 20 B/P (MAP) 139/76 (97) Pulse Ox 95 Capillary Refill : Less Than 3 Seconds Blood Pressure Mean: 97 Height, Weight, BMI Height: 5'11.00" Weight: 220lbs. 4.8oz. 99.023756ya; 31.2 BMI Method:Estimated General Appearance: No Apparent Distress, WD/WN HEENT: PERRL/EOMI, Pharyngeal Erythema, Other (bilateral nasal congestion with clear rhinorrhea) Neck: Non Tender, Supple Respiratory: Lungs Clear, Normal Breath Sounds Cardiovascular: Regular Rate, Rhythm, No Murmur Gastrointestinal: Non Tender, Soft Back: Normal Inspection, No CVA Tenderness, No Vertebral Tenderness Extremity: Normal Range of Motion, Non Tender Neurologic/Psychiatric: Alert, Motor Weakness, Other (confused but follows simple commands and answer simple questions.) Skin: normal color, warm/dry Focused Exam Lactate Level 02/13/19 09:52: Lactic Acid Level 1.84 Lactic Acid Level Laboratory Tests Test 02/13/19 09:52 Lactic Acid Level 1.84 MMOL/L (0.50-2.00) Progress/Results/Core Measures Suspected Sepsis Recent Fever Within 48 Hours: Yes Infection Criteria Present: Suspected New Infection New/Unexplained Altered Menta: Yes Sepsis Screen: Possible Severe Sepsis Risk SIRS Temperature:102.0 Pulse: 117 Respiratory Rate: 20 Laboratory Tests 02/13/19 09:52: White Blood Count 8.8 Blood Pressure 139 /76 Mean: 97 02/13/19 09:52: Lactic Acid Level 1.84 Laboratory Tests 02/13/19 09:52: Creatinine 1.06, INR Comment 1.0, Platelet Count 161, Total Bilirubin 1.9H Results/Orders Lab Results Laboratory Tests Test 02/13/19 09:52 02/13/19 10:01 Range/Units White Blood Count 8.8 4.3-11.0 10^3/uL Red Blood Count 5.12 4.35-5.85 10^6/uL Hemoglobin 15.8 13.3-17.7 G/DL Hematocrit 45 40-54 % Mean Corpuscular Volume 88 80-99 FL Mean Corpuscular Hemoglobin 31 25-34 PG Mean Corpuscular Hemoglobin Concent 35 32-36 G/DL Red Cell Distribution Width 14.8 H 10.0-14.5 % Platelet Count 161 130-400 10^3/uL Mean Platelet Volume 10.7 H 7.4-10.4 FL Neutrophils (%) (Auto) 88 H 42-75 % Lymphocytes (%) (Auto) 4 L 12-44 % Monocytes (%) (Auto) 7 0-12 % Eosinophils (%) (Auto) 2 0-10 % Basophils (%) (Auto) 0 0-10 % Neutrophils # (Auto) 7.7 1.8-7.8 X 10^3 Lymphocytes # (Auto) 0.3 L 1.0-4.0 X 10^3 Monocytes # (Auto) 0.6 0.0-1.0 X 10^3 Eosinophils # (Auto) 0.1 0.0-0.3 10^3/uL Basophils # (Auto) 0.0 0.0-0.1 10^3/uL Neutrophils % (Manual) 91 % Lymphocytes % (Manual) 3 % Monocytes % (Manual) 3 % Band Neutrophils 3 % Blood Morphology Comment NORMAL Prothrombin Time 13.7 12.2-14.7 SEC INR Comment 1.0 0.8-1.4 Activated Partial Thromboplast Time 20 L 24-35 SEC Sodium Level 132 L 135-145 MMOL/L Potassium Level 4.9 3.6-5.0 MMOL/L Chloride Level 99 98-107 MMOL/L Carbon Dioxide Level 21 21-32 MMOL/L Anion Gap 12 5-14 MMOL/L Blood Urea Nitrogen 12 7-18 MG/DL Creatinine 1.06 0.60-1.30 MG/DL Estimat Glomerular Filtration Rate > 60 BUN/Creatinine Ratio 11 Glucose Level 291 H 70-105 MG/DL Lactic Acid Level 1.84 0.50-2.00 MMOL/L Calcium Level 9.8 8.5-10.1 MG/DL Corrected Calcium 9.6 8.5-10.1 MG/DL Total Bilirubin 1.9 H 0.1-1.0 MG/DL Aspartate Amino Transf (AST/SGOT) 45 H 5-34 U/L Alanine Aminotransferase (ALT/SGPT) 22 0-55 U/L Alkaline Phosphatase 63 40-136 U/L Troponin I < 0.028 <0.028 NG/ML Total Protein 7.3 6.4-8.2 GM/DL Albumin 4.3 3.2-4.5 GM/DL Urine Color YELLOW Urine Clarity CLEAR Urine pH 6 5-9 Urine Specific [place] 1.010 L 1.016-1.022 Urine Protein NEGATIVE NEGATIVE Urine Glucose (UA) 3+ H NEGATIVE Urine Ketones NEGATIVE NEGATIVE Urine Nitrite NEGATIVE NEGATIVE Urine Bilirubin NEGATIVE NEGATIVE Urine Urobilinogen NORMAL NORMAL MG/DL Urine Leukocyte Esterase NEGATIVE NEGATIVE Urine RBC (Auto) NEGATIVE NEGATIVE Urine RBC NONE /HPF Urine WBC NONE /HPF Urine Squamous Epithelial Cells RARE /HPF Urine Crystals NONE /LPF Urine Bacteria NEGATIVE /HPF Urine Casts NONE /LPF Urine Mucus NEGATIVE /LPF Urine Culture Indicated CULTURE PENDING Micro Results Microbiology 02/13/19 Influenza Types A,B Antigen (RAO) - Final, Complete My Orders Orders - BIRD DIAZ MD Cbc With Automated Diff (02/13/19 09:38) Comprehensive Metabolic Panel (02/13/19 09:38) Blood Culture (02/13/19 09:38) Sputum Culture (02/13/19 09:38) Urinalysis (02/13/19:38) Urine Culture (02/13/19 09:38) Protime With Inr (02/13/19 09:38) Partial Thromboplastin Time (02/13/19 09:38) Chest 1 View, Ap/Pa Only (02/13/19 09:38) Saline Lock/Iv-Start (02/13/19 09:38) Saline Lock/Iv-Start (02/13/19 09:38) Ekg Tracing (02/13/19 09:38) Troponin I (02/13/19 09:38) Vital Signs Adult Sepsis Patie Q15M (02/13/19 09:38) O2 (02/13/19 09:38) Remove Rings In Anticipation O (02/13/19 09:38) Lactic Acid Analyzer (02/13/19 09:38) Influenza A And B Antigens (02/13/19 09:38) Vital Signs Stroke Patient Q15M (02/13/19 09:38) Ct Head Wo-R/O Stroke (02/13/19 09:38) Monitor-Rhythm Ecg Trace Only (02/13/19 09:38) Dysphagia Screening Tool (02/13/19 09:38) Acetaminophen Tablet (Tylenol Tablet) (02/13/19 10:00) Manual Differential (02/13/19 09:52) Oseltamivir 75 Mg Capsule (Tamiflu 75 (02/13/19 12:30) Vital Signs/I&O 02/13/19 09:55 Temp 102.0 Pulse 117 Resp 20 B/P (MAP) 139/76 (97) Pulse Ox 95 Capillary Refill : Less Than 3 Seconds Blood Pressure Mean: 97 Progress Note : Progress Note Seen and evaluated on arrival by EMS. IV, labs, UA, EKG, chest x-ray and influenza screen ordered. Normal saline 1 L bolus. Tylenol 1 g by mouth ordered. Also ordered elements of stroke order set including CT of the head and dysphagia screen. Dysphagia screen pass before Tylenol given. CT head done. 1145 : Patient's family at bedside and I did discuss with them about current results pending chest x-ray. He is influenza positive. 1230: I did discuss the case with Dr. Pozo, on-call for hospitalist. She has seen the patient previously on last hospital visit. We did discuss the current labs and findings. He is influenza positive but otherwise doing okay. We both agree that he is safe for return back to long-term with continued treatment for the influenza there. I did discuss this with the patient and his family and they agree. Discharge back to long-term with return precautions. Family verbalize understanding instructions and agreement with plan. Initiate Tamiflu now and continue that for 10 total doses. ECG Initial ECG Impression Date: Feb 13, 2019 Initial ECG Impression Time: 09:47 Initial ECG Rate: 111 Initial ECG Rhythm: S.Tach Comment Sinus tachycardia with left anterior fascicular block. A little incomplete right bundle branch block. There are axis deviation. No evidence of ST elevation IN. Similar but faster to 12/10/18. Interpreted by me. Diagnostic Imaging Diagonstic Imaging: CT Plain Films/CT/US/NM/MRI: head Comments [facility], [place] NAME: [facility] REC#: [id number] PT STATUS: REG ER : 1940 PHYSICIAN: BIRD DIAZ MD ADMIT DATE: 02/13/19/ER Draft Date of Exam:02/13/19 CT HEAD WO-R/O STROKE PROCEDURE: CT head wo r/o stroke. TECHNIQUE: Multiple contiguous axial images were obtained through the brain without the use of intravenous contrast. Auto Exposure Controls were utilized during the CT exam to meet ALARA standards for radiation dose reduction. INDICATION: Confusion. Comparison is made with prior head CT from 01/25/2019. Ventricles and sulci remain prominent consistent with cerebral atrophy. No sulcal effacement is identified. There is no midline shift. No acute intra-axial or extra-axial hemorrhage is detected. Cisterns are patent. Visualized paranasal sinuses are clear. IMPRESSION: Cerebral atrophy. No acute intracranial process is detected. Dictated on workstation # [id number] Dict: 02/13/19 1048 Trans: 02/13/19 1059 [id number] Interpreted by: ROMEO ARMAS MD Electronically signed by: Diagonstic Imaging: Xray Plain Films/CT/US/NM/MRI: chest Comments NAME: [facility] REC#: [id number] PT STATUS: REG ER : 1940 PHYSICIAN: BIRD DIAZ MD ADMIT DATE: 02/13/19/ER Signed Date of Exam: 02/13/19 CHEST 1 VIEW, AP/PA ONLY Indication: Fever, malaise and weakness Portable chest 11:47 AM There are postop changes from CABG surgery. Heart size upper limits of normal. There some discoid atelectasis of left lower chest. Lungs otherwise clear. There are no effusions or pneumothoraces. Impression: Minimal left basilar discoid atelectasis unchanged since 01/26/2019. Dictated by: Dictated on workstation # [id number] Dict: 02/13/19 1201 Trans: 02/13/19 120 Interpreted by: BIRD POWERS MD Electronically signed by: BIRD POWERS MD 02/13/19 120 Reviewed: Reviewed by Me Departure Impression Primary Impression: Influenza A Additional Impression: Altered mental status Qualified Codes: R41.82 - Altered mental status, unspecified Disposition: 01 HOME, SELF-CARE Condition: Stable Departure-Patient Inst. Decision time for Depature: 12:42 Referrals: FANG ROLLINS MD (PCP/Family) Primary Care Physician Patient Instructions: Flu, Adult (DC) Add. Discharge Instructions: All discharge instructions reviewed with patient and/or family. Voiced understanding. You may give Tylenol/acetaminophen 1000 mg every 6 hours as needed for fever or pain. Encourage plenty of fluids. Take other medications as directed. Follow-up with your Dr. later this week or early next week for recheck and further evaluation. Return for worse pain, fever, vomiting, weakness, breathing problems or other concerns as needed. Scripts Oseltamivir Phosphate (Oseltamivir Phosphate) 75 Mg Capsule 75 MG PO BID, #9 CAP 0 Refills Prov: BIRD DIAZ MD 02/13/19 Copy Copies To 1: FANG ROLLINS MD, TIMOTHY D MD Feb 13, 2019 10:52
--- NOTE | 2019-02-13 11:00 | Diagnostic Imaging Report ---
PROCEDURE: CT head wo r/o stroke. TECHNIQUE: Multiple contiguous axial images were obtained through the brain without the use of intravenous contrast. Auto Exposure Controls were utilized during the CT exam to meet ALARA standards for radiation dose reduction. INDICATION: Confusion. Comparison is made with prior head CT from 01/25/2019. Ventricles and sulci remain prominent consistent with cerebral atrophy. No sulcal effacement is identified. There is no midline shift. No acute intra-axial or extra-axial hemorrhage is detected. Cisterns are patent. Visualized paranasal sinuses are clear. IMPRESSION: Cerebral atrophy. No acute intracranial process is detected. Dictated by: Dictated on workstation # [id number]
--- NOTE | 2019-02-13 12:05 | Diagnostic Imaging Report ---
Indication: Fever, malaise and weakness Portable chest 11:47 AM There are postop changes from CABG surgery. Heart size upper limits of normal. There some discoid atelectasis of left lower chest. Lungs otherwise clear. There are no effusions or pneumothoraces. Impression: Minimal left basilar discoid atelectasis unchanged since 01/26/2019. Dictated by: Dictated on workstation # [id number]
[2019-02-13] MEDS ORDERED: OSELTAMIVIR 75 MG (TAMIFLU) CAPSULE PO ONE (12:30)
--- NOTE | 2019-02-13 12:40 | NUR ---
REPORT CALLED TO DEBRA JEAN AT [facility] AT THIS TIME
[2019-02-13] MEDS ORDERED: OSEL75CA15 PO (12:44)
[2019-02-13 12:59] VITALS: BP 111/67
== END 2019-02-13 12:59 | disposition home or self-care (01) ==
LOC: EDUNIT# 09:32 → ER 09:33
DX: J10.1 Influenza due to other identified influenza virus with other respiratory manifestations (principal); R41.82 Altered mental status, unspecified; J44.9 Chronic obstructive pulmonary disease, unspecified; I42.9 Cardiomyopathy, unspecified; I25.10 Atherosclerotic heart disease of native coronary artery without angina pectoris; E78.00 Pure hypercholesterolemia, unspecified; I10 Essential (primary) hypertension; E11.9 Type 2 diabetes mellitus without complications; G20 Parkinson's disease; F02.80 Dementia in other diseases classified elsewhere, unspecified severity, without behavioral disturbance, psychotic disturbance, mood disturbance, and anxiety; Z88.0 Allergy status to penicillin; Z87.19 Personal history of other diseases of the digestive system; Z79.51 Long term (current) use of inhaled steroids; Z79.82 Long term (current) use of aspirin; Z79.52 Long term (current) use of systemic steroids; Z79.4 Long term (current) use of insulin; Z87.891 Personal history of nicotine dependence; Z95.1 Presence of aortocoronary bypass graft; Z90.89 Acquired absence of other organs; Z87.442 Personal history of urinary calculi; Z98.890 Other specified postprocedural states; Z87.01 Personal history of pneumonia (recurrent)
CPT/HCPCS: 36415; 51701; 70450; 71045; 80053; 81000; 83605; 84484; 85007; 85027; 85610; 85730; 87040; 87088; 87804; 93005; 93041

== ENCOUNTER 2019-03-21 22:46 | Emergency (ER) | payer MEDICARE ==
[~2019-03-21] VITALS: Ht 180.3 cm; Wt 99.9 kg
[~2019-03-21 22:46] MED LIST changes: +OSEL75CA15 PO
[2019-03-21 23:08] LABS: BASOPHILS % (AUTO) 0 % (0-10); EOSINOPHILS # (AUTO) 0.2 10^3/uL (0.0-0.3); EOSINOPHILS % (AUTO) 3 % (0-10); HEMATOCRIT 41 % (40-54); HEMOGLOBIN 13.6 G/DL (13.3-17.7); LYMPHOCYTES # (AUTO) 1.9 X 10^3 (1.0-4.0); LYMPHOCYTES % (AUTO) 30 % (12-44); MEAN CORPUSCULAR HEMOGLOBIN 30 PG (25-34); MEAN CORPUSCULAR HGB CONC 33 G/DL (32-36); MEAN CORPUSCULAR VOLUME 90 FL (80-99); MEAN PLATELET VOLUME 11.3 FL (7.4-10.4); MONOCYTES # (AUTO) 0.6 X 10^3 (0.0-1.0); MONOCYTES % (AUTO) 9 % (0-12); NEUTROPHILS # (AUTO) 3.8 X 10^3 (1.8-7.8); NEUTROPHILS % (AUTO) 58 % (42-75); PLATELET COUNT 151 10^3/uL (130-400); RED CELL DISTRIBUTION WIDTH 14.3 % (10.0-14.5); WHITE BLOOD COUNT 6.5 10^3/uL (4.3-11.0)
[2019-03-21] MEDS: NS IV 1000 ML 1,000 ML IV ONE (23:10)
[2019-03-21 23:24] LABS: BILIRUBIN,URINE NEGATIVE (NEGATIVE); CLARITY,URINE CLEAR; COLOR,URINE YELLOW; GLUCOSE, URINE (UA) 2+ (NEGATIVE); KETONES,URINE NEGATIVE (NEGATIVE); LEUKOCYTE ESTERASE ,URINE NEGATIVE (NEGATIVE); NITRITE,URINE NEGATIVE (NEGATIVE); PH,URINE 6.5 (5-9); PROTEIN,URINE NEGATIVE (NEGATIVE); UROBILINOGEN,URINE NORMAL (NORMAL)
[2019-03-21 23:28] LABS: PROTHROMBIN TIME PATIENT 13.6 SEC (12.2-14.7)
[2019-03-21 23:32] LABS: ALBUMIN 4.1 GM/DL (3.2-4.5); BILIRUBIN,TOTAL 0.8 MG/DL (0.1-1.0); CALCIUM 10.2 MG/DL (8.5-10.1); CREATININE SERUM 1.29 MG/DL (0.60-1.30); MAGNESIUM 2.1 MG/DL (1.8-2.4); POTASSIUM 4.6 MMOL/L (3.6-5.0); TOTAL PROTEIN 6.8 GM/DL (6.4-8.2)
[2019-03-21 23:35] LABS: BACTERIA,URINE TRACE /HPF
[2019-03-22] MEDS: cefTRIAXone FOR IV USE 1,000 MG in WATER (STERILE) FOR INJECTION 10 ML IV ONE (01:07)
[2019-03-22] MEDS: KETOROLAC 30 MG/ML VIAL IVP ONE (01:07)
--- NOTE | 2019-03-22 01:09 | ED General ---
General Chief Complaint: General Problems/Pain Stated Complaint: LEG TREMORS, CONFUSION Source of Information: Patient, EMS, Longterm Records History of Present Illness Date Seen by Provider: Mar 21, 2019 Time Seen by Provider: 22:45 Initial Comments PT ARRIVES VIA EMS FROM [facility]IA [facility] PER [facility] REPORT TO EMS, PT HAS HAD : LEG TREMORS--PT HAS ALREADY BEEN DX WITH PARKINSON'S PT HAS INCREASED CONFUSION--PT HAS ALREADY BEEN DX WITH DEMENTIA [facility] ALSO REPORTED GENERALIZED WEAKNESS--PT HAS ALREADY BEEN DX WITH GENERALIZED WEAKNESS AND HAS VERY LIMITED MOBILITY, AND OCCASIONALLY USES A WALKER WITH ASSIST. IS UNCLEAR WHEN SYMPTOMS BEGAN ON DIRECT QUESTIONING, PT STATES FOR THE LAST COUPLE OF HOURS, HE HAS HAD BODY ACHES, HEADACHE, SHAKING OF LEGS. PT DOES NOT KNOW IF HE HAS HAD FEVER OR NOT, BUT HAS FELT COLD NO NAUSEA OR VOMITING NO ABDOMINAL PAIN NO PROBLEMS URINATING DENIES COUGH PT IS DIABETIC--BLOOD SUGAR 255 AT [facility], WAS 239 FOR EMS BP 160/85 PCP: DR ROLLINS Allergies and Home Medications Allergies Coded Allergies: Penicillins (Verified Allergy, Unknown, 05/01/12) Home Medications Albuterol Sulfate 6.7 Gm Hfa.aer.ad, 2 PUFF IH Q4H PRN for SHORTNESS OF BREATH, (Reported) Aspirin 81 Mg Tablet.dr, 81 MG PO DAILY, (Reported) Atorvastatin Calcium 10 Mg Tablet, 10 MG PO HS, (Reported) Carbidopa/Levodopa 1 Each Tablet, 1 EA PO TIDWM Prescribed by: BASSAM POZO on 02/01/19 1136 Cefdinir 300 Mg Capsule, 300 MG PO BID Prescribed by: IGLESIA SALTER on 03/22/19 0119 Cholecalciferol (Vitamin D3) 1,000 Unit Capsule, 1,000 UNIT PO BID, (Reported) Donepezil HCl 10 Mg Tablet, 10 MG PO DAILY, (Reported) Enalapril Maleate 10 Mg Tablet, 5 MG PO DAILY, (Reported) TAKES 1/2 (10MG) TABLET Fluticasone/Salmeterol 12 Gm Hfa.aer.ad, 2 PUFF IH BID@08,20 Prescribed by: BASSAM POZO on 02/01/19 1136 Furosemide 20 Mg Tablet, 20 MG PO BID, (Reported) Insulin Detemir 100 Unit/1 Ml Insuln.pen, 10 UNITS SC DAILY, (Reported) Ipratropium/Albuterol Sulfate 3 Ml Ampul.neb, 3 ML INH RTBID Prescribed by: BASSAM POZO on 02/01/19 1136 Isosorbide Mononitrate 30 Mg Tab.er.24h, 30 MG PO DAILY, (Reported) Metoprolol Succinate 50 Mg Tab.er.24h, 25 MG PO DAILY, (Reported) TAKES 1/2 (50MG) TABLET Mirabegron 50 Mg Tab.er.24h, 50 MG PO HS, (Reported) [place]-3 Fatty Acids/Fish Oil 1 Each Capsule, 2,000 MG PO BID, (Reported) TAKES 2 (1000MG) CAPSULES Omeprazole 40 Mg Capsule.dr, 40 MG PO DAILY, (Reported) Oseltamivir Phosphate 75 Mg Capsule, 75 MG PO BID Prescribed by: BIRD DIAZ on 02/13/19 1244 Pioglitazone HCl 30 Mg Tablet, 15 MG PO DAILY, (Reported) TAKES 1/2 (30MG) TABLET Potassium Chloride 10 Meq Tablet.er, 10 MEQ PO BID, (Reported) Prednisone 10 Mg Tab.ds.pk, 20 MG PO DAILY Take 6 tabs(60mg)daily,decrease by 1 tab(10MG)daily. Prescribed by: BASSAM POZO on 02/01/19 1136 Silodosin 4 Mg Capsule, 4 MG PO DAILY, (Reported) Patient Home Medication List Home Medication List Reviewed: Yes Review of Systems Review of Systems Constitutional: see HPI, chills, malaise, weakness EENTM: no symptoms reported Respiratory: No cough, No short of breath, No wheezing Cardiovascular: No chest pain Gastrointestinal: No abdominal pain, No loss of appetite, No nausea, No vomiting Genitourinary: no symptoms reported Musculoskeletal: see HPI Skin: no symptoms reported Psychiatric/Neurological: See HPI, Headache, Pre-Existing Deficit (PT WITH PARKINSON'S AND DEMENTIA) Hematologic/Lymphatic: No Symptoms Reported Immunological/Allergic: no symptoms reported Past Wqjcwhh-Lpormq-Obokec Hx Patient Social History Alcohol Use: Denies Use Recreational Drug Use: No Smoking Status: Former Smoker Type Used: Cigars, Cigarettes, Pipe Former Smoker, Quit: Aug 04, 1980 Recent Foreign Travel: No Contact w/Someone Who Travel: No Recent Hopitalizations: No Immunizations Up To Date Tetanus Booster (TDap): Less than 5yrs PED Vaccines UTD: No Date of Pneumonia Vaccine: Nov 23, 2018 Date of Influenza Vaccine: Nov 23, 2018 Seasonal Allergies Seasonal Allergies: No Past Medical History Surgeries: Yes (KIDNEY STONES REMOVED) Adenoidectomy, Cardiac, CABG, Gallbladder, Renal, Tonsillectomy Respiratory: Yes Asthma, Pneumonia, COPD Cardiac: Yes (CABG x 3 2007) Angina, Cardiomyopathy, Coronary Artery Disease, High Cholesterol, Hypertension Neurological: Yes Dementia, Parkinson's Disease Reproductive Disorders: No Genitourinary: Yes (OVERACTIVE BLADDER) Kidney Stones Gastrointestinal: No Musculoskeletal: Yes (UNSTEADY ON FEET, USES WALKER, GEN MUSCLE WEAKNESS, DYSPHAGIA ) Arthritis Endocrine: Yes Diabetes, Insulin dep HEENT: Yes Cataract, Dysphagia Loss of Vision: Denies Hearing Impairment: Hard of Hearing Cancer: No Psychosocial: No Integumentary: No Blood Disorders: No Adverse Reaction/Blood Tranf: No Family Medical History No Pertinent Family Hx Physical Exam Vital Signs Vital Signs - First Documented 03/21/19 03/22/19 22:47 02:10 Temp 97.9 Pulse 68 Resp 18 B/P (MAP) 148/67 (94) Pulse Ox 98 Capillary Refill : Height, Weight, BMI Height: 5'11.00" Weight: 220lbs. 4.8oz. 99.536220ua; 31.2 BMI Method:Estimated General Appearance: No Apparent Distress, WD/WN HEENT: PERRL/EOMI, Normal ENT Inspection Neck: Normal Inspection Respiratory: Normal Breath Sounds, No Accessory Muscle Use, No Respiratory Distress Cardiovascular: Regular Rate, Rhythm, No Edema, No JVD, No Murmur, Normal Peripheral Pulses Gastrointestinal: Normal Bowel Sounds, No Organomegaly, No Pulsatile Mass, Non Tender, Soft Back: Normal Inspection, No CVA Tenderness Extremity: Normal Capillary Refill, Normal Inspection, Normal Range of Motion, Non Tender, No Calf Tenderness, No Pedal Edema Neurologic/Psychiatric: Alert, Oriented x3 (PT DOES NOT APPEAR CONFUSED AT THIS TIME, IS AWAKE AND CONVERSES), No Motor/Sensory Deficits, 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 ); Other (P0T WITH FINE, MILD RESTING TREMOR OF ARMS. PT HAS INTERMITTENT VERY BRIEF ( < 5 SECONDS) EPISODES OF RIGOROUS SHAKING OF BOTH LOWER LEGS. NOT TONIC-CLONIC ACTIVITY, AND UPPER BODY IS NOT AFFECTED) Skin: Normal Color, Warm/Dry Focused Exam Lactate Level 03/21/19 22:58: Lactic Acid Level 1.43 Lactic Acid Level Progress/Results/Core Measures Suspected Sepsis SIRS Temperature: Pulse: Respiratory Rate: Laboratory Tests 03/21/19 22:58: White Blood Count 6.5 Blood Pressure / Mean: 03/21/19 22:58: Lactic Acid Level 1.43 Laboratory Tests 03/21/19 22:58: Creatinine 1.29, INR Comment 1.0, Platelet Count 151, Total Bilirubin 0.8 Results/Orders Lab Results Laboratory Tests Test 03/21/19 22:58 03/21/19 23:18 Range/Units White Blood Count 6.5 4.3-11.0 10^3/uL Red Blood Count 4.56 4.35-5.85 10^6/uL Hemoglobin 13.6 13.3-17.7 G/DL Hematocrit 41 40-54 % Mean Corpuscular Volume 90 80-99 FL Mean Corpuscular Hemoglobin 30 25-34 PG Mean Corpuscular Hemoglobin Concent 33 32-36 G/DL Red Cell Distribution Width 14.3 10.0-14.5 % Platelet Count 151 130-400 10^3/uL Mean Platelet Volume 11.3 H 7.4-10.4 FL Neutrophils (%) (Auto) 58 42-75 % Lymphocytes (%) (Auto) 30 12-44 % Monocytes (%) (Auto) 9 0-12 % Eosinophils (%) (Auto) 3 0-10 % Basophils (%) (Auto) 0 0-10 % Neutrophils # (Auto) 3.8 1.8-7.8 X 10^3 Lymphocytes # (Auto) 1.9 1.0-4.0 X 10^3 Monocytes # (Auto) 0.6 0.0-1.0 X 10^3 Eosinophils # (Auto) 0.2 0.0-0.3 10^3/uL Basophils # (Auto) 0.0 0.0-0.1 10^3/uL Prothrombin Time 13.6 12.2-14.7 SEC INR Comment 1.0 0.8-1.4 Activated Partial Thromboplast Time 31 24-35 SEC Sodium Level 138 135-145 MMOL/L Potassium Level 4.6 3.6-5.0 MMOL/L Chloride Level 103 98-107 MMOL/L Carbon Dioxide Level 23 21-32 MMOL/L Anion Gap 12 5-14 MMOL/L Blood Urea Nitrogen 16 7-18 MG/DL Creatinine 1.29 0.60-1.30 MG/DL Estimat Glomerular Filtration Rate 54 BUN/Creatinine Ratio 12 Glucose Level 215 H 70-105 MG/DL Lactic Acid Level 1.43 0.50-2.00 MMOL/L Calcium Level 10.2 H 8.5-10.1 MG/DL Corrected Calcium 10.1 8.5-10.1 MG/DL Magnesium Level 2.1 1.8-2.4 MG/DL Total Bilirubin 0.8 0.1-1.0 MG/DL Aspartate Amino Transf (AST/SGOT) 27 5-34 U/L Alanine Aminotransferase (ALT/SGPT) 26 0-55 U/L Alkaline Phosphatase 57 40-136 U/L Total Protein 6.8 6.4-8.2 GM/DL Albumin 4.1 3.2-4.5 GM/DL Urine Color YELLOW Urine Clarity CLEAR Urine pH 6.5 5-9 Urine Specific [place] 1.005 L 1.016-1.022 Urine Protein NEGATIVE NEGATIVE Urine Glucose (UA) 2+ H NEGATIVE Urine Ketones NEGATIVE NEGATIVE Urine Nitrite NEGATIVE NEGATIVE Urine Bilirubin NEGATIVE NEGATIVE Urine Urobilinogen NORMAL NORMAL MG/DL Urine Leukocyte Esterase NEGATIVE NEGATIVE Urine RBC (Auto) NEGATIVE NEGATIVE Urine RBC NONE /HPF Urine WBC NONE /HPF Urine Squamous Epithelial Cells NONE /HPF Urine Crystals NONE /LPF Urine Bacteria TRACE /HPF Urine Casts NONE /LPF Urine Mucus NEGATIVE /LPF Urine Culture Indicated NO Micro Results Microbiology 03/21/19 Influenza Types A,B Antigen (RAO) - Final, Complete My Orders Orders - IGLESIA SALTER DO Ed Iv/Invasive Line Start (03/21/19 22:53) Ekg Tracing (03/21/19 22:53) Catheter(Urinary) Insert & Ass 03,15 (03/21/19 22:53) Monitor-Rhythm Ecg Trace Only (03/21/19 22:53) Chest 1 View, Ap/Pa Only (03/21/19 22:53) Cbc With Automated Diff (03/21/19 22:53) Comprehensive Metabolic Panel (03/21/19 22:53) Lactic Acid Analyzer (03/21/19 22:53) Magnesium (03/21/19 22:53) Protime With Inr (03/21/19 22:53) Partial Thromboplastin Time (03/21/19 22:53) Ua Culture If Indicated (03/21/19 22:53) Blood Culture (03/21/19 22:53) Influenza A And B Antigens (03/21/19 22:53) Ed Iv/Invasive Line Start (03/21/19 22:53) Ns Iv 1000 Ml (Sodium Chloride 0.9%) (03/21/19 22:53) Ct Head Wo-R/O Stroke (03/22/19 00:01) Ketorolac Injection (Toradol Injection) (03/22/19 01:00) Ceftriaxone For Iv Use (Rocephin For I (03/22/19 01:00) Rx-Oseltamivir Caps (Rx-Tamiflu Caps) (03/22/19 01:19) Rx-Oseltamivir Caps (Rx-Tamiflu Caps) (03/22/19 01:29) Medications Given in ED Current Medications Medications Dose Ordered Sig/Anoop Route Start Time Stop Time Status Last Admin Dose Admin Ceftriaxone Sodium 1000 mg/ Sterile Water 10 ml @ 200 mls/hr ONCE ONCE IV 03/22/19 01:00 03/22/19 01:02 DC 03/22/19 01:07 200 MLS/HR Ketorolac Tromethamine 30 mg ONCE ONCE IVP 03/22/19 01:00 03/22/19 01:01 DC 03/22/19 01:07 30 MG Sodium Chloride 1,000 ml @ 0 mls/hr Q0M ONCE IV 03/21/19 22:53 03/21/19 22:57 DC 03/21/19 23:10 999 MLS/HR Vital Signs/I&O 03/21/19 03/22/19 22:47 02:10 Temp 97.9 97.9 Pulse 68 65 Resp 18 18 B/P (MAP) 148/67 (94) 126/59 (81) Pulse Ox 98 Capillary Refill : Progress Note : Progress Note UNEVENTFUL ER STAY NO DETERIORATION IN PT'S CONDITION DURING STAY DISCUSSED WITH AND MULTIPLE FAMILY MEMBERS, PT 'S TEST RESULTS, AND NO SIGNIFICANT FINDINGS REGARDING CAUSE FOR SYMPTOMS WILL TREAT EMPIRICALLY FOR INFLUENZA WELL WITH ANTIBIOTICS. ECG Initial ECG Impression Date: Mar 21, 2019 Initial ECG Impression Time: 22:58 Initial ECG Rate: 71 Initial ECG Rhythm: Normal Sinus (IVCD) Initial ECG Impression: Nonspecific Changes Initial ECG Comparisson: Unchanged Diagnostic Imaging Comments CXR--CHRONIC CHANGES LEFT BASE, NO ACUTE PROCESS, PENDING RADIOLOGIST REVIEW CT HEAD--NO ACUTE PROCESS, ATROPHY, ADVANCED SENESCENT CHANGES --PER [facility] VIA FAX @ 1850 Reviewed: Reviewed by Me Departure Impression Primary Impression: Body aches Additional Impressions: Chills Influenza-like illness Disposition: 03 XFER SNF Condition: Improved Departure-Patient Inst. Referrals: FANG ROLLINS MD (PCP/Family) Primary Care Physician Patient Instructions: VIRAL SYNDROME Add. Discharge Instructions: TAKE TAMIFLU TWICE A DAY FOR 5 DAYS TYLENOL AND MOTRIN NEEDED FOR PAIN OR FEVER LOTS OF FLUIDS CONTINUE YOUR REGULAR MEDICATIONS PRESCRIBED FOLLOW UP WITH YOUR DR IN 2-3 DAYS IF NO BETTER, RETURN TO ER IF WORSE All discharge instructions reviewed with patient and/or family. Voiced understanding. Scripts Cefdinir (Cefdinir) 300 Mg Capsule 300 MG PO BID for FOR INFECTION, #20 CAP Prov: IGLESIA SALTER DO 03/22/19 IGLESIA SALTER DO Mar 22, 2019 01:09
[2019-03-22] MEDS ORDERED: CEFD300C3 PO (01:19)
[2019-03-22] MEDS ORDERED: RX-OSELTAMIVIR 75 MG (TAMIFLU) BOX OF 10 PO ONE (01:29)
[2019-03-22] MEDS: RX-OSELTAMIVIR 75 MG (TAMIFLU) BOX OF 10 PO STA (01:54)
[2019-03-22 02:10] VITALS: BP 126/59
--- NOTE | 2019-03-22 06:52 | Diagnostic Imaging Report ---
Clinical indication: Patient with altered mental status, rule out stroke. Evaluate chest. Exam: Portable chest x-ray upright view. Comparisons: Chest x-ray dated 02/13/2019. Findings: Lungs/pleura: Stable left lung base atelectasis versus scarring. Low lung volumes are again seen. There is no pneumothorax. There is no pleural effusion. Mediastinum: Unremarkable. Pulmonary vasculature: Unremarkable. Heart: Cardiac silhouette is upper limits of normal for portable projection. Stable postop changes to the chest with sternotomy wires. Bones/extrathoracic soft tissue: Unremarkable. Impression: Stable chest x-ray exam with no radiographic evidence of acute cardiopulmonary process. Stable mild left basilar atelectasis or scarring. Dictated by: Dictated on workstation # [id number]
--- NOTE | 2019-03-22 07:24 | Diagnostic Imaging Report ---
Clinical indication: Patient with altered mental status. Rule out stroke. Exam: Axial CT scan of brain performed without IV contrast. Comparison: Axial CT scan without IV contrast dated 01/16/2019. Findings: Of note, skull streak artifact obscures portions of brainstem, portion of the brain near the skull, and posterior fossa. Stable diffuse brain parenchymal volume loss. There is no gross CT evidence of acute cerebral infarct, intracranial hemorrhage, or gross mass effect. There is diffuse brain parenchymal volume loss again seen which is stable. There is stable mild patchy areas of low-attenuation white matter changes involving both cerebral hemispheres. There is normal arboleda-white matter distinction. There is no significant midline shift or herniation. Stable enlargement of the lateral ventricles and third ventricles which is suspected to be due to the degree of diffuse brain parenchymal volume loss. The basal cisterns are unremarkable. The skull, extracranial soft tissue, and orbits are unremarkable. There is mild mucosal thickening involving left maxillary sinus and ethmoid sinus. There is a small amount of fluid in both mastoid air cells. Impression: 1: Stable CT scan of brain with no evidence of interval acute intracranial process. 2: Stable chronic small vessel ischemic disease and diffuse brain parenchymal volume loss. I agree with [facility] report. Dictated by: Dictated on workstation # [id number]
== END 2019-03-22 02:10 ==
LOC: EDUNIT# 22:46 → ER 22:47
DX: J11.1 Influenza due to unidentified influenza virus with other respiratory manifestations (principal); G20 Parkinson's disease; F02.80 Dementia in other diseases classified elsewhere, unspecified severity, without behavioral disturbance, psychotic disturbance, mood disturbance, and anxiety; E11.9 Type 2 diabetes mellitus without complications; J44.9 Chronic obstructive pulmonary disease, unspecified; I42.9 Cardiomyopathy, unspecified; I25.10 Atherosclerotic heart disease of native coronary artery without angina pectoris; E78.00 Pure hypercholesterolemia, unspecified; I10 Essential (primary) hypertension; Z87.19 Personal history of other diseases of the digestive system; Z88.0 Allergy status to penicillin; Z79.82 Long term (current) use of aspirin; Z79.51 Long term (current) use of inhaled steroids; Z79.52 Long term (current) use of systemic steroids; Z79.4 Long term (current) use of insulin; Z87.891 Personal history of nicotine dependence; Z90.89 Acquired absence of other organs; Z95.1 Presence of aortocoronary bypass graft; Z87.442 Personal history of urinary calculi; Z87.01 Personal history of pneumonia (recurrent)
CPT/HCPCS: 36415; 51702; 70450; 71045; 80053; 81000; 83605; 83735; 85025; 85610; 85730; 87040; 87804; 93005; 93041

== ENCOUNTER 2019-06-15 17:12 | Observation (INO) | payer MEDICARE ==
[~2019-06-15] VITALS: Ht 186.7 cm; Wt 111.3 kg
[~2019-06-15 17:12] MED LIST changes: +CEFD300C3 PO
--- NOTE | 2019-06-15 17:14 | NUR ---
PT TO CT AT THIS TIME.
--- NOTE | 2019-06-15 17:22 | NUR ---
PT BACK FROM CT AT THIS TIME.
--- NOTE | 2019-06-15 17:30 | Diagnostic Imaging Report ---
PROCEDURE: CT head without contrast, r/o stroke. TECHNIQUE: Multiple contiguous axial images were obtained through the brain without the use of intravenous contrast. Auto Exposure Controls were utilized during the CT exam to meet ALARA standards for radiation dose reduction. INDICATION: Left-sided weakness. Stroke protocol. COMPARISON: Multiple priors, most recent performed on 03/22/2019. FINDINGS: CT BRAIN: No parenchymal hemorrhage, midline shift or mass effect. Ball-white matter differentiation is intact. No acute infarct. Mild periventricular and subcortical low-density white matter changes. Severe prominence of the ventricles and sulci is unchanged consistent with cortical and cerebellar parenchymal volume loss. EXTRA-AXIAL SPACES: No subdural or epidural collections. ORBITS AND PARANASAL SINUSES: Visualized orbits and globes are intact. Visualized paranasal sinuses and mastoid air cells are clear. CALVARIUM AND SOFT TISSUES: The calvarium is intact. No fractures or suspicious bony lesions. The extracranial soft tissues are unremarkable. IMPRESSION: No acute intracranial pathology. No significant change from prior. Dictated by: Dictated on workstation # [id number]
[2019-06-15 17:34] LABS: BASOPHILS % (AUTO) 0 % (0-10); EOSINOPHILS # (AUTO) 0.2 10^3/uL (0.0-0.3); EOSINOPHILS % (AUTO) 3 % (0-10); HEMATOCRIT 42 % (40-54); LYMPHOCYTES # (AUTO) 1.7 X 10^3 (1.0-4.0); LYMPHOCYTES % (AUTO) 32 % (12-44); MEAN CORPUSCULAR HEMOGLOBIN 30 PG (25-34); MEAN CORPUSCULAR HGB CONC 33 G/DL (32-36); MEAN CORPUSCULAR VOLUME 90 FL (80-99); MONOCYTES # (AUTO) 0.4 X 10^3 (0.0-1.0); MONOCYTES % (AUTO) 8 % (0-12); NEUTROPHILS # (AUTO) 3.1 X 10^3 (1.8-7.8); NEUTROPHILS % (AUTO) 57 % (42-75); PLATELET COUNT 158 10^3/uL (130-400); RED CELL DISTRIBUTION WIDTH 14.2 % (10.0-14.5); WHITE BLOOD COUNT 5.4 10^3/uL (4.3-11.0)
[2019-06-15] MEDS ORDERED: NS IV 1000 ML 1,000 ML IV ONE (17:38)
[2019-06-15] MEDS ORDERED: HOLD METFORMIN - RECEIVED CONTRAST 20 ML VIAL IV SCH (17:45)
[2019-06-15] MEDS ORDERED: NS 100 ML (IVPB) BAG IV ONE (17:45)
[2019-06-15] MEDS ORDERED: IOHEXOL 350 MG/ML 100 ML (OMNIPAQUE 350) VIAL IV ONE (17:45)
[2019-06-15] MEDS ORDERED: CATHETER FLUSH 10 ML SYR IV PRN (17:45)
--- NOTE | 2019-06-15 17:45 | NUR ---
PT TO CT FOR CT ANGIO AT THIS TIME ACCOMPANIED BY EVANS FU RN
[2019-06-15 17:49] LABS: ALANINE AMINOTRANSFERASE 12 U/L (0-55); ALKALINE PHOSPHATASE 79 U/L (40-136); BILIRUBIN,TOTAL 0.7 MG/DL (0.1-1.0); BUN/CREATININE RATIO 14; CALCIUM 9.8 MG/DL (8.5-10.1); CARBON DIOXIDE 23 MMOL/L (21-32); CHLORIDE 105 MMOL/L (98-107); CREATININE SERUM 1.08 MG/DL (0.60-1.30); GFR ESTIMATED > 60; GLUCOSE 267 MG/DL (70-105); POTASSIUM 4.2 MMOL/L (3.6-5.0); SODIUM 140 MMOL/L (135-145); TOTAL PROTEIN 6.7 GM/DL (6.4-8.2)
[2019-06-15 17:56] LABS: FIBRIN DEGRADATION PRODUCTS 0.8 UG/ML (0.00-0.49); PROTHROMBIN TIME PATIENT 13.1 SEC (12.2-14.7)
--- NOTE | 2019-06-15 17:58 | ED Neurological Problem ---
General Chief Complaint: Neuro-Stroke Like Symptoms Stated Complaint: STROKE Nursing Triage Note: pt presents to ed via ems from home with complaints of l sided weakness and decreased sensation since 1514. Nursing Sepsis Screen: No Definite Risk Source: patient Exam Limitations: no limitations (BIRD DIAZ MD) History of Present Illness Date Seen by Provider: Jun 15, 2019 Time Seen by Provider: 17:15 Initial Comments Here with report of acute onset of left-sided weakness and decreased sensation that started at around 3:15 today. EMS summoned and did note those findings. On their evaluation there is concerns for acute stroke and stroke activation from the field was initiated. Patient was able answer questions well and denies any significant pain. He is diabetic and blood sugar was noted to be in the upper 200s by EMS. Vital signs were all okay. No indications of STEMI in the field. Patient denies ever having anything like this before. Timing/Duration: 1-3 hours Severity: moderate Associated Symptoms: confusion; No fever/chills; paresthesia; No slurred speech; trouble walking, weakness (BIRD DIAZ MD) Allergies and Home Medications Allergies Coded Allergies: Penicillins (Verified Allergy, Unknown, 05/01/12) Home Medications Albuterol Sulfate 6.7 Gm Hfa.aer.ad, 2 PUFF IH Q4H PRN for SHORTNESS OF BREATH, (Reported) Aspirin 81 Mg Tablet.dr, 81 MG PO DAILY, (Reported) Atorvastatin Calcium 10 Mg Tablet, 10 MG PO HS, (Reported) Carbidopa/Levodopa 1 Each Tablet, 1 EA PO TIDWM Prescribed by: BASSAM POZO on 02/01/19 1136 Cefdinir 300 Mg Capsule, 300 MG PO BID Prescribed by: IGLESIA SALTER on 03/22/19 0119 Cholecalciferol (Vitamin D3) 1,000 Unit Capsule, 1,000 UNIT PO BID, (Reported) Donepezil HCl 10 Mg Tablet, 10 MG PO DAILY, (Reported) Enalapril Maleate 10 Mg Tablet, 5 MG PO DAILY, (Reported) TAKES 1/2 (10MG) TABLET Fluticasone/Salmeterol 12 Gm Hfa.aer.ad, 2 PUFF IH BID@08,20 Prescribed by: BASSAM POZO on 02/01/19 1136 Furosemide 20 Mg Tablet, 20 MG PO BID, (Reported) Insulin Detemir 100 Unit/1 Ml Insuln.pen, 10 UNITS SC DAILY, (Reported) Ipratropium/Albuterol Sulfate 3 Ml Ampul.neb, 3 ML INH RTBID Prescribed by: BASSAM POZO on 02/01/19 1136 Isosorbide Mononitrate 30 Mg Tab.er.24h, 30 MG PO DAILY, (Reported) Metoprolol Succinate 50 Mg Tab.er.24h, 25 MG PO DAILY, (Reported) TAKES 1/2 (50MG) TABLET Mirabegron 50 Mg Tab.er.24h, 50 MG PO HS, (Reported) [place]-3 Fatty Acids/Fish Oil 1 Each Capsule, 2,000 MG PO BID, (Reported) TAKES 2 (1000MG) CAPSULES Omeprazole 40 Mg Capsule.dr, 40 MG PO DAILY, (Reported) Oseltamivir Phosphate 75 Mg Capsule, 75 MG PO BID Prescribed by: BIRD DIAZ on 02/13/19 1244 Pioglitazone HCl 30 Mg Tablet, 15 MG PO DAILY, (Reported) TAKES 1/2 (30MG) TABLET Potassium Chloride 10 Meq Tablet.er, 10 MEQ PO BID, (Reported) Prednisone 10 Mg Tab.ds.pk, 20 MG PO DAILY Take 6 tabs(60mg)daily,decrease by 1 tab(10MG)daily. Prescribed by: BASSAM POZO on 02/01/19 113 Silodosin 4 Mg Capsule, 4 MG PO DAILY, (Reported) Patient Home Medication List Home Medication List Reviewed: Yes (BIRD DIAZ MD) Review of Systems Review of Systems Constitutional: see HPI; No chills, No fever Eyes: No Symptoms Reported Ears, Nose, Mouth, Throat: no symptoms reported Respiratory: No short of breath; wheezing Cardiovascular: no symptoms reported Gastrointestinal: No abdominal pain, No nausea, No vomiting Genitourinary: no symptoms reported Musculoskeletal: see HPI; No back pain; muscle weakness Skin: no symptoms reported Psychiatric/Neurological: See HPI, Numbness, Weakness Endocrine: No Symptoms Reported (BIRD DIAZ MD) All Other Systems Reviewed Negative Unless Noted: Yes (BIRD DIAZ MD) Past Fgwgitf-Ewitzl-Gyzbqh Hx Past Med/Social Hx: Reviewed Nursing Past Med/Soc Hx (BIRD DIAZ MD) Patient Social History Alcohol Use: Denies Use Recreational Drug Use: No Smoking Status: Former Smoker Type Used: Cigars, Cigarettes, Pipe Former Smoker, Quit: Aug 04, 1980 Recent Foreign Travel: No Contact w/Someone Who Travel: No Recent Infectious Disease Expo: No Recent Hopitalizations: No Physical Abuse: No Sexual Abuse: No Mistreated: No Fear: No (IBRD DIAZ MD) Immunizations Up To Date Tetanus Booster (TDap): Less than 5yrs PED Vaccines UTD: No Date of Pneumonia Vaccine: Nov 23, 2018 Date of Influenza Vaccine: Nov 23, 2018 (BIRD DIAZ MD) Seasonal Allergies Seasonal Allergies: No (BIRD DIAZ MD) Past Medical History Surgeries: Yes (KIDNEY STONES REMOVED) Adenoidectomy, Cardiac, CABG, Gallbladder, Renal, Tonsillectomy Respiratory: Yes Asthma, Pneumonia, COPD Cardiac: Yes (CABG x 3 2007) Angina, Cardiomyopathy, Coronary Artery Disease, High Cholesterol, Hypertension Neurological: Yes Dementia, Parkinson's Disease Reproductive Disorders: No Genitourinary: Yes (OVERACTIVE BLADDER) Kidney Stones Gastrointestinal: No Musculoskeletal: Yes (UNSTEADY ON FEET, USES WALKER, GEN MUSCLE WEAKNESS, DYSPHAGIA ) Arthritis Endocrine: Yes Diabetes, Insulin dep HEENT: Yes Cataract, Dysphagia Loss of Vision: Denies Hearing Impairment: Hard of Hearing Cancer: No Psychosocial: No Integumentary: No Blood Disorders: No Adverse Reaction/Blood Tranf: No (BIRD DIAZ MD) Family Medical History Reviewed Nursing Family Hx (BIRD DIAZ MD) No Pertinent Family Hx (BIRD DIAZ MD) Physical Exam Vital Signs Vital Signs - First Documented 06/15/19 06/15/19 17:12 19:54 Temp 99.1 Pulse 70 Resp 20 B/P (MAP) 126/75 (92) Pulse Ox 95 O2 Delivery Room Air (KAT LANCASTER MD) Vital Signs Capillary Refill : Less Than 3 Seconds (BIRD DIAZ MD) Height, Weight, BMI Height: 6'0" Weight: 230lbs. 4.8oz. 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.) Neurologic/Psychiatric: alert, normal mood/affect, other (alert and oriented to person, place and time with the exception of year but does know his birthday.) Crainal Nerves: normal hearing, normal speech, PERRL Coordination/Gait: normal finger to nose Motor/Sensory: no pronator drift, sensory deficit (states decreased sensation to the left upper and lower extremities.) Skin: normal color, warm/dry (BIRD DIAZ MD) Stroke NIH Stroke Scale Assessment Level of Consciousness: 0=Alert (0), Level of Consciousness-Questions: 0=Answers both month/age (0), LOC Commands: 0=Performs both tasks (0), Visual Giles: 0=No visual loss (0), Facial Movement (Facial Paresis): 0=Normal symmetrical mnt (0), Motor Function-Arms Right: 0=No drift (0), Motor Function-Arms Left: 0=No drift (0), Motor Function-Legs Right: 0=No drift (0), Motor Function-Legs Left: 0=No drift (0), Limb Ataxia: 0=Absent (0), Sensory: 1=Mild to Moderate loss (1), Best Language: 0=No aphasia (0), Dysarthria: 0=Normal (0), Extinction & Inattention: 0=No abnormality (0), Total: Progress/Results/Core Measures Results/Orders Lab Results Laboratory Tests Test 06/15/19 17:25 06/15/19 17:26 06/15/19 19:18 Range/Units White Blood Count 5.4 4.3-11.0 10^3/uL Red Blood Count 4.72 4.35-5.85 10^6/uL Hemoglobin 14.0 13.3-17.7 G/DL Hematocrit 42 40-54 % Mean Corpuscular Volume 90 80-99 FL Mean Corpuscular Hemoglobin 30 25-34 PG Mean Corpuscular Hemoglobin Concent 33 32-36 G/DL Red Cell Distribution Width 14.2 10.0-14.5 % Platelet Count 158 130-400 10^3/uL Mean Platelet Volume 11.0 H 7.4-10.4 FL Neutrophils (%) (Auto) 57 42-75 % Lymphocytes (%) (Auto) 32 12-44 % Monocytes (%) (Auto) 8 0-12 % Eosinophils (%) (Auto) 3 0-10 % Basophils (%) (Auto) 0 0-10 % Neutrophils # (Auto) 3.1 1.8-7.8 X 10^3 Lymphocytes # (Auto) 1.7 1.0-4.0 X 10^3 Monocytes # (Auto) 0.4 0.0-1.0 X 10^3 Eosinophils # (Auto) 0.2 0.0-0.3 10^3/uL Basophils # (Auto) 0.0 0.0-0.1 10^3/uL Prothrombin Time 13.1 12.2-14.7 SEC INR Comment 1.0 0.8-1.4 Activated Partial Thromboplast Time 27 24-35 SEC D-Dimer 0.80 H 0.00-0.49 UG/ML Sodium Level 140 135-145 MMOL/L Potassium Level 4.2 3.6-5.0 MMOL/L Chloride Level 105 98-107 MMOL/L Carbon Dioxide Level 23 21-32 MMOL/L Anion Gap 12 5-14 MMOL/L Blood Urea Nitrogen 15 7-18 MG/DL Creatinine 1.08 0.60-1.30 MG/DL Estimat Glomerular Filtration Rate > 60 BUN/Creatinine Ratio 14 Glucose Level 267 H 70-105 MG/DL Calcium Level 9.8 8.5-10.1 MG/DL Corrected Calcium 9.8 8.5-10.1 MG/DL Total Bilirubin 0.7 0.1-1.0 MG/DL Aspartate Amino Transf (AST/SGOT) 24 5-34 U/L Alanine Aminotransferase (ALT/SGPT) 12 0-55 U/L Alkaline Phosphatase 79 40-136 U/L Troponin I < 0.028 <0.028 NG/ML Total Protein 6.7 6.4-8.2 GM/DL Albumin 4.0 3.2-4.5 GM/DL Glucometer 263 H 70-110 MG/DL Urine Color YELLOW Urine Clarity CLEAR Urine pH 7 5-9 Urine Specific [place] 1.005 L 1.016-1.022 Urine Protein 1+ H NEGATIVE Urine Glucose (UA) 4+ H NEGATIVE Urine Ketones NEGATIVE NEGATIVE Urine Nitrite NEGATIVE NEGATIVE Urine Bilirubin NEGATIVE NEGATIVE Urine Urobilinogen NORMAL NORMAL MG/DL Urine Leukocyte Esterase NEGATIVE NEGATIVE Urine RBC (Auto) NEGATIVE NEGATIVE Urine RBC NONE /HPF Urine WBC NONE /HPF Urine Squamous Epithelial Cells RARE /HPF Urine Crystals NONE /LPF Urine Bacteria TRACE /HPF Urine Casts NONE /LPF Urine Mucus NEGATIVE /LPF Urine Culture Indicated NO (KAT LANCASTER MD) My Orders Orders - KAT LANCASTER MD Albuterol/Ipra Inhalation Soln (Duoneb I (06/15/19 19:45) Svn Small Volume Nebulizer (06/15/19 19:41) Aspirin Enteric Coated Tablet (Ecotrin T (06/15/19 19:45) Carbidopa/Levodopa 25/100 (Sinemet 25/10 (06/15/19 20:00) (KAT LANCASTER MD) Medications Given in ED Current Medications Medications Dose Ordered Sig/Anoop Route Start Time Stop Time Status Last Admin Dose Admin Albuterol/ Ipratropium 3 ml ONCE ONCE INH 06/15/19 19:45 06/15/19 19:46 DC 06/15/19 19:52 3 ML Iohexol 100 ml ONCE ONCE IV 06/15/19 17:45 06/15/19 17:46 DC 06/15/19 17:55 75 ML Sodium Chloride 10 ml NEEDED PRN IV 06/15/19 17:45 06/15/19 17:55 10 ML Sodium Chloride 100 ml ONCE ONCE IV 06/15/19 17:45 06/15/19 17:46 DC 06/15/19 17:55 80 ML Sodium Chloride 1,000 ml @ 0 mls/hr Q0M ONCE IV 06/15/19 17:38 06/15/19 17:41 DC 06/15/19 18:09 0 MLS/HR (KAT LANCASTER MD) Vital Signs/I&O 06/15/19 06/15/19 17:12 19:54 Temp 99.1 Pulse 70 Resp 20 B/P (MAP) 126/75 (92) Pulse Ox 95 96 O2 Delivery Room Air (KAT LANCASTER MD) Blood Pressure Mean: 92 iStat Bedside Lab Testing Sodium (Na): 140.00 Potassium (K): 4.20 Chloride (CI): 103.00 TCO2: 26.00 Glucose (Glu): 266.00 Urea Nitrogen (BUN)/Urea: 16.00 Creatinine (Crea): 1.00 Anion Gap*: 16.00 (BIRD DIAZ MD) FSBG Bedside Testing Finger Stick Blood Glucose: 263 (BIRD DIAZ MD) Progress Progress Note : Progress Note Seen and evaluated on arrival by EMS. Taken directly to CT on EMS cot after evaluating airway and reevaluation the patient. On return from CT, continuation of evaluation. Stroke team activation from the field. IV established in the field. Labs, EKG, chest x-ray, CT head and i-STAT ordered. Stroke scale 1 due to sensation on the left that is decreased but otherwise no significant acute findings. Patient states that his symptoms are resolving somewhat. TPA not indicated at this point due to low stroke scale and improving symptoms. This was discussed with the patient who agrees. CT angiogram head and neck ordered. 1810: Care transferred to Dr. Powell pending CT angios study. We will give liter of normal saline after CT angiogram. Monitor patient. (BIRD DIAZ MD) Progress Note : Time: 20:04 Progress Note Care of this patient was assumed from Dr. Diaz at shift change. History was reviewed with him. Labs were reviewed along with imaging. CT angiogram results returned and were negative for large vessel occlusion. Patient provided a UA which was unremarkable for infection. I attempted to get the patient up to ambulate. He required significant assistance to get to his feet. He normally uses a lift chair at home. He was then unable to make forward progression even with 2 person assist. Patient is normally able to ambulate to the restroom on h is own with a walker. Although no focal unilateral deficits were measured on the NIH or my exam, patient states he still feels weak on the left side and that is affecting his walking. Patient is receiving the balance of his aspirin dose. Plavix and Aggrenox are being avoided at this time due to history of severe ulcer problems on these medications in the past. His family states these are to be avoided. Family was quite concerned about missing his carbidopa/levodopa dose. A dose is being administered in the ER. Patient also is wheezing and needs a DuoNeb treatment. That is being administered now. I discussed CODE STATUS with patient. He wishes to have a full CODE STATUS. Case was discussed with Dr. Pozo who is covering calls for Dr. Washburn who is temporarily unavailable. Patient is being admitted to Dr. Washburn's service. Dysphagia screen is being performed before oral medications are given. (KAT LANCASTER MD) Initial ECG Impression Date: Jun 15, 2019 Initial ECG Impression Time: 17:24 Initial ECG Rate: 71 Initial ECG Rhythm: Normal Sinus Comment Sinus rhythm with left axis deviation. Left anterior fascicular block noted. No evidence of ST elevation SC. Similar to previous of 03/21/19. Interpreted by me. (BIRD DIAZ MD) Diagnostic Imaging Diagonstic Imaging: CT Comments [facility]. [place], [place] NAME: STEPHAN NÚÑEZ [facility] REC#: [id number] PT STATUS: REG ER : 1940 PHYSICIAN: BIRD DIAZ MD ADMIT DATE: 06/15/19/ER Draft Date of Exam:06/15/19 CT HEAD WO-R/O STROKE PROCEDURE: CT head without contrast, r/o stroke. TECHNIQUE: Multiple contiguous axial images were obtained through the brain without the use of intravenous contrast. Auto Exposure Controls were utilized during the CT exam to meet ALARA standards for radiation dose reduction. INDICATION: Left-sided weakness. Stroke protocol. COMPARISON: Multiple priors, most recent performed on 03/22/2019. FINDINGS: CT BRAIN: No parenchymal hemorrhage, midline shift or mass effect. Ball-white matter differentiation is intact. No acute infarct. Mild periventricular and subcortical low-density white matter changes. Severe prominence of the ventricles and sulci is unchanged consistent with cortical and cerebellar parenchymal volume loss. EXTRA-AXIAL SPACES: No subdural or epidural collections. ORBITS AND PARANASAL SINUSES: Visualized orbits and globes are intact. Visualized paranasal sinuses and mastoid air cells are clear. CALVARIUM AND SOFT TISSUES: The calvarium is intact. No fractures or suspicious bony lesions. The extracranial soft tissues are unremarkable. IMPRESSION: No acute intracranial pathology. No significant change from prior. Dictated on workstation # [id number] Dict: 06/15/19 1725 Trans: 06/15/19 1729 PJE [id number] Interpreted by: MOJGAN HUTCHINS DO Electronically signed by: Reviewed: Reviewed by Me Diagonstic Imaging: Xray Plain Films/CT/US/NM/MRI: chest Comments NAME: STEPHAN NÚÑEZ [facility] REC#: [id number] PT STATUS: REG ER : 1940 PHYSICIAN: BIRD DIAZ MD ADMIT DATE: 06/15/19/ER Draft Date of Exam:06/15/19 CHEST 1 VIEW, AP/PA ONLY EXAMINATION: Single frontal view of chest. INDICATION: Stroke protocol. Left-sided weakness. COMPARISON: Multiple priors, the most recent performed on 03/21/2019. FINDINGS: Low lung volumes are demonstrated. There is linear scarring/atelectasis in the left lung base. No pneumothorax or large pleural effusion. There is unchanged cardiomegaly. The patient is status post median sternotomy, with wires appearing intact. No acute osseous abnormality is appreciated. IMPRESSION: Mild left basilar atelectasis/scarring. Otherwise, no acute chest disease and no significant change from prior. Dictated on workstation # [id number] Dict: 06/15/19 1805 Trans: 06/15/19 1811 KB [id number] Interpreted by: MOJGAN HUTCHINS DO Electronically signed by: (BIRD DIAZ MD) Diagonstic Imaging: CT Plain Films/CT/US/NM/MRI: other (angiogram head and neck) Comments CT angiogram head and neck report reviewed. See report below: NAME: STEPHAN NÚÑEZ [facility] REC#: [id number] PT STATUS: REG ER : 1940 PHYSICIAN: BIRD DIAZ MD ADMIT DATE: 06/15/19/ER Draft Date of Exam:06/15/19 CT ANGIO HEAD/NECK PROCEDURE: CT angiography of the head and CT angiography of the neck with and without contrast. TECHNIQUE: Contiguous noncontrast images were obtained from the skull base through the vertex. After intravenous contrast administration, helical CT angiography of the neck was performed. Source data was reformatted into multiple MIP projections. Delayed post contrast acquisition was also obtained. Auto Exposure Controls were utilized during the CT exam to meet ALARA standards for radiation dose reduction. INDICATION: Left-sided weakness. Stroke protocol. COMPARISON: Head CT also performed today. FINDINGS: CTA NECK: Aorta: Aortic arch is normal, with standard three vessel branching pattern. Anterior Circulation: The origin of the bilateral common carotid arteries are patent. No stenosis of the common carotid arteries in the neck. No significant stenosis of the internal carotid arteries per NASCET criteria. The cervical segments of the bilateral ICAs are patent. The proximal external carotid arteries are patent and without significant stenosis. Posterior Circulation: Origins of the bilateral vertebral arteries are normal. The left vertebral artery is dominant. The proximal extraosseous, intraosseous, and distal extraosseous segments of the vertebral arteries are patent without dissection or stenosis. Non-vascular: No cervical lymphadenopathy. The airway is patent. No evidence of mucosal-based mass lesion in the pharynx. Thyroid is normal. Salivary glands are normal. There is marked multilevel degenerative change of the cervical spine. No concerning lesion in the cervical spine. CTA HEAD: Anterior Circulation: The distal internal carotid arteries are patent. The bilateral M1 and M2 segments of the middle cerebral arteries are patent and without stenosis. The bilateral M3 and M4 segments are symmetric in size and number. The anterior cerebral arteries are patent and without stenosis. Anterior communicating artery is patent. No saccular aneurysm in the anterior circulation. Posterior Circulation: The bilateral intracranial segments of the vertebral arteries are patent. The basilar artery is patent and without stenosis. The posterior cerebral arteries are patent. No saccular aneurysm in the posterior circulation. Post Contrast Head: No pathologic enhancement on delayed post-contrast enhancement. IMPRESSION: No intra-cranial major arterial occlusion, significant stenosis or aneurysm. No arterial occlusion or stenosis in the major neck arteries. Dictated on workstation # [id number] Dict: 06/15/19 1810 Trans: 06/15/19 1818 KB [id number] Interpreted by: MOJGAN HUTCHINS DO (KAT LANCASTER MD) Departure Communication (Admissions) Time/Spoke to Admitting Phy: 20:[address] Pozo who is covering for Dr. Washburn. Admission excepted on behalf of Dr. Washburn (KAT LANCASTER MD) Impression Primary Impression: Left-sided weakness Additional Impressions: Parkinsons COPD (chronic obstructive pulmonary disease) Qualified Codes: J44.9 - Chronic obstructive pulmonary disease, unspecified Debility Disposition: ADMITTED INPATIENT Condition: Improved Admissions Decision to Admit Reason: Admit from ER (General) Decision to Admit/Date: Jun 15, 2019 Time/Decision to Admit Time: 18:00 (KAT LANCASTER MD) Departure-Patient Inst. Referrals: FANG ROLLINS MD (PCP/Family) Primary Care Physician BIRD DIAZ MD Jun 15, 2019 17:58 KAT LANCASTER MD Jun 15, 2019 18:40
--- NOTE | 2019-06-15 18:04 | NUR ---
PT BACK FROM CT ANGOI AT THIS TIME.
--- NOTE | 2019-06-15 18:11 | Diagnostic Imaging Report ---
EXAMINATION: Single frontal view of chest. INDICATION: Stroke protocol. Left-sided weakness. COMPARISON: Multiple priors, the most recent performed on 03/21/2019. FINDINGS: Low lung volumes are demonstrated. There is linear scarring/atelectasis in the left lung base. No pneumothorax or large pleural effusion. There is unchanged cardiomegaly. The patient is status post median sternotomy, with wires appearing intact. No acute osseous abnormality is appreciated. IMPRESSION: Mild left basilar atelectasis/scarring. Otherwise, no radiographic evidence of acute chest disease and no significant change from prior. Dictated by: Dictated on workstation # [id number]
--- NOTE | 2019-06-15 18:18 | Diagnostic Imaging Report ---
PROCEDURE: CT angiography of the head and CT angiography of the neck with and without contrast. TECHNIQUE: Contiguous noncontrast images were obtained from the skull base through the vertex. After intravenous contrast administration, helical CT angiography of the neck was performed. Source data was reformatted into multiple MIP projections. Delayed post contrast acquisition was also obtained. Auto Exposure Controls were utilized during the CT exam to meet ALARA standards for radiation dose reduction. INDICATION: Left-sided weakness. Stroke protocol. COMPARISON: Head CT also performed today. FINDINGS: CTA NECK: Aorta: Aortic arch is normal, with standard three vessel branching pattern. Anterior Circulation: The origin of the bilateral common carotid arteries are patent. No stenosis of the common carotid arteries in the neck. No significant stenosis of the internal carotid arteries per NASCET criteria. The cervical segments of the bilateral ICAs are patent. The proximal external carotid arteries are patent and without significant stenosis. Posterior Circulation: Origins of the bilateral vertebral arteries are normal. The left vertebral artery is dominant. The proximal extraosseous, intraosseous, and distal extraosseous segments of the vertebral arteries are patent without dissection or stenosis. Non-vascular: No cervical lymphadenopathy. The airway is patent. No evidence of mucosal-based mass lesion in the pharynx. Thyroid is normal. Salivary glands are normal. There is marked multilevel degenerative change of the cervical spine. No concerning lesion in the cervical spine. There is mild scattered atelectasis in the visualized lung apices. CTA HEAD: Anterior Circulation: The distal internal carotid arteries are patent. The bilateral M1 and M2 segments of the middle cerebral arteries are patent and without stenosis. The bilateral M3 and M4 segments are symmetric in size and number. The anterior cerebral arteries are patent and without stenosis. Anterior communicating artery is patent. No saccular aneurysm in the anterior circulation. Posterior Circulation: The bilateral intracranial segments of the vertebral arteries are patent. The basilar artery is patent and without stenosis. The posterior cerebral arteries are patent. No saccular aneurysm in the posterior circulation. Post Contrast Head: No pathologic enhancement on delayed post-contrast enhancement. IMPRESSION: No intra-cranial major arterial occlusion, significant stenosis or aneurysm. No arterial occlusion or stenosis in the major neck arteries. Dictated by: Dictated on workstation # [id number]
[2019-06-15 19:24] LABS: BILIRUBIN,URINE NEGATIVE (NEGATIVE); CLARITY,URINE CLEAR; COLOR,URINE YELLOW; GLUCOSE, URINE (UA) 4+ (NEGATIVE); KETONES,URINE NEGATIVE (NEGATIVE); LEUKOCYTE ESTERASE ,URINE NEGATIVE (NEGATIVE); NITRITE,URINE NEGATIVE (NEGATIVE); PH,URINE 7 (5-9); PROTEIN,URINE 1+ (NEGATIVE); UROBILINOGEN,URINE NORMAL (NORMAL)
[2019-06-15 19:31] LABS: BACTERIA,URINE TRACE /HPF; SQUAMOUS EPITHELIAL CELL,UR RARE /HPF
[2019-06-15] MEDS ORDERED: ASPIRIN E.C. 81 MG (ECOTRIN) TAB PO ONE (19:45)
[2019-06-15] MEDS ORDERED: RT-ALBUTEROL/IPRATROPIUM 3 ML (DUONEB) VIAL INH ONE (19:45)
[2019-06-15] MEDS ORDERED: SINEMET 25/100 (CARBIDOPA/LEVODOPA) TAB PO ONE (20:00)
[2019-06-15 21:00] VITALS: BP 143/76
--- NOTE | 2019-06-15 21:00 | NUR ---
STEPHAN NÚÑEZ admitted to room 426-1, with an admitting diagnosis of LEFT SIDE WEAKNESS, on 06/15/19 from ED via STRETCHER, accompanied by ED STAFF. STEPHAN NÚÑEZ introduced to surroundings, call light, bed controls, phone, TV, temperature control, lights, meal times, smoking policy, visitor policy, side rail policy, bathrooms and showers. Patient Rights given to patient in the handbook. STEPHAN NÚÑEZ verbalizes understanding that [facility] is not responsible for the loss or damage to any personal effects or valuables that are kept in the patients posession during their hospitalization. The Patient Care Plans were discussed with the PTMAJOSTEPHAN Ford verbalizes understanding of Interdisciplinary Patient Education. Patient and/or family were informed about the Rapid Response Team and its purpose.
[2019-06-15] MEDS ORDERED: RT-ALBUTEROL/IPRATROPIUM 3 ML (DUONEB) VIAL INH PRN (22:00)
[2019-06-16 00:05] VITALS: BP 147/75
[2019-06-16 04:40] VITALS: BP 170/72
[2019-06-16 05:40] LABS: BASOPHILS % (AUTO) 0 % (0-10); EOSINOPHILS # (AUTO) 0.2 10^3/uL (0.0-0.3); EOSINOPHILS % (AUTO) 3 % (0-10); HEMATOCRIT 40 % (40-54); LYMPHOCYTES # (AUTO) 1.5 X 10^3 (1.0-4.0); LYMPHOCYTES % (AUTO) 26 % (12-44); MEAN CORPUSCULAR HEMOGLOBIN 29 PG (25-34); MEAN CORPUSCULAR HGB CONC 32 G/DL (32-36); MEAN CORPUSCULAR VOLUME 90 FL (80-99); MONOCYTES # (AUTO) 0.5 X 10^3 (0.0-1.0); MONOCYTES % (AUTO) 9 % (0-12); NEUTROPHILS # (AUTO) 3.7 X 10^3 (1.8-7.8); NEUTROPHILS % (AUTO) 63 % (42-75); PLATELET COUNT 137 10^3/uL (130-400); RED CELL DISTRIBUTION WIDTH 14.4 % (10.0-14.5); WHITE BLOOD COUNT 5.9 10^3/uL (4.3-11.0)
[2019-06-16 06:03] LABS: BUN/CREATININE RATIO 15; CALCIUM 9.5 MG/DL (8.5-10.1); CARBON DIOXIDE 25 MMOL/L (21-32); CHLORIDE 105 MMOL/L (98-107); CHOLESTEROL 77 MG/DL (< 200); CREATININE SERUM 0.93 MG/DL (0.60-1.30); GFR ESTIMATED > 60; GLUCOSE 221 MG/DL (70-105); HDL CHOLESTEROL 34 MG/DL (40-60); POTASSIUM 4.1 MMOL/L (3.6-5.0); SODIUM 138 MMOL/L (135-145); TRIGLYCERIDES 95 MG/DL (<150); VLDL CHOLESTEROL 19 MG/DL (5-40)
[2019-06-16 08:00] VITALS: BP 159/78
[2019-06-16] MEDS: RT-ALBUTEROL/IPRATROPIUM 3 ML (DUONEB) VIAL INH SCH ×2 (08:05→19:52)
[2019-06-16] MEDS: SINEMET 25/100 (CARBIDOPA/LEVODOPA) TAB PO SCH ×3 (08:41→21:14)
[2019-06-16] MEDS: ACETAMINOPHEN 500 MG TAB (TYLENOL) PO PRN (10:43)
--- NOTE | 2019-06-16 10:45 | NUR ---
TYLENOL 500MG PO FOR C/O KNEE PAIN.
--- NOTE | 2019-06-16 11:23 | History & Physical-Hospitalist ---
History of Present Illness HPI/Chief Complaint Patient is a 78-year-old male known to me from previous admissions who presented to the emergency department with a chief complaint of left-sided weakness. He reports that he was taking a nap yesterday and when he woke up around 330 p.m. he attempted to get up from his chair and fell. He says this is due to left-sided numbness and weakness. It continued to get worse prompting him to seek evaluation in the emergency department. On arrival to the emergency department his symptoms started to improve but he still has some tingling sensation in his left arm. CT head was negative for acute findings. He was admitted for further evaluation of possible stroke. He denies any slurred speech, facial droop, or incontinence. Source: patient Date Seen 06/16/19 Time Seen by a Provider: 10:40 Attending Physician Deisi Washburn MD PCP Felton Funes MD Referring Physician Date of Admission Jun 15, 2019 at 19:53 Home Medications & Allergies Home Medications Reviewed patient Home Medication Reconciliation performed by pharmacy medication reconciliations behavioral health technician and/or nursing. Patients Allergies have been reviewed. Allergies Allergies Coded Allergies Penicillins (Verified Allergy, Unknown, 05/01/12) Past Btqbcup-[id number]-Qahojr Hx Past Med/Social Hx: Reviewed Nursing Past Med/Soc Hx Patient Social History Alcohol Use: Denies Use Recreational Drug Use: No Smoking Status: Former Smoker (2008) Type Used: Cigars, Cigarettes, Pipe Recent Foreign Travel: No Contact w/other who traveled: No Recent Hopitalizations: No Recent Infectious Disease Expo: No Immunizations Up To Date Tetanus Booster (TDap): Less than 5yrs Pediatric: No Date of Pneumonia Vaccine: Nov 23, 2018 Date of Influenza Vaccine: Nov 23, 2018 Seasonal Allergies Seasonal Allergies: No Past Medical History Surgeries: Adenoidectomy, Cardiac, CABG, Gallbladder, Renal, Tonsillectomy Respiratory: COPD Cardiac: Angina, Cardiomyopathy, Coronary Artery Disease, High Cholesterol, Hypertension Neurological: Dementia, Parkinson's Disease Reproductive: No Genitourinary: Kidney Stones Musculoskeletal: Arthritis Endocrine: Diabetes, Insulin dep HEENT: Cataract, Dysphagia Loss of Vision: Denies Hearing Impairment: Hard of Hearing History of Blood Disorders: No Adverse Reaction to Blood Kirk: No Family History Reviewed Nursing Family Hx No Pertinent Family Hx Review of Systems Constitutional: No chills, No fever; weakness EENTM: no symptoms reported; No blurred vision, No double vision, No vision loss Respiratory: No cough, No dyspnea on exertion, No short of breath Cardiovascular: No chest pain, No edema; Hx of Intervention; No palpitations Gastrointestinal: No abdominal pain, No constipation, No loss of appetite, No nausea, No vomiting Genitourinary: no symptoms reported; No decreased output, No dysuria, No frequency Musculoskeletal: No back pain, No joint pain; muscle weakness Skin: no symptoms reported Psychiatric/Neurological: See HPI, Paresthesia, Weakness Physical Exam Physical Exam Vital Signs Vital Signs - First Documented 06/15/19 06/15/19 06/15/19 17:12 19:54 21:35 Temp 99.1 Pulse 70 Resp 20 B/P (MAP) 126/75 (92) Pulse Ox 95 O2 Delivery Room Air FiO2 21 Capillary Refill : Less Than 3 SecondsLess Than 3 Seconds Height, Weight, BMI Height: 6'1.50" Weight: 245lbs. 7.4oz. [id number]; 31.8 BMI Method:Stated General Appearance: No Apparent Distress, Chronically ill, Obese HEENT: PERRL/EOMI, Moist Mucous Membranes; No Scleral Icterus (L), No Scleral Icterus (R) Neck: Normal Inspection, Supple; No Thyromegaly Respiratory: Lungs Clear, No Accessory Muscle Use, No Respiratory Distress Cardiovascular: Regular Rate, Rhythm, No JVD, No Murmur Gastrointestinal: Normal Bowel Sounds, Non Tender, Soft Extremity: Normal Capillary Refill, Non Tender, No Calf Tenderness, Swelling (trace to ankes bilaterally) Neurologic/Psychiatric: Alert, Oriented x3, Normal Mood/Affect; No Aphasia, No Facial Droop, No Sensory Deficit Skin: Normal Color, Warm/Dry Results Results/Procedures Labs Laboratory Tests 06/15/19 17:25 06/16/19 04:53 Patient resulted labs reviewed. 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
[2019-06-16] MEDS ORDERED: meTOproloL SUCCINATE 50 MG (TOPROL XL) TAB PO ONE (11:26)
[2019-06-16] MEDS ORDERED: meTOproloL SUCCINATE 50 MG (TOPROL XL) TAB PO SCH (11:30)
[2019-06-16] MEDS: inSUlin ASPART (NovoLOG) 1 UNIT/0.01 ML (CHARGE PER UNIT) SC SCH ×3 (11:35→21:14)
[2019-06-16 11:57] VITALS: BP 151/79
[2019-06-16 15:32] VITALS: BP 144/61
[2019-06-16 19:32] VITALS: BP 134/63
[2019-06-16] MEDS: POLYETHYLENE GLYCOL 17 GM (MIRALAX) PACK PO SCH (21:12)
[2019-06-16] MEDS: ATORVASTATIN 10 MG (LIPITOR) TABLET PO SCH (21:14)
[2019-06-17 00:59] VITALS: BP 133/70
[2019-06-17 04:00] VITALS: BP 143/71
[2019-06-17] MEDS: inSUlin ASPART (NovoLOG) 1 UNIT/0.01 ML (CHARGE PER UNIT) SC SCH ×4 (06:13→20:58)
--- NOTE | 2019-06-17 07:40 | NUR ---
Pastoral Consult received to facilitate conversation about advanced directives: Pt is slightly hard of hearing. He was eating breakfast and so this ehs engineer briefly introduced self, engaged in rapport building and offered to return at a more convenient time. Pt welcomed a return visit. MIRANDA Wellington states she has not observed any family present since the beginning of her shift today.
[2019-06-17 08:00] VITALS: BP 160/79
[2019-06-17] MEDS: RT-ALBUTEROL/IPRATROPIUM 3 ML (DUONEB) VIAL INH SCH ×2 (08:13→19:45)
[2019-06-17] MEDS: SINEMET 25/100 (CARBIDOPA/LEVODOPA) TAB PO SCH ×3 (08:36→20:58)
[2019-06-17] MEDS: ASPIRIN E.C. 81 MG (ECOTRIN) TAB PO SCH (08:36)
[2019-06-17] MEDS: POLYETHYLENE GLYCOL 17 GM (MIRALAX) PACK PO SCH ×2 (08:36→20:58)
[2019-06-17] MEDS: meTOproloL SUCCINATE 50 MG (TOPROL XL) TAB PO SCH (08:36)
[2019-06-17] MEDS ORDERED: CARB1TAB41 PO (09:57)
[2019-06-17] MEDS ORDERED: MEMA10TA22 PO (09:57)
[2019-06-17] MEDS ORDERED: SILO8CAP6 PO (09:57)
--- NOTE | 2019-06-17 10:12 | Physical Therapy Evaluation ---
PT Evaluation-General Medical Diagnosis Admission Date Jun 15, 2019 at 19:53 Medical Diagnosis: left sided weakness and parkinson's Onset Date: Jun 15, 2019 Therapy Diagnosis Therapy Diagnosis: impaired mobility, strength, endurance, balance Height/Weight Height (Feet): 6 Height (Inches): 1.50 Weight (Pounds): 245 Weight (Ounces): 7.4 Precautions Precautions/Isolations: Fall Prevention, Standard Precautions Referral Physician: Khloe Washburn MD Reason for Referral: Evaluation/Treatment Medical History Pertinent Medical History: Arthritis, CABG, CAD, COPD, DM, Dementia, HTN, Smoking Additional Medical History Past Medical History Surgeries: Yes (KIDNEY STONES REMOVED) Adenoidectomy, Cardiac, CABG, Gallbladder, Renal, Tonsillectomy Respiratory: Yes Asthma, Pneumonia, COPD Cardiac: Yes (CABG x 3 2008) Angina, Cardiomyopathy, Coronary Artery Disease, High Cholesterol, Hypertension Neurological: Yes Dementia, Parkinson's Disease Reproductive Disorders: No Genitourinary: Yes (OVERACTIVE BLADDER) Kidney Stones Gastrointestinal: No Musculoskeletal: Yes (UNSTEADY ON FEET, USES WALKER, GEN MUSCLE WEAKNESS, DYSPHAGIA ) Arthritis Endocrine: Yes Diabetes, Insulin dep HEENT: Yes Cataract, Dysphagia Loss of Vision: Denies Hearing Impairment: Hard of Hearing Reviewed History: Yes Social History Home: Single Level Current Living Status: Spouse Entry Into Home: Stairs With Railing PT Steps Into Home: 2 Prior/Core FIM Prior Level of Function Therapy Code Descriptions/Definitions Functional [place] Measure: 0=Not Assessed/NA 4=Minimal Assistance 1=Total Assistance 5=Supervision or Setup 2=Maximal Assistance 6=Modified [place] 3=Moderate Assistance 7=Complete [place] Therapy Quality Codes: 6 Independent with activity with or without an assistive device 5 Patient requires set up or clean up by helper. Patient completes activity by themselves 4 Supervision or touching assist (CGA). Eunice provide cues , steadying assist 3 The helper provides less than half the effort to complete the activity 2 The helper provides more than half the effort to complete the activity 1 Dependent. The helper does all the effort to complete an activity 7 Patient refused to complete or attempt activity 9 The patient did not perform the activity before the current illness or injury 88 Not attempted due to Medical conditions or safety concerns Functional Abilities and Goals: Independent: Patient completed the activities by him/herself, with or without an assistive device, with no assistance from a helper. Needed Some Help: Patient needed partial assistance from another person to complete activities. Dependent: A helper completed the activities for the patient. Unknown: Not Applicable: Bed Mobility: 6 Transfers (B,C,W/C) (FIM): 6 Gait: 6 Stairs: 6 Indoor Mobility (Ambulation): Independent Stairs: Independent Patient states he was using a rolling walker previously. PT Evaluation-Current Subjective Patient in bed pre tx, agrees to PT, has no complaints of pain. Pt/Family Goals "to get my left side stronger, it is kind of weak" Objective Patient Orientation: Person, Place, Situation ROM/Strength ROM Lower Extremities WNL Strength Lower Extremities LLE (hip flexion 3/5, knee flexion 3+/5, knee extension 4/5, dorsiflexion 4/5), RLE (hip flexion 3/5, knee flexion 3+/5, knee extension 4/5, dorsiflexion 4/5), both legs roughly equal with MMT Sensory Hearing: Functional Sensation Right Lower Extremit: Intact Sensation Left Lower Extremity: Impaired Sensation Lower Extremities Patient has intact light touch sensation in his LLE but he reports it is diminished. Transfers Therapy Code Descriptions/Definitions Functional [place] Measure: 0=Not Assessed/NA 4=Minimal Assistance 1=Total Assistance 5=Supervision or Setup 2=Maximal Assistance 6=Modified [place] 3=Moderate Assistance 7=Complete [place] Transfers (B, C, W/C) (FIM): 3 Scootin Rollin Supine to/from Sit: 3 Sit to/from Stand: 3 bed t/f WC(FIM only if WC use): 4 Patient retropulsive in sitting, mod assist to supine <-> sit and to stand. Gait Mode of Locomotion: Walk Anticipated Mode of Locomotion: Walk Gait (FIM): 1 Distance: 3' Gait Level of Assist: 4 Gait Persons Needed: 1 Gait Assistive Device: FWW Comments/Gait Description Very shaky, unsteady Balance Sitting Static: Poor Sitting Dynamic: Poor Standing Static: Poor Standing Dynamic: Poor Treatment BLE seated exercises x15 (AP, LAQ) Assessment/Needs Patient has impaired mobility, strength, endurance. Strength in LLE was roughly equal to the right side. He is retropulsive in sitting. Patient in recliner post tx with nurse call, phone, tray, all needs met. Patient instructed to use nurse call if he needs to get back to bed. Rehab Potential: Fair PT Short Term Goals Short Term Goals Time Frame: Jun 24, 2019 Transfers (B,C,W/C) (FIM): 4 Gait (FIM): 2 Gait Distance Comment: 50' Gait Level of Assist: 4 Gait Assistive Device: FWW PT Plan Problem List Problem List: Activity Tolerance, Functional Strength, Safety, Balance, Gait, Transfer, Bed Mobility, ROM Treatment/Plan Treatment Plan: Continue Plan of Care Treatment Plan: Bed Mobility, Education, Functional Activity Samantha, Functional Strength, Gait, Safety, Therapeutic Exercise, Transfers Treatment Duration: Jun 24, 2019 Frequency: 6 times per week Estimated Hrs Per Day: .25 hour per day Patient and/or Family Agrees t: Yes Safety Risks/Education Patient Education: Gait Training, Transfer Techniques, Correct Positioning, Safety Issues Teaching Recipient: Patient Teaching Methods: Demonstration, Discussion Response to Teaching: Reinforcement Needed Discharge Recommendations Plan Patient will perform bed mobility and transfer training, balance and endurance training, functional strengthening, stair training, gait training, and education, to improve functional mobility and independence at home. Therapy D/C Recommendations: Home w/ Family Support, Fdc (TCU/NH) Time/GCodes Time In: 0950 Time Out: 1003 Total Billed Treatment Time: 13 Total Billed Treatment 1 visit LIZ 13' NATANAEL CLARK PT Jun 17, 2019 10:12
[2019-06-17 12:00] VITALS: BP 145/74
--- NOTE | 2019-06-17 14:34 | Progress Note - Hospitalist ---
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 He was admitted after presenting with left-sided weakness. Scanning workup showed no evidence of stroke. He reports that he lives at home with the assistance of his and his daughter. He is able to walk only to the bathroom which is less t shepard 20 feet. Otherwise he is bed and chair bound or up in the wheelchair. Physical exam: He is alert and apparently oriented. Lungs are clear to auscultation. CV is regular without murmur. Extremities show the rigging up man and biceps on the left to be essentially equal to the right. He is able to do straight leg lift bilaterally and equally. Impression: Parkinson's disease. 2.severe disability as a result of Parkinson's disease. Plan: [facility] EL[facility]ABETH Otero MD Jun 17, 2019 14:34
[2019-06-17] MEDS ORDERED: INSU100V31 SC (16:07)
--- NOTE | 2019-06-17 16:08 | NUR ---
THE PATIENT IS UNABLE TO TELL ME ABOUT HIS MEDICATIONS. HE STATES HIS DAUGHTER HELPS HIM WITH THEM AND ASKED THAT I CALL HER. I HAVE LEFT A VOICEMAIL AND CALLED TWICE BUT HAVE NOT BEEN ABLE TO TALK WITH IRENE. I CALLED AND TALKED TO SAKINA, HIS . SHE REPORTS IRENE DOES SET UP HIS MEDICATIONS BUT SHE IS NOT AVAILABLE BY PHONE DURING THE WORK DAY. SHE STATES THEY GAVE A MED LIST TO THE EMERGENCY ROOM HOWEVER THERE IS NO ONE ON THE CHART OR SCANNED INTO THE RECORD. WE WENT OVER THE EXT MED HX AND SHE VERIFIED WHAT SHE IS SURE OF BUT IS UNSURE OF SEVERAL OTHER THINGS ON HIS PROFILE. HE WAS IN THE [facility] FROM 02-01-19 TO AROUND 04-02-19 SO SOME OF HIS MEDS HAVE NOT BEEN FILLED FOR AWHILE DUE TO THEY HAD THEM LEFT OVER FROM PREVIOUS. SHE STATES WHEN SHE AND HER DAUGHTER COME UP TO VISIT [facility] THEY WILL BRING THE LIST. I WILL UPDATE THE MED REC IN THE MORNING WITH THAT LIST. Addendum: 06/18/19 at 0940 by LE HIDALGO [facility] I RETRIEVED THE MED LIST FROM THE PATIENTS CHART THIS MORNING. IT IS THE DISCHARGE INSTRUCTIONS FROM [facility]. ACCORDING TO THE EXT MED HX RAPAFLO WAS MOST RECENTLY FILLED 8MG, IT WAS ON THE DISCHARGE INSTRUCTIONS 4MG. ALSO THE CARBIDOPA LEVODOPA WAS RECENTLY FILLED 50-200MG WHICH ON THE DISCHARGE INSTRUCTIONS IT WAS 25-100. I UPDATED THE DOSES ON THESE TWO MEDICATIONS. MOST OF THESE MEDS HAVE NOT BEEN FILLED RECENTLY. WHEN I SPOKE WITH HIS YESTERDAY SHE STATED THEY HAD SOME LEFT OVER FROM BEFORE HE WENT TO THE [facility]. SOME OF WHAT IS SHOWN ON THE EXT MED HX FROM [facility] WAS PROBABLY WHAT WAS FILLED IN THE [facility]. I UPDATED THE MED REC WITH THE LIST THEY BROUGHT IN BECAUSE I HAVE NOT HEARD BACK FROM THE DAUGHTER AND THE WAS NOT ABLE TO CLARIFY DETAILED INFORMATION.
--- NOTE | 2019-06-17 16:20 | NUR ---
IR[facility] Evaluation Order received to evaluate patient for the ARU. Chart review complete and findings discussed with Dr. Leija - patient accepted. It is noted the patient's primary insurance provider is [employer]; therefore, a prior authorization will need to be obtained prior to admission. CM/SS notified. Will continue to follow. Thank you for this referral.
[2019-06-17 16:35] VITALS: BP 122/57
[2019-06-17 20:47] VITALS: BP 128/65
[2019-06-17] MEDS: ATORVASTATIN 10 MG (LIPITOR) TABLET PO SCH (20:58)
[2019-06-18] VITALS (8 sets, daily range): BP systolic 127–164; BP diastolic 69–78
[2019-06-18] MEDS: inSUlin ASPART (NovoLOG) 1 UNIT/0.01 ML (CHARGE PER UNIT) SC SCH ×4 (06:05→21:01)
[2019-06-18] MEDS: meTOproloL SUCCINATE 50 MG (TOPROL XL) TAB PO SCH (08:47)
[2019-06-18] MEDS: SINEMET 25/100 (CARBIDOPA/LEVODOPA) TAB PO SCH ×3 (08:47→21:01)
[2019-06-18] MEDS: ASPIRIN E.C. 81 MG (ECOTRIN) TAB PO SCH (08:47)
[2019-06-18] MEDS: POLYETHYLENE GLYCOL 17 GM (MIRALAX) PACK PO SCH ×2 (08:48→21:01)
--- NOTE | 2019-06-18 09:03 | Physical Therapy Daily Note ---
PT Daily Note-Current Subjective Patient in bed pre tx, agrees to PT, voices no complaints of pain. Appearance Patient in recliner post tx with nurse call, phone, tray, all needs met. Mental Status Patient Orientation: Person, Place, Situation Transfers Therapy Code Descriptions/Definitions Functional [place] Measure: 0=Not Assessed/NA 4=Minimal Assistance 1=Total Assistance 5=Supervision or Setup 2=Maximal Assistance 6=Modified [place] 3=Moderate Assistance 7=Complete [place] Therapy Quality Codes: 6 Independent with activity with or without an assistive device 5 Patient requires set up or clean up by helper. Patient completes activity by themselves 4 Supervision or touching assist (CGA). Marshall provide cues , steadying assist 3 The helper provides less than half the effort to complete the activity 2 The helper provides more than half the effort to complete the activity 1 Dependent. The helper does all the effort to complete an activity 7 Patient refused to complete or attempt activity 9 The patient did not perform the activity before the current illness or injury 88 Not attempted due to Medical conditions or safety concerns Transfers (B, C, W/C) (FIM): 2 Scootin Rollin Supine to/from Sit: 2 Sit to/from Stand: 4 Bed to/from Chair: 4 Gait Training Gait (FIM): 1 Distance: 15' Gait Level of Assist: 4 Gait Persons Needed: 1 Gait Assistive Device: FWW Slow, very shaky, cues for direction, patient very fatigued after ambulation. Exercises Seated Therapy Exercises: Ankle pumps, Long arc quads, Hip flexion Seated Reps: 15 Treatments bed mobility and transfers, ambulation, LE exercise Assessment Current Status: Fair Progress Patient was able to ambulate a little more but he may not be able to accomplish much more due to Parkinson's PT Short Term Goals Short Term Goals Time Frame: Jun 24, 2019 Transfers (B,C,W/C) (FIM): 4 Gait (FIM): 2 Gait Distance Comment: 50' Gait Level of Assist: 4 Gait Assistive Device: FWW PT Plan Problem List Problem List: Activity Tolerance, Functional Strength, Safety, Balance, Gait, Transfer, Bed Mobility, ROM Treatment/Plan Treatment Plan: Continue Plan of Care Treatment Plan: Bed Mobility, Education, Functional Activity Samantha, Functional Strength, Gait, Safety, Therapeutic Exercise, Transfers Treatment Duration: Jun 24, 2019 Frequency: 6 times per week Estimated Hrs Per Day: .25 hour per day Patient and/or Family Agrees t: Yes Safety Risks/Education Patient Education: Gait Training, Transfer Techniques, Correct Positioning, Safety Issues Teaching Recipient: Patient Teaching Methods: Demonstration, Discussion Response to Teaching: Reinforcement Needed Time/GCodes Time In: 0845 Time Out: 0859 Total Billed Treatment Time: 14 Total Billed Treatment 1 visit FA 14' NATANAEL CLARK PT Jun 18, 2019 09:03
[2019-06-18] MEDS ORDERED: ACET-2267 PO (09:33)
[2019-06-18] MEDS ORDERED: FLUT12AE4 IH (09:33)
[2019-06-18] MEDS: RT-ALBUTEROL/IPRATROPIUM 3 ML (DUONEB) VIAL INH SCH (09:33)
[2019-06-18] MEDS ORDERED: POTA10TA36 PO (09:33)
[2019-06-18] MEDS ORDERED: DEXT15DR23 OU (09:33)
[2019-06-18] MEDS ORDERED: OMEP20CA13 PO (09:33)
[2019-06-18] MEDS ORDERED: IPRA3AMP31 NEB (09:33)
--- NOTE | 2019-06-18 09:45 | NUR ---
IR[facility] Prior authorization process initiated with [employer] - awaiting determination. Will continue to follow.
--- NOTE | 2019-06-18 11:27 | Occupational Therapy Eval ---
OT Evaluation-General/PLF Medical Diagnosis Admission Date Jun 15, 2019 at 19:53 Medical Diagnosis: left sided weakness and parkinson's Onset Date: Jun 15, 2019 Therapy Diagnosis Therapy Diagnosis: impaired self care skills Height/Weight Height (Feet): 6 Height (Inches): 1.50 Weight (Pounds): 245 Weight (Ounces): 7.4 Precautions Precautions/Isolations: Fall Prevention Safety Interventions: None Referral Physician: Khloe Washburn MD Medical History Pertinent Medical History: Arthritis, CABG, CAD, COPD, DM, Dementia, HTN, Smoking Additional Medical History high cholesterol, Parkinson's, kidney stones, [place]ER Current History Pt presented to hospital with c/o left side weakness Reviewed History: Yes Social History Home: Single Level Current Living Status: Spouse Entry Into Home: Ramp, Stairs With Railing Steps Into Home: 2 ADL-Prior Level of Function Therapy Code Descriptions/Definitions Functional [place] Measure: 0=Not Assessed/NA 4=Minimal Assistance 1=Total Assistance 5=Supervision or Setup 2=Maximal Assistance 6=Modified [place] 3=Moderate Assistance 7=Complete [place] Therapy Quality Codes: 6 Independent with activity with or without an assistive device 5 Patient requires set up or clean up by helper. Patient completes activity by themselves 4 Supervision or touching assist (CGA). Rodney provide cues , steadying assist 3 The helper provides less than half the effort to complete the activity 2 The helper provides more than half the effort to complete the activity 1 Dependent. The helper does all the effort to complete an activity 7 Patient refused to complete or attempt activity 9 The patient did not perform the activity before the current illness or injury 88 Not attempted due to Medical conditions or safety concerns Functional Abilities and Goals: Independent: Patient completed the activities by him/herself, with or without an assistive device, with no assistance from a helper. Needed Some Help: Patient needed partial assistance from another person to complete activities. Dependent: A helper completed the activities for the patient. Unknown: Not Applicable: ADL PLOF Comments Pt initially reports being independent, but through discussion during session pt states kaveh is his SKIL worker and assists with bathing and cage loader. Pt unsure how many hours per week grandmarie assists. Pt reports walking short distances with FWW. Minimal activity level, spends most of the day in his chair. Self Care: Needed Some Help Functional Cognition: Unknown DME/Equipment: Bath Chair, Grab Bars, Tub/Shower Drive Self: No OT Current Status Subjective Pt sitting in chair, agrees to therapy. Pt has no reports of pain. Mental Status/Objective Patient Orientation: Person, Place Current Hand Dominance: Right Upper Extremity ROM Grossly functional Upper Extremity Coordination decreased secondary to tremors Upper Extremity Strength generalized weakness, but grossly equal ADL-Treatment ADL-Current Pt completed ADL tasks while seated in chair. Oral care completed with SBA. Upper body bathing completed with SBA. Pt able to wash bilateral upper legs and ramsey area. Assist required to wash lower legs/feet and buttocks. Donned hospital gown with minimal assistance. Pt required max assist to doff/don socks. Sit to stand with moderate assistance. Pt initially retropulsive in standing. Pt fatigues quickly with activity and requires rest breaks throughout ADL tasks. Increased time for completion. Pt sitting in chair with needs met after session. Therapy Code Descriptions/Definitions Functional [place] Measure: 0=Not Assessed/NA 4=Minimal Assistance 1=Total Assistance 5=Supervision or Setup 2=Maximal Assistance 6=Modified [place] 3=Moderate Assistance 7=Complete [place] Therapy Quality Codes: 6 Independent with activity with or without an assistive device 5 Patient requires set up or clean up by helper. Patient completes activity by themselves 4 Supervision or touching assist (CGA). Rodney provide cues , steadying assist 3 The helper provides less than half the effort to complete the activity 2 The helper provides more than half the effort to complete the activity 1 Dependent. The helper does all the effort to complete an activity 7 Patient refused to complete or attempt activity 9 The patient did not perform the activity before the current illness or injury 88 Not attempted due to Medical conditions or safety concerns Grooming (FIM): 5 Bathing (FIM): 3 Lower Body Dressing (FIM): 2 Education OT Patient Education: Rehab process Teaching Recipient: Patient Teaching Methods: Discussion Response to Teaching: Verbalize Understanding, Reinforcement Needed OT Short Term Goals Short Term Goals Transfers (B,C,W/C) (FIM): 4 1=Demonstrate adherence to instructed precautions during ADL tasks. 2=Patient will verbalize/demonstrate understanding of assistive devices/modifications for ADL. 3=Patient will improve strength/tolerance for activity to enable patient to perform ADL's. OT Longterm Goals Elevated Work Platform Operator Goals Time Frame: Jul 02, 2019 Bathing(FIM): 4 Upper Body Dressing(FIM): 5 Lower Body Dressing(FIM): 4 Toileting(FIM): 5 Toilet/Commode Transfer(FIM): 5 Additional Goals: 1-Demonstrate ADL Tasks, 2-Verbalize Understanding, 3-ImproveStrength/Samantha 1=Demonstrate adherence to instructed precautions during ADL tasks. 2=Patient will verbalize/demonstrate understanding of assistive devices/modifications for ADL. 3=Patient will improve strength/tolerance for activity to enable patient to perform ADL's. OT Education/Plan Problem List/Assessment Assessment: Decreased Activ Tolerance, Decreased UE Strength, Dependent Transfers, Impaired Coordination, Impaired Funct Balance, Impaired Self-Care Skills Pt to benefit from skilled OT intervention for ADL training, transfers, strengthening, and safety education to increase level of independence and allow safe discharge plan. Discharge Recommendations Plan/Recommendations: Continue POC Treatment Plan/Plan of Care Treatment,Training & Education: Yes Patient would benefit from OT for education, treatment and training to promote independence in ADL's, mobility, safety and/or upper extremity function for ADL's. Plan of Care: ADL Retraining, Functional Mobility, UE Funct Exercise/Act Treatment Duration: Jul 02, 2019 Frequency: 5 times per week Estimated Hrs Per Day: .25 hour per day Rehab Potential: Fair Time/GCodes Start Time: 10:08 Stop Time: 10:33 Total Time Billed (hr/min): 25 Billed Treatment Time 1 visit, EVM(10minutes), ADL(15minutes) FANTA ALEX OT Jun 18, 2019 11:27
--- NOTE | 2019-06-18 16:43 | Progress Note - Hospitalist ---
Progress Note Progress Notes/Assess & Plan Date Seen 06/18/19 Time Seen by Provider: 16:39 Assessment & Plan The patient remains very limited physically. When I asked him to sit up in order that I might auscultate posteriorly I had to DEVOTE significant effort to assist him. He had no particular complaints. Physical exam: He is quite pleasant. Lungs are clear to auscultation. CV is regular without murmur. General muscle tone is poor and he seems quite stable. Impression: Parkinson's disease. 2.severe physical deTUNING and minimum ability to participate in activities of daily living. Plan: Continue physical therapy. Await Medicare advantage RE: Inpatient rehabilitation. ELIZABETH KAUFFMAN MD Jun 18, 2019 16:43
[2019-06-18] MEDS: ATORVASTATIN 10 MG (LIPITOR) TABLET PO SCH (21:01)
[2019-06-18] MEDS: ACETAMINOPHEN 500 MG TAB (TYLENOL) PO PRN (21:06)
[2019-06-19 03:39] VITALS: BP 139/66
[2019-06-19] MEDS: ACETAMINOPHEN 500 MG TAB (TYLENOL) PO PRN (03:53)
[2019-06-19] MEDS: inSUlin ASPART (NovoLOG) 1 UNIT/0.01 ML (CHARGE PER UNIT) SC SCH ×2 (05:44→11:00)
[2019-06-19 08:00] VITALS: BP 144/79
[2019-06-19] MEDS: POLYETHYLENE GLYCOL 17 GM (MIRALAX) PACK PO SCH (09:15)
[2019-06-19] MEDS: ASPIRIN E.C. 81 MG (ECOTRIN) TAB PO SCH (09:15)
[2019-06-19] MEDS: meTOproloL SUCCINATE 50 MG (TOPROL XL) TAB PO SCH (09:15)
[2019-06-19] MEDS: SINEMET 25/100 (CARBIDOPA/LEVODOPA) TAB PO SCH ×2 (09:15→13:36)
--- NOTE | 2019-06-19 10:26 | Progress Note - Hospitalist ---
Subjective HPI/CC On Admission Date Seen by Provider: Jun 19, 2019 Time Seen by Provider: 10:00 Patient is a 78-year-old male known to me from previous admissions who presented to the emergency department with a chief complaint of left-sided weakness. He reports that he was taking a nap yesterday and when he woke up around 330 p.m. he attempted to get up from his chair and fell. He says this is due to left-sided numbness and weakness. It continued to get worse prompting him to seek evaluation in the emergency department. On arrival to the emergency department his symptoms started to improve but he still has some tingling sensation in his left arm. CT head was negative for acute findings. He was admitted for further evaluation of possible stroke. He denies any slurred speech, facial droop, or incontinence. Objective Exam Vital Signs Vital Signs Date Time Temp Pulse Resp B/P (MAP) Pulse Ox O2 Delivery O2 Flow Rate FiO2 06/19/19 10:06 94 Room Air 06/19/19 08:00 97.0 3 18 144/79 (100) 06/15/19 21:35 21 Capillary Refill : Less Than 3 SecondsLess Than 3 Seconds General Appearance: No Apparent Distress, Chronically ill, Obese HEENT: PERRL/EOMI, Moist Mucous Membranes; No Scleral Icterus (L), No Scleral Icterus (R) Neck: Normal Inspection, Supple; No Thyromegaly Respiratory: Lungs Clear, No Accessory Muscle Use, No Respiratory Distress Cardiovascular: Regular Rate, Rhythm, No JVD, No Murmur Gastrointestinal: Normal Bowel Sounds, Non Tender, Soft Extremity: Normal Capillary Refill, Non Tender, No Calf Tenderness, Swelling (trace to ankes bilaterally) Neurologic/Psychiatric: Alert, Oriented x3, Normal Mood/Affect; No Aphasia, No Facial Droop, No Sensory Deficit Skin: Normal Color, Warm/Dry Results/Procedures Lab Patient resulted labs reviewed. Clinical Quality Measures DVT/VTE Risk/Contraindication: Risk Factor Score Per Nursin RFS Level Per Nursing on Admit: 4+=Very High BASSAM POZO DO Jun 19, 2019 10:26
--- NOTE | 2019-06-19 11:41 | Physical Therapy Daily Note ---
PT Daily Note-Current Subjective Patient in recliner pre tx, agrees to PT, has no complaints of pain. Appearance Patient in recliner post tx with nurse call, phone, tray, all needs met, legs elevated. Mental Status Patient Orientation: Person, Place, Situation Transfers Therapy Code Descriptions/Definitions Functional [place] Measure: 0=Not Assessed/NA 4=Minimal Assistance 1=Total Assistance 5=Supervision or Setup 2=Maximal Assistance 6=Modified [place] 3=Moderate Assistance 7=Complete [place] Therapy Quality Codes: 6 Independent with activity with or without an assistive device 5 Patient requires set up or clean up by helper. Patient completes activity by themselves 4 Supervision or touching assist (CGA). [place] provide cues , steadying assist 3 The helper provides less than half the effort to complete the activity 2 The helper provides more than half the effort to complete the activity 1 Dependent. The helper does all the effort to complete an activity 7 Patient refused to complete or attempt activity 9 The patient did not perform the activity before the current illness or injury 88 Not attempted due to Medical conditions or safety concerns Transfers (B, C, W/C) (FIM): 4 Sit to/from Stand: 4 sit to stand min assist. Gait Training Gait (FIM): 1 Distance: 20' Gait Level of Assist: 4 Gait Persons Needed: 1 Gait Assistive Device: FWW Patient has unsteady ambulation, min assist for balance, very shaky. Exercises Seated Therapy Exercises: Ankle pumps, Long arc quads, Hip flexion Seated Reps: 15 Treatments ambulation, BLE exercises Assessment Current Status: Fair Progress slightly improved distance of ambulation PT Short Term Goals Short Term Goals Time Frame: Jun 24, 2019 Transfers (B,C,W/C) (FIM): 4 Gait (FIM): 2 Gait Distance Comment: 50' Gait Level of Assist: 4 Gait Assistive Device: FWW PT Plan Problem List Problem List: Activity Tolerance, Functional Strength, Safety, Balance, Gait, Transfer, Bed Mobility, ROM Treatment/Plan Treatment Plan: Continue Plan of Care Treatment Plan: Bed Mobility, Education, Functional Activity Samantha, Functional Strength, Gait, Safety, Therapeutic Exercise, Transfers Treatment Duration: Jun 24, 2019 Frequency: 6 times per week Estimated Hrs Per Day: .25 hour per day Patient and/or Family Agrees t: Yes Safety Risks/Education Patient Education: Gait Training, Transfer Techniques, Correct Positioning, Safety Issues Teaching Recipient: Patient Teaching Methods: Demonstration, Discussion Response to Teaching: Reinforcement Needed Time/GCodes Time In: 1126 Time Out: 1139 Total Billed Treatment Time: 13 Total Billed Treatment 1 visit FA NATANAEL KAPOOR PT Jun 19, 2019 11:41
--- NOTE | 2019-06-19 11:47 | NUR ---
CM/SS patient's insurance has denied inpatient hospitalization and the inpatient rehab. Discussed with the patient SNF to rebuild strength before returning home, previously at [facility]. Patient stated to speak with his as she was the decision maker. Mary (patient's ) stated that he would not be going to a nursing facility, that he would return home. She stated that she has help with her grandson to bath and get him around. She felt he got depressed in the snf and did better physically and mentally at home. Would be agreeable to [facility] PT/OT.
[2019-06-19 12:00] VITALS: BP 135/64
--- NOTE | 2019-06-19 12:59 | Occupational Ther Daily Note ---
OT Current Status-Daily Note Subjective Pt sitting in chair, agrees to treatment. No c/o pain. Mental Status/Objective Therapy Code Descriptions/Definitions Functional [place] Measure: 0=Not Assessed/NA 4=Minimal Assistance 1=Total Assistance 5=Supervision or Setup 2=Maximal Assistance 6=Modified [place] 3=Moderate Assistance 7=Complete [place] ADL-Treatment Pt performed grooming tasks while seated in chair. Pt brushed teeth and washed face with SBA. Pt performed sit to stand x2 with min to mod assist and cues for hand placement. Pt transferred chair <-> EOB with min assist with FWW. Pt fatigues quickly with mobility and requires rest break. Pt sitting in chair with needs met after session. OT Short Term Goals Short Term Goals Transfers (B,C,W/C) (FIM): 4 1=Demonstrate adherence to instructed precautions during ADL tasks. 2=Patient will verbalize/demonstrate understanding of assistive devices/modifications for ADL. 3=Patient will improve strength/tolerance for activity to enable patient to perform ADL's. OT Data Processing Control Clerk Goals Data Processing Control Clerk Goals Time Frame: Jul 02, 2019 Bathing(FIM): 4 Upper Body Dressing(FIM): 5 Lower Body Dressing(FIM): 4 Toileting(FIM): 5 Toilet/Commode Transfer(FIM): 5 Additional Goals: 1-Demonstrate ADL Tasks, 2-Verbalize Understanding, 3-Improve Strength/Samantha 1=Demonstrate adherence to instructed precautions during ADL tasks. 2=Patient will verbalize/demonstrate understanding of assistive devices/modifications for ADL. 3=Patient will improve strength/tolerance for activity to enable patient to pe rform ADL's. OT Education/Plan Discharge Recommendations Plan/Recommendations: Continue POC Treatment Plan/Plan of Care Patient would benefit from OT for education, treatment and training to promote independence in ADL's, mobility, safety and/or upper extremity function for ADL's. Plan of Care: ADL Retraining, Functional Mobility, UE Funct Exercise/Act Treatment Duration: Jul 02, 2019 Frequency: 5 times per week Estimated Hrs Per Day: .25 hour per day Rehab Potential: Fair Time/GCodes Start Time: 11:08 Stop Time: 11:21 Total Time Billed (hr/min): 13 Billed Treatment Time 1 visit, ADL(13minutes) FANTA ALEX OT Jun 19, 2019 12:59
--- NOTE | 2019-06-19 13:05 | Discharge Summary ---
Diagnosis/Chief Complaint Date of Admission Jun 15, 2019 at 19:53 Date of Discharge Discharge Date: Jun 19, 2019 Admission Diagnosis Left Sided weakness- rule out stroke Discharge Diagnosis (1) Altered mental status Status: Resolved (2) Rigidity (muscles) Status: Acute (3) Hypertension Status: Chronic (4) Parkinsonian syndrome Status: Chronic (5) Diabetes mellitus Status: Chronic (6) CAD (coronary artery disease) Status: Acute (7) Diffuse pain in left upper extremity Status: Acute Discharge Summary Discharge Physical Exam Allergies: Coded Allergies: Penicillins (Verified Allergy, Unknown, 05/01/12) Vitals & I&Os Vital Signs Date Time Temp Pulse Resp B/P (MAP) Pulse Ox O2 Delivery O2 Flow Rate FiO2 06/19/19 14:59 75 18 135/64 94 Room Air 06/19/19 12:00 98.4 06/15/19 21:35 21 General Appearance: No Apparent Distress, WD/WN, Chronically ill Respiratory: Chest Non Tender, Lungs Clear, Normal Breath Sounds, No Accessory Muscle Use, No Respiratory Distress Cardiovascular: Regular Rate, Rhythm, No Edema, No Gallop, No JVD, No Murmur, Normal Peripheral Pulses Neurologic/Psychiatric: Alert, Oriented x3, No Motor/Sensory Deficits, Normal Mood/Affect Hospital Course Was the Problem List Reviewed?: Yes Hospital course: PT had an uneventful hospital course after he was admitted for left sided weakness stroke protocol maintained and pt was treated for COPD exacerbation. PT and OT saw the pt and it appeared that there was no evidence of an acute stroke and he improved enough maintained on all of his home meds, and was felt to be back to his baseline. He has plenty of help at home and he will be discharged with family but overall prognosis very poor. He needs long term placement likely on a permanent basis due to chronic debility and fall risk. Labs (last 24 hrs) Laboratory Tests 06/19/19 05:31: Glucometer 154H 06/19/19 10:52: Glucometer 243H Patient resulted labs reviewed. Pending Labs Discussion & Recommendations Discharge Planning: <30 minutes discharge planning Discharge Home Medications: Active Scripts Active Reported Advair Hfa 115-21 Mcg Inhaler (Fluticasone/Salmeterol) 12 Gm Hfa.aer.ad 2 Puff IH BID Natural Balance Tears Eye Drop (Dextran 70/Hypromellose) 15 Ml Drops 2 Drops OU Q4H PRN Iprat-Albut 0.5-3(2.5) mg/3 ml (Ipratropium/Albuterol Sulfate) 3 Ml Ampul.neb 3 Ml NEB BID PRN Potassium Chloride 10 Meq Tab.er.prt 10 Meq PO BID Tylenol Extra Strength (Acetaminophen) 500 Mg Tablet 1,000 Mg PO Q6H PRN Omeprazole 20 Mg Capsule.dr 20 Mg PO DAILY Novolin R (Insulin Regular, Human) 100 Unit/1 Ml Vial SC QID 60-200 = 0 UNITS 201-250 = 3 UNITS 251-300 = 5 UNITS 301-350 = 7 UNITS 351-400 = 9 UNITS >400 CALL PROVIDER Silodosin 8 Mg Capsule 8 Mg PO DAILY Memantine HCl 10 Mg Tablet 10 Mg PO BID Carbidopa-Levo ER 50-200 Tab (Carbidopa/Levodopa) 1 Each Tablet.er 1 Tab PO TID Myrbetriq (Mirabegron) 50 Mg Tab.er.24h 50 Mg PO DAILY Isosorbide Mononitrate ER (Isosorbide Mononitrate) 30 Mg Tab.er.24h 30 Mg PO DAILY Atorvastatin Calcium 10 Mg Tablet 10 Mg PO HS Donepezil HCl 10 Mg Tablet 10 Mg PO DAILY Levemir Flextouch (Insulin Detemir) 100 Unit/1 Ml Insuln.pen 21 Units SC BID Furosemide 20 Mg Tablet 20 Mg PO BID Enalapril Maleate 10 Mg Tablet 5 Mg PO DAILY TAKES 1/2 (10MG) TABLET Vitamin D3 (Cholecalciferol (Vitamin D3)) 1,000 Unit Capsule 1,000 Unit PO BID Fish Oil 1,000 mg Softgel (Sunshine-3 Fatty Acids/Fish Oil) 1 Each Capsule 2,000 Mg PO BID TAKES 2 (1000MG) CAPSULES Aspirin EC (Aspirin) 81 Mg Tablet.dr 81 Mg PO DAILY Pioglitazone HCl 30 Mg Tablet 30 Mg PO DAILY Proventil Hfa (Albuterol Sulfate) 6.7 Gm Hfa.aer.ad 2 Puff IH Q4H PRN Metoprolol Succinate 50 Mg Tab.er.24h 25 Mg PO DAILY TAKES 1/2 (50MG) TABLET Instructions to patient/family Please see electronic discharge instructions given to patient. Clinical Quality Measures DVT/VTE Risk/Contraindication: Risk Factor Score Per Nursin RFS Level Per Nursing on Admit: 4+=Very High Problem Qualifiers (1) Hypertension: Hypertension type: essential hypertension Qualified Codes: I10 - Essential (primary) hypertension (2) Parkinsonian syndrome: Parkinsonism type: Parkinson's disease Qualified Codes: G20 - Parkinson's disease (3) Diabetes mellitus: Diabetes mellitus type: type 2 Diabetes mellitus halfway insulin use: unspecified halfway insulin use status BASSAM POZO DO Jun 19, 2019 13:05
[2019-06-19 14:59] VITALS: BP 135/64
== END 2019-06-19 13:04 | disposition home health service (06) ==
LOC: EDUNIT# 17:12 → ER 17:13 → UNDOADMIN 19:53 → 4TH 19:53 → UNDODISIN 06-19 15:00
PROVIDERS: ADMIT Family Medicine; ATTEND Family Medicine
DX: G20 Parkinson's disease (principal); G81.94 Hemiplegia, unspecified affecting left nondominant side; I42.9 Cardiomyopathy, unspecified; R13.10 Dysphagia, unspecified; I10 Essential (primary) hypertension; E11.65 Type 2 diabetes mellitus with hyperglycemia; J44.9 Chronic obstructive pulmonary disease, unspecified; I25.119 Atherosclerotic heart disease of native coronary artery with unspecified angina pectoris; E78.00 Pure hypercholesterolemia, unspecified; F03.90 Unspecified dementia, unspecified severity, without behavioral disturbance, psychotic disturbance, mood disturbance, and anxiety; N32.81 Overactive bladder; R26.81 Unsteadiness on feet; R53.81 Other malaise; M19.91 Primary osteoarthritis, unspecified site; Z95.1 Presence of aortocoronary bypass graft; Z87.891 Personal history of nicotine dependence; Z87.442 Personal history of urinary calculi; Z79.4 Long term (current) use of insulin; Z87.11 Personal history of peptic ulcer disease; Z88.0 Allergy status to penicillin; Z79.899 Other long term (current) drug therapy; R13.12 Dysphagia, oropharyngeal phase
CPT/HCPCS: 36415; 70450; 70496; 70498; 71045; 80048; 80053; 80061; 81000; 82962; 84484; 85025; 85379; 85610; 85730; 93005; 93041; 94640; 94664; 94760; 96360; G0378

== ENCOUNTER → 2020-02-09 | Outpatient (CLI) | payer MEDICARE ==
[~2020-02-09] MED LIST changes: +ACET-2267 PO; +CARB1TAB41 PO; +DEXT15DR23 OU; +INSU100V31 SC; +IPRA3AMP31 NEB; +MEMA10TA57 PO; -METO-370 PO; +METO50TA7 PO; +OMEP20CA18 PO; +OMEP40CA27 PO; -OMEP40CA36 PO; +POTA10TA36 PO; +SILO8CAP6 PO
== END ==
PROVIDERS: ATTEND Internal Medicine Cardiovascular Disease
DX: Z53.9 Procedure and treatment not carried out, unspecified reason (principal)

== ENCOUNTER → 2020-02-09 | Outpatient (CLI) | payer MEDICARE | PROVIDERS: ATTEND Internal Medicine | DX: Z01.89 Encounter for other specified special examinations (principal) | CPT/HCPCS: 87804 ==

== ENCOUNTER → 2020-02-09 | Outpatient (CLI) | payer MEDICARE | PROVIDERS: ATTEND Internal Medicine | DX: Z53.9 Procedure and treatment not carried out, unspecified reason (principal) ==

== ENCOUNTER → 2021-10-01 | Outpatient (CLI) | payer MEDICARE ==
[~2021-10-01] MED LIST changes: +ASPI-1238 PO; -ASPI-983 PO; -CARB1TAB17 PO; +CARB1TAB30 PO; +ENAL10TA16 PO; -ISOS30TA3 PO; +ISOS30TA82 PO; -OMEP40CA27 PO; +OMEP40CA6 PO
--- NOTE | 2021-10-01 12:32 | Diagnostic Imaging Report ---
INDICATION: Pain in the right retroareolar region. There is an area of hypoechogenicity in the retroareolar right breast measuring 1.5 x 0.6 x 1.0 cm. The left breast was evaluated in the retroareolar region as well for comparison purposes. There is a similar-appearing area in the retroareolar left breast which shows ill-defined hypoechogenicity measuring 2.2 x 1.0 x 1.7 cm. These areas likely represent gynecomastia. No other abnormalities are identified. IMPRESSION: BI-RADS Category 2 Features most suggestive of gynecomastia. However, diagnostic mammography may prove useful for further evaluation if symptoms persist. ACR BI-RADS Category 2: Benign findings. Result letter will be mailed to the patient. Note: At least 10% of breast cancer is not imaged by mammography. Dictated by: Dictated on workstation # [id number]
== END ==
LOC: RAD 10:44
PROVIDERS: ATTEND Internal Medicine
DX: N64.4 Mastodynia (principal)
CPT/HCPCS: 76641

== ENCOUNTER → 2021-11-30 | Outpatient (CLI) | payer MEDICARE ==
[~2021-11-30] MED LIST changes: +CATHETER FLUSH 10 ML SYR IV PRN; +HOLD METFORMIN - RECEIVED CONTRAST 20 ML VIAL IV SCH; +IOHEXOL 350 MG/ML 100 ML (OMNIPAQUE 350) VIAL IV ONE; +NS 100 ML (IVPB) BAG IV ONE; -POTA10TA36 PO; +POTA10TA37 PO
--- NOTE | 2021-11-30 08:43 | Diagnostic Imaging Report ---
PROCEDURE: CT abdomen and pelvis with contrast. TECHNIQUE: Multiple contiguous axial images were obtained through the abdomen and pelvis after administration of intravenous contrast. Auto Exposure Controls were utilized during the CT exam to meet ALARA standards for radiation dose reduction. All CT scans use one or more of the following dose optimizing techniques: automated exposure control, MA and/or KvP adjustment based on patient size and exam type or iterative reconstruction. INDICATION: Abdominal pain The previous CT abdomen/pelvis exam of 08/10/2017 noted diverticulosis of the sigmoid colon but failed to show any sign of acute diverticulitis. On this exam there is again evidence of diverticulosis of the sigmoid colon but there is still no sign of acute diverticulitis. There is no pelvic mass or free fluid collection identified. The prostate gland is not enlarged. The urinary bladder is grossly unremarkable. The appendix was not well-visualized but there are no indirect signs of acute appendicitis. The liver is of lower density than usually seen. This does suggest fatty metamorphosis. As noted on the prior exam the gallbladder is surgically absent. The spleen, pancreas, adrenals, aorta and inferior vena cava and portal vein are unremarkable for an acute abnormality. There is no solid renal mass identified and there is no evidence for obstruction of either collecting system. There is a small amount of atelectasis/infiltrate and fluid in the right lung base. This has developed since the prior study. Left lung base generally clear although chronic pulmonary changes are again evident. The bone windows shows for fracture or for destructive lesion. Impression: 1. There is no acute abnormality in the abdomen or pelvis. 2. A small amount of atelectasis/infiltrate and fluid has developed in the right lung base. Dictated by: Dictated on workstation # [id number]
== END ==
LOC: RAD 07:45
PROVIDERS: ATTEND Internal Medicine
DX: R10.9 Unspecified abdominal pain (principal); J81.1 Chronic pulmonary edema
CPT/HCPCS: 74177

== ENCOUNTER 2021-12-22 12:40 | Inpatient (IN) | payer MEDICARE, MEDICAID ==
[~2021-12-22 12:40] MED LIST changes: -CATHETER FLUSH 10 ML SYR IV PRN; -HOLD METFORMIN - RECEIVED CONTRAST 20 ML VIAL IV SCH; -IOHEXOL 350 MG/ML 100 ML (OMNIPAQUE 350) VIAL IV ONE; -NS 100 ML (IVPB) BAG IV ONE
--- NOTE | 2021-12-22 13:12 | ED Respiratory ---
General Chief Complaint: COVID19 Suspect/Confirmed Stated Complaint: COVID + Source: EMS Exam Limitations: clinical condition, physical impairment (dementia) History of Present Illness Date Seen by Provider: Dec 22, 2021 Time Seen by Provider: 12:55 Initial Comments Mr Núñez is an 81yo male who presents from home today, chief complaint being Covid Positive and increased SOB/hypoxia, generalized malaise, wekaness, decreased activity, appetite. has had multiple visits to [facility] over the last 10 days for declining symptoms with no hospitalizations. Has a history of some dementia, but, according to his daughter, with who he lives, is normally able to be up and walking with the aid of a walker. Normally conversational (although hard of hearing). Usually has a good appetite. Significant decline in the last 3 days. Has not actually walked since last monday - and has not eaten much at all. Just prior to the ambulance getting to the house a home oxygen complany delivered O2, applied it, and after no improvement she decided to go ahead and send him. in. ROS unobtainable from the patient as he appears very weak and ill. Hard of hearing, but will only basically answer yes and no to questions when I get down close to his ear. Timing/Duration: getting worse Severity: severe Prior Episodes/Possible Cause: illness exposure Associated Symptoms: shortness of breath, other (generalized maialase and fatigue per daughter) Allergies and Home Medications Allergies Coded Allergies: Penicillins (Verified Allergy, Unknown, 05/01/12) Patient Home Medication List Home Medication List Reviewed: Yes Hyoscyamine Sulfate (Levsin) 0.125 Mg Tablet, 0.125 MG PO Q4H PRN for TERMINAL SECRETIONS Prescribed by: ORLANDO GRANT on 12/23/21 1343 Lorazepam (Ativan) 0.5 Mg Tablet, 0.5 MG SL Q2H PRN for AGITATION Prescribed by: ORLANDO GRANT on 12/23/21 1343 Morphine Sulfate (Morphine Conc. 20mg/ml) 100 Mg/5 Ml Solution, 10 MG PO Q2H PRN for PAIN Prescribed by: ORLANDO GRANT on 12/23/21 1343 Discontinued Medications Acetaminophen (Tylenol Extra Strength) 500 Mg Tablet, 1,000 MG PO Q6H PRN for PAIN-MILD OR TEMPATURE, (Reported) Entered as Reported by: LE HIDALGO on 06/18/19 0933 Albuterol Sulfate (Proventil Hfa) 6.7 Gm Hfa.aer.ad, 2 PUFF IH Q4H PRN for SHORTNESS OF BREATH, (Reported) Entered as Reported by: LE HIDALGO on 08/05/16 1154 Aspirin (Aspirin EC) 81 Mg Tablet.dr, 81 MG PO DAILY, (Reported) Entered as Reported by: LE HIDALGO on 08/11/17 0945 Atorvastatin Calcium (Atorvastatin Calcium) 10 Mg Tablet, 10 MG PO HS, (Reported) Entered as Reported by: LE HIDALGO on 01/24/19 1444 Carbidopa/Levodopa (Carbidopa-Levo ER 50-200 Tab) 1 Each Tablet.er, 1 TAB PO TID, (Reported) Entered as Reported by: LE HIDALGO on 06/17/19 0957 Cholecalciferol (Vitamin D3) (Vitamin D3) 1,000 Unit Capsule, 1,000 UNIT PO BID, (Reported) Entered as Reported by: LE HIDALGO on 08/11/17 0945 Dextran 70/Hypromellose (Natural Balance Tears Eye Drop) 15 Ml Drops, 2 DROPS OU Q4H PRN for DRY EYES, (Reported) Entered as Reported by: LE HIDALGO on 06/18/19 09 Donepezil HCl (Donepezil HCl) 10 Mg Tablet, 10 MG PO DAILY, (Reported) Entered as Reported by: LE HIDALGO on 01/24/19 1444 Enalapril Maleate (Enalapril Maleate) 10 Mg Tablet, 5 MG PO DAILY, (Reported) Entered as Reported by: LE HIDALGO on 08/11/17 0945 Fluticasone/Salmeterol (Advair Hfa 115-21 Mcg Inhaler) 12 Gm Hfa.aer.ad, 2 PUFF IH BID, (Reported) Entered as Reported by: LE HIDALGO on 06/18/19 09 Furosemide (Furosemide) 20 Mg Tablet, 20 MG PO BID, (Reported) Entered as Reported by: LE HIDALGO on 08/11/17 0945 Insulin Detemir (Levemir Flextouch) 100 Unit/1 Ml Insuln.pen, 21 UNITS SC BID, (Reported) Entered as Reported by: LE HIDALGO on 08/11/17 0953 Insulin Regular, Human (Novolin R) 100 Unit/1 Ml Vial, SC QID, (Reported) Entered as Reported by: LE HIDALGO on 06/17/19 1607 Ipratropium/Albuterol Sulfate (Iprat-Albut 0.5-3(2.5) mg/3 ml) 3 Ml Ampul.neb, 3 ML NEB BID PRN for SHORTNESS OF BREATH, (Reported) Entered as Reported by: LE HIDALGO on 06/18/19 0933 Isosorbide Mononitrate (Isosorbide Mononitrate ER) 30 Mg Tab.er.24h, 30 MG PO DAILY, (Reported) Entered as Reported by: LE HIDALGO on 01/24/19 1444 Memantine HCl (Memantine HCl) 10 Mg Tablet, 10 MG PO BID, (Reported) Entered as Reported by: LE HIDALGO on 06/17/19 0957 Metoprolol Succinate (Metoprolol Succinate) 50 Mg Tab.er.24h, 25 MG PO DAILY, (Reported) Entered as Reported by: LE HIDALGO on 08/05/16 1125 Mirabegron (Myrbetriq) 50 Mg Tab.er.24h, 50 MG PO DAILY, (Reported) Entered as Reported by: LE HIDALGO on 01/24/19 1444 Brave-3 Fatty Acids/Fish Oil (Fish Oil 1,000 mg Softgel) 1 Each Capsule, 2,000 MG PO BID, (Reported) Entered as Reported by: LE HIDALGO on 08/11/17 0945 Omeprazole (Omeprazole) 20 Mg Capsule.dr, 20 MG PO DAILY, (Reported) Entered as Reported by: LE HIDALGO on 06/18/19 0933 Pioglitazone HCl (Pioglitazone HCl) 30 Mg Tablet, 30 MG PO DAILY, (Reported) Entered as Reported by: LE HIDALGO on 08/05/16 1319 Potassium Chloride (Potassium Chloride) 10 Meq Tab.er.prt, 10 MEQ PO BID, (Reported) Entered as Reported by: LE HIDALGO on 06/18/19 0933 Silodosin (Silodosin) 8 Mg Capsule, 8 MG PO DAILY, (Reported) Entered as Reported by: LE HIDALGO on 06/17/19 0957 Review of Systems Review of Systems Constitutional: see HPI Unable to Obtain a ROS secondary to patient's history of dementia Past Jjfjcrx-Cocyvz-Qmwwyt Hx Immunizations Up To Date Tetanus Booster (TDap): Less than 5yrs PED Vaccines UTD: No Seasonal Allergies Seasonal Allergies: No Past Medical History Surgeries: Yes (KIDNEY STONES REMOVED) Adenoidectomy, Cardiac, CABG, Gallbladder, Renal, Tonsillectomy Respiratory: Yes Asthma, Pneumonia, COPD Cardiac: Yes (CABG x 3 2007) Angina, Cardiomyopathy, Coronary Artery Disease, High Cholesterol, Hypertension Neurological: Yes Dementia, Parkinson's Disease Reproductive Disorders: No Genitourinary: Yes (OVERACTIVE BLADDER) Kidney Stones Gastrointestinal: No Musculoskeletal: Yes (UNSTEADY ON FEET, USES WALKER, GEN MUSCLE WEAKNESS, DYSPHAGIA ) Arthritis Endocrine: Yes Diabetes, Insulin dep HEENT: Yes Cataract, Dysphagia Loss of Vision: Denies Hearing Impairment: Hard of Hearing Cancer: No Psychosocial: No Integumentary: No Blood Disorders: No Adverse Reaction/Blood Tranf: No Family Medical History No Pertinent Family Hx Physical Exam Vital Signs - First Documented 12/22/21 12:50 Temp 38.2 Pulse 97 Resp 20 B/P (MAP) 130/67 (88) Pulse Ox 96 O2 Delivery OxyMask O2 Flow Rate 10.00 Capillary Refill : Height: 6'1.50" Weight: 245lbs. 7.4oz. 111.285283ez; 31.8 BMI Method:Stated General Appearance: WD/WN, moderate distress Eyes: Bilateral Eye Normal Inspection, Bilateral Eye PERRL, Bilateral Eye EOMI HEENT: PERRL/EOMI, other (dry oral mucosa) Neck: normal inspection Respiratory: lungs clear, other (increased work of breathing, grunting respirations, mouth breathing - room air sats 84/85%) Cardiovascular: regular rate, rhythm Gastrointestinal: normal bowel sounds, soft Genital/Rectal: normal genital exam Extremities: normal inspection, no pedal edema Neurologic/Psychiatric: alert, disoriented x 3 (unable to assess secondary to dementia) Skin: normal color, warm/dry Focused Exam Lactate Level 12/22/21 13:05: Lactic Acid Level 1.88 Lactic Acid Level Laboratory Tests Test 12/22/21 13:05 Lactic Acid Level 1.88 MMOL/L (0.50-2.00) Progress/Results/Core Measures Suspected Sepsis SIRS Temperature: Pulse: Respiratory Rate: Laboratory Tests 12/22/21 13:05: White Blood Count 6.8 Blood Pressure / Mean: 12/22/21 13:05: Lactic Acid Level 1.88 Laboratory Tests 12/22/21 13:05: Creatinine 1.16, INR Comment 0.9, Platelet Count 159, Total Bilirubin 0.7 Results/Orders Lab Results Laboratory Tests Test 12/22/21 13:05 12/22/21 13:45 12/22/21 13:50 Range/Units White Blood Count 6.8 4.3-11.0 10^3/uL Red Blood Count 5.76 H 4.30-5.52 10^6/uL Hemoglobin 16.3 13.3-17.7 g/dL Hematocrit 49 40-54 % Mean Corpuscular Volume 85 80-99 fL Mean Corpuscular Hemoglobin 28 25-34 pg Mean Corpuscular Hemoglobin Concent 33 32-36 g/dL Red Cell Distribution Width 16.5 H 10.0-14.5 % Platelet Count 159 130-400 10^3/uL Mean Platelet Volume 11.2 9.0-12.2 fL Immature Granulocyte % (Auto) 1 % Neutrophils (%) (Auto) 72 42-75 % Lymphocytes (%) (Auto) 18 12-44 % Monocytes (%) (Auto) 10 0-12 % Eosinophils (%) (Auto) 0 0-10 % Basophils (%) (Auto) 0 0-10 % Neutrophils # (Auto) 4.9 1.8-7.8 10^3/uL Lymphocytes # (Auto) 1.2 1.0-4.0 10^3/uL Monocytes # (Auto) 0.7 0.0-1.0 10^3/uL Eosinophils # (Auto) 0.0 0.0-0.3 10^3/uL Basophils # (Auto) 0.0 0.0-0.1 10^3/uL Immature Granulocyte # (Auto) 0.1 0.0-0.1 10^3/uL Prothrombin Time 13.0 12.2-14.7 SEC INR Comment 0.9 0.8-1.4 Activated Partial Thromboplast Time 31 24-35 SEC D-Dimer 1.22 H 0.00-0.49 UG/ML Sodium Level 133 L 135-145 MMOL/L Potassium Level 5.6 H 3.6-5.0 MMOL/L Chloride Level 99 98-107 MMOL/L Carbon Dioxide Level 23 21-32 MMOL/L Anion Gap 11 5-14 MMOL/L Blood Urea Nitrogen 31 H 7-18 MG/DL Creatinine 1.16 0.60-1.30 MG/DL Estimat Glomerular Filtration Rate 63 BUN/Creatinine Ratio 27 Glucose Level 94 70-105 MG/DL Lactic Acid Level 1.88 0.50-2.00 MMOL/L Calcium Level 9.3 8.5-10.1 MG/DL Corrected Calcium 9.5 8.5-10.1 MG/DL Total Bilirubin 0.7 0.1-1.0 MG/DL Aspartate Amino Transf (AST/SGOT) 75 H 5-34 U/L Alanine Aminotransferase (ALT/SGPT) 10 0-55 U/L Alkaline Phosphatase 60 40-136 U/L C-Reactive Protein High Sensitivity 3.50 H 0.00-0.50 MG/DL Total Protein 7.2 6.4-8.2 GM/DL Albumin 3.7 3.2-4.5 GM/DL Procalcitonin 0.20 H <0.10 NG/ML Urine Color YELLOW Urine Clarity CLEAR Urine pH 5.5 5-9 Urine Specific [place] 1.020 1.016-1.022 Urine Protein NEGATIVE NEGATIVE Urine Glucose (UA) 2+ H NEGATIVE Urine Ketones NEGATIVE NEGATIVE Urine Nitrite NEGATIVE NEGATIVE Urine Bilirubin NEGATIVE NEGATIVE Urine Urobilinogen 0.2 < = 1.0 MG/DL Urine Leukocyte Esterase NEGATIVE NEGATIVE Urine RBC (Auto) NEGATIVE NEGATIVE Urine RBC NONE /HPF Urine WBC 2-5 /HPF Urine Crystals PRESENT H /LPF Urine Amorphous Sediment RARE JEANNIE URATES H /LPF Urine Bacteria TRACE /HPF Urine Casts NONE /LPF Urine Mucus NEGATIVE /LPF Urine Yeast FEW H /HPF Urine Culture Indicated NO Blood Gas Puncture Site R WRIST Blood Gas Patient Temperature 100.9 Arterial Blood pH 7.38 7.37-7.43 Arterial Blood Partial Pressure CO2 38 35-45 MMHG Arterial Blood Partial Pressure O2 68 L 79-93 MMHG Arterial Blood HCO3 22 L 23-27 MMOL/L Arterial Blood Total CO2 22.6 21.0-31.0 MMOL/L Arterial Blood Oxygen Saturation 93 L 94-100 % Arterial Blood Base Excess -2.6 L -2.5-2.5 MMOL/L [place] Test YES-POS Blood Gas Ventilator Setting NO Blood Gas Inspired Oxygen 10 L Micro Results Microbiology 12/22/21 Blood Culture - Preliminary, Resulted No growth 12/22/21 Urine Culture - Final, Complete NO GROWTH 12/22/21 Blood Culture - Preliminary, Resulted Staphylococcus hominis My Orders Orders - ARIANNA MUSTAFA MD Cbc With Automated Diff (12/22/21 13:04) Comprehensive Metabolic Panel (12/22/21 13:04) Blood Culture (12/22/21 13:04) Urinalysis (12/22/21 13:04) Urine Culture (12/22/21 13:04) Protime With Inr (12/22/21 13:04) Partial Thromboplastin Time (12/22/21 13:04) Chest 1 View, Ap/Pa Only (12/22/21 13:04) Ed Iv/Invasive Line Start (12/22/21 13:04) Ed Iv/Invasive Line Start (12/22/21 13:04) Vital Signs Adult Sepsis Patie Q15M (12/22/21 13:04) O2 (12/22/21 13:04) Lactic Acid Analyzer (12/22/21 13:04) Fibrin Degradation Products (12/22/21 13:04) Procalcitonin (Pct) (12/22/21 13:04) Hs C Reactive Protein (12/22/21 13:04) Covid-19 External Lab Results (12/22/21 13:07) Isolation Central Supply Req (12/22/21 13:07) Arterial Blood Gas (12/22/21 13:51) Vital Signs/I&O 12/22/21 12:50 Temp 38.2 Pulse 97 Resp 20 B/P (MAP) 130/67 (88) Pulse Ox 96 O2 Delivery OxyMask O2 Flow Rate 10.00 Capillary Refill : Progress Note : Time: 15:00 Progress Note Long discussion with daughter - she reports that Mr Núñez is indeed a full code and would not want intubation if he got so short of breath he required it. She states they have all the home health needs they could want at home, but he is not currently on Hospice. She is interested in this but would like to give him a try in the hospital and see if there is anything that could help him get over this infection. She states he does have 24 hour in home care at home. She is worried about the fact that if he were to be admitted she would not be able to see him. I spoke with Dr Grant, admitting physician, and he stated he didnt want her to base her decision to admit or not admit on if she could see him in the hospital - that we would make sure she could. At this time, she would like him to be admitted and see if he improves. If he does not, she is willing to take him home on Hospice. Will consult Palliative Care to get this in motion. I feel like he is at high risk for worsening due to his medical history and current condition. Diagnostic Imaging Diagonstic Imaging: Xray Plain Films/CT/US/NM/MRI: chest Comments [facility] [place], [place] NAME: STEPHAN NÚÑEZ [facility] REC#: [id number] PT STATUS: REG ER : 1940 PHYSICIAN: ARIANNA MUSTAFA MD ADMIT DATE: 12/22/21/ER Draft Date of Exam:12/22/21 CHEST 1 VIEW, AP/PA ONLY INDICATION: Shortness of breath, hypoxia. COMPARISON: 06/15/2019 TECHNIQUE: Single radiograph of chest dated 12/22/2021. FINDINGS: Postsurgical changes of a CABG are again identified. The cardiac silhouette is stable. No significant pulmonary vascular congestion. Extensive patchy bilateral mixed interstitial and airspace opacities are present. These are new from the prior examination. No significant pleural effusion. No pneumothorax. No acute osseous abnormality. IMPRESSION: New extensive bilateral pulmonary infiltrates, favored to relate to an underlying infectious etiology. COVID 19 should be considered. Radiographic followup after appropriate therapy is recommended to ensure clearance. Dictated on workstation # [id number] Dict: 12/22/21 1349 Trans: 12/22/21 1351 CV [id number] Interpreted by: TONY FERRER MD Electronically signed by: Critical Care Note Critical Care Start Time: 12:55 Stop Time: 15:25 Total Time (minutes) 40 minutes critical care time in the evaluation and management of this 81-year-old with Covid pneumonia/hypoxemia. Time includes initial evaluation, management of hypoxia with supplemental oxygen, review of labs and imaging studies, review of the medical record, extensive discussion with family, discussion with hospitalist. Departure Communication (Admissions) Time/Spoke to Admitting Phy: 15:[address] Grant Impression Primary Impression: Pneumonia due to COVID-19 virus Additional Impression: Hypoxemia Disposition: ADMITTED INPATIENT Condition: Stable Admissions Decision to Admit Reason: Admit from ER (General) Decision to Admit/Date: Dec 22, 2021 Time/Decision to Admit Time: 15:30 Departure-Patient Inst. Referrals: FANG ROLLINS MD (PCP/Family) Primary Care Physician Scripts Hyoscyamine Sulfate (Levsin) 0.125 Mg Tablet 0.125 MG PO Q4H PRN for TERMINAL SECRETIONS for 7 Days, #20 TAB Prov: ORLANDO GRANT MD 12/23/21 Lorazepam (Ativan) 0.5 Mg Tablet 0.5 MG SL Q2H PRN for AGITATION for 7 Days, #[address] UNDER TONGUE AND ADD SMALL AMOUNT OF WATER TO DISOLVE TABLET Prov: ORLANDO GRANT MD 12/23/21 Morphine Sulfate (Morphine Conc. 20mg/ml) 100 Mg/5 Ml Solution 10 MG PO Q2H PRN for PAIN for 7 Days, #100 ML Prov: ORLANDO GRANT MD 12/23/21 ARIANNA MUSTAFA MD Dec 22, 2021 13:12
[2021-12-22 13:19] LABS: BASOPHILS % (AUTO) 0 % (0-10); EOSINOPHILS % (AUTO) 0 % (0-10); HEMATOCRIT 49 % (40-54); HEMOGLOBIN 16.3 g/dL (13.3-17.7); LYMPHOCYTES # (AUTO) 1.2 10^3/uL (1.0-4.0); LYMPHOCYTES % (AUTO) 18 % (12-44); MEAN CORPUSCULAR HEMOGLOBIN 28 pg (25-34); MEAN CORPUSCULAR HGB CONC 33 g/dL (32-36); MEAN CORPUSCULAR VOLUME 85 fL (80-99); MEAN PLATELET VOLUME 11.2 fL (9.0-12.2); MONOCYTES # (AUTO) 0.7 10^3/uL (0.0-1.0); MONOCYTES % (AUTO) 10 % (0-12); NEUTROPHILS # (AUTO) 4.9 10^3/uL (1.8-7.8); NEUTROPHILS % (AUTO) 72 % (42-75); PLATELET COUNT 159 10^3/uL (130-400); WHITE BLOOD COUNT 6.8 10^3/uL (4.3-11.0)
[2021-12-22 13:28] LABS: ALBUMIN 3.7 GM/DL (3.2-4.5); POTASSIUM 5.6 MMOL/L (3.6-5.0)
[2021-12-22 13:29] LABS: CALCIUM 9.3 MG/DL (8.5-10.1)
[2021-12-22 13:31] LABS: TOTAL PROTEIN 7.2 GM/DL (6.4-8.2)
[2021-12-22 13:32] LABS: BILIRUBIN,TOTAL 0.7 MG/DL (0.1-1.0)
[2021-12-22 13:34] LABS: CREATININE SERUM 1.16 MG/DL (0.60-1.30)
[2021-12-22 13:38] LABS: FIBRIN DEGRADATION PRODUCTS 1.22 UG/ML (0.00-0.49); INR 0.9 (0.8-1.4)
--- NOTE | 2021-12-22 13:52 | Diagnostic Imaging Report ---
INDICATION: Shortness of breath, hypoxia. COMPARISON: 06/15/2019 TECHNIQUE: Single radiograph of chest dated 12/22/2021. FINDINGS: Postsurgical changes of a CABG are again identified. The cardiac silhouette is stable. No significant pulmonary vascular congestion. Extensive patchy bilateral mixed interstitial and airspace opacities are present. These are new from the prior examination. No significant pleural effusion. No pneumothorax. No acute osseous abnormality. IMPRESSION: New extensive bilateral pulmonary infiltrates, favored to relate to an underlying infectious etiology. COVID 19 should be considered. Radiographic followup after appropriate therapy is recommended to ensure clearance. Dictated by: Dictated on workstation # [id number]
[2021-12-22 14:06] LABS: BILIRUBIN,URINE NEGATIVE (NEGATIVE); CLARITY,URINE CLEAR; COLOR,URINE YELLOW; GLUCOSE, URINE (UA) 2+ (NEGATIVE); KETONES,URINE NEGATIVE (NEGATIVE); LEUKOCYTE ESTERASE ,URINE NEGATIVE (NEGATIVE); NITRITE,URINE NEGATIVE (NEGATIVE); PH,URINE 5.5 (5-9); PROTEIN,URINE NEGATIVE (NEGATIVE)
[2021-12-22 14:07] LABS: ABG BASE EXCESS -2.6 MMOL/L (-2.5-2.5); ABG OXYGEN SATURATION 93 % (94-100); ABG PCO2 38 MMHG (35-45); ABG PH 7.38 (7.37-7.43); ABG PO2 68 MMHG (79-93); ABG TCO2 22.6 MMOL/L (21.0-31.0); ALLENS TEST YES-POS
[2021-12-22 14:08] LABS: INSPIRED O2 10 L; PATIENT TEMP 100.9; VENTILATOR NO
[2021-12-22 14:13] LABS: AMORPHOUS SEDIMENT,UR RARE AMOR URATES /LPF; BACTERIA,URINE TRACE /HPF; YEAST,URINE FEW /HPF
[2021-12-22 16:20] VITALS: BP 124/69
[2021-12-22] MEDS ORDERED: RT-ALBUTEROL HFA 8.5 GM INHALER IH PRN (18:00)
[2021-12-22] MEDS ORDERED: ENOXAPARIN 300 MG/3 ML (LOVENOX) MULTI-DOSE VIAL SQ SCH (18:00)
[2021-12-22] MEDS ORDERED: ENOXAPARIN 100 MG/1 ML (LOVENOX) SYR SC SCH (18:00)
[2021-12-22] MEDS ORDERED: RT-ALBUTEROL HFA 8.5 GM INHALER IH SCH (18:00)
[2021-12-22] MEDS ORDERED: CATHETER FLUSH 10 ML SYR IV PRN (18:00)
[2021-12-22] MEDS ORDERED: ACETAMINOPHEN 325 MG TABLET PO PRN (18:00)
[2021-12-22] MEDS ORDERED: ACETAMINOPHEN 650 MG SUPP (TYLENOL) PR PRN ×2 (18:00→18:15)
[2021-12-22] MEDS ORDERED: BISACODYL 10 MG SUPP (DULCOLAX) PR PRN (18:15)
[2021-12-22] MEDS ORDERED: ONDANSETRON 4 MG/2 ML (SDV) Z0FRAN IVP PRN (18:15)
[2021-12-22] MEDS ORDERED: RT-ALBUTEROL/IPRATROPIUM 3 ML (DUONEB) VIAL INH PRN (18:15)
[2021-12-22] MEDS ORDERED: LORazepam INJ 2 MG/ML (ATIVAN) VIAL IVP PRN (18:15)
[2021-12-22] MEDS ORDERED: GLYCOPYRROLATE 0.2 MG/ML (ROBINUL) 2 ML VIAL IV PRN (18:15)
[2021-12-22] MEDS ORDERED: SALIVA STIMULANT MOUTH SPRAY (BIOTENE) 1.5 OZ MM PRN (18:15)
[2021-12-22] MEDS ORDERED: PROMETHAZINE INJ 25 MG/ML (PHENERGAN) AMP IVP PRN (18:15)
[2021-12-22] MEDS ORDERED: morphine (ROXINOL) 10 MG/0.5 ML oral conc 0.5 ML PO PRN (18:15)
[2021-12-22] MEDS ORDERED: ARTIFICAL TEARS 0.4 ML UNIT DOSE (REFRESH PLUS) OU PRN (18:15)
[2021-12-22] MEDS ORDERED: CATHETER FLUSH 10 ML SYR IV SCH (22:00)
[2021-12-23] MEDS ORDERED: HYOS0.1281 PO (13:43)
[2021-12-23] MEDS ORDERED: MORP100S7 PO (13:43)
[2021-12-23] MEDS ORDERED: LORA-404 SL (13:43)
--- NOTE | 2022-01-19 22:32 | Discharge Summary ---
Discharge Summary Hospital Course Problems/Dx: (1) Pneumonia due to COVID-19 virus Status: Acute Hospital Course Date of Admission: Dec 22, 2021 at 15:24 Admission Diagnosis : Acute respiratory failure due to COVID-19 Family Physician/Provider: Felton Funes MD Date of Discharge: 01/19/22 Discharge Diagnosis: Acute respiratory failure due to COVID-19 Hospital Course: Kevin Rucker is an 81 year old male with dementia who was admitted with acute respiratory failure due to COVID-19. He was requiring significant amounts of oxygen. His family elected to pursue hospice care. He was discharged home on h ospice in poor condition. Labs and Pending Lab Test: Microbiology 12/22/21 Blood Culture - Final, Complete No growth 12/22/21 Urine Culture - Final, Complete NO GROWTH Home Meds Active Levsin (Hyoscyamine Sulfate) 0.125 Mg Tablet 0.125 Mg PO Q4H PRN 7 Days Ativan (Lorazepam) 0.5 Mg Tablet 0.5 Mg SL Q2H PRN [address] UNDER TONGUE AND ADD SMALL AMOUNT OF WATER TO DISOLVE TABLET Morphine Conc. 20mg/ml (Morphine Sulfate) 100 Mg/5 Ml Solution 10 Mg PO Q2H PRN 7 Days Assessment/Pt Instructions Discharged on hospice Discharge Planning: >30 minutes discharge planning Discharge Physical Examination General Appearance: Chronically ill, Mild Distress Respiratory: Decreased Breath Sounds, Respiratory Distress Cardiovascular: Regular Rate, Rhythm, No Murmur Gastrointestinal: Normal Bowel Sounds, Soft Extremity: Normal Inspection, No Pedal Edema Skin: Normal Color, Warm/Dry Allergies: Coded Allergies: Penicillins (Verified Allergy, Unknown, 05/01/12) Discharge Summary Date of Admission Dec 22, 2021 at 15:24 Date of Discharge Dec 23, 2021 at 13:50 Discharge Date: Dec 23, 2021 Discharge Time: 13:50 Admission Diagnosis Acute respiratory failure due to COVID-19 Comfort Measures/ End of Life Care: Comfort Measures, Hospice Care (Home) Discharge Diagnosis (1) Pneumonia due to COVID-19 virus Status: Acute (2) Hypoxemia Status: Acute ORLANDO GRANT MD Jan 19, 2022 22:31
== END 2021-12-23 13:50 | disposition hospice, home (50) | DRG 177 ==
LOC: EDUNIT# 12:40 → ER 12:41 → 4TH 15:24
PROVIDERS: ADMIT Internal Medicine; ATTEND Internal Medicine
PROC: 8E0ZXY6 Isolation (ICD-10-PCS; principal; 2021-12-22)
DX: U07.1 COVID-19 (principal); J12.82 Pneumonia due to coronavirus disease 2019; J44.0 Chronic obstructive pulmonary disease with (acute) lower respiratory infection; I42.9 Cardiomyopathy, unspecified; Z66 Do not resuscitate; Z51.5 Encounter for palliative care; R09.02 Hypoxemia; Z95.1 Presence of aortocoronary bypass graft; I25.10 Atherosclerotic heart disease of native coronary artery without angina pectoris; E78.00 Pure hypercholesterolemia, unspecified; I10 Essential (primary) hypertension; G20 Parkinson's disease; F02.80 Dementia in other diseases classified elsewhere, unspecified severity, without behavioral disturbance, psychotic disturbance, mood disturbance, and anxiety; M19.90 Unspecified osteoarthritis, unspecified site; E11.9 Type 2 diabetes mellitus without complications; Z79.4 Long term (current) use of insulin; Z79.82 Long term (current) use of aspirin; Z79.899 Other long term (current) drug therapy; Z88.0 Allergy status to penicillin; Z73.0 Burn-out
CPT/HCPCS: 36415; 51702; 71045; 80053; 81000; 82805; 83605; 84145; 85025; 85379; 85610; 85730; 86141; 87040; 87077; 87088; 94760